=== PATIENT | female | born 1970 | race Caucasian/White ===

== ENCOUNTER 2021-07-08 15:47 | Observation (INO) | payer BC, SELFPAY ==
[2021-07-08] VITALS (15 sets, daily range): BP systolic 128–158; BP diastolic 61–104; PULSE 74–144; RESP 16–21; TEMP 36.4–36.8; O2SAT 95–98; BMI 29.8; BMI 31.0
--- NOTE | 2021-07-08 16:12 | EKG12_ITS ---
Test Reason : TACHY Blood Pressure : / mmHG Vent. Rate : 133 BPM Atrial Rate : 119 BPM P-R Int : 000 ms QRS Dur : 094 ms QT Int : 312 ms P-R-T Axes : 000 -37 085 degrees QTc Int : 464 ms Atrial fibrillation Left axis deviation Nonspecific ST abnormality Abnormal ECG Confirmed by WINNIE SUMMERS, JOSEPH ([id number]), medical transcription editor DESTINY PARKER ([id number]) on 07/12/2021 9:53:45 AM Referred By: Confirmed By:ENZO ZHOU MD
--- NOTE | 2021-07-08 16:12 | EX.ED.DYSGE1 ---
HPI <APRIL Garcia - Last Filed: 07/08/21 17:34> History of Present Illness Chief Complaint: Shortness of Breath Narrative Narrative: 51-year-old female with history of hypertension presents to the emergency department with a feeling of shortness of breath, palpitations, dizziness while at work. Patient presents with palpitations, patient denies any chest pain. Patient states that she does have a long family history of heart disease, and is here for evaluation. She denies any recent fevers chills nausea vomiting PFSH <APRIL Garcia - Last Filed: 07/08/21 17:34> [facility] Medical History (Updated 07/08/21 @ 15:58 by Xin Vidal) HTN (hypertension) Home Medications amlodipine 10 mg PO DAILY 07/08/21 [History Last Taken Unknown] metoprolol succinate 100 mg PO DAILY 07/08/21 [History Last Taken Unknown] Allergy/AdvReac Type Severity Reaction Status Date / Time codeine AdvReac Other Verified 07/08/21 15:49 Family History no significant family his Surgical History (Updated 07/08/21 @ 15:58 by Xin Vidal) History of submandibular gland removal Social History Smoking Status: Former smoker ROS <APRIL Garcia - Last Filed: 07/08/21 17:34> ROS ED ROS Narrative Constitutional: Negative for fever, chills, weight loss, weakness Eyes: Negative for vision loss, vision change, double vision ENT: Negative for any sore throat, ear pain, congestion Cardiovascular: Negative for any chest pain. Positive for tightness, palpitations, racing heartbeat Respiratory: Negative for any cough, sputum production, hemoptysis, shortness of breath, shortness of breath on exertion, orthopnea Gastrointestinal: Negative for any abdominal pain, nausea, vomiting, diarrhea, constipation, blood in stool, blood in vomit : Negative for any urinary frequency, incontinence, dysuria, retention, blood in urine Muscle skeletal: Negative for any muscle joint pain, stiffness, myalgias, arthralgias, neck pain, back pain Neurological: Negative for any headache, dizziness, syncope, numbness or tingling Skin: Negative for any rashes, lumps, itching, abrasions, lacerations Psychiatric: Negative for any depression, anxiety, stress, suicidal ideation, homicidal ideation Hematologic: Negative for any easy bruising, excessive bruising, easy bleeding Allergies: Negative for any eczema, hives, rash EXAM <APRIL Garcia - Last Filed: 07/08/21 17:34> Physical Exam Narrative Exam Narrative: Vital signs reviewed. Initial arrival, patient's heart rate is anywhere between 130 to 155 bpm HEET: Head normocephalic atraumatic, TMs clear bilaterally. Posterior pharynx is clear, moist mucous membranes. Nares clear bilaterally. Neck: Supple with no lymphadenopathy or tenderness. No signs of meningismus, negative jolt sign. Cardiac: Irregular rate no murmurs gallops or rubs, equal peripheral pulses bilaterally. Respiratory: Lungs clear to auscultation bilaterally. No chest tenderness. Abdomen: Soft, nontender, nondistended. No abdominal bruit or pulsatile masses. No hepatosplenomegaly Extremities: No peripheral edema, no signs of gross trauma or deformity. Active full range of motion of all extremities. Neuro: Cranial nerves II through XII intact, no focal neurological deficits. Skin: Clean dry and intact with no rash, purpura, petechiae, vesicles or pustules. Backslash flank: No CVA tenderness, no midline spinal tenderness, no deformity. Psych: Normal mood and affect. No SI, HI or acute psychosis. Const Vital Signs: 07/08/21 15:48 07/08/21 16:19 Temperature 97.6 F L Temperature Source Temporal Pulse Rate 125 H Respiratory Rate 21 H Blood Pressure 132/100 H Blood Pressure Mean 110 Pulse Ox 98 Oxygen Delivery Method Room Air Room Air Positive well nourished and well developed General Appearance ED: well developed <Dr. Raghav Rocha MD - Last Filed: 07/08/21 17:33> Physical Exam Const Vital Signs: 07/08/21 15:48 07/08/21 16:19 Temperature 97.6 F L Temperature Source Temporal Pulse Rate 125 H Respiratory Rate 21 H Blood Pressure 132/100 H Blood Pressure Mean 110 Pulse Ox 98 Oxygen Delivery Method Room Air Room Air MDM <APRIL Garcia - Last Filed: 07/08/21 17:34> [facility] Narrative Medical decision making narrative: Patient arrives in mild distress secondary to tachycardia, patient did receive a full cardiac work-up. Patient is currently in atrial fibrillation, patient received a full cardiac work-up. Patient's TSH was unremarkable, patient's high-sensitivity troponin was negative at 45. Patient's chemistries, CBC was unremarkable. Patient did receive Cardizem 25 mg IV bolus, after 1 hour, she had little to no relief, heart rate was still greater than 140. Patient was then given another 20 mg IV as well as a Cardizem drip at 5 mg/h. Patient is stable for admission. Lab Data Labs: Laboratory Results - last 24 hr 07/08/21 07/08/21 07/08/21 16:20 16:20 16:20 WBC 9.1 RBC 5.12 Hgb 11.7 L Hct 38.6 MCV 75.4 L MCH 22.9 L MCHC 30.3 L RDW Std Deviation 44.4 H RDW Coeff of Sandra 16.5 H Plt Count 356 MPV 10.4 Immature Gran % (Auto) 0.300 Neut % (Auto) 63.9 Lymph % (Auto) 22.3 [place] % (Auto) 9.4 Eos % (Auto) 3.5 Baso % (Auto) 0.6 Absolute Neuts (auto) 5.8 Absolute Lymphs (auto) 2.02 Nucleated RBC % 0 PT 12.5 INR 1.0 Sodium 142 Potassium 3.8 Chloride 108 H Carbon Dioxide 28.0 Anion Gap 6 BUN 14 Creatinine 0.86 Estim Creat Clear Calc 79.06 Est GFR (MDRD) Af Amer 89 Est GFR (MDRD) Non-Af 74 BUN/Creatinine Ratio 16.4 Glucose 133 H Calcium 9.1 Troponin I High Sens 45 TSH 1.71 Radiography Diagnostic Testing: Clinical Impression(s) from Imaging Studies Chest X-Ray 07/08/21 16:43 IMPRESSION: Normal x-ray examination of the chest. Electronically Signed: José Miguel Saleh MD at 17:02 EDT , EKG Atrial fibrillation, : Attestation: I personally reviewed and interpreted this EKG as follows: Comments: EKG shows an atrial fibrillation with a rate of 133 bpm QRS duration 94 ms, no acute ST elevation, no acute infarct noted <Dr. Raghav Rocha MD - Last Filed: 07/08/21 17:33> [facility] MDM Narrative Medical decision making narrative: I have personally performed a face to face assessment of the patient and have reviewed the DEJAN Note. I performed a substantive portion of the visit including all aspects of the following. My mcgowan findings include: History is [51-year-old female no cardiac history. In the past told she might have an irregular heartbeat but was worked up and she was not placed on any medication. Today around 130 had her heart racing and was short of breath. I have evaluated this patient with our nurse practitioner.] Exam is [obese female. Initial heart rate is around 03/22/1941. A. fib RVR. HEENT exam unremarkable. Neck nontender. Lungs clear to auscultation. Heart irregular irregular rate 135. Abdomen soft nontender. Moving all 4 extremities. Calves are nontender without edema or cords.] Medical Decision Making [patient with new onset A. fib RVR. Underwent cardiac work-up. Work-up negative. Thyroid test normal. She was initially given Cardizem bolus. Still has significant tachycardia. Will be given a second dose of Cardizem IV and then placed on a drip.] Other additions or changes: [None] Lab Data Attestation: I reviewed the patient's lab results. Lab results narrative: CBC White count 9. H&H 11.7 and 38. PT/INR 12.1. Electrolytes unremarkable gap is 6 normal BUN and creatinine. Troponin normal at 45. TSH normal at 1.7. Chest x-ray unremarkable. Labs: Laboratory Results - last 24 hr 07/08/21 07/08/21 07/08/21 16:20 16:20 16:20 WBC 9.1 RBC 5.12 Hgb 11.7 L Hct 38.6 MCV 75.4 L MCH 22.9 L MCHC 30.3 L RDW Std Deviation 44.4 H RDW Coeff of Sandra 16.5 H Plt Count 356 MPV 10.4 Immature Gran % (Auto) 0.300 Neut % (Auto) 63.9 Lymph % (Auto) 22.3 [place] % (Auto) 9.4 Eos % (Auto) 3.5 Baso % (Auto) 0.6 Absolute Neuts (auto) 5.8 Absolute Lymphs (auto) 2.02 Nucleated RBC % 0 PT 12.5 INR 1.0 Sodium 142 Potassium 3.8 Chloride 108 H Carbon Dioxide 28.0 Anion Gap 6 BUN 14 Creatinine 0.86 Estim Creat Clear Calc 79.06 Est GFR (MDRD) Af Amer 89 Est GFR (MDRD) Non-Af 74 BUN/Creatinine Ratio 16.4 Glucose 133 H Calcium 9.1 Troponin I High Sens 45 TSH 1.71 Radiography Chest X-Ray - ED: 1 View, Read by ED Physician, Read by Radiologist, Heart, Lungs, Mediastinum, Bony Structures, No Acute Disease and Chronic Changes Diagnostic Testing: Clinical Impression(s) from Imaging Studies Chest X-Ray 07/08/21 16:43 IMPRESSION: Normal x-ray examination of the chest. Electronically Signed: José Miguel Saleh MD at 17:02 EDT , Chest x-ray, portable, single view interpreted by myself and radiologist shows no acute abnormality. Normal cardiac silhouette. <Dr. Raghav Rocha MD - Last Filed: 07/08/21 17:33> Critical Care Time Critical care time (excluding procedures): 30-74 minutes, Discussing w/Patient &/or Family/Cuprous Chloride Helper, Discussing w/Consultants, Arranging Admission or Transfer, Performing Direct Patient Care at Bedside and - (33 min) Discharge Plan Triage Chief Complaint: Shortness of Breath ED Midlevel Provider: Fredrick Ballard ED Provider: Raghav Rocha Dx/Rx/DC Orders Prescriptions: No Action metoprolol succinate 100 mg tablet extended release 24 hr 100 mg PO DAILY RF: 0 amlodipine 10 mg tablet 10 mg PO DAILY RF: 0 Primary Care Provider: Gerald Baird Referrals: Gerald Baird MD [Primary Care Provider] -
[2021-07-08] MEDS: dilTIAZem 25 MG/5 ML Vial IV BOLUS (16:26)
[2021-07-08 16:37] LABS: Absolute Lymphocyte Count 2.02 X10^3/uL (0.83-4.51); Absolute Neutrophil Count 5.8 X10^3/uL (2.0-7.7); Basophil# 0.05 X10^3/uL; Basophil% 0.6 % (0-1); Eosinophil# 0.32 X10^3/uL; Eosinophils% 3.5 % (0-5); Hematocrit 38.6 % (37-47); Hemoglobin 11.7 g/dL (12.0-15.0); Lymphocyte # 2.02 X10^3/ul (0.83-4.51); Lymphocyte % 22.3 % (19-41); Mean Corp Hgb Conc 30.3 g/dL (32-36); Mean Corpuscular Hgb 22.9 pg (27.0-32.0); Mean Corpuscular Volume 75.4 fL (81-99); Mean Platelet Vol. 10.4 fl (6.2-12.0); Monocyte# 0.85 X10^3/uL; Monocyte% 9.4 % (0-10); NRBC Flagged by Analyzer 0 % (0-5); Neutrophil % 63.9 % (47-70); Platelet Count 356 K/mm3 (150-450); RBC Distribution Width CV 16.5 % (11.6-14.6); RBC Distribution Width SD 44.4 fl (35.1-43.9); Red Blood Count 5.12 M/mm3 (4.2-5.4); White Blood Count 9.1 K/mm3 (4.4-11.0)
[2021-07-08 16:42] LABS: Prothrombin Time (Protime)PT. 12.5 SECONDS (11.7-14.9)
--- NOTE | 2021-07-08 16:43 | RAD_ITS ---
STUDY: X-RAY CHEST REASON FOR EXAM: Female, 51 years old. chest pain TECHNIQUE: Single AP portable view of the chest. COMPARISON: None. FINDINGS: The lungs are clear and expanded. There is no demonstrated pleural abnormality. Normal size heart. Normal mediastinum and berny. Normal visualized pulmonary arteries. Normal visualized aortic arch and descending thoracic aorta. Normal visualized thoracic spine. Normal visualized ribs, clavicles, and shoulders. There is no demonstrated abnormality of the visualized soft tissue structures of the upper abdomen. RAD/Chest 1 View (Portable) IMPRESSION: Normal x-ray examination of the chest. Electronically Signed: José Miguel Saleh MD at 17:02 EDT ,
[2021-07-08 17:00] LABS: Anion Gap 6 (5-15); BUN 14 mg/dL (7-18); BUN/Creat Ratio 16.4 RATIO (10-20); Calcium,Total 9.1 mg/dL (8.5-10.1); Chloride 108 mmol/L (98-107); Creatinine, Serum 0.86 mg/dL (0.55-1.02); EST Glomerular Filtration Rate 74 mL/min (>60); Est Glom Filt Rate - Afr Amer 89 mL/min (>60); Estimated Creatinine Clearance 79.06 ml/min; Glucose 133 mg/dL (74-106); Potassium 3.8 mmol/L (3.5-5.1); Sodium Level 142 mmol/L (136-145); Thyroid Stim Hormone (TSH) 1.71 uIU/mL (0.358-3.74); Troponin-I HS (w/2H Reflex) 45 pg/mL (3.0-54.0)
--- NOTE | 2021-07-08 17:27 | PCM.HP.STD ---
Documented by User: APRIL Kim 07/08/21 18:01 [facility] - General General Date of Admission: 07/08/21 Date of Service: 07/08/21 Chief Complaint: Palpitations HPI Narrative MAC WILL, is a 51 F who presents with palpitations. Patient has a history of hypertension but no history of atrial fibrillation. Patient received 1 dose in ER of Cardizem 25 mg. Patient also reports shortness of breath and dizziness, currently with palpitations. Patient denies any chest pain however patient does report that she has an extensive family history of heart disease. Patient initiated on Cardizem drip in ER. [facility] Medical History HTN (hypertension) Home Medications amlodipine 10 mg PO DAILY 07/08/21 [History Last Taken 07/08/21] metoprolol succinate 100 mg PO DAILY 07/08/21 [History Last Taken 07/07/21] Allergy/AdvReac Type Severity Reaction Status Date / Time codeine AdvReac Other Verified 07/08/21 15:49 Family History (Updated 07/08/21 @ 17:51 by APRIL Kim) Mother , from complications from mitral valve disease Hypertension Mitral valve disorder Brother Hypertension Sister Atrial fibrillation Father No problems noted. Family History no significant family his Surgical History History of breast lump removal History of submandibular gland removal Social History (Updated 07/08/21 @ 17:52 by APRIL Kim) Smoking Status: Former smoker alcohol intake: current alcohol intake frequency: holidays/special occasions only substance use type: does not use ROS Constitutional Constitutional: Denies anorexia, chills, fatigue, fever(s), malaise or weakness Cardiovascular Cardiovascular: Reports dizziness, dyspnea, palpitations and rapid heart rate; Denies chest pain, edema or vomiting Respiratory/Chest Respiratory/Chest: Denies cough, shortness of breath at rest, shortness of breath with exertion or wheezing Gastrointestinal Gastrointestinal: Denies abdominal pain, constipation, diarrhea, nausea or vomiting Genitourinary Genitourinary: Denies dysuria Musculoskeletal Musculoskeletal: Denies back pain, extremity pain, joint pain, joint stiffness or joint swelling Integumentary Integumentary: Denies dry skin Neurologic Neurologic: Denies abnormal gait, abnormal speech, confusion or focal weakness Psychiatric Psychiatric: Denies anxiety or depression Endocrine Endocrinology: Denies change in body appearance Vital Signs Vital Signs Vital Signs: 07/08/21 15:48 07/08/21 16:19 Temperature 97.6 F L Temperature Source Temporal Pulse Rate 125 H Respiratory Rate 21 H Blood Pressure 132/100 H Blood Pressure Mean 110 Pulse Ox 98 Oxygen Delivery Method Room Air Room Air Weight Weight: 202 lb Body Mass Index (BMI) 29.8 Physical Exam Const alert, oriented x3 and no apparent distress General Appearance: cooperative HEENT normocephalic and head/scalp atraumatic Eyes conjunctivae normal and no scleral icterus Neck supple Neck Narrative: Scar to right lateral neck from recent submandibular gland removal, no signs symptoms of infection General: trachea midline Resp normal respiratory effort, normal air movement and clear to auscultation bilaterally Cardio S1 normal heart sound, S2 normal heart sound and peripheral pulses 2+ throughout Rate: tachycardic Rhythm: abnormal rhythm irregularly irregular GI normal to inspection, nondistended, normoactive bowel sounds, soft to palpation and non-tender Extremity normal capillary refill and no clubbing, cyanosis or edema General Extremity: no tenderness to palpation of joints or extremities Skin General Skin Exam: no breakdown and turgor normal Lesions: no lesions Rashes: no rashes Neuro no focal motor deficits and no sensory deficits noted Speech: speech normal Motor Exam: Negative for general weakness Psych thought process normal, cooperative and affect normal Appearance: appropriate Results Lab / Micro Data Result Diagrams: 07/08/21 16:20 07/08/21 16:20 Labs: Laboratory Results - last 24 hr 07/08/21 16:20: WBC 9.1, RBC 5.12, Hgb 11.7 L, Hct 38.6, MCV 75.4 L, MCH 22.9 L, MCHC 30.3 L, RDW Std Deviation 44.4 H, RDW Coeff of Sandra 16.5 H, Plt Count 356, MPV 10.4, Immature Gran % (Auto) 0.300, Neut % (Auto) 63.9, Lymph % (Auto) 22.3, [place] % (Auto) 9.4, Eos % (Auto) 3.5, Baso % (Auto) 0.6, Absolute Neuts (auto) 5.8, Absolute Lymphs (auto) 2.02, Nucleated RBC % 0 07/08/21 16:20: PT 12.5, INR 1.0 07/08/21 16:20: Sodium 142, Potassium 3.8, Chloride 108 H, Carbon Dioxide 28.0, Anion Gap 6, BUN 14, Creatinine 0.86, Estim Creat Clear Calc 79.06, Est GFR (MDRD) Af Amer 89, Est GFR (MDRD) Non-Af 74, BUN/Creatinine Ratio 16.4, Glucose 133 H, Calcium 9.1, Troponin I High Sens 45, TSH 1.71 Radiology Impression Chest X-Ray 07/08/21 16:43 IMPRESSION: Normal x-ray examination of the chest. Electronically Signed: José Miguel Saleh MD at 17:02 EDT , Assessment & Plan Assessment/Plan (1) Atrial fibrillation with RVR: (2) Hypertension: QUALIFIERS: Hypertension type: primary hypertension Qualified Code(s): I10 - Essential (primary) hypertension (3) Microcytic anemia: PLAN: 1. Atrial fibrillation with RVR -Admit to PCU -Initiate Cardizem drip, patient received 2 doses IV push in ER, RVR continued -Trend cardiac enzymes -Echocardiogram in a.m. -Cardiac diet -Intake and output with daily weights -Case management consulted for discharge planning, likely patient will need NOAC -Vital signs per protocol -Twelve-lead EKG daily -CBC, CMP, hemoglobin A1c, lipid profile ordered for a.m. -TSH completed in ER, normal -Magnesium level ordered stat, potassium 3.8 -Patient initiated on therapeutic dose of subcu Lovenox 90 mg twice daily -Encouraged patient to call for help when ambulating in room or to bathroom as patient has been dizzy. -O2 per protocol, patient currently on room air, pulse ox 97% 2. Microcytic anemia -Unknown if this is chronic for patient as there are no comparison labs -We will obtain ferritin, iron, TIBC, stool occult blood -CBC daily 3. Hypertension -Chronic for patient, due to patient being initiated on Cardizem drip we will hold hypertensive medications at this time -Discussed medications with patient patient states that she is supposed to be taking metoprolol succinate 50 mg twice daily however due to insurance patient was only allowed to have 100 mg tabs and was originally told to split pills in half. Patient reports that doctors office then told her that she cannot split the pills in half do it to be extended release, so she has been taking 100 mg p.o. at night. -Vital signs per protocol -As needed IV hydralazine ordered DVT prophylaxis-therapeutic subcu Lovenox This patient was seen by APRIL Kim under the supervision of Dr. Herman. 31 minutes spent in clinical coordination of patient's plan of care. Documented by User: Dr. Sahra Herman MD 07/08/21 19:54 HPI - General General Date of Admission: 07/08/21 [facility] Medical History HTN (hypertension) Home Medications amlodipine 10 mg PO DAILY 07/08/21 [History Last Taken 07/08/21] metoprolol succinate 100 mg PO DAILY 07/08/21 [History Last Taken 07/07/21] Allergy/AdvReac Type Severity Reaction Status Date / Time codeine AdvReac Other Verified 07/08/21 15:49 Family History (Updated 07/08/21 @ 17:51 by APRIL Kim) Mother , from complications from mitral valve disease Hypertension Mitral valve disorder Brother Hypertension Sister Atrial fibrillation Father No problems noted. Family History no significant family his Surgical History History of breast lump removal History of submandibular gland removal Social History (Updated 07/08/21 @ 17:52 by APRIL Kim) Smoking Status: Former smoker alcohol intake: current alcohol intake frequency: holidays/special occasions only substance use type: does not use Results Lab / Micro Data Result Diagrams: 07/08/21 16:20 07/08/21 16:20
[2021-07-08] MEDS: dilTIAZem 25 MG/5 ML Vial 20 MG IV BOLUS (17:30)
[2021-07-08 18:24] LABS: Reflex Troponin-HS? (from REC) Y
[2021-07-08 19:13] LABS: Troponin-I HS 58 pg/mL (3.0-54.0)
--- NOTE | 2021-07-08 19:37 | ECHOCS_ITS ---
Reason For Study: PAF Procedure This was a 2D Doppler, Color Flow transthoracic echocardiogram. Contrast injection was performed. Exam performed portable in patient room. Left Ventricle Normal LV size. The estimated ejection fraction is 60 %. No evidence for diastolic dysfunction. No regional wall motion abnormalities noted. Right Ventricle Normal RV size. Normal systolic function. Atria The left atrium is mildly enlarged. Normal right atrium. No doppler evidence for ASD. Mitral Valve There is no mitral valve stenosis. Trivial mitral valve insufficiency. Tricuspid Valve There is no tricuspid stenosis. Trivial tricuspid valve insufficiency. Unable to estimate RV systolic pressure due to insufficient tricuspid regurgitant envelope. Aortic Valve There is no aortic stenosis. No aortic valve insufficiency. Pulmonic Valve There is no pulmonic valvular stenosis. No pulmonic valve insufficiency. Great Vessels Normal aortic root. Pericardium/Pleural No pericardial effusion. Medication Diluted definity 3ml given slow IV push to enhance endocardial definition. MMode/2D Measurements & Calculations LVIDd: 5.0 cm IVSd: 1.3 cm Ao root diam: 3.2 cm LVIDs: 3.2 cm LVPWd: 1.4 cm RVDd: 3.4 cm FS: 34.8 % LAV(MOD-bp): 70.2 ml LVAd ap4: 31.9 cm2 SV(MOD-sp4): 72.8 ml LAV(MOD-bp) Indexed: 33.3 ml/m2 LVLd ap4: 7.8 cm LAV(MOD-sp2): 75.2 ml EDV(MOD-sp4): 105.5 ml LAV(MOD-sp4): 64.8 ml EDV(sp4-el): 111.1 ml LVAs ap4: 16.0 cm2 LVLs ap4: 6.5 cm ESV(MOD-sp4): 32.7 ml ESV(sp4-el): 33.5 ml EF(MOD-sp4): 69.0 % EF(sp4-el): 69.9 % SV(sp4-el): 77.7 ml LA A4 area: 21.2 cm2 LA dimension(2D): 4.3 cm RA A4 area: 19.9 cm2 Doppler Measurements & Calculations MV E max casey: 66.8 cm/sec Lat Peak E' Casey: 7.1 cm/sec Med Peak E' Casey: 5.4 cm/sec MV A max casey: 76.2 cm/sec E/E' lat: 9.4 E/E' med: 12.3 MV E/A: 0.88 Ao V2 max: 134.6 cm/sec LV V1 max: 102.3 cm/sec PA V2 max: 75.7 cm/sec Ao max P.2 mmHg LV V1 max P.2 mmHg Ao V2 mean: 95.8 cm/sec Ao mean P.9 mmHg Ao V2 VTI: 30.6 cm TR max casey: 218.0 cm/sec TR max P.0 mmHg ECHO/Echo Complete W/ Contrast Interpretation Summary The estimated ejection fraction is 60 %. No evidence for diastolic dysfunction. The left atrium is mildly enlarged. Trivial mitral valve insufficiency. Ordering Physician: Sahra Herman Referring Physician: Gerald Baird Performed By: Sahara Sales, HUMERACS, RVT
[2021-07-08 20:04] LABS: Ferritin 6 ng/mL (8-252); Iron 36 ug/dL (50-170); Iron Binding Capacity,Total 475 ug/dL (250-450); PERCENT IRON SATURATION 7.6 % (15.0-55.0)
--- NOTE | 2021-07-08 20:09 | EKG12_ITS ---
Test Reason : REPEAT Blood Pressure : / mmHG Vent. Rate : 079 BPM Atrial Rate : 079 BPM P-R Int : 156 ms QRS Dur : 096 ms QT Int : 424 ms P-R-T Axes : 015 -32 055 degrees QTc Int : 486 ms Normal sinus rhythm Left axis deviation Prolonged QT Abnormal ECG When compared with ECG of 08-JUL-2021 16:14, MANUAL COMPARISON REQUIRED, DATA IS UNCONFIRMED Confirmed by WINNIE SUMMERS, JOSEPH ([id number]), material expeditor DESTINY PARKER ([id number]) on 07/12/2021 10:10:49 A M Referred By: VINICIUS Confirmed By:ENZO ZHOU MD
[2021-07-08 22:30] LABS: Troponin-I HS 50 pg/mL (3.0-54.0)
--- NOTE | 2021-07-08 22:43 | NURSING ---
2029 Pt states significant other is in ER with her phone switchboard operator supervisor and sandwich and they won't let him up. This nurse told pt we would call the ER and tell them to let him up. neurosurgical nurse practitioner calls ER to notify them, ER states pt's visitor left and that her phone switchboard operator supervisor and food was sitting down there. [id number] PSA notifies this RN that pt is upset that ER would not let her visitor up and that she's been waiting for her food. 2119 this RN apologizes to pt on misunderstanding and tries to explain situation and that this RN would go get her food. Pt is visibly upset and states I have been waiting for an hour! this is ridiculous! I'm so disappointed in this place. 2129 This RN walks to ER and delivers pt's food and phone switchboard operator supervisor to her.
--- NOTE | 2021-07-08 23:18 | NURSING ---
Pt is declining subcutaneous lovenox at this time. Pt states she is worried about her iron issues and how heavy her menstrual cycles have been, so she would like to speak to the doctor in the morning about her concerns.
[2021-07-08] MEDS: dilTIAZem CD 180 MG Capsule PO (23:52)
[2021-07-08] MEDS: Metoprolol(XL)Succ 100 MG Tablet PO (23:52)
[2021-07-09] VITALS (10 sets, daily range): BP systolic 114–148; BP diastolic 56–86; PULSE 57–71; RESP 16; TEMP 36.7–36.8; O2SAT 94–98
--- NOTE | 2021-07-09 05:55 | EKG12_ITS ---
Test Reason : AM Blood Pressure : / mmHG Vent. Rate : 058 BPM Atrial Rate : 058 BPM P-R Int : 162 ms QRS Dur : 100 ms QT Int : 482 ms P-R-T Axes : 002 -20 036 degrees QTc Int : 473 ms Sinus bradycardia Otherwise normal ECG When compared with ECG of 08-JUL-2021 20:24, MANUAL COMPARISON REQUIRED, DATA IS UNCONFIRMED Confirmed by WINNIE SUMMERS, JOSEPH ([id number]), primer expeditor and drier DESTINY PARKER ([id number]) on 07/12/2021 10:10:41 A M Referred By: VINICIUS Confirmed By:ENZO ZHOU MD
[2021-07-09 06:20] LABS: Absolute Lymphocyte Count 2.43 X10^3/uL (0.83-4.51); Absolute Neutrophil Count 5.1 X10^3/uL (2.0-7.7); Basophil# 0.05 X10^3/uL; Basophil% 0.6 % (0-1); Eosinophil# 0.37 X10^3/uL; Eosinophils% 4.3 % (0-5); Hematocrit 38.9 % (37-47); Hemoglobin 11.7 g/dL (12.0-15.0); Lymphocyte # 2.43 X10^3/ul (0.83-4.51); Lymphocyte % 28.1 % (19-41); Mean Corp Hgb Conc 30.1 g/dL (32-36); Mean Corpuscular Hgb 22.6 pg (27.0-32.0); Mean Corpuscular Volume 75.1 fL (81-99); Mean Platelet Vol. 10.3 fl (6.2-12.0); Monocyte# 0.72 X10^3/uL; Monocyte% 8.3 % (0-10); NRBC Flagged by Analyzer 0 % (0-5); Neutrophil # 5.05 X10^3/uL (2.7-7.7); Neutrophil % 58.5 % (47-70); Platelet Count 349 K/mm3 (150-450); RBC Distribution Width CV 16.7 % (11.6-14.6); RBC Distribution Width SD 44.9 fl (35.1-43.9); Red Blood Count 5.18 M/mm3 (4.2-5.4); White Blood Count 8.6 K/mm3 (4.4-11.0)
[2021-07-09 06:51] LABS: ALB/GLOB Ratio 0.9 RATIO (0.9-2.4); AST(SGOT) 18 U/L (15-37); Alanine Aminotransfer ALT/SGPT 24 U/L (13-56); Albumin, Serum 3.4 g/dL (3.2-5.0); Alkaline Phosphatase 81 U/L (45-117); Anion Gap 7 (5-15); BUN 11 mg/dL (7-18); BUN/Creat Ratio 17.1 RATIO (10-20); Calcium,Total 8.7 mg/dL (8.5-10.1); Chloride 107 mmol/L (98-107); Cholesterol 234 mg/dL (200); Creatinine, Serum 0.64 mg/dL (0.55-1.02); EST Glomerular Filtration Rate 103 mL/min (>60); Est Glom Filt Rate - Afr Amer 124 mL/min (>60); Estimated Creatinine Clearance 106.24 ml/min; Globulin 3.6 g/dL (2.2-4.2); Glucose 118 mg/dL (74-106); High Density Lipoprotein 76 mg/dL; Potassium 3.7 mmol/L (3.5-5.1); Sodium Level 139 mmol/L (136-145); Triglycerides 98 mg/dL; Very Low Density Lipoprotein 20 mg/dL (5-40)
[2021-07-09 07:32] LABS: Hemoglobin A1c 5.6 % (3.8-5.6)
[2021-07-09] MEDS: dilTIAZem CD 180 MG Capsule PO (08:06)
--- NOTE | 2021-07-09 09:29 | PCM.DC ---
Discharge Instructions Diet Discharge Diet: 2000 mg Sodium Diet Activity Discharge Activity: Return to Normal Activity Dressing / Incision Call your doctor if you observe: Fever of 101 or Higher, Coldness, Increased Pain, Numbness or Tingling, Change in Color, Inability to urinate, Inability to have a bowel movement, Using more than 1 pad per hour, Shortness of breath, Dizziness, Fainting spells, Swelling in the ankles, Chest pain, Prolonged hiccupping, Increased palpitations (irregular heartbeat) and Calf discomfort Follow Up Care Test Results: Test results from this visit will be discussed in further detail at your follow-up appointment, if applicable. Discharge Plan Admission Admit Date/Time: 07/08/21 17:41 Attending Provider: Earnest Bustamante Primary Care Provider: Gerald Baird Consulting Providers: Sahra Herman Discharge Orders/Prescriptions Prescriptions: New Eliquis 5 mg Tablet 5 mg PO BID Qty: 60 RF: 0 diltiazem HCl [Cardizem CD] 120 mg capsule,extended release 24hr 120 mg PO DAILY Qty: 30 RF: 1 Continued metoprolol succinate 100 mg tablet extended release 24 hr 100 mg PO DAILY Qty: 0 RF: 0 Changed amlodipine 10 mg tablet 5 mg PO DAILY Qty: 0 RF: 0 Referrals / Follow Up: Gerald Baird MD [Primary Care Provider] - Fredrick Santiago MD [STAFF PHYSICIAN] - Within 1 Month (Afib with RVR) Disposition Disposition (needs filled in before D/C Order can be placed): Home, Self Care
--- NOTE | 2021-07-09 09:57 | PCM.DC.SUM ---
Documented by User: APRIL Kim 07/09/21 10:01 Providers Date of Admission: 07/08/21 Primary Care Physician: Dr. Gerald Baird MD Reason For Visit: PAF WITH RVR Diagnosis Discharge Diagnosis (1) Atrial fibrillation with RVR: Status: Acute Code(s): I48.91 - Unspecified atrial fibrillation (2) Hypertension: Status: Chronic Code(s): I10 - Essential (primary) hypertension Qualifiers: Hypertension type: primary hypertension Qualified Code(s): I10 - Essential (primary) hypertension (3) Microcytic anemia: Status: Acute Code(s): D50.9 - Iron deficiency anemia, unspecified Medications at Discharge Home Medications amlodipine 5 mg PO DAILY #0 tab 07/09/21 apixaban [Eliquis] 5 mg PO BID #60 tab 07/09/21 diltiazem HCl [Cardizem CD] 120 mg PO DAILY #30 cap 07/09/21 metoprolol succinate 100 mg PO DAILY #0 tab 07/09/21 Hospital Course Operations None Procedures EKG Summary of Care Provided Minutes Spent on Discharge: 35 Hospital Course: Initially presented to the ER on 07/08/2021 with complaints of palpitations and lightheadedness and dizziness at work. Patient states that her only medical history is hypertension however she does report a strong family history of atrial fibrillation including her mother and her sister. Patient noted to be in atrial fibrillation with RVR with heart rates in the 140s to 190s in the ER. Patient received 2 doses of IV Cardizem push which were ineffective at slowing her heart rate. Patient was then initiated on a Cardizem drip and converted to sinus rhythm overnight. Patient is continued on metoprolol, amlodipine increased from 5 mg to 10 mg and patient initiated on Eliquis and Cardizem. Patient instructed to follow-up with cardiology within 1 month as well as her PCP. Physical Exam Const alert, oriented x3 and no apparent distress General Appearance: cooperative HEENT normocephalic and head/scalp atraumatic Eyes conjunctivae normal and no scleral icterus Neck supple General: trachea midline Resp normal respiratory effort, normal air movement and clear to auscultation bilaterally Cardio S1 normal heart sound, S2 normal heart sound and peripheral pulses 2+ throughout Rate: tachycardic Rhythm: abnormal rhythm irregularly irregular GI normal to inspection, nondistended, normoactive bowel sounds, soft to palpation and non-tender Extremity normal capillary refill and no clubbing, cyanosis or edema General Extremity: no tenderness to palpation of joints or extremities Skin General Skin Exam: no breakdown and turgor normal Lesions: no lesions Rashes: no rashes Neuro no focal motor deficits and no sensory deficits noted Speech: speech normal Motor Exam: Negative for general weakness Psych thought process normal, cooperative and affect normal Appearance: appropriate Weight / BMI Weight Weight: 209 lb 10.554 oz Body Mass Index (BMI) 31.0 ABG / Lab / Microbiology Data Result Diagrams: 07/09/21 05:30 07/09/21 05:30 Laboratory: Laboratory Results - last 24 hr 07/08/21 16:20: WBC 9.1, RBC 5.12, Hgb 11.7 L, Hct 38.6, MCV 75.4 L, MCH 22.9 L, MCHC 30.3 L, RDW Std Deviation 44.4 H, RDW Coeff of Sandra 16.5 H, Plt Count 356, MPV 10.4, Immature Gran % (Auto) 0.300, Neut % (Auto) 63.9, Lymph % (Auto) 22.3, [place] % (Auto) 9.4, Eos % (Auto) 3.5, Baso % (Auto) 0.6, Absolute Neuts (auto) 5.8, Absolute Lymphs (auto) 2.02, Nucleated RBC % 0 07/08/21 16:20: PT 12.5, INR 1.0 07/08/21 16:20: Sodium 142, Potassium 3.8, Chloride 108 H, Carbon Dioxide 28.0, Anion Gap 6, BUN 14, Creatinine 0.86, Estim Creat Clear Calc 79.06, Est GFR (MDRD) Af Amer 89, Est GFR (MDRD) Non-Af 74, BUN/Creatinine Ratio 16.4, Glucose 133 H, Calcium 9.1, Troponin I High Sens 45, TSH 1.71 07/08/21 16:20: Magnesium 2.0, Iron 36 L, TIBC 475 H, Iron Saturation 7.6 L, Ferritin 6 L 07/08/21 18:40: Troponin I High Sens 58 H 07/08/21 22:00: Troponin I High Sens 50 07/09/21 05:30: WBC 8.6, RBC 5.18, Hgb 11.7 L, Hct 38.9, MCV 75.1 L, MCH 22.6 L, MCHC 30.1 L, RDW Std Deviation 44.9 H, RDW Coeff of Sandra 16.7 H, Plt Count 349, MPV 10.3, Immature Gran % (Auto) 0.200, Neut % (Auto) 58.5, Lymph % (Auto) 28.1, [place] % (Auto) 8.3, Eos % (Auto) 4.3, Baso % (Auto) 0.6, Absolute Neuts (auto) 5.1, Absolute Lymphs (auto) 2.43, Nucleated RBC % 0 07/09/21 05:30: Sodium 139, Potassium 3.7, Chloride 107, Carbon Dioxide 25.0, Anion Gap 7, BUN 11, Creatinine 0.64, Estim Creat Clear Calc 106.24, Est GFR (MDRD) Af Amer 124, Est GFR (MDRD) Non-Af 103, BUN/Creatinine Ratio 17.1, Glucose 118 H, Calcium 8.7, Total Bilirubin 0.50, AST 18, ALT 24, Alkaline Phosphatase 81, Total Protein 7.0, Albumin 3.4, Globulin 3.6, Albumin/Globulin Ratio 0.9, Triglycerides 98, Cholesterol 234 H, LDL Cholesterol 138 H, VLDL Cholesterol 20, HDL Cholesterol 76 07/09/21 05:30: Hemoglobin A1c 5.6 Radiography Diagnostic Testing: Radiology Impression Chest X-Ray 07/08/21 16:43 IMPRESSION: Normal x-ray examination of the chest. Electronically Signed: José Miguel Saleh MD at 17:02 EDT , D/C Instructions Discharge Diet: 2000 mg Sodium Diet Call your doctor if you observe: Fever of 101 or Higher, Coldness, Increased Pain, Numbness or Tingling, Change in Color, Inability to urinate, Inability to have a bowel movement, Using more than 1 pad per hour, Shortness of breath, Dizziness, Fainting spells, Swelling in the ankles, Chest pain, Prolonged hiccupping, Increased palpitations (irregular heartbeat) and Calf discomfort Meaningful Use Info Meaningful Use Diagnoses (Choose all that apply): None applicable Discharge Plan Admission Admit Date/Time: 07/08/21 17:41 Primary Reason for Your Visit: New onset Atrial Fibrillation with RVR Attending Provider: Earnest Bustamante Primary Care Provider: Gerald Baird Consulting Providers: Sahra Herman Discharge Orders/Prescriptions Prescriptions: New Eliquis 5 mg Tablet 5 mg PO BID Qty: 60 RF: 0 diltiazem HCl [Cardizem CD] 120 mg capsule,extended release 24hr 120 mg PO DAILY Qty: 30 RF: 1 Continued metoprolol succinate 100 mg tablet extended release 24 hr 100 mg PO DAILY Qty: 0 RF: 0 Changed amlodipine 10 mg tablet 5 mg PO DAILY Qty: 0 RF: 0 Referrals / Follow Up: Gerald Baird MD [Primary Care Provider] - Fredrick Santiago MD [STAFF PHYSICIAN] - 09/29/21 10:45 am (Afib with RVR) Disposition Disposition (needs filled in before D/C Order can be placed): Home, Self Care Documented by User: Dr. Earnest Bustamante MD 07/09/21 15:03 Providers Date of Admission: 07/08/21 Date of Discharge: 07/09/21 Reason For Visit: PAF WITH RVR Medications at Discharge Home Medications amlodipine 5 mg PO DAILY #0 tab 07/09/21 apixaban [Eliquis] 5 mg PO BID #60 tab 07/09/21 diltiazem HCl [Cardizem CD] 120 mg PO DAILY #30 cap 07/09/21 metoprolol succinate 100 mg PO DAILY #0 tab 07/09/21 Hospital Course Summary of Care Provided Hospital Course: This patient was seen in conjunction with ANNETTA Flores. I have independently interviewed and examined the patient and reviewed pertinent history, examination findings, laboratory and plan of management. I have reviewed the note and agree with the documented findings with the few additional points. In brief, patient is 51-year-old female with history of hypertension was admitted through ER in PCU for palpitation, racing heartbeat and found to be A. fib with RVR with heart rate ranging from 140 to 180/min. Patient did not respond much with Cardizem IV bolus therefore started on Cardizem drip. Patient converted to sinus rhythm overnight. Twelve-lead EKG reviewed. First 1 was A. fib at 133 bpm. Subsequently sinus bradycardia 58 bpm. QTc 473 ms. Patient home medication metoprolol succinate 100 mg continued. Cardizem CD 120 mg added. Patient was educated to monitor heart rate and skipped her dose if heart rate less than 60. Patient blood pressure normal therefore amlodipine dose decreased to 5 mg daily as Cardizem CD is being added. 2D echo shows EF 60% with no significant valvular abnormality. No evidence of diastolic dysfunction. Discharge medication reconciliation done. Discharge follow-up instructions completed. Discharge process discussed with the patient and all questions were answered to patient's satisfaction. 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 I have discussed my assessment with ANNETTA Flores and orders have been reviewed. Physical Exam Narrative Seen and examined. History taken from the patient directly. Patient has history of irregular heartbeat and in the past about 3 years ago and got resolved on its own. Patient also on metoprolol succinate 100 mg daily at home. She was admitted with palpitation dizziness, racing of the heart therefore came to ED and found A. fib with RVR heart rate in 125. Currently patient is converted to normal sinus rhythm heart rate in low 50s. Patient not on anticoagulant. General: Alert, Oriented x3, Cooperative HEENT: Atraumatic, PERRLA, EOMI, Normocephalic Oral: No Gingival or Mucosal Lesions/ Ulcerations Neck: Supple, No JVD, Negative Carotid Bruits Lungs: Air entry equal in bilateral lung bases. No crepitation/rhonchi Cardiovascular: Normal sinus rhythm, Normal S1, Normal S2, No murmurs Abdomen: Bowel Sounds Present, Soft, Non Tender, Non-Distended : No renal angle tenderness. No suprapubic tenderness. Extremities: No edema, Capillary Refill Less than 3 Seconds Skin: No rashes, No breakdown Musculoskeletal: No Tenderness to Palpation of Joints or Extremities Neurological: Cranial nerves II-XII grossly intact, DTR 2+/4 and Symmetrical, Neuro grossly intact Psych/Mental Status: Normal Affect, Appropriate. ABG / Lab / Microbiology Data Result Diagrams: 07/09/21 05:30 07/09/21 05:30 Discharge Plan Admission Admit Date/Time: 07/08/21 17:41 Primary Reason for Your Visit: New onset Atrial Fibrillation with RVR Attending Provider: Earnest Bustamante Primary Care Provider: Gerald Baird Consulting Providers: Sahra Herman Discharge Orders/Prescriptions Prescriptions: New Eliquis 5 mg Tablet 5 mg PO BID Qty: 60 RF: 0 diltiazem HCl [Cardizem CD] 120 mg capsule,extended release 24hr 120 mg PO DAILY Qty: 30 RF: 1 Continued metoprolol succinate 100 mg tablet extended release 24 hr 100 mg PO DAILY Qty: 0 RF: 0 Changed amlodipine 10 mg tablet 5 mg PO DAILY Qty: 0 RF: 0 Referrals / Follow Up: Gerald Baird MD [Primary Care Provider] - Fredrick Santiago MD [STAFF PHYSICIAN] - 09/29/21 10:45 am (Afib with RVR) Disposition Disposition (needs filled in before D/C Order can be placed): Home, Self Care Charges/Coding Visit Charges Inpatient E&M: 43436 Disch Hosp
--- NOTE | 2021-07-09 10:16 | CASEMGMT ---
Addendum entered by Chante Wong 07/09/21 11:11: Pt is aware of cost and voices no further questions/concerns. Thien ALBA CM Original Note: Pt to be sent home on Eliquis and med e-scribed to [facility] previously. Call to [facility] and per tech, pt's co-pay is $50. Pt provided with Eliquis 30 day free trial card and co-pay card. Thien ALBA CM
--- NOTE | 2021-07-09 10:56 | NURSING ---
Approached patient about [facility] Patient Link program. 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
--- NOTE | 2021-07-09 11:10 | CASEMGMT ---
ANJALI GODOY ASSISTANT CHIEF NURSING OFFICER CM to room to meet with patient for initial transition planning/care coordination assessment. ANJALI GODOY introduced self and role at [facility]. Pt voices understanding and consents to assessment at this time. Pt resting in bed in no distress at this time. Pt is A/O at this time and answers all questions appropriately. Care providers, pharmacy, and demographics verified/updated at this time. PCP: Dr Gerald Baird. Pt interested in switching to different PCP. Provided w/list of local PCP's. Specialists:none Preferred Pharmacy: [facility] Insurance: [place] Prescription Benefit: Yes LNOK: Pt does not have any NOK or emergency contact listed and states does not want to list anyone. Living Arrangements: Lives alone in one-story home. Independent. Transportation: Pt states drives self and states no transportation concerns at this time. DME: Has a pulse ox. Pt states no need for further DME at this time. HHC/SNF: No hx of either. No needs identified. Pt wishes to return home and states has no concerns with going home at time of discharge. PLAN: Home w/discharge plans in place. Papito MANZO RN, CM
== END 2021-07-09 11:41 | disposition home or self-care (01) | DRG 310 ==
LOC: ED 17:28 → PCU 07-09 06:59
PROVIDERS: Nurse Practitioner; Admitting Provider Family Medicine; Emergency Provider Emergency Medicine; PCP Family Medicine; Visit Provider Internal Medicine
DX: I48.0 Paroxysmal atrial fibrillation (principal); D50.9 Iron deficiency anemia, unspecified; I10 Essential (primary) hypertension; N92.0 Excessive and frequent menstruation with regular cycle; Z79.899 Other long term (current) drug therapy; Z87.891 Personal history of nicotine dependence; Z82.49 Family history of ischemic heart disease and other diseases of the circulatory system
CPT/HCPCS: 36415; 71045; 80048; 80053; 80061; 82728; 83036; 83540; 83550; 83735; 84443; 84484; 85025; 85610; 93005; 93306; 96365; 96366; 96375; 96376; 99218; 99285; Q9957; A4216; C8929; G0378

== ENCOUNTER → 2021-11-26 | Outpatient (CLI) | payer BC, SELFPAY ==
--- NOTE | 2021-11-26 15:31 | BI_ITS ---
MAMMOGRAPHY - BILATERAL SCREENING REASON FOR EXAM: Female, 51 years old. Routine annual screening examination. PERTINENT HISTORY: Grandmother with breast cancer. History of prior bilateral excisional breast biopsies. TECHNIQUE: Digital bilateral breast yariel (3D mammographic acquisition) in the CC and MLO projections. 2-D mediolateral oblique (MLO) and craniocaudad (CC) views of both breasts were obtained. CAD: Full Field Digital Mammography with Computer Added Detection was performed. COMPARISON: Comparison is made with prior outside examination of 09/14/2015. FINDINGS: Breast Composition: The breasts are extremely dense, which lowers the sensitivity of mammography. There is a 1.1 cm x 1.1 cm well-defined nodule in the deep central aspect of the right breast. Correlation with ultrasound is recommended. Stable fat-containing bilateral axillary lymph nodes. No other significant abnormalities are identified. BI/SCRN MAMM (CAD)W/YARIEL BILAT IMPRESSION: 1.1 cm x 1.1 cm well-defined nodule in the deep central aspect of the right breast. Correlation with ultrasound is recommended. ASSESSMENT CATEGORY: BIRADS Category 0: Incomplete. Need additional imaging evaluation. A letter regarding these results will be sent to the patient by the facility within 30 days. Approximately 10% of breast cancers are not detected by mammography. A normal mammogram should not delay biopsy of a clinically suspicious abnormality. [id number] Electronically Signed: Harish Rowell MD at 8:31 EDT ,
--- NOTE | 2021-11-26 16:22 | US_ITS ---
STUDY: ULTRASOUND OF THE FEMALE PELVIS - COMPLETE REASON FOR EXAM: Female, 51 years old. Known fibroids. Heavy menses. LMP: 11/15/2021 TECHNIQUE: Transabdominal TECHNICAL QUALITY: Adequate. COMPARISON: None. FINDINGS: The uterus is anteverted and is in a midline position. The uterus measures 12.6 x 10.5 x 5.0 cm. Normal uterine cervix. The endometrium measures 17 mm in thickness, and is hyperechoic. Small cystic areas within the endometrial canal.. There is no demonstrated endometrial mass. There is a 7.2 x 7.7 x 5.9 cm posterior uterine fibroid. Or less distinct fibroid measuring 4.9 x 3.7 x 3.6 cm. This abuts the endometrial canal. I.U.D. - The patient does not have an I.U.D. The right ovary is visualized. The right ovary measures 3.7 x 2.6 x 1.6 cm. There is a 1.6 x 2.0 x 1.4 cm dominant follicle. There is no visualized right adnexal mass or complex lesion. There is normal arterial and normal venous vascularity. The left ovary is visualized. The left ovary measures 4.7 x 2.7 x 1.8 cm. There are multiple follicles of the left ovary without a dominant cyst. There is no visualized left adnexal mass or complex lesion. There is normal arterial and normal venous vascularity. There is no fluid in the cul-de-sac. The pre void volume of the bladder was 95 ml. The bladder appears grossly normal. Polycystic ovary disease: No. US/Pelvic (Non ) IMPRESSION: 1. Fibroid uterus with small fibroid appears adjacent to the endometrial canal. 2. Prominent endometrium was normal internal cystic changes. 3. Dominant follicle versus cyst in the right ovary. The left ovary is unremarkable. Electronically Signed: Cortez Castro DO at 21:47 EDT ,
--- NOTE | 2021-11-26 16:22 | US_ITS ---
STUDY: ULTRASOUND OF THE FEMALE PELVIS - COMPLETE REASON FOR EXAM: Female, 51 years old. Known fibroids. Heavy menses. LMP: 11/15/2021 TECHNIQUE: Transabdominal TECHNICAL QUALITY: Adequate. COMPARISON: None. FINDINGS: The uterus is anteverted and is in a midline position. The uterus measures 12.6 x 10.5 x 5.0 cm. Normal uterine cervix. The endometrium measures 17 mm in thickness, and is hyperechoic. Small cystic areas within the endometrial canal.. There is no demonstrated endometrial mass. There is a 7.2 x 7.7 x 5.9 cm posterior uterine fibroid. Or less distinct fibroid measuring 4.9 x 3.7 x 3.6 cm. This abuts the endometrial canal. I.U.D. - The patient does not have an I.U.D. The right ovary is visualized. The right ovary measures 3.7 x 2.6 x 1.6 cm. There is a 1.6 x 2.0 x 1.4 cm dominant follicle. There is no visualized right adnexal mass or complex lesion. There is normal arterial and normal venous vascularity. The left ovary is visualized. The left ovary measures 4.7 x 2.7 x 1.8 cm. There are multiple follicles of the left ovary without a dominant cyst. There is no visualized left adnexal mass or complex lesion. There is normal arterial and normal venous vascularity. There is no fluid in the cul-de-sac. The pre void volume of the bladder was 95 ml. The bladder appears grossly normal. Polycystic ovary disease: No. US/Transvaginal Non- IMPRESSION: 1. Fibroid uterus with small fibroid appears adjacent to the endometrial canal. 2. Prominent endometrium was normal internal cystic changes. 3. Dominant follicle versus cyst in the right ovary. The left ovary is unremarkable. Electronically Signed: Cortez Castro DO at 21:47 EDT ,
[2021-11-26 17:51] LABS: Estradiol 87.6 pg/mL; Luteinizing Hormone 19.5 mIU/mL
[2021-12-12 18:07] LABS: Testosterone, Total 21 ng/dL (4-50)
[2021-12-13 17:02] LABS: Testosterone, % Free 1.45 % (0.50-2.80)
== END | disposition home or self-care (01) ==
PROVIDERS: PCP Nurse Practitioner; Referring Provider Obstetrics & Gynecology; Visit Provider Obstetrics & Gynecology
DX: Z12.31 Encounter for screening mammogram for malignant neoplasm of breast (principal); D25.9 Leiomyoma of uterus, unspecified; N63.10 Unspecified lump in the right breast, unspecified quadrant; N92.0 Excessive and frequent menstruation with regular cycle; N95.1 Menopausal and female climacteric states
CPT/HCPCS: 36415; 76830; 76856; 77063; 77067; 82670; 83001; 83002; 84402; 84403

== ENCOUNTER → 2021-12-01 | Outpatient (CLI) | payer BC, SELFPAY ==
--- NOTE | 2021-12-01 10:58 | US_ITS ---
STUDY: ULTRASOUND BREAST - LEFT REASON FOR EXAM: Female, 51 years old. Abnormal screening mammogram. TECHNIQUE: Axial and longitudinal images of the LEFT breast were performed with a high resolution ultrasound transducer. # OF IMAGES: 18 COMPARISON: Comparison is made with prior mammogram dated 11/26/2021. FINDINGS: LEFT Breast: The mammographic abnormality corresponds to a 1.3 cm x 1 cm x 0.5 cm cyst at the 6 o''clock position the breast at 2 cm from nipple. There is also evidence of a 7 mm x 8 mm x 5 mm cyst at the 3 o''clock position of the breast at 2 cm from nipple. US/Breast Limited Unilateral IMPRESSION: 1.3 cm x 1 cm x 0.5 cm cyst at the 6 o''clock position of the breast of 2 cm from nipple. This also evidence of a 7 mm x 8 mm x 5 mm cyst at the 3 o''clock position breast at 2 cm from nipple. ASSESSMENT CATEGORY: BIRADS Category 2: Benign. A letter regarding these results will be sent to the patient by the facility within 30 days. Electronically Signed: Harish Rowell MD at 15:00 EDT ,
== END | disposition home or self-care (01) ==
LOC: OPUS 10:56
PROVIDERS: PCP Nurse Practitioner; Visit Provider Obstetrics & Gynecology
DX: R92.8 Other abnormal and inconclusive findings on diagnostic imaging of breast (principal)
CPT/HCPCS: 76642

== ENCOUNTER → 2021-12-28 | Outpatient (CLI) | payer BC, SELFPAY ==
[2021-12-28 08:13] LABS: Absolute Lymphocyte Count 2.04 X10^3/uL (0.83-4.51); Absolute Neutrophil Count 5.5 X10^3/uL (2.0-7.7); Basophil# 0.05 X10^3/uL; Basophil% 0.6 % (0-1); Eosinophil# 0.31 X10^3/uL; Eosinophils% 3.6 % (0-5); Hematocrit 34.1 % (37-47); Hemoglobin 11.3 g/dL (12.0-15.0); Lymphocyte # 2.04 X10^3/ul (0.83-4.51); Lymphocyte % 23.8 % (19-41); Mean Corp Hgb Conc 33.1 g/dL (32-36); Mean Corpuscular Hgb 29.5 pg (27.0-32.0); Mean Platelet Vol. 10.6 fl (6.2-12.0); Monocyte# 0.58 X10^3/uL; Monocyte% 6.8 % (0-10); NRBC Flagged by Analyzer 0 % (0-5); Neutrophil # 5.53 X10^3/uL (2.7-7.7); Neutrophil % 64.6 % (47-70); Platelet Count 296 K/mm3 (150-450); RBC Distribution Width CV 13.4 % (11.6-14.6); RBC Distribution Width SD 43.5 fl (35.1-43.9); Red Blood Count 3.83 M/mm3 (4.2-5.4); White Blood Count 8.6 K/mm3 (4.4-11.0)
== END | disposition home or self-care (01) ==
LOC: PAVLAB 07:39
PROVIDERS: PCP Nurse Practitioner; Referring Provider Registered Nurse; Visit Provider Registered Nurse
DX: R53.83 Other fatigue (principal)
CPT/HCPCS: 36415; 85025

== ENCOUNTER → 2022-01-19 | Outpatient (CLI) | payer BC, SELFPAY ==
--- NOTE | 2022-01-11 17:16 | PCM.HP.BLA ---
History and Physical Date of Admission: 01/25/22 History of Physical MR#: [id number] Acct: [id number] Name:BEE AUSTIN Rep #: [id number] : 1970 Provider: Dr. Bee Ball, DO Age/Sex:? 51/F Intake Vital Signs ? 11/15/2212:52 01/11/2215:28 01/11/2215:43 Height 5 ft 8 in 5 ft 8 in 5 ft 8 in Weight: ? ? 232 lb 4 oz BMI ? ? 35.3 BP ? ? 139/84 H Intake Visit Reasons:?robotic hyst Director Of Curriculum Required: No Is patient in pain?: No Allergies codeine Adverse Reaction (Verified 01/11/22 15:43) Other Medications metoprolol succinate 100 mg tablet,extended release 24 hr 100 mg PO QHS 09/29/21 [History Confirmed 11/15/21] B-complex with vitamin C 1 tab PO DAILY 11/15/21 [History Confirmed 11/15/21] cholecalciferol (vitamin D3) 50 mcg (2,000 unit) capsule 50 mcg PO DAILY 11/15/21 [History Confirmed 11/15/21] ferrous sulfate 325 mg (65 mg iron) tablet 325 mg PO DAILY 11/15/21 [History Confirmed 11/15/21] amlodipine 10 mg tablet 10 mg PO DAILY #90 tabs 12/20/21 [Rx] medroxyprogesterone 10 mg tablet (Provera) 10 mg PO DAILY #30 tabs 12/30/21 [Rx] naproxen 500 mg tablet 500 mg PO BID PRN pain #30 tabs 01/11/22 [Rx Confirmed 01/11/22] oxycodone-acetaminophen 5 mg-325 mg tablet (Percocet) 1 tab PO Q4H PRN pain 7 days #30 tabs 01/11/22 [Rx Confirmed 01/11/22] Post menopausal: No Patient : No : No PFSH Medical History? Abnormal Pap smear of cervix Atrial fibrillation with RVR (07/08/21) Essential hypertension Fibroid Hyperlipidemia Microcytic anemia Surgical History? History of breast lump removal History of submandibular gland removal Status post colposcopy Family History? Mother?? ,? from complications from mitral valve disease Mitral valve disorderBrother HypertensionSister Atrial fibrillation HypertensionFather ?? No problems noted. Social History? Smoking Status:? Former smoker how long ago did patient quit smoking:? 2010 alcohol intake:? current alcohol intake frequency: holidays/special occasions only substance use type:? does not use caffeine:? No what type of physical activity do you participate in:? walking frequency:? 5-6 times per week seatbelt use:? always do you feel safe at home:? Yes additional social history:? [facility] robotic hyst Details: BEE WILL is a 51 year old who presents for pre-op Total robotic hysterectomy due to a history of heavy menses (none sine her heart incident in June). She recently took a steroid dose pack and the bleeding came back but only spotting. She states that prior to COVID she was diagnosed with a fibroid uterus that was 7 cm and 5 cm in size, at [facility]. She was given treatment options but nothing was carried through when the pandemic hit. She is now ready to discuss hysterectomy due to ongoing problems with the fibroids that are causing pressure and bladder retention. History ? ? ? 3 ? Elective abortions ? Hx Para ? ? ? 1 ? Spontaneous abortions ? ? ? 2 Hx # Term Pregnancies ? Ectopic pregnancies ? Hx # Pregnancies ? Multiple births ? # of living children ? Past Pregnancies Del. Date Name GA/Weeks Outcome Route Bth Weight Gen Labor Lgth Anesthesia Del Locatn Provider FOB Unknown Child adopted ? ROS Const ROS Unobtainable: All systems reviewed & are unremarkable except as noted in H Resp Resp: Reports system reviewed and no additional complaints, except as documented; Denies cough GI GI: Reports as per HPI Psych Psych: Reports system reviewed and no additional complaints, except as documented Exam Const General: cooperative, healthy appearing, comfortable and no acute distress Resp Effort & Inspection: normal respiratory effort Skin General: no rashes or lesions noted Psych Appearance: grossly normal Speech and Movement: speech and movement normal Coding Level of Care Code Off vis,est,level 4 Diagnoses Fibroid uterus? D25.9 Essential hypertension? I10 Heavy menses? N92.1 ? ? ? Menorrhagia type: with irregular cycle Assessment and Plan Assessment and Plan (1) Fibroid uterus: ?Status:?Acute ?Plan: After discussing the patient's diagnosis and treatment plan options, patient wishes to proceed with surgical management.? I have discussed with the patient the risks, benefits, and alternatives of the procedure which include but are not limited to risks of anesthesia, bleeding, infection, possible damage to bowel, bladder, or surrounding vasculature which could lead to additional surgery to evaluate any complications.? Patient agrees to procedure and wishes to proceed.? ACOG/uptodate references given for additional information regarding procedure.? plan is to proceed with a Total robotic hysteretomy, bilateral salpingectomy (declines oophorectomy), resection of fibroids and cystoscopy. (2) Essential hypertension: ?Status:?Chronic ?Plan: pt to take beta brian am of surgery. (3) Heavy menses: ?Status:?Acute ?Qualifiers: ?Menorrhagia type:?with irregular cycle? Qualified Code(s):?N92.1 - Excessive and frequent menstruation with irregular cycle ? ? ? Medications: New oxycodone-acetaminophen 5-325 mg (Percocet) 1 TAB? PO Q4H 7 days PRN 30 tabs 0RF pain D25.9 - Leiomyoma of uterus, unspecified ? naproxen 500 mg? PO BID PRN 30 tabs 0RF pain ? ? 01/11/22 7901 <Electronically signed by Bee Ball DO>
[2022-01-24 13:50] LABS: Hematocrit 23.3 % (37-47); Hemoglobin 6.8 g/dL (12.0-15.0); Mean Corp Hgb Conc 29.2 g/dL (32-36); Mean Corpuscular Hgb 22.7 pg (27.0-32.0); Mean Corpuscular Volume 77.9 fL (81-99); Mean Platelet Vol. 9.5 fl (6.2-12.0); Platelet Count 291 K/mm3 (150-450); RBC Distribution Width CV 19.1 % (11.6-14.6); RBC Distribution Width SD 54.4 fl (35.1-43.9); Red Blood Count 2.99 M/mm3 (4.2-5.4); White Blood Count 6.4 K/mm3 (4.4-11.0)
[2022-01-24 13:55] LABS: Prothrombin Time (Protime)PT. 13.2 SECONDS (11.7-14.9)
[2022-01-24 14:09] LABS: Anion Gap 1 (5-15); BUN 12 mg/dL (7-18); BUN/Creat Ratio 15.8 RATIO (10-20); Calcium,Total 8.4 mg/dL (8.5-10.1); Chloride 109 mmol/L (98-107); Creatinine, Serum 0.76 mg/dL (0.55-1.02); EST Glomerular Filtration Rate 84 mL/min (>60); Est Glom Filt Rate - Afr Amer 102 mL/min (>60); Glucose 211 mg/dL (74-106); Magnesium 2.3 mg/dL (1.6-2.6); Potassium 3.8 mmol/L (3.5-5.1); Sodium Level 137 mmol/L (136-145)
== END | disposition home or self-care (01) ==
LOC: PAT 02-15 17:48
PROVIDERS: Anesthesiology; PCP Nurse Practitioner; Referring Provider Obstetrics & Gynecology; Visit Provider Obstetrics & Gynecology
DX: Z01.818 Encounter for other preprocedural examination (principal); D25.9 Leiomyoma of uterus, unspecified; I10 Essential (primary) hypertension; Z87.891 Personal history of nicotine dependence
CPT/HCPCS: 36415; 80048; 83735; 85027; 85610; 85730; 86850; 86900; 86901; J3475

== ENCOUNTER → 2022-01-26 | Outpatient (CLI) | payer BC, SELFPAY ==
[2022-01-26 09:20] LABS: Vitamin B12 466 pg/mL (211-911)
[2022-01-26 09:22] LABS: Ferritin 4 ng/mL (8-252); Iron Binding Capacity,Total 511 ug/dL (250-450)
== END | disposition home or self-care (01) ==
LOC: PAVLAB 08:35
PROVIDERS: PCP Nurse Practitioner; Referring Provider Obstetrics & Gynecology; Visit Provider Obstetrics & Gynecology
DX: N92.1 Excessive and frequent menstruation with irregular cycle (principal); D64.9 Anemia, unspecified
CPT/HCPCS: 36415; 82607; 82728; 83550

== ENCOUNTER → 2022-02-03 | Outpatient (CLI) | payer BC, SELFPAY ==
[2022-02-03 10:09] VITALS: BP 136/73; PULSE 79; RESP 14; TEMP 36.3; O2SAT 100; BMI 32.3
[2022-02-03] MEDS: 0.9% NaCl Peripheral Flush Adult/Peds IV (10:20)
[2022-02-03] MEDS: 0.9% NaCl IVPB Med Flush (250 mL) 15 ML IV (10:31)
[2022-02-03 12:53] VITALS: BP 146/49; PULSE 91; RESP 16; TEMP 36.4
== END | disposition home or self-care (01) ==
LOC: MEDOUTP 09:49
PROVIDERS: PCP Nurse Practitioner; Referring Provider Obstetrics & Gynecology; Visit Provider Obstetrics & Gynecology
DX: D64.9 Anemia, unspecified (principal); N93.9 Abnormal uterine and vaginal bleeding, unspecified; N92.0 Excessive and frequent menstruation with regular cycle
CPT/HCPCS: 96365; 96366; J1756; J7050; A4216

== ENCOUNTER → 2022-02-10 | Outpatient (CLI) | payer BC, SELFPAY ==
[2022-02-10 13:35] VITALS: BP 138/67; PULSE 90; RESP 16; TEMP 36.4; O2SAT 97; BMI 32.8
[2022-02-10] MEDS: 0.9% NaCl IVPB Med Flush (250 mL) 15 ML IV (13:45)
[2022-02-10] MEDS: 0.9% NaCl Peripheral Flush Adult/Peds IV (14:21)
[2022-02-10 15:16] VITALS: BP 119/65; PULSE 68; RESP 16; TEMP 36.7; O2SAT 96
== END | disposition home or self-care (01) ==
LOC: MEDOUTP 13:21
PROVIDERS: PCP Nurse Practitioner; Referring Provider Obstetrics & Gynecology; Visit Provider Obstetrics & Gynecology
DX: D64.9 Anemia, unspecified (principal); N93.9 Abnormal uterine and vaginal bleeding, unspecified; N92.0 Excessive and frequent menstruation with regular cycle
CPT/HCPCS: 96365; 96366; J1756; J7050; A4216

== ENCOUNTER → 2022-02-17 | Outpatient (CLI) | payer BC, SELFPAY ==
[2022-02-17] MEDS: 0.9% NaCl Peripheral Flush Adult/Peds IV (13:14)
[2022-02-17] MEDS: 0.9% NaCl IVPB Med Flush (250 mL) 15 ML IV (13:15)
[2022-02-17 13:21] VITALS: BP 139/76; PULSE 71; RESP 14; TEMP 36.5; O2SAT 97; BMI 31.8
[2022-02-17 15:03] VITALS: BP 133/61; PULSE 67; RESP 14; TEMP 36.8; O2SAT 96
== END | disposition home or self-care (01) ==
LOC: MEDOUTP 13:03
PROVIDERS: PCP Nurse Practitioner; Referring Provider Obstetrics & Gynecology; Visit Provider Obstetrics & Gynecology
DX: D62 Acute posthemorrhagic anemia (principal); N93.9 Abnormal uterine and vaginal bleeding, unspecified; N92.0 Excessive and frequent menstruation with regular cycle
CPT/HCPCS: 96365; 96366; J1756; J7050; A4216

== ENCOUNTER 2022-02-24 08:00 | Emergency (ER) | payer BC, SELFPAY ==
[2022-02-24 08:01] VITALS: BP 135/87; PULSE 77; RESP 16; TEMP 36.6; O2SAT 98; BMI 31.8
[2022-02-24 08:47] VITALS: BP 138/72; PULSE 61; RESP 17; TEMP 36.2; O2SAT 98
[2022-02-24 08:51] LABS: Absolute Lymphocyte Count 1.31 X10^3/uL (0.83-4.51); Absolute Neutrophil Count 5.1 X10^3/uL (2.0-7.7); Basophil# 0.05 X10^3/uL; Basophil% 0.7 % (0-1); Eosinophils% 4.1 % (0-5); Hematocrit 38.3 % (37-47); Hemoglobin 10.9 g/dL (12.0-15.0); Lymphocyte # 1.31 X10^3/ul (0.83-4.51); Mean Corp Hgb Conc 28.5 g/dL (32-36); Mean Corpuscular Hgb 21.8 pg (27.0-32.0); Mean Corpuscular Volume 76.8 fL (81-99); Mean Platelet Vol. 9.7 fl (6.2-12.0); Monocyte% 6.9 % (0-10); NRBC Flagged by Analyzer 0 % (0-5); Neutrophil # 5.08 X10^3/uL (2.7-7.7); Neutrophil % 69.9 % (47-70); POSITIVE MORPHOLOGY YES; Platelet Count 386 K/mm3 (150-450); RBC Distribution Width CV 23.1 % (11.6-14.6); RBC Distribution Width SD 63.1 fl (35.1-43.9); Red Blood Count 4.99 M/mm3 (4.2-5.4); White Blood Count 7.3 K/mm3 (4.4-11.0)
[2022-02-24 08:56] LABS: Differential Indicated SCAN CRITERIA MET
[2022-02-24 09:03] LABS: Anion Gap 6 (5-15); BUN 8 mg/dL (7-18); BUN/Creat Ratio 11.5 RATIO (10-20); Calcium,Total 8.9 mg/dL (8.5-10.1); Chloride 111 mmol/L (98-107); Creatinine, Serum 0.69 mg/dL (0.55-1.02); EST Glomerular Filtration Rate 94 mL/min (>60); Est Glom Filt Rate - Afr Amer 113 mL/min (>60); Estimated Creatinine Clearance 98.54 ml/min; Glucose 116 mg/dL (74-106); Sodium Level 140 mmol/L (136-145)
--- NOTE | 2022-02-24 09:06 | EDS_ITS ---
HPI History of Present Illness Chief Complaint: Abn Labs Informant: patient Narrative Narrative: Patient presents here for concerns of anemia with increasing dyspnea over the past week. She has been have vaginal bleeding since October followed by Dr. Ascencio. Plan for hysterectomy however held due to anemia states hemoglobin in the 6 range. She has had 3 straight iron infusions last time a week ago. She has had some sinus congestion mild cough for the past week she reported increasing exertional dyspnea was told go to ED since symptoms yesterday. No lightheaded symptoms. No rectal bleeding. She is on medroxyprogesterone daily due to the vaginal bleeding. No fevers or headaches. No vomiting or diarrhea. [facility] Medical History Abnormal Pap smear of cervix Alcohol use Atrial fibrillation with RVR (07/08/21) Cardiology follow-up encounter Essential hypertension Fibroid Former smoker Heartburn History of atrial fibrillation History of echocardiogram History of pain when walking Hyperlipidemia Microcytic anemia Home Medications metoprolol succinate 100 mg tablet,extended release 24 hr 100 mg PO QHS 09/29/21 [History Last Taken Unknown] B-complex with vitamin C 1 tab PO DAILY 11/15/21 [History Last Taken Unknown] cholecalciferol (vitamin D3) 50 mcg (2,000 unit) capsule 50 mcg PO DAILY 11/15/21 [History Last Taken Unknown] amlodipine 10 mg tablet 10 mg PO DAILY #90 tabs 12/20/21 [Rx Last Taken Unknown] medroxyprogesterone 10 mg tablet (Provera) 10 mg PO DAILY #30 tabs 12/30/21 [Rx Last Taken Unknown] norethindrone acetate 5 mg tablet (Aygestin) 5 mg PO DAILY #60 tabs 01/26/22 [Rx Last Taken Unknown] Allergy/AdvReac Type Severity Reaction Status Date / Time codeine AdvReac Other Verified 02/24/22 08:03 Family History Mother , from complications from mitral valve disease Mitral valve disorder Brother Hypertension Sister Atrial fibrillation Hypertension Father No problems noted. Surgical History History of breast lump removal History of submandibular gland removal Hx of excision of mass Status post colposcopy Social History Smoking Status: Former smoker how long ago did patient quit smokin alcohol intake: current alcohol intake frequency: holidays/special occasions only substance use type: does not use caffeine: No what type of physical activity do you participate in: walking frequency: 5-6 times per week seatbelt use: always do you feel safe at home: Yes additional social history: [facility] ROS ROS ED Constitutional Constitutional ED: Denies chills, fever(s) or sweats Eyes Eyes: Denies change in vision ENT ENT ED: Denies dysphagia or sore throat Cardiovascular Cardiovascular: Denies chest pain, leg edema, palpitations or racing heartbeat Respiratory/Chest Respiratory/Chest: Reports cough and dyspnea; Denies dyspnea on exertion Gastrointestinal Gastrointestinal: Denies abdominal pain, diarrhea, nausea or vomiting Genitourinary Genitourinary ED: Denies dysuria, hematuria or urinary frequency Musculoskeletal Musculoskeletal: Denies back pain, extremity pain or neck pain Integumentary Denies rash or wounds Neurologic Neurologic: Denies headache(s), paresthesias or weakness EXAM Physical Exam Const Vital Signs: 02/24/22 08:01 02/24/22 08:47 02/24/22 08:47 Temperature 98 F 97.2 F L Temperature Source Temporal Oral Pulse Rate 77 61 Respiratory Rate 16 17 Respiratory Effort Normal Non-Labored Respiratory Pattern Normal Blood Pressure 135/87 H 138/72 H Blood Pressure Mean 103 94 Pulse Ox 98 98 Oxygen Delivery Method Room Air Room Air 02/24/22 10:51 Temperature Temperature Source Pulse Rate 84 Respiratory Rate 16 Respiratory Effort Respiratory Pattern Blood Pressure 129/57 H Blood Pressure Mean Pulse Ox 99 Oxygen Delivery Method Positive well nourished and well developed General Appearance ED: well developed and NAD HEENT Reports moist mucous membranes normocephalic and atraumatic Eyes PERRL, EOMs intact bilaterally and conjunctivae normal General Eye ED: Yes normal appearance of both eyes Neck no lymphadenopathy and supple General: Negative for tenderness Chest Wall Chest: Negative for tenderness Resp normal respiratory effort and normal air movement Effort and Inspection: symmetric chest movement; Negative for respiratory distress Cardio regular rate, regular rhythm and no murmurs Peripheral Pulses: pulses 2+ throughout GI normal to inspection, nondistended, normoactive bowel sounds and non-tender Palpation: Negative for guarding or rebound tenderness present Back/Spine no CVA tenderness and no thoracic nor lumbar tenderness Extremity normal to inspection General Extremety ED: Negative for edema or tenderness General Extremity: Negative for edema Neuro oriented x3 and no sensory deficits noted Sensorium / Orientation: awake and alert Skin no rashes or lesions noted and no wounds Skin Narrative: No skin pallor. MDM MDM MDM Narrative Medical decision making narrative: Patient reports exertional dyspnea slight cough and sinus congestion. Her vitals are stable. History of anemia. Differential could be symptomatic anemia from vaginal bleeding with her history versus viral syndrome. no clinical risk factors for PE. Laboratory studies were obtained and reviewed hemoglobin 10.9 up from 6.8 previously. Electrolytes are all normal. Two-view chest x-ray interpreted by myself read by radiology negative for any infiltrates. 1020: Discussed findings with the patient discussed likely viral syndrome. Not anemic today. We will ambulate with a pulse ox. Patient ambulated went down to 94% was clinically stable. Discharged with follow-up with her internal specialist. All questions were answered. Lab Data Attestation: I reviewed the patient's lab results. Labs: Laboratory Results - last 24 hr 02/24/22 02/24/22 08:42 08:42 WBC 7.3 RBC 4.99 Hgb 10.9 L Hct 38.3 MCV 76.8 L MCH 21.8 L MCHC 28.5 L RDW Std Deviation 63.1 H RDW Coeff of Sandra 23.1 H Plt Count 386 MPV 9.7 Immature Gran % (Auto) 0.400 Neut % (Auto) 69.9 Lymph % (Auto) 18.0 L [place] % (Auto) 6.9 Eos % (Auto) 4.1 Baso % (Auto) 0.7 Absolute Neuts (auto) 5.1 Absolute Lymphs (auto) 1.31 Nucleated RBC % 0 Differential Comment SCANNED Hypochromasia 1+ Anisocytosis 2+ Sodium 140 Potassium 4.0 Chloride 111 H Carbon Dioxide 23.0 Anion Gap 6 BUN 8 Creatinine 0.69 Estim Creat Clear Calc 98.54 Est GFR (MDRD) Af Amer 113 Est GFR (MDRD) Non-Af 94 BUN/Creatinine Ratio 11.5 Glucose 116 H Calcium 8.9 Radiography Diagnostic Testing: Clinical Impression(s) from Imaging Studies Chest X-Ray 02/24/22 09:35 IMPRESSION: Hyperinflation. The lungs are clear. Electronically Signed: Harish Rowell MD at 10:00 EST , Discharge Plan Triage Chief Complaint: Abn Labs ED Provider: Estuardo Camp Dx/Rx/DC Orders Clinical Impression: Viral upper respiratory illness, Anemia Instructions: Anemia, ED URI, Viral, No Abx (Adult) Prescriptions: No Action metoprolol succinate 100 mg tablet extended release 24 hr 100 mg PO QHS Label Comments: take 1 tablet by mouth once daily Rx Instructions: Hold for heart less than 60 or systolic blood pressure less than 100 mmHg. B-complex with vitamin C Tablet 1 tab PO DAILY cholecalciferol (vitamin D3) 50 mcg (2,000 unit) capsule 50 mcg PO DAILY amlodipine 10 mg tablet 10 mg PO DAILY Qty: 90 3RF medroxyprogesterone [Provera] 10 mg tablet 10 mg PO DAILY Qty: 30 1RF norethindrone acetate [Aygestin] 5 mg tablet 5 mg PO DAILY Qty: 60 0RF Primary Care Provider: Jennie Rivero NP Referrals: Bee Ball DO [Med Staff - Active Staff] - Keep Mike appointment Jennie Rivero NP, ANNETTA-C [Primary Care Provider] - Activity Restrictions/Additional Instructions: Hemoglobin 10.9 today. Chest x-ray negative. Disposition Disposition: Home, Self Care Discharge Date/Time: 02/24/22 10:52
--- NOTE | 2022-02-24 09:35 | RAD_ITS ---
STUDY: X-RAY CHEST REASON FOR EXAM: Female, 51 years old. Cough TECHNIQUE: PA and lateral views of the chest. COMPARISON: Comparison is made with prior study dated 07/08/2021. FINDINGS: EKG electrodes are seen. Hyperinflation. The lungs are clear. There is no demonstrated pleural abnormality. Normal size heart. Normal mediastinum and berny. Normal visualized pulmonary arteries. Normal visualized aortic arch and descending thoracic aorta. Normal visualized thoracic spine. Normal visualized ribs, clavicles, and shoulders. There is no demonstrated abnormality of the visualized soft tissue structures of the upper abdomen. RAD/Chest PA and Lateral IMPRESSION: Hyperinflation. The lungs are clear. Electronically Signed: Harish Rowell MD at 10:00 EST ,
[2022-02-24 09:42] LABS: Anisocytosis 2+; Differential Comment SCANNED; Hypochromasia 1+
[2022-02-24 10:42] VITALS: O2SAT 98
[2022-02-24 10:51] VITALS: BP 129/57; PULSE 84; RESP 16; O2SAT 99
== END 2022-02-24 10:52 | disposition home or self-care (01) ==
PROVIDERS: Emergency Provider Emergency Medicine; PCP Nurse Practitioner; Visit Provider Emergency Medicine
DX: J06.9 Acute upper respiratory infection, unspecified (principal); I48.91 Unspecified atrial fibrillation; N93.9 Abnormal uterine and vaginal bleeding, unspecified; E78.5 Hyperlipidemia, unspecified; I10 Essential (primary) hypertension; Z87.891 Personal history of nicotine dependence
CPT/HCPCS: 71046; 80048; 85025; 99282; A4216

== ENCOUNTER 2022-03-08 09:27 | Observation (INO) | payer BC, SELFPAY ==
[2022-03-08] VITALS (19 sets, daily range): BP systolic 107–144; BP diastolic 62–81; PULSE 59–75; RESP 16; TEMP 36.3–36.9; O2SAT 93–100; BMI 32.8
[2022-03-08] MEDS: Lactated Ringers 1,000 ML 40 ML IV (05:55)
[2022-03-08] MEDS: Magnesium 2 GM for ERAS IV (06:00)
[2022-03-08 06:06] LABS: Internal QC Validated? YES +Cl - CLEAR BKGD; Pregnancy, Urine Negative Negative
[2022-03-08] MEDS: Acetaminophen 500 MG Tablet 1000 MG PO ×4 (06:25→23:13)
[2022-03-08] MEDS: Phenazopyridine 95 MG Tablet 190 MG PO (06:25)
[2022-03-08] MEDS: dexAMETHasone 10 MG/ML Vial 8 MG IV (06:25)
[2022-03-08] MEDS: Gabapentin 600 MG Tablet PO (06:26)
[2022-03-08] MEDS: Celecoxib 200 MG Capsule 400 MG PO (06:26)
[2022-03-08] MEDS: Scopolamine 1mg/72hr Patch 1 PATCH TD (06:30)
--- NOTE | 2022-03-08 07:26 | HP.PCM_ITS ---
History and Physical Date of Admission: 03/08/22 Intake Vital Signs ?? 11/15/2212:52? 01/11/2215:28? 01/11/2215:43 Height? 5 ft 8 in? 5 ft 8 in? 5 ft 8 in Weight:? 232 lb 4 oz BMI? 35.3 BP? 139/84 H Intake Visit Reasons:?robotic hyst Clinical Safety Manager Required: No Is patient in pain?: No Allergies codeine Adverse Reaction (Verified 01/11/22 15:43)Other Medications metoprolol succinate 100 mg tablet,extended release 24 hr 100 mg PO QHS 09/29/21 [History Confirmed 11/15/21] B-complex with vitamin C 1 tab PO DAILY 11/15/21 [History Confirmed 11/15/21] cholecalciferol (vitamin D3) 50 mcg (2,000 unit) capsule 50 mcg PO DAILY 11/15/21 [History Confirmed 11/15/21] ferrous sulfate 325 mg (65 mg iron) tablet 325 mg PO DAILY 11/15/21 [History Confirmed 11/15/21] amlodipine 10 mg tablet 10 mg PO DAILY #90 tabs 12/20/21 [Rx] medroxyprogesterone 10 mg tablet (Provera) 10 mg PO DAILY #30 tabs 12/30/21 [Rx] naproxen 500 mg tablet 500 mg PO BID PRN pain #30 tabs 01/11/22 [Rx Confirmed 01/11/22] oxycodone-acetaminophen 5 mg-325 mg tablet (Percocet) 1 tab PO Q4H PRN pain 7 da ys #30 tabs 01/11/22 [Rx Confirmed 01/11/22] Post menopausal: No Patient : No : No PFSH Medical History? Abnormal Pap smear of cervix Atrial fibrillation with RVR (07/08/21) Essential hypertension Fibroid Hyperlipidemia Microcytic anemia Surgical History? History of breast lump removal History of submandibular gland removal Status post colposcopy Family History? Mother?? ,? from complications from mitral valve disease Mitral valve disorderBrother HypertensionSister Atrial fibrillation HypertensionFather ?? No problems noted. Social History? Smoking Status:? Former smoker how long ago did patient quit smoking:? 2010 alcohol intake:? current alcohol intake frequency: holidays/special occasions only substance use type:? does not use caffeine:? No what type of physical activity do you participate in:? walking frequency:? 5-6 times per week seatbelt use:? always do you feel safe at home:? Yes additional social history:? [facility] [place] robotic hyst Details: BEE WILL is a 51 year old who presents for pre-op Total robotic hysterectomy due to a history of heavy menses (none sine her heart incident in June). She recently took a steroid dose pack and the bleeding came back but only spotting. She states that prior to COVID she was diagnosed with a fibroid uterus that was 7 cm and 5 cm in size, at [facility]. She was given treatment options but nothing was carried through when the pandemic hit. She is now ready to discuss hysterectomy due to ongoing problems with the fibroids that are causing pressure and bladder retention. Current ultrasound shows: FINDINGS: The uterus is anteverted and is in a midline position.? The uterus measures 12.6 x 10.5 x 5.0 cm.? Normal uterine cervix.? The endometrium measures 17 mm in thickness, and is hyperechoic.? Small cystic areas within the endometrial canal..? There is no demonstrated endometrial mass.? There is a 7.2 x 7.7 x 5.9 cm posterior uterine fibroid.? Or less distinct fibroid measuring 4.9 x 3.7 x 3.6 cm.? This abuts the endometrial canal.? I.U.D. - The patient does not have an I.U.D. The right ovary is visualized.? The right ovary measures 3.7 x 2.6 x 1.6 cm.? There is a 1.6 x 2.0 x 1.4 cm dominant follicle.? There is no visualized right adnexal mass or complex lesion. There is normal arterial and normal venous vascularity. The left ovary is visualized.? The left ovary measures 4.7 x 2.7 x 1.8 cm. There are multiple follicles of the left ovary without a dominant cyst. There is no visualized left adnexal mass or complex lesion.? There is normal arterial and normal venous vascularity. There is no fluid in the cul-de-sac. The pre void volume of the bladder was 95 ml. The bladder appears grossly normal. Polycystic ovary disease:? No. US/Transvaginal Non- IMPRESSION: 1.? Fibroid uterus with small fibroid appears adjacent to the endometrial canal. 2.? Prominent endometrium was normal internal cystic changes. 3.? Dominant follicle versus cyst in the right ovary.? The left ovary is unremarkable. ? History ? 3? Elective abortions? Hx Para? 1? Spontaneous abortions? 2 Hx # Term Pregnancies? Ectopic pregnancies? Hx # Pregnancies? Multiple births? D ? # of living children? Past Pregnancies Del. Date? Name? GA/Weeks? Outcome Route? Bth Weight? Infant Gen? Labor Lgth? Anesthesia? Del Locatn? Provider FOB Unknown? Child adopted? ROS Const ROS Unobtainable: All systems reviewed & are unremarkable except as noted in H Resp Resp: Reports system reviewed and no additional complaints, except as documented; Denies cough GI GI: Reports as per HPI Psych Psych: Reports system reviewed and no additional complaints, except as documented Exam Const General: cooperative, healthy appearing, comfortable and no acute distress Resp Effort & Inspection: normal respiratory effort Skin General: no rashes or lesions noted Psych Appearance: grossly normal Speech and Movement: speech and movement normal Coding Level of Care Code Off vis,est,level 4 Diagnoses Fibroid uterus? D25.9 Essential hypertension? I10 Heavy menses? N92.1 ? ? ? Menorrhagia type: with irregular cycle Assessment and Plan Assessment and Plan (1) Fibroid uterus: ?Status:?Acute ?Plan: After discussing the patient's diagnosis and treatment plan options, patient wishes to proceed with surgical management.? I have discussed with the patient the risks, benefits, and alternatives of the procedure which include but are not limited to risks of anesthesia, bleeding, infection, possible damage to bowel, bladder, or surrounding vasculature which could lead to additional surgery to evaluate any complications.? Patient agrees to procedure and wishes to proceed.? ACOG/uptodate references given for additional information regarding procedure.? plan is to proceed with a Total robotic hysterectomy, bilateral salpingectomy (declines oophorectomy), resection of fibroids and cystoscopy. (2) Essential hypertension: ?Status:?Chronic ?Plan: pt to take beta brian am of surgery. (3) Heavy menses: ?Status:?Acute ?Qualifiers: ?Menorrhagia type:?with irregular cycle? Qualified Code(s):?N92.1 - Excessive and frequent menstruation with irregular cycle ? ? ? Medications: New oxycodone-acetaminophen 5-325 mg (Percocet)? 1 TAB? PO Q4H 7 days PRN 30 tabs 0RF pain? D25.9 - Leiomyoma of uterus, unspecified ? naproxen? 500 mg? PO BID PRN 30 tabs 0RF pain? ? ? 01/11/22 6361 <Electronically signed by Bee Ball DO> UPDATE- I have seen the patient and performed any clinically relevant updates to the history and physical exam. Bee Ball, DO
[2022-03-08] MEDS: Ondansetron 4 MG/2 ML Vial IV (07:30)
--- NOTE | 2022-03-08 07:30 | HYST_PTH ---
PATIENT: MAC WILL LOC: MS3 U#:[id number] AGE/SX: 51/F [place] [facility] [place]: Dr. Mac Ball DO : 1970 BED: 1 DIS: 03/09/2022 SPEC #: [id number] RECD: 03/08/22 09:59 STATUS: WILDA TERE #: [id number] WU: 03/08/22 07:[address]: Mac Ball DEPT: SURGICAL PATHOLOGY RECD BY: Demetria Viera ENTERED: 03/08/22 10:34 SP TYPE: HYSTERECT OTHR DR: Jennie Rivero, DRESS FITTER-C Tissues: Uterus, NOS Procedures: Surgery Specimen Level V HEADER OPERATION: ERAS, lap robotic hysterectomy, bilateral salpingectomy left oophorectomy PRE-OP DIAGNOSIS: Fibroid uterus TISSUE SUBMITTED: Uterus, cervix, bilateral fallopian tubes and left ovary MICROSCOPIC DIAGNOSIS Uterus, hysterectomy: Cervix ? nabothian cysts, squamous metaplasia and mild chronic inflammation. Endometrium ? secretory endometrium. Myometrium ? leiomyomas and adenomyosis. Left ovary ? serous cyst adenomas and corpus luteal cysts. Right and left fallopian tubes ? benign paratubal cysts. AM:shira 03/09/2022 MICROSCOPIC DESCRIPTION Slides are reviewed. GROSS DESCRIPTION Received in fixative is one container labeled with the patient's name and designated uterus, cervix, bilateral fallopian tubes and left ovary. The specimen consists of a hysterectomy specimen in multiple pieces consisting of uterus with cervix and attached left fallopian tube and ovary to the largest piece of uterus and detached left fallopian tube. The uterus with cervix in multiple pieces weighs in aggregate 188 gm. One of the pieces consist of lower portion of uterus and cervix which measures 10 x 4 x 4 cm. The ectocervical mucosa is unremarkable. The external os is oval in contour. The endocervical canal measures 5 cm in length. The endocervical mucosa is iqbal, glistening and unremarkable. Sections of the cervix reveal multiple cysts filled with mucoid material. Sections of the uterine cavity distal portion present in this piece measures 3 cm in length and 1 cm in width. The endometrium in this portion is iqbal, glistening without any mass lesion. Three detached pieces of uterus measure in aggregate 7 x 5 x 4 cm. The largest piece of uterus measures 10 x 6 x 7 cm. The endometrial cavity in this piece measures 4 cm in length and 1 cm in width. The endometrium is iqbal, glistening without any mass lesion and measures <0.1 cm in thickness. The posterior surface could not be oriented in this piece of uterus. Sections of the uterine wall reveal a nodular mass measuring 6 cm in diameter. Sections of this mass reveals iqbal whorled cut surfaces without areas of hemorrhage, necrosis or cystic degeneration. Smaller other masses are also identified measuring 0.8 and 1 cm in diameter. The uninvolved uterine wall measures up to 3.5 cm in thickness. Sections of the uterine wall also reveal trabeculated cut surfaces suspicious for adenomyosis. The right fallopian tube measures 5 cm in length and 0.5 cm in diameter. The fimbrial end is identified. A paratubal cyst is also noted measuring 0.5 cm in greatest dimension. Sections of fallopian tube reveal unremarkable cut surfaces. The left fallopian tube measures 6 cm in length and 0.5 cm in diameter. It is similar appearance to right. The soft to cystic left ovary measures 4 x 4 x 2 cm. Sections reveal multiple cysts filled with clear fluid. The largest cyst measures 2.5 cm in greatest dimension. Crime Data Specialist sections are submitted in 12 cassettes as follows: 1 - anterior cervix, 2 - posterior cervix, 3-6 - uterine wall, 7 ? largest nodular mas, 8 ? smaller nodular masses, 9 ? right fallopian tube and paratubal cyst, 10 ? left fallopian tube, 11 & 12 ? left ovary. / MARTI:shira 03/08/2022 TC: 1 CPT: 78868
[2022-03-08] MEDS: Cefazolin 2 GM in 0.9% Normal Saline 100 ML IV (07:42)
--- NOTE | 2022-03-08 09:15 | PCM.OP.BLANK ---
Problems Associated Problem List Diagnoses (1) Heavy menses: (2) Female climacteric state: (3) Fibroid uterus: (4) Anemia: Operative Report Date of Procedure: 03/08/22 Preoperative diagnosis:large fibroid uterus, menorrhagia, and anemia Postoperative diagnosis:large fibroid uterus, menorrhagia, and anemia, left ovary containing multiple cysts Procedure: Total robotic hysterectomy left salpingooophorectomy, right salpingectomy, and cystoscopy Surgeon: Dr. Bee Ball DO Assistants: JAIR Van; Luzma ADAM. Anesthesia: General endotracheal intubation Estimated blood loss: 100cc Urine output: to kick bucket Drains: None Implanted material: None Complications: None procedure start time(robot docked) : 8:11 am procedure end time(robot undocked): 9:00 am Findings: 12 cm size uterus, normal appearing ovaries and tubes. On exploration of the abdominal cavity the uterus, adnexa, bowel, and liver were found to be normal. Cystoscopy showed no evidence of leaking at approximately 250 cc of normal saline, positive ureteral orifices and jet flow are seen and no suture material was appreciated in the bladder. Specimens removed: Uterus and cervix, Bilateral tubes and left ovary Reason for surgery: This is a -year-old G3, P1 who presented to my office with a history of heavy menses that started in the middle of the ID-19 pandemic. She was worked up and the plan was for hysterectomy back in 2019, however her surgery was cancelled due to the global state that we were in at the time. She continues to have heavy menses and dropped her hg down into the 6 range in December. She is status post iron therapy IV and progesterone to stop bleeding. Her uterus has 2 fibroids that measure 7 and 5 cm . After iron therapy her hg increased to 10. The planned procedure is for a robotic hysterectomy the risks benefits and alternatives were discussed with the patient the patient had a clear understanding of the procedure and a consent form was signed. Procedure: The patient was placed in the dorsal low lithotomy position and prepped and draped in the normal sterile fashion both abdominally and in the perineum. Her legs were placed in stirrups a Mcdowell catheter was inserted into the urethra without difficulty. A weighted speculum was placed in the vagina and a single-tooth tenaculum was used to grasp the anterior lip of the cervix. A medium size advincula uterine manipulator was inserted through the cervix without complication. It was then tied into place at the 2 and 10:00 locations on the cervix. Gloves were changed and attention was turned towards the abdomen. Approximately 23 cm above the pubic symphysis in the midline, and after Marcaine injection, a 8 mm incision was made. An 8 mm trocar was inserted through the laparoscope, then inserted into the abdomen under direct visualization using the laparoscope. Good abdominal placement was noted and no complications were appreciated. An air seal device was utilized to create pneumoperitoneum. At 12 cm lateral to the midline on the left and right sides 8 mm accessory ports were placed. Next a left upper quadrant 8 mm economist research assistant port site was placed. The patient was placed in steep Trendelenburg position. The robot was docked. The hysterectomy was initiated first by taking down the round ligament on each side using the vessel sealer device. On the left side, there was noted to be multiple cysts on the ovary. The peritoneum between the round ligament and the IP ligament was opened using electrocautery and extended the length of the IP ligament. The IP ligament was then taken down using the vessel sealer device. These areas were freed without complication the broad ligament was then and taken down using the vessel sealer device. Next the bladder flap was taken down without complication. This was done using monopolar cautery to the level of the cervical vaginal junction. After the bladder flap was created, uterine vessels were then isolated and cauterized using the vessel sealer device and EndoShears. The right side of the uterus was also taken down in a similar fashion, however the right ovary appeared normal the patient requested on be left in. The fallopian tube, round ligament, broad ligament, and vessels were taken down. At this point the uterine vessels were taken down further starting from the ascending branch, dissecting along the edges of the cervix to the level of the cervical vaginal junction with hemostasis appreciated. The cervical vaginal junction was then using monopolar cautery in a circumferential pattern across the superior aspect of the cervix. The specimen was delivered through the vagina and sent to pathology. The remaining vaginal cuff was then closed using OV lock suture. This was performed in a running technique. Excellent hemostasis was obtained and good closure was noted. Irrigation was then performed. All operative sites were noted to be hemostatic. A cystoscopy was performed with a 70 degree cystoscope through the urethra into the bladder without complication. The bladder was instilled with approximately 250 cc of normal saline. Intraoperative images were made. Ureteral orifices and jets were identified. No suture material was appreciated in the bladder. The bladder was then drained and cystoscope was removed. The abdominal cavity was again examined using the laparoscope after the robot was undocked. All operative sites were noted to be hemostatic. The trochars were removed under direct visualization without complication and pneumoperitoneum was reduced. At this point the skin was then closed using 4-0 Monocryl subcuticular stitch and sealed with surgical glue. The patient tolerated the procedure well sponge lap and needle counts were correct x2 the patient was taken to the recovery room in stable condition. Multi Select Codes Urinary/Genital Urinary/Genital CPT Codes: 24450 Cystoscopy and 78164 TLH+BS/O >250gr uterus
--- NOTE | 2022-03-08 09:25 | DCINST_ITS ---
Discharge Instructions Diet Discharge Diet: No restrictions Activity May resume sexual activity in: 6 weeks Weight Bearing Status: Full weight bearing Dressing / Incision Call your doctor if your incision/area has: Continuous Slow Oozing, Sudden Increased Bleeding, Increased Pain/ Swelling, Increased Redness and Foul Smelling Discharge Call your doctor if you observe: Fever of 101 or Higher, Using more than 1 pad per hour, Shortness of breath, Chest pain and Uncontrolled pain Suture Line Care: Avoid Pulling/Pushing and Avoid Pinching/Bending Remove Dressing in: 1 week (if present) Cleanse incision/area with: Soap & Water and Keep Dressing Clean & Dry Follow Up Care Please Follow Up With: Bee Ball DO When: Call to make an appointment with your doctor for a postop visit in 2 and 6 weeks Test Results: Test results from this visit will be discussed in further detail at your follow- up appointment, if applicable. Discharge Plan Admission Primary Reason for Your Visit: robotic hysterectomy Attending Provider: Bee Ball Primary Care Provider: Jennie Rivero NP Discharge Orders/Prescriptions Prescriptions: New oxycodone-acetaminophen [Percocet] 5-325 mg tablet 1 tab PO Q4H PRN (Reason: pain) 7 Days Qty: 30 0RF Rx Instructions: 1-2 tabs q 4 hrs as needed for pain naproxen 500 mg tablet 500 mg PO BID PRN (Reason: pain) 10 Days Qty: 40 0RF Continued metoprolol succinate 100 mg tablet extended release 24 hr 100 mg PO QHS Label Comments: take 1 tablet by mouth once daily Rx Instructions: Hold for heart less than 60 or systolic blood pressure less than 100 mmHg. amlodipine 10 mg tablet 10 mg PO DAILY Qty: 90 3RF Discontinued medroxyprogesterone [Provera] 10 mg tablet 10 mg PO BID Referrals / Follow Up: Jennie Rivero NP, DIGITAL ACCOUNT SUPERVISOR-C [Primary Care Provider] - Disposition Disposition (needs filled in before D/C Order can be placed): Home, Self Care
[2022-03-08] MEDS: Ketorolac 30 MG/ML Syringe IV ×3 (13:15→23:12)
[2022-03-08] MEDS: 0.9% Saline Lock 10 ML Syringe IV ×2 (13:15→18:19)
[2022-03-08] MEDS: Docusate Sodium 100 MG Capsule PO ×2 (13:15→21:05)
[2022-03-08] MEDS: oxyCODONE 5 MG Tablet PO ×3 (16:27→23:13)
[2022-03-08] MEDS: Metoprolol(XL)Succ 100 MG Tablet PO (21:05)
[2022-03-09 04:30] VITALS: BP 135/79; PULSE 78; RESP 18; TEMP 36.9; O2SAT 97
[2022-03-09] MEDS: Ketorolac 30 MG/ML Syringe IV ×2 (05:44→11:49)
[2022-03-09] MEDS: 0.9% Saline Lock 10 ML Syringe IV (05:45)
[2022-03-09] MEDS: Acetaminophen 500 MG Tablet 1000 MG PO (05:45)
[2022-03-09] MEDS: oxyCODONE 5 MG Tablet PO ×2 (05:47→09:27)
[2022-03-09 05:49] LABS: Hematocrit 33.2 % (37-47); Hemoglobin 9.8 g/dL (12.0-15.0); Mean Corp Hgb Conc 29.5 g/dL (32-36); Mean Corpuscular Hgb 22.4 pg (27.0-32.0); Mean Corpuscular Volume 75.8 fL (81-99); POSITIVE MORPHOLOGY YES; Platelet Count 422 K/mm3 (150-450); RBC Distribution Width CV 21.5 % (11.6-14.6); RBC Distribution Width SD 58.5 fl (35.1-43.9); Red Blood Count 4.38 M/mm3 (4.2-5.4); White Blood Count 10.2 K/mm3 (4.4-11.0)
[2022-03-09 06:18] LABS: Scan Indicated on CBC? Y/N YES- FLAGS NOTED
[2022-03-09 06:31] LABS: Differential Comment SCANNED
--- NOTE | 2022-03-09 08:01 | PCM.PN.OB ---
Subjective Subjective Patient is laying in bed comfortably without complaints. She states that she slept on an off during the night. No vaginal bleeding present. She wonders about staying a few hours extra due to some dizziness when she stands. Still has scopolamine patch on. Recommend removing this. Objective Data Objective Data Vital Signs: Vital Signs Temp Pulse Resp BP Pulse Ox O2 Del Method O2 Flow Rate 98.4 F 78 18 135/79 H 97 Room Air 4 03/09/22 04:30 03/09/22 04:30 03/09/22 04:30 03/09/22 04:30 03/09/22 04:30 03/09/22 04:30 03/08/22 11:30 Oxygen Flow Rate (L/min) 4 Oxygen Delivery Method Room Air Weight: 222 lb 10.67 oz Body Mass Index (BMI) 32.8 Intake & Output: Intake and Output for Last 24 Hours 03/07/22 03/08/22 03/09/22 23:59 23:59 23:59 Intake Total 3214 / 3214 1500 / 1500 Balance 3214 / 3214 1500 / 1500 Lab / Micro Data Result Diagrams: 03/09/22 04:38 Labs: Laboratory Results - last 24 hr 03/09/22 04:38: WBC 10.2, RBC 4.38, Hgb 9.8 L, Hct 33.2 L, MCV 75.8 L, MCH 22.4 L, MCHC 29.5 L, RDW Std Deviation 58.5 H, RDW Coeff of Sandra 21.5 H, Plt Count 422, MPV 10.0, Differential Comment SCANNED ROS Constitutional Constitutional: Reports systems reviewed and no addt'l complaints, except as documented Cardiovascular Cardiovascular: Denies chest pain, dizziness, dyspnea or irregular heart rhythm Respiratory/Chest Respiratory/Chest: Denies cough, pain on inspiration or shortness of breath at rest Gastrointestinal Gastrointestinal: Denies abdominal pain, nausea or vomiting Genitourinary Genitourinary: Denies burning urination Musculoskeletal Musculoskeletal: Denies muscle cramps, muscle spasms or muscle weakness Neurologic Neurologic: Denies confusion, dizziness, headache(s) or lack of coordination Psychiatric Psychiatric: Denies anxiety, behavioral changes or depression Physical Exam HEENT normocephalic Resp normal respiratory effort and normal air movement GI soft to palpation, non-tender and non-distended Rectal Exam: other Other Details: Incision is clean, dry, and intact no CVA tenderness Extremity normal to inspection General Extremity: edema bilateral (trace ) Assessment & Plan (1) Status post hysterectomy: (2) Heavy menses: QUALIFIERS: Menorrhagia type: with irregular cycle Qualified Code(s): N92.1 - Excessive and frequent menstruation with irregular cycle (3) Fibroid uterus: (4) Atrial fibrillation with RVR: (5) Essential hypertension: COMMENT: CONTROLLED WITH MED (6) Anemia: PLAN: Plan patient is s/p robotic hysterectomy LSO for severe anemia and menorrhagia - POD 1 1. routine ERAS protocol postop care- increase ambulation, encourage oral intake and oral control of pain. scds for dvt prophylaxis, patient stable for discharge to home later today if no longer dizzy.
[2022-03-09 09:17] VITALS: BP 123/65; PULSE 64; RESP 18; TEMP 37.1; O2SAT 96
[2022-03-09] MEDS: amLODIPine 10 MG Tablet PO (09:28)
[2022-03-09] MEDS: Docusate Sodium 100 MG Capsule PO (09:28)
[2022-03-09] MEDS: Ensure Plus High Protein 120 ML LIQUID PO (11:49)
[2022-03-09 14:16] VITALS: BP 129/74; PULSE 60; RESP 18; TEMP 36.9; O2SAT 100
== END 2022-03-09 14:40 | disposition home or self-care (01) ==
LOC: SDC 11:10 → MS3 11:10
PROVIDERS: Admitting Provider Obstetrics & Gynecology; PCP Nurse Practitioner; Referring Provider Obstetrics & Gynecology; Visit Provider Obstetrics & Gynecology
PROC: 0UT90ZZ Resection of Uterus, Open Approach (ICD-10-PCS; CPT 58571; principal; 2022-03-08 07:10)
DX: D25.9 Leiomyoma of uterus, unspecified (principal); I48.91 Unspecified atrial fibrillation; Z86.16 Personal history of COVID-19; N83.202 Unspecified ovarian cyst, left side; Z87.891 Personal history of nicotine dependence; R33.9 Retention of urine, unspecified; I10 Essential (primary) hypertension; D64.9 Anemia, unspecified; N92.1 Excessive and frequent menstruation with irregular cycle; Z79.899 Other long term (current) drug therapy; E78.5 Hyperlipidemia, unspecified
CPT/HCPCS: 58571; S2900; 00840; 36415; 81025; 83735; 85027; 86850; 86900; 86901; 88307; 96361; 96374; 96376; 99221; 99252; J7120; A4216; G0378; G0463; J2405

== ENCOUNTER 2022-11-05 12:02 | Emergency (ER) | payer OTHER, SELFPAY ==
[2022-11-05 12:03] VITALS: BP 141/89; PULSE 80; RESP 16; TEMP 36.3; O2SAT 97; BMI 34.4
--- NOTE | 2022-11-05 12:12 | VDLE_ITS ---
Reason For Study: Pain LLE RIGHT LEFT CFV is compressible, spontaneous, phasic, GSV is normal. competent and demonstrates normal CFV is compressible, spontaneous, phasic, augmentation. competent, and demonstrates normal Procedure augmentation. This is a venous duplex using B-mode, color FV is compressible, spontaneous, phasic, flow and spectral Doppler. competent and demonstrates normal Exam performed portable in ED. augmentation. A preliminary report was called and/or faxed POP V is compressible, spontaneous, phasic, to Dr. Hair. competent and demonstrates normal augmentation. T/P Trunk is compressible. PTV is compressible. LT PerV is compressible. VL/Venous Duplex US, Unilateral Interpretation Summary Deep veins of the left lower extremity are patent and compressible segmentally. There is no evidence of left lower extremity deep vein thrombosis. The left great saphenous vein theodora ears patent and compressible segmentally. Ordering Physician: Jesus Hair Referring Physician: Jennie Rivero Performed By: Sahara Sales RDCS, RVT
--- NOTE | 2022-11-05 12:17 | EDS_ITS ---
HPI History of Present Illness HPI Narrative: Sinus with pain and swelling to her left foot and left popliteal area that began yesterday. Patient states she noticed some swelling and pain last night. Patient states it is worse with palpation. Patient describes it as stabbing. Patient admits to some tingling into her foot. Patient denies any weakness. Patient denies any trauma or injury. Patient is concerned about a blood clot. Patient states she had a hysterectomy approximately 6 months ago but that is her only recent surgery. Chief Complaint: Lower Extremity Injury Informant: patient Onset/Context/Timing Onset: Yesterday Context: Gradual Onset Timing: Continuous Quality of Pain: Stabbing Location: Left foot and left popliteal area Worsened by: Palpation Relieved by: Nothing Associated Symptoms Associated Symptoms: Positive for Parasthesia; Negative for Weakness or Loss of Funtion [facility] Medical History Abnormal Pap smear of cervix Alcohol use Atrial fibrillation with RVR (07/08/21) Cardiology follow-up encounter Essential hypertension Fibroid Former smoker Heartburn History of atrial fibrillation History of echocardiogram History of pain when walking Hyperlipidemia Microcytic anemia Home Medications amlodipine 10 mg tablet 10 mg PO DAILY #90 tabs 12/20/21 [Rx Last Taken 03/08/22 03:15] docusate sodium 100 mg capsule (Colace) 100 mg PO DAILY #30 caps 03/09/22 [Rx Last Taken Unknown] metoprolol succinate 100 mg tablet,extended release 24 hr 100 mg PO QHS #30 tabs 08/01/22 [Rx Last Taken Unknown] ciprofloxacin HCl 500 mg tablet 500 mg PO BID #20 tabs 09/09/22 [Rx Last Taken Unknown] fluconazole 150 mg tablet 150 mg PO Q3D 2 doses #2 tabs 09/09/22 [Rx Last Taken Unknown] Allergy/AdvReac Type Severity Reaction Status Date / Time codeine AdvReac Other Verified 11/05/22 12:13 Family History (Reviewed 08/02/22 @ 10:51 by Jennie Rivero PATHOLOGY LABORATORY AIDES TEACHER, PATHOLOGY LABORATORY AIDES TEACHER-C) Mother , from complications from mitral valve disease Mitral valve disorder Brother Hypertension Sister Atrial fibrillation Hypertension Father No problems noted. Surgical History History of breast lump removal History of robot-assisted laparoscopic hysterectomy History of submandibular gland removal Hx of excision of mass Status post colposcopy Social History Smoking Status: Former smoker how long ago did patient quit smokin alcohol intake: current alcohol intake frequency: holidays/special occasions only substance use type: does not use caffeine: No what type of physical activity do you participate in: walking frequency: 5-6 times per week seatbelt use: always do you feel safe at home: Yes additional social history: [facility] ROS ROS ED Constitutional Constitutional ED: Denies chills or fever(s) Eyes Eyes: Denies blurry vision or change in vision ENT ENT ED: Denies rhinorrhea or sore throat Cardiovascular Cardiovascular: Denies chest pain or palpitations Respiratory/Chest Respiratory/Chest: Denies cough or dyspnea Gastrointestinal Gastrointestinal: Denies nausea or vomiting Genitourinary Genitourinary ED: Denies dysuria or hematuria Musculoskeletal Musculoskeletal: Denies back pain or neck pain Integumentary Denies abscess or rash Neurologic Neurologic: Denies headache(s) or weakness Allergic/Immunologic Allergic/Immunologic ED: Denies mouth swelling or urticaria EXAM Physical Exam Const Vital Signs: 11/05/22 12:03 Temperature 97.4 F L Temperature Source Temporal Pulse Rate 80 Respiratory Rate 16 Blood Pressure 141/89 H Blood Pressure Mean 106 Pulse Ox 97 Oxygen Delivery Method Room Air Positive well nourished and well developed General Appearance ED: well developed and NAD HEENT Reports moist mucous membranes Neck full ROM and supple Extremity Extremity Narrative: There is tenderness to palpation over the dorsal aspect of the left midfoot. There are some mild edema. There is no ecchymosis. There is no deformity no norah. There is no tenderness over the distal metatarsals. There is mild tenderness in the popliteal fossa. There is no edema. There is no joint effusion noted. There is good range of motion of the left ankle and left knee. There is a good pedal pulse noted. Sensation was intact to light touch in all digits. Capillary refill was less than 2 seconds in all digits. Neuro oriented x3, CN's II-XII intact bilaterally, moves all extremities and no sensory deficits noted Sensorium / Orientation: alert Motor Exam: strength 5/5 throughout Skin no wounds MDM MDM MDM Narrative Medical decision making narrative: Due to the patient is concerned over possible DVT, venous duplex of the left lower extremity will be obtained to assess for DVT. Treatment and Re-Evaluation Narrative: Venous duplex of the left lower extremity was obtained and was negative. Patient was advised of her findings. Patient was instructed to ice and elevate the left foot. Patient was instructed to take Tylenol or ibuprofen as needed for pain. Patient was instructed to follow-up with her primary care physician in 5 to 7 days. Patient understood and was agreeable with the plan. All questions were answered. Discharge Plan Triage Chief Complaint: Lower Extremity Injury ED Provider: Jesus Hair Dx/Rx/DC Orders Clinical Impression: Sprain of foot, left Instructions: ED Foot Sprain Prescriptions: No Action metoprolol succinate 100 mg tablet extended release 24 hr 100 mg PO QHS Qty: 30 12RF Rx Instructions: Hold for heart less than 60 or systolic blood pressure less than 100 mmHg. ciprofloxacin HCl 500 mg tablet 500 mg PO BID Qty: 20 0RF fluconazole 150 mg tablet 150 mg PO Q3D Qty: 2 1RF docusate sodium [Colace] 100 mg capsule 100 mg PO DAILY Qty: 30 0RF amlodipine 10 mg tablet 10 mg PO DAILY Qty: 90 3RF Primary Care Provider: Jennie Rivero NP Referrals: Jennie Rivero NP, PATHOLOGY LABORATORY AIDES TEACHER-C [Primary Care Provider] - 5-7 Days Disposition Disposition: Home, Self Care
[2022-11-05 13:52] VITALS: BP 147/91; PULSE 77; RESP 18; O2SAT 95
== END 2022-11-05 13:52 | disposition home or self-care (01) ==
PROVIDERS: Emergency Provider Emergency Medicine; PCP Nurse Practitioner; Visit Provider Emergency Medicine
DX: S93.602A Unspecified sprain of left foot, initial encounter (principal); I48.91 Unspecified atrial fibrillation; X58.XXXA Exposure to other specified factors, initial encounter; I10 Essential (primary) hypertension; E78.5 Hyperlipidemia, unspecified; Z79.899 Other long term (current) drug therapy; Z87.891 Personal history of nicotine dependence
CPT/HCPCS: 93971; 99282

== ENCOUNTER → 2023-03-14 | Outpatient (CLI) | payer OTHER, SELFPAY ==
[2023-03-14 09:32] LABS: Absolute Lymphocyte Count 1.88 X10^3/uL (0.83-4.51); Absolute Neutrophil Count 4.2 X10^3/uL (2.0-7.7); Basophil# 0.04 X10^3/uL; Basophil% 0.6 % (0-1); Eosinophil# 0.22 X10^3/uL; Eosinophils% 3.2 % (0-5); Hematocrit 46.8 % (37-47); Hemoglobin 15.9 g/dL (12.0-15.0); Lymphocyte # 1.88 X10^3/ul (0.83-4.51); Mean Corpuscular Hgb 29.7 pg (27.0-32.0); Mean Corpuscular Volume 87.5 fL (81-99); Mean Platelet Vol. 10.3 fl (6.2-12.0); Monocyte# 0.55 X10^3/uL; Monocyte% 7.9 % (0-10); NRBC Flagged by Analyzer 0 % (0-5); Neutrophil # 4.24 X10^3/uL (2.7-7.7); Neutrophil % 60.7 % (47-70); Platelet Count 323 K/mm3 (150-450); RBC Distribution Width CV 12.1 % (11.6-14.6); RBC Distribution Width SD 38.6 fl (35.1-43.9); Red Blood Count 5.35 M/mm3 (4.2-5.4)
[2023-03-14 11:05] LABS: Anion Gap 4 (5-15); BUN 10 mg/dL (7-18); BUN/Creat Ratio 15.2 RATIO (10-20); Calcium,Total 9.7 mg/dL (8.5-10.1); Chloride 108 mmol/L (98-107); Creatinine, Serum 0.66 mg/dL (0.55-1.02); EST Glomerular Filtration Rate 99 mL/min (>60); Est Glom Filt Rate - Afr Amer 120 mL/min (>60); Glucose 140 mg/dL (74-106); Potassium 4.1 mmol/L (3.5-5.1); Sodium Level 138 mmol/L (136-145)
== END | disposition home or self-care (01) ==
PROVIDERS: PCP Nurse Practitioner; Referring Provider Student in an Organized Health Care Education/Training Program; Visit Provider Student in an Organized Health Care Education/Training Program
DX: Z01.818 Encounter for other preprocedural examination (principal); Z01.810 Encounter for preprocedural cardiovascular examination
CPT/HCPCS: 36415; 80048; 85025; 93005

== ENCOUNTER → 2023-08-08 | Outpatient (CLI) | payer OTHER, SELFPAY ==
--- NOTE | 2023-08-08 15:19 | BI_ITS ---
MAMMOGRAPHY - BILATERAL SCREENING REASON FOR EXAM: Female, 53 years old. Routine annual screening examination. PERTINENT HISTORY: Grandmother with breast cancer. History of prior bilateral excisional breast biopsies. TECHNIQUE: Digital bilateral breast yariel (3D mammographic acquisition) in the CC and MLO projections. 2-D mediolateral oblique (MLO) and craniocaudad (CC) views of both breasts were obtained. CAD: Full Field Digital Mammography with Computer Added Detection was performed. COMPARISON: Comparison is made with prior study November 26, 2021. FINDINGS: Breast Composition: The breasts are extremely dense, which lowers the sensitivity of mammography. Stable 1 cm x 1.2 cm well-defined nodule in the deep central slightly lateral aspect of the left breast. This was demonstrated to be a cyst on prior sonogram dated December 01, 2021. No other significant abnormalities are identified. There has been no significant change since the prior study. BI/SCRN MAMM (CAD)W/YARIEL BILAT IMPRESSION: Stable bilateral screening mammogram. Yearly follow-up mammogram recommended. (A) ASSESSMENT CATEGORY: BIRADS Category 2: Benign. A letter regarding these results will be sent to the patient by the facility within 30 days. Approximately 10% of breast cancers are not detected by mammography. A normal mammogram should not delay biopsy of a clinically suspicious abnormality. [id number] Electronically Signed: Harish Rowell MD at 8:20 EDT ,
== END | disposition home or self-care (01) ==
LOC: OPBI 15:18
PROVIDERS: PCP Nurse Practitioner; Referring Provider Nurse Practitioner; Visit Provider Nurse Practitioner
DX: Z12.31 Encounter for screening mammogram for malignant neoplasm of breast (principal)
CPT/HCPCS: 77063; 77067

== ENCOUNTER → 2023-11-06 | Outpatient (CLI) | payer OTHER, SELFPAY ==
[2023-11-06 21:55] LABS: Absolute Neutrophil Count 5.6 X10^3/uL (2.0-7.7); Basophil# 0.06 X10^3/uL; Basophil% 0.7 % (0-1); Eosinophils% 2.2 % (0-5); Hemoglobin 14.6 g/dL (12.0-15.0); Mean Corp Hgb Conc 33.2 g/dL (32-36); Mean Corpuscular Hgb 28.2 pg (27.0-32.0); Mean Corpuscular Volume 84.9 fL (81-99); Mean Platelet Vol. 11.8 fl (6.2-12.0); Monocyte# 0.53 X10^3/uL; Monocyte% 5.9 % (0-10); NRBC Flagged by Analyzer 0 % (0-5); Neutrophil # 5.55 X10^3/uL (2.7-7.7); Platelet Count 352 K/mm3 (150-450); RBC Distribution Width CV 11.8 % (11.6-14.6); RBC Distribution Width SD 36.1 fl (35.1-43.9); Red Blood Count 5.18 M/mm3 (4.2-5.4)
[2023-11-06 22:12] LABS: ALB/GLOB Ratio 1.1 RATIO (0.9-2.4); AST(SGOT) 24 U/L (15-37); Alanine Aminotransfer ALT/SGPT 42 U/L (13-56); Alkaline Phosphatase 95 U/L (45-117); Anion Gap 6 (5-15); BUN 9 mg/dL (7-18); BUN/Creat Ratio 12.8 RATIO (10-20); Calcium,Total 10.3 mg/dL (8.5-10.1); Chloride 105 mmol/L (98-107); Cholesterol 218 mg/dL (200); EST Glomerular Filtration Rate 91 mL/min (>60); Est Glom Filt Rate - Afr Amer 111 mL/min (>60); Globulin 3.6 g/dL (2.2-4.2); Glucose 104 mg/dL (74-106); High Density Lipoprotein 67 mg/dL; Protein, Total 7.6 g/dL (6.4-8.2); Sodium Level 139 mmol/L (136-145); Triglycerides 177 mg/dL; Very Low Density Lipoprotein 35 mg/dL (5-40)
== END | disposition home or self-care (01) ==
PROVIDERS: PCP Nurse Practitioner; Referring Provider Nurse Practitioner; Visit Provider Nurse Practitioner
DX: I10 Essential (primary) hypertension (principal); E78.5 Hyperlipidemia, unspecified; D64.9 Anemia, unspecified
CPT/HCPCS: 80053; 80061; 83735; 85025

== ENCOUNTER → 2023-12-19 | Outpatient (CLI) | payer OTHER, SELFPAY ==
[2023-12-19 15:47] LABS: Absolute Lymphocyte Count 2.67 X10^3/uL (0.83-4.51); Absolute Neutrophil Count 4.8 X10^3/uL (2.0-7.7); Basophil# 0.05 X10^3/uL; Basophil% 0.6 % (0-1); Eosinophil# 0.26 X10^3/uL; Eosinophils% 3.1 % (0-5); Hematocrit 44.9 % (37-47); Lymphocyte # 2.67 X10^3/ul (0.83-4.51); Lymphocyte % 31.8 % (19-41); Mean Corp Hgb Conc 33.4 g/dL (32-36); Mean Corpuscular Hgb 28.2 pg (27.0-32.0); Mean Corpuscular Volume 84.4 fL (81-99); Mean Platelet Vol. 11.1 fl (6.2-12.0); Monocyte# 0.58 X10^3/uL; Monocyte% 6.9 % (0-10); NRBC Flagged by Analyzer 0 % (0-5); Neutrophil # 4.81 X10^3/uL (2.7-7.7); Neutrophil % 57.4 % (47-70); Platelet Count 384 K/mm3 (150-450); RBC Distribution Width CV 12.8 % (11.6-14.6); RBC Distribution Width SD 38.9 fl (35.1-43.9); Red Blood Count 5.32 M/mm3 (4.2-5.4); White Blood Count 8.4 K/mm3 (4.4-11.0)
[2023-12-19 15:58] LABS: Anion Gap 6 (5-15); BUN 15 mg/dL (7-18); BUN/Creat Ratio 23.6 RATIO (10-20); Calcium,Total 9.4 mg/dL (8.5-10.1); Chloride 108 mmol/L (98-107); Creatinine, Serum 0.64 mg/dL (0.55-1.02); EST Glomerular Filtration Rate 103 mL/min (>60); Est Glom Filt Rate - Afr Amer 125 mL/min (>60); Glucose 101 mg/dL (74-106); Potassium 3.9 mmol/L (3.5-5.1); Sodium Level 140 mmol/L (136-145)
--- OUTSIDE RECORDS SUMMARY | 2023-12-19 19:49 | XMS RPT_ITS | CCD ---
Author Organization [facility] Care Team Providers Care Air Brush Operator Name Role Phone Gerald Baird Primary Care Provider [phone] Abigail Barrera Unavailable Unavailable Nirav Barrett Unavailable Unavailable Gerald Baird Unavailable Unavailable Gerald Baird MD Primary Care Provider Gerald Baird Unavailable Unavailable Unavailable Gerald Baird MD Primary Care Provider SOBEIDA WALL Primary Care Unavailable NAHUM ZHAO Attending Unavailable Allergies Allergy Classification Reported Allergen(s) Allergy Type Date of Onset Reaction(s) Facility Opioid Agonists (2 sources) Codeine Drug Allergy 11-13-2014 Other (See Comments) [facility] Work Phone: (12 sources) Codeine; Translations: [codeine] Drug Allergy 11-13-2014 Other (See Comments) [facility], [place] Medications Current Medications Medication Drug Class(es) Dates Sig (Normalized) Sig (Original) [id number] 200 actuat albuterol 0.09 mg/actuat metered dose inhaler (13 sources) beta2-Adrenergic Agonist Start: 04-14-2021 take 2 puff(s) by inhalation every six hours as needed for wheezing albuterol sulfate HFA 108 (90 Base) MCG/ACT inhaler Inhale 2 puffs into the lungs every 6 hours as needed for Wheezing or Shortness of Breath 1 each 2 04/14/2021 Active Start: 05-06-2019 take 2 puff(s) by in halation every six hours as needed for wheezing albuterol sulfate HFA 108 (90 Base) MCG/ACT inhaler Inhale 2 puffs into the lungs every 6 hours as needed for Wheezing 1 Inhaler 2 05/06/2019 Active Start: 02-07-2018 Ventolin HFA 1 08 (90 Base) MCG/ACT Inhalation Aerosol Solution Quantity: 18 Refills: 0 Start : 07-Feb-2018 Active Start: 02-07-2018 take 2 puff(s) by in halation every six hours as needed for wheezing albuterol sulfate HFA 108 (90 Base) MCG/ACT inhaler Inhale 2 puffs into the lungs every 6 hours as needed for Wheezing 1 Inhaler 2 02/07/2018 Active Start: 02-07-2018 Ventolin HFA 1 08 (90 Base) MCG/ACT Inhalation Aerosol Solution Quantity: 18 Refills: 0 Ordered: 22-Feb-2018 DO Start : 07-Feb-2018 Active amLODIPine 10 mg oral tablet (13 sources) Dihydropyridine Calcium Channel Briana Start: 04-14-2021 take 1 tablet by mouth once daily amLODIPine (NORVASC) 10 MG tablet Indications: Essential hypertension Take 1 tablet by mouth daily 30 tablet 5 04/14/2021 Active Start: 08-25-2020 take 1 tablet by denise th once daily amLODIPine (NORVASC) 10 MG tablet Indications: Essential hypertension Take 1 tablet by mouth daily 30 tablet 5 08/25/2020 Active Start: 03-09-2018 amLODIPine Bes ylate 10 MG Oral Tablet Quantity: 0 Refills: 0 Ordered: 09-Mar-2018 DO Start : 09-Mar-2018 Active Start: 03-09-2018 take 1 tablet by denise th once daily amLODIPine (NORVASC) 10 MG tablet Indications: Essential hypertension Take 1 tablet by mouth daily 30 tablet 5 09/17/2018 Active Elderberry preparation (1 source) ELDERBERRY PO Ta ke by mouth 0 Active ferrous sulfate 325 mg oral tablet (4 sources) take 1 tablet by mouth once daily Ferrous Sulfate (IRON) 325 (65 Fe) MG TABS Take 1 tablet by mouth daily 0 Active fluticasone propionate 0.05 mg/actuat metered dose nasal spray (5 sources) Corticosteroid Start: 04-14-2021 fluticasone (FLONASE) 50 MCG/ACT nasal spray Indications: Allergic rhinitis, unspecified seasonality, unspecified trigger 2 sprays by Nasal route nightly 1 each 5 04/14/2021 Active Start: 04-24-2017 fluticasone (F LONASE) 50 MCG/ACT nasal spray Indications: Chronic allergic rhinitis, unspecified seasonality, unspecified trigger , Post-nasal drip , Retracted ear drum, bilateral 2 sprays by Nasal route nightly 1 Bottle 2 04/24/2017 Active methylPREDNISolone 4 mg oral tablet (1 source) Corticosteroid Start: 02-15-2021 methylPREDNISolone (MEDROL DOSEPACK) 4 MG tablet Take by mouth. 1 kit 0 02/15/2021 Active 24 hr metoprolol succinate 100 mg extended release oral tablet (13 sources) beta-Adrenergic Briana Start: 04-14-2021 take 1 tablet by mouth once daily metoprolol succinate (TOPROL XL) 100 MG extended release tablet Indications: Essential hypertension Take 1 tablet by mouth daily 30 tablet 5 04/14/2021 Active Start: 09-21-2020 take 1 tablet by denise th once daily metoprolol succinate (TOPROL XL) 100 MG extended release tablet Indications: Essential hypertension Take 1 tablet by mouth daily 30 tablet 5 09/21/2020 Active Start: 09-17-2018 take 1 tablet by denise th once daily metoprolol succinate (TOPROL XL) 100 MG extended release tablet Indications: Essential hypertension Take 1 tablet by mouth daily 30 tablet 5 09/17/2018 Active Start: 03-09-2018 take 1 tablet by denise th every twenty-four hours Metoprolol Succinate ER 100 MG Oral Tablet Extended Release 24 Hour Quantity: 0 Refills: 0 Ordered: 09-Mar-2018 DO Start : 09-Mar-2018 Active VITAMIN B COMPLEX-C PO (5 sources) VITAMIN B COMPLE X-C PO Take by mouth 0 Active zinc gluconate 50 mg oral tablet (1 source) take 1 tablet by denise th once daily zinc gluconate 50 MG tablet Take 50 mg by mouth daily 0 Active Completed/Discontinued Medications Medication Drug Class(es) Dates Sig (Normalized) Sig (Original) amoxicillin 875 mg / clavulanate 125 mg oral tablet (4 sources) Penicillin-class Antibacterial Start: 03-20-2018 End: 03-15-2021 take 1 tablet by mouth every twelve hours at mealtime Amoxicillin-Pot Clavulanate 875-125 MG Oral Tablet TAKE 1 TABLET EVERY 12 HOURS WITH MEALS UNTIL GONE. Quantity: 28 Refills: 0 Ordered: 20-Mar-2018 Nirav Barrett DO Start : 20-Mar-2018 End : 15-Mar-2021 Complete Ascorbic Acid (1 source) Vitamin C Start: 03-09-2018 Vitamin C CAPS Refills: 0 Start : 09-Mar-2018 Active chlorhexidine gluconate 1.2 mg/ml mouthwash (8 sources) Start: 05-25-2018 Chlorhexidine Gluconate 0.12 % Mouth/Throat Solution Quantity: 473 Refills: 0 Ordered: 25-May-2018 DO Start : 25-May-2018 Active Start: 05-25-2018 Chlorhexidine Gluconate 0.12 % Mouth/Throat Solution Quantity: 473 Refills: 0 Start : 25-May-2018 Active Cholecalciferol (6 sources) Vitamin D Start: 03-09-2018 Vitamin D TABS Refills: 0 Start : 09-Mar-2018 Active Cholecalciferol (VITAMIN D PO) Take by mouth 0 Active iopamidol (ISOVUE-370) 76 % injection 75 mL (1 source) Start: 03-22-2021 End: 03-22-2021 iopamidol (ISOVUE-370) 76 % injection 75 mL metroNIDAZOLE 500 mg oral tablet (1 source) Nitroimidazole Antimicrobial Start: 11-02-2017 metroNIDAZOLE 500 MG Oral Tablet Quantity: 28 Refills: 0 Start : 02-Nov-2017 Active sodium fluoride 0.011 mg/mg toothpaste (1 source) Start: 04-27-2021 Sodium Fluorid e 5000 PPM 1.1 % Dental Paste Quantity: 100 Refills: 0 Ordered: 27-Apr-2021 DO Start : 27-Apr-2021 Active traMADol hydrochloride 50 mg oral tablet (1 source) Opioid Agonist Start: 05-25-2018 traMADol HCl - 50 MG Oral Tablet Quantity: 15 Refills: 0 Start : 25-May-2018 Active Vitamin B Complex Oral Tablet (1 source) Start: 03-09-2018 Vitamin B Comp fadi Oral Tablet Refills: 0 Start : 09-Mar-2018 Active Vitamin B Complex Oral Tablet (7 sources) Start: 03-09-2018 Vitamin B Comp fadi Oral Tablet Quantity: 0 Refills: 0 Ordered: 09-Mar-2018 DO Start : 09-Mar-2018 Active Vitamin C CAPS (7 sources) Start: 03-09-2018 Vitamin C CAPS Quantity: 0 Refills: 0 Ordered: 09-Mar-2018 DO Start : 09-Mar-2018 Active Vitamin D TABS (7 sources) Start: 03-09-2018 Vitamin D TABS Quantity: 0 Refills: 0 Ordered: 09-Mar-2018 DO Start : 09-Mar-2018 Active Problems Active Problems Problem Classification Problem Date Documented Da te Episodic/Chronic Allergic reactions (8 sources) H/O: non-drug allergy; Translations: [Other allergy, other than to medicinal agents] Episodic Diseases of mouth; excluding dental (20 sources) Ranula; 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] Episodic Disorders of lipid metabolism (1 source) Hyperlipidemia; Translations: [Hyperlipidemia, unspecified] Onset: 04-14-2021 04-14-2021 Chronic Essential hypertension (6 sources) Hypertensive disorder; Translations: [Essential (primary) hypertension] 01-22-2015 Chronic Other bone disease and musculoskeletal deformities (1 source) Mass of chest wall; Translations: [Other specified disorders of bone, other site] Episodic Other circulatory disease (8 sources) H/O: hypertension; Translations: [Personal history of other diseases of circulatory system] Episodic Other connective tissue disease (1 source) Pain in left leg; Translations: [Left leg pain] Onset: 02-01-2023 Episodic Other nutritional; endocrine; and metabolic disorders (6 sources) Obesity; Translations: [Other obesity due to excess calories] Onset: 07-15-2015 02-07-2018 Chronic Other screening for suspected conditions (not mental disorders or infectious disease) (3 sources) Patient encounter status; Translations: [Encounter for screening for diseases of the blood and blood-forming organs and certain disorders involving the immune mechanism] Episodic Other upper respiratory disease (6 sources) Allergic rhinitis; Translations: [Allergic rhinitis, unspecified] Onset: 11-05-2015 11-05-2015 Chronic Other upper respiratory infections (8 sources) Chronic sphenoidal sinusitis; Translations: [Chronic sphenoidal sinusitis] Chronic Residual codes; unclassified (7 sources) Submandibular salivary gland swelling; Translations: [Edema] Episodic Past or Other Problems Problem Classification Problem Date Documented Da te Episodic/Chronic Unclassified (1 source) Patient encounter status; Translations: [Pre-op exam] NEGATED: Highlighted row has not occurred!Residual codes; unclassified (6 sources) Disease Episodic Results Test Name Value Interpretation Reference Range Facility [facility] 02-01-2023 [facility] HNO ID: [id number] Author: Alva Hernaedz, TECHNOLOGIST Service: ? Author Type: Technologist Type: [facility] Filed: 02/01/2023 11:38 AM Note Text: Radiology Service Progress Note PATIENT NAME: Bee Will DATE OF SERVICE: February 01, 2023 TIME: 11:38 AM PATIENT IDENTITY VERIFICATION COMPLETED USING TWO (2) IDENTIFIERS: Name and Date of confirmed by patient verbally. FALL SCREENING: Has the patient had 2 falls in the last year or 1 fall with injury or currently using an Ambulatory Assistive Device (Walker, Cane, Wheelchair, Crutches, etc.)? Emergency Room Patient: Screened in ED PATIENT GENDER DATA: Female. status: : No status: NO. PATIENT RELEVANT IMPLANT DATA REVIEWED: Yes RADIOLOGY DEPARTMENT: Ultrasound PERIPHERAL IV DATA: Not applicable SIGNED BY: Alva Hernadez TECHNMARIO February 01, 2023 11:38 AM [facility] ED NOTEon 02-01-2023 ED NOTE HNO ID: [id number] Author: Shahida Louise RN Service: Nursing Author Type: Registered Nurse Type: ED Notes Filed: 02/01/2023 12:26 PM Note Text: Pt verbalizes understanding of discharge instructions. Pt able to ambulate out of ED. [facility] ED NOTE HNO ID: [id number] Author: Shahida Louise RN Service: Nursing Author Type: Registered Nurse Type: ED Notes Filed: 02/01/2023 10:09 AM Note Text: Pt reports she has had L knee pain for a couple weeks and has gotten worse for the last two days with some swelling. [facility] ED PROV NOTEon 02-01-2023 ED PROV NOTE HNO ID: [id number] Author: Nahum Zhao MD Service: Emergency Medicine Author Type: Physician Type: ED Provider Notes Filed: 02/01/2023 12:18 PM Note Text: ED Provider Note Patient Name: Bee Will : 1970 SERVICE DATE: 02/01/23 History Patient presents with: Knee Pain Bee Will is a 52 year old female with a past history of hysterectomy several months ago who presents with left knee pain. - Symptoms began 3 weeks prior to arrival. Onset was gradual and symptoms are waxing/waning. - Severity: mild - Quality: Pain is described as dull in the joint. - Timing: intermittent. - Symptoms are exacerbated by walking. - Symptoms are not exacerbated by palpation. - Symptoms are associated with swelling. - Symptoms are not associated with chest pain or shortness of breath. - Improved by nothing. - Not improved by ibuprofen Patient reports no acute injury but she has had some pain in the posterior left knee for several weeks that she had had a hysterectomy in November and had been seen at another ER after surgery because of the left leg pain and said that she had an ultrasound which did not show a DVT. She states that she was diagnosed with a sprained knee but she does not know how she sprained it. Seem to have gotten better but now is getting worse again. 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 PAST MEDICAL HISTORY Diagnosis Date - Hypertension PAST SURGICAL HISTORY Procedure Laterality Date - HYSTERECTOMY HX No family history on file. Social History Tobacco Use - Smoking status: Former Types: Cigarettes - Smokeless tobacco: Not on file Substance and Sexual Activity - Alcohol use: Not Currently - Drug use: Never - Sexual activity: Not on file ALLERGIES Allergen Reactions - Codeine Anaphylaxis Pt reports when she was 16 she took it and it made her feel like her throat was closing Review of Systems Constitutional: Negative for chills and fever. Respiratory: Negative for chest tightness and shortness of breath. Cardiovascular: Positive for leg swelling. Negative for chest pain and palpitations. Skin: Negative for rash and wound. Allergic/Immunologic: Negative for environmental allergies, food allergies and immunocompromised state. Neurological: Negative for weakness and numbness. Psychiatric/Behavioral: Negative for confusion. The patient is not nervous/anxious. Physical Exam Vitals BP Pulse Temp Temp src Resp SpO2 Weight Height 02/01/23 1011 02/01/23 1011 02/01/23 1011 -- 02/01/23 1011 02/01/23 1011 02/01/23 1003 02/01/23 1003 143/88 74 36.6 ?C (97.9 ?F) 16 96 % 101.6 kg (224 lb) 1.753 m (5' 9 ) Physical Exam Vitals and nursing note reviewed. Exam conducted with a newswriter present. Constitutional: Appearance: Normal appearance. She is not ill-appearing. Comments: Elevated BMI HENT: Head: Normocephalic and atraumatic. Pulmonary: Effort: Pulmonary effort is normal. No respiratory distress. Musculoskeletal: General: No swelling or tenderness. Normal range of motion. Left lower leg: Edema present. Comments: Slight edema left lower extremity no focal tenderness no instability on flexion extension. Patient localizes discomfort posteriorly. No skin changes. Distal neurovascular intact. Skin: General: Skin is warm and dry. Capillary Refill: Capillary refill takes less than 2 seconds. Findings: No rash. Neurological: General: No focal deficit present. Mental Status: She is alert and oriented to person, place, and time. Psychiatric: Mood and Affect: Mood normal. Behavior: Behavior normal. Thought Content: Thought content normal. Judgment: Judgment normal. Diagnostic Testing ED Labs Ordered and Reviewed - No data to display Procedures ED Course / Clinical Impression Clinical Impressions as of 02/01/23 1220 Left leg pain MDM / Disposition / Plan With history of recent surgery did recheck the ultrasound to make sure we did not have DVT. Also x-ray obtained looking for any joint pathologies that might explain her swelling and discomfort. Recommending orthopedic follow-up if there is no DVT would focus on the knee as a source of her discomfort and potential swelling. Recommend ice and NSAIDs for now. She has no PE symptoms. Return instructions if he has any fevers chills or shortness of breath chest pain otherwise no indication for transfer or admission. Differential Diagnoses - Left knee arthralgia is more likely for the following reason(s): HANDP is most consistent with this - DVT is less likely for the following reason(s): no evidence on imaging Re-evaluation vital signs in acceptable range and patient tolerating PO Disposition The patient was discharged. Admission considered: See MDM narra (more content not included)... Normal [facility] US DVT LOWER LTon 02-01-2023 US DVT LOWER LT * * *Final Report* * * DATE OF EXAM: Feb 01 2023 11:37AM LDU 1006 - US DVT LOWER LT / PROCEDURE REASON: Leg deep vein thrombosis (DVT), new symptoms * * * * Physician Interpretation * * * * EXAMINATION: LEFT LOWER EXTREMITY DEEP VENOUS ULTRASOUND WITH DOPPLER IMAGING CLINICAL HISTORY: Left leg swelling TECHNIQUE: Grayscale with compression maneuvers, color Doppler and spectral Doppler imaging of the left proximal deep veins was performed. Grayscale with compression maneuvers of the peroneal and posterior tibial veins was performed. The left great and small saphenous veins were evaluated at their insertion to the deep system. The contralateral common femoral vein was imaged for comparison. Images were obtained and stored in a permanent archive. MQ: [id number] COMPARISON: None RESULT: LEFT LOWER EXTREMITY PROXIMAL DEEP VEINS Distal External Iliac, Common Femoral and proximal Profunda Veins: Compression: Normal Doppler: Normal, spontaneous respirophasic flow. Normal response to augmentation. Femoral vein: Compression: Normal Doppler: Normal, spontaneous flow. Normal response to augmentation. Popliteal vein: Compression: Normal Doppler: Normal, spontaneous flow. Normal response to augmentation. CALF DEEP VEINS Peroneal veins: Normal compression. Posterior tibial veins: Normal compression. Gastrocnemius and Soleal veins: Not imaged. SUPERFICIAL VEINS Great saphenous: Patent and compressible at insertion into common femoral vein; not otherwise assessed. Small Saphenous: Not identified. RIGHT LOWER EXTREMITY (FOR COMPARISON) Common Femoral Vein: Compression: Normal Doppler: Normal, spontaneous respirophasic flow. Normal response to augmentation. IMPRESSION: Negative study for proximal DVT in the left lower extremity. Negative study for calf DVT in the left lower extremity. Negative study for superficial thrombophlebitis in the imaged segments of the left lower extremity. Acid Tank Liner[facility] Transcribe Date/Time: Feb 01 2023 11:53A Dictated by : LUCRETIA BETH MD This examination was interpreted and the report reviewed and electronically signed by: LUCRETIA BETH MD on Feb 01 2023 12:00PM EST [id number] Normal [facility] XR KNEE 2V AP/LAT LTon 02-01 XR KNEE 2V AP/LAT LT * * *Final Report* * * DATE OF EXAM: Feb 01 2023 10:45AM LDX 5206 - XR KNEE 2V AP/LAT LT / PROCEDURE REASON: Other * * * * Physician Interpretation * * * * EXAM TITLE: X-RAY LEFT KNEE DATE: February 01, 2023 CLINICAL INDICATION/HISTORY: Pain and swelling COMPARISON: None. TECHNIQUE: AP and lateral views of the left knee. FINDINGS: No fracture or dislocation. No lytic or blastic osseous lesion. Small suprapatellar joint effusion. Soft tissues are unremarkable. IMPRESSION: No fracture or dislocation. Possible small suprapatellar joint effusion. Acid Tank Liner: KARLENE Transcribe Date/Time: Feb 01 2023 11:22A Dictated by : LUCRETIA BETH MD This examination was interpreted and the report reviewed and electronically signed by: LUCRETIA BETH MD on Feb 01 2023 11:23AM EST [id number] [facility] 36on 01-10-2022 36 Notified. Normal [facility] 36 Name of caller: Robert gil Contact phone number: [phone] Relationship to Patient: [facility] Provider: Dr. Baird Practice: [facility] Chief Complaint/Reason for Call: Neena called in asking if there are any US imaging reports with results that can be sent to her in regards to pt's pelvic area for fibroids or heavy bleeding issues. Neena states pt did sign a medical release and they have OV notes, but she is wondering if there are any US reports. If so, Neena is asking if they can be faxed to her at [phone]. Please advise, thank you. Best time of day caller can be reached: any Patient advised that office/PCP has 24-48 business hours to return their call: No Normal [facility] Established Visit (Otolaryng ology)on 06-14-2021 Established Visit (Otolaryngology) Provider Impressions Ms. BEE WILL, is here for postop follow up regarding her right chronic sialadenitis and sialolithiasis. She is healing well. No stones. No seroma/hematoma. Reassurance provided. Education provided regarding incision care including massage, moisturization and Vit E as well as the need for aggressive sunblock/sun protection for the first year. 2) FOM nodule on palpation only - she is concerned that there is a small 2-3mm nodule which has not changed in 2years. Reassurance provided that this is not a stone. No mucosal lesion. Could be minor salivary gland but is not concerning. Benign. Follow up in 6-12 months or as needed. I answered all of the patients questions. They did appear to understand and confirmed this, and do agree to proceed as outlined above. Chief Complaint post op History of Present IllnessMs. BEE WILL, is a 50 year old female here for postop check s/p right submandibular gland removal 05/28/21. Final path: patchy sialadenitis. She had preop CT neck w/contrast which shows 3 stones along the right FOM. She has recovered well from surgery. She is concerned because there is a small nodule that remains under her tongue adjacent to the right mandible. This has been her main concern throughout all her treatment despite our focus on her recurrent FOM stones and sialadenitis. No masses otherwise. No lymphadenopathy. No dysphagia or otalgia. Tolerating a regular diet. She denies that the FOM lesion has changed in size in almost 2 years. No swelling with eating/drinking. Denies weight loss. No fevers/chills. No night sweats. SH: Tob: Former smoker. ETOH: 2-3 glasses of wine/week Here alone By signing my name below, I, Lam Nelsonibsandra, attest that this documentation has been prepared under the direction and in the presence of Dr. Abigail Barrera MD. All medical record entries made by the Scribe were at my direction and personally dictated by me, Dr. Abigail Barrera. I have reviewed the chart and agree that the record accurately reflects my personal performance of the history, physical exam, discussion and plan. Review of Systems Constitutional: no fever, not feeling tired, no recent weight gain and no recent weight loss. Eyes: no eye pain, no double vision and no itching of the eyes. ENMT: no difficulty with hearing, no hearing loss, no pain in the ear, no vertigo, no tinnitus, the ears do not feel full, no discharge from the ears, no nosebleeds, no nasal congestion, no rhinorrhea, no sinus pressure, no nasal blockage/obstruction, no snoring, no postnasal drip, no sore throat, no hoarseness, the gums were not bleeding, no dry mouth, no dysphagia and no mouth ulcers. Cardiovascular: no history of murmur, no chest pain, no palpitations and no lower extremity edema. Respiratory: no shortness of breath, no dyspnea during exertion, no wheezing, not coughing up sputum and not coughing up blood. Gastrointestinal: no heartburn, no vomiting, no change in appetite and no pain on swallowing. Genitourinary: no dysuria and no difficulty urinating. Musculoskeletal: no arthralgias and no myalgias. Integumentary: no rashes, no skin lesions, no itching, no dry skin and no unusual growth on the skin. Neurological: no fainting, no headache, no numbness, no convulsions and no weakness. Psychiatric: no anxiety and no depression. Endocrine: no increased thirst. Hematologic/Lymphatic: no swollen glands, no tendency for easy bleeding and no tendency for easy bruising. ENT and Constitutional systems have been reviewed and are negative for complaint except what is stated in the HPI and/or Past Medical History. all other systems have been reviewed and are negative for complaint. 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) Pre-op exam (V72.84) (Z01.818) Ranula (527.6) (K11.6) Sialolithiasis of submandibular gland (527.5) (K11.5) Submandibular gland swelling (782.3) (R60.9) Past Medical History History of environmental allergies (V15.09) (Z91.09) History of hypertension (V12.59) (Z86.79) Surgical History History of Breast surgery benign lumps removed both breasts History of prior surgery toe Family History No pertinent family history No pertinent family history Social History Alcohol use (V49.89) (Z72.89) Caffeine use (V49.89) (Z78.9) Former smoker (V15.82) (Z87.891) No illicit drug use Allergies codeine Recorded By: Kathryn Oliver; 03/09/2018 2:39:18 PM Current Meds Medication NameInstruction amLODIPine Besylate 10 MG Oral Tablet Chlorhexidine Gluconate 0.12 % Mouth/Throat Solution Metoprolol Succinate ER 100 MG Oral Tablet Extended Release 24 Hour Sodium Fluoride 5000 PPM 1.1 % Dental Paste Ventolin HFA 108 (90 Base) MCG/ACT Inhalation Aerosol Solution Vitamin B Complex Oral Tablet Vitamin C CAPS Vitamin D TABS Vitals Vital Signs Recorded: 14Jun2021 03:20PM (more content not included)... Normal [facility] No Panel Informationon 05-28 [facility] Work Phone: Order Reconciliationon 05-28 Order Reconciliation Page 1 Discharge Reconciliation Document Reconciliation Type: Discharge requested on behalf of Herve Wilson (Resident) done by Herve Wilson (Resident)) Discharge - Reconciliation: 28-May-2021 10:07 by: Herve Wilson ( (Resident)) Home Medications EnteredHOME MEDICATIONS AT DISCHARGE DateReconciliation Comment/ Additional Information amLODIPine 10 mg oral tablet 1 tab(s) orally once a day (at bedtime) 25-May-2018 08:19 amLODIPine 10 mg oral tablet 1 tab(s) orally once a day (at bedtime) 25-May-2018 08:19 amLODIPine 10 mg oral tablet is continued as amLODIPine 10 mg oral tablet Metoprolol Tartrate 50 mg oral tablet 1 tab(s) orally 2 times a day 25-May-2018 08:20 Metoprolol Tartrate 50 mg oral tablet 1 tab(s) orally 2 times a day 25-May-2018 08:20 Metoprolol Tartrate 50 mg oral tablet is continued as Metoprolol Tartrate 50 mg oral tablet Current OrdersDateHOME MEDICATIONS AT DISCHARGE DateReconciliation Comment/ Additional Information Acetaminophen Tablet (TYLENOL)DOSE = 650 mg Oral Every 4 Hours, PRN Pain - Mild (1-3) (PACU) when able to take OralStop After 1 DosesClinician Notes: Danielle-operative order ONLY 28-May-2021 08:42 Acetaminophen is not required HYDROmorphone Injectable (DILAUDID)DOSE = 0.2 mg IntraVenous Push Every 5 Minutes, PRN Pain - Mod (4-6) (PACU) if unable to take oralClinician Notes: Danielle-operative order ONLYMax total of 4 mg regardless of dose. 28-May-2021 08:42 HYDROmorphone Injectable is not required HYDROmorphone Injectable (DILAUDID)DOSE = 0.4 mg IntraVenous Push Every 5 Minutes, PRN Pain - Severe (7-10) (PACU)Clinician Notes: Danielle-operative order ONLYMax total of 4 mg regardless of dose. 28-May-2021 08:42 HYDROmorphone Injectable is not required Lactated Ringers Infusion IV Bag Volume = 1,000 mL Run at: 50 mL/hr IntraVenous Clinician Notes: Danielle-operative order ONLY 28-May-2021 08:42 Lactated Ringers Infusion is not required Ondansetron Injectable (ZOFRAN)DOSE = 4 mg IntraVenous Push Once, PRN PONV, first lineClinician Notes: Danielle-operative order ONLY 28-May-2021 08:42 Ondansetron Injectable is not required oxyCODONE Immediate Release Tablet (OXYIR, ROXICODONE)DOSE = 5 mg Oral Every 4 Hours, PRN Pain - Mod (4-6) (PACU) when able to take OralStop After 1 DosesClinician Notes: Danielle-operative order ONLY 28-May-2021 08:42 oxyCODONE Immediate Release is not required Promethazine IV Piggy Back in Sodium Chloride 0.9% 50 mL (PHENERGAN)DOSE = 6.25 mg Once, PRN persistent PONV if first line ineffectiveRecommended Infusion Time: 15 minute(s)Clinician Notes: Danielle-operative order ONLY 28-May-2021 08:42 Promethazine IV Piggy Back is not required Home Medications Added During Discharge Reconciliation traMADol 50 mg oral tablet 1 tab(s) orally every 6 hours x 5 days, As Needed -for severe pain G89.18 All Active Home Medications at time of Discharge Reconciliation: 28-May-2021 10:07 amLODIPine 10 mg oral tablet 1 tab(s) orally once a day (at bedtime) Metoprolol Tartrate 50 mg oral tablet 1 tab(s) orally 2 times a day traMADol 50 mg oral tablet 1 tab(s) orally every 6 hours x 5 days, As Needed -for severe pain G89.18 Normal [facility] Patient Profile - Preop v3on 05-28-2021 Patient Profile - Preop v3 Patient Profile - Preop: Initial Info: Patient DemographicsName: BEE WILL Date: 1970 Address: [address] [place] [address] Primary Phone [phone] How to be Addressedjenniffer Spoken Language PreferredEnglish Source of Informationpatient Stated Reason for Admissionremove submandibular gland Primary Contact Name and Numberemperatriz [phone] Limitations on Visitors/Phone Callsnone Medications Brought to Hospitalno General Health: Weight in kg96.5 kilogram(s) Weight in smw691.7 pound(s) Weight Methodactual (measured) Scale Typestanding Height in feet5 feet Height in inches8.98 inch(es) Height in cm175.2 centimeter(s) Height Methodstated BMI (kg/m2)31.438 square meter Patient or Family Member Reaction to Anesthesiano previous reaction Blood Avoidance/Restrictionsnon e Previous Transfusion Reactionno Health Mgmt: Symptoms/Conditions Managed at Homenone Barriers to Managing Healthnone Relationship/Environ: Lives Withspouse Living Arrangementshouse Resource/Environmental Concernsnone Anticipated Transition [employer] Services Anticipated at Transitionnone Tobacco Use: Tobacco Useno Pre-op Checklist: Arrival [id number] Arrival Time07:11 Procedure Typeremove submandibular gland NPOyes Last Food [id number] 21:00 Last Clear Fluid [id number] 21:00 ID Band On Patientpatient ID (name), allergy Consent Signedpending H&P Completepending Anesthesia Assessment Completedpending EKG Performednot ordered Chest X-Ray Performednot ordered COVID 19 Results in Last 7 daysneg Type and Screen Resultedn/a HCG Urine TestComplete Chlorhexadine Bath Givencompleted at home Nasal Antiseptic Appliedcompleted at home Soap and Water Bath the Night Before Surgeryyes Hair Washed with Shampooyes Bowel Prepno Pain Scales and Managementno Additional Information: Information Review: Allergies, Home Meds and Significant Events have been Reviewed and Verified with Patient/Familyyes Allergy, Intolerance, Adverse Event: Allergies: codeine: Drug, Resp Distress, Active Mold/Fungi: Environment, Other, Active Electronic Signatures: Sarai Hyde (ANJALI) (Signed 28-May-2021 07:24) Authored: Initial Info, General Health, Health Mgmt, Relationship/Environ, Tobacco Use, Pre-op Checklist, Additional Information Last Updated: 28-May-2021 07:24 by Sarai Hyde (RN) Normal [facility] Surgical Pathology Depar tmenton 05-28-2021 [facility] Surgical Pathology Department Name BEE WILL Pathologist: FRANSISCO LABOY MD Date of Procedure: 05/28/2021 Date Received: 05/28/2021 Date Reported 06/04/2021 Submitting Physician: ABIGAIL BARRERA MD Location: [facility] Other External # FINAL DIAGNOSIS RIGHT SUBMANDIBULAR GLAND, RESECTION: --MILD PATCHY CHRONIC SIALADENITIS. kimw The gross and/or microscopic findings were reviewed in conjunction with pathology resident, Prashant Rodrigues Electronically Signed Out By FRANSISCO LABOY MD/LUCIA By the signature on this report, the individual or group listed as making the Final Interpretation/Diagnosis certifies that they have reviewed this case. Clinical History: Physician Contact Number: [phone] Fixative (A): Saline Clinical Diagnosis History Epiglottic lesion Specimens Submitted As: A: RIGHT SUBMANDIBULAR GLAND Gross Description: Received in formalin, labeled with the patient?s name and hospital number and A , is an unoriented lobulated segment of iqbal, soft tissue measuring 4.0 x 3.5 x 1.5 cm. The specimen is inked black.The specimen is serially sectioned to reveal a iqbal, lobulated cut surface Sand Conditioner sections are submitted in 4 cassettes. TMD tmd/06/01/2021 [facility] Department of Pathology [address] [place] [address] Normal [facility] Comment on above: Performed By: #### U [facility] #### [facility] Surgical Pathology Department [address] [place] [address] Basic Metabolic Panelon 04-0 Anion gap [Moles/Vol] 8 mmol/L Normal 3-13 [facility] Comment on above: Performed By: #### H DALI BMP3 #### [facility] [address] [place] [address] Calcium [Mass/Vol] 9.6 mg/dL Normal 8.4-10.4 [facility] Comment on above: Performed By: #### H DALI BMP3 #### [facility] [employer] [address] [place] [address] CO2 [Moles/Vol] 26 mmol/L Normal 22-30 [facility] Comment on above: Performed By: #### H MARY GRACE MCNALLY3 #### [facility] [address] [place] [address] Glucose [Mass/Vol] 168 mg/dL High 70-100 [facility] Comment on above: Performed By: #### H MARY GRACE MCNALLY3 #### [facility] [address] [place] [address] Urea nitrogen [Mass/Vol] 7 mg/dL Low 9-20 [facility] Comment on above: Performed By: #### H MARY GRACE MCNALLY3 #### [facility] [address] [place] [address] Creatinine [Mass/Vol] 0.69 mg/dL Normal 0.52-1.25 [facility] Comment on above: Performed By: #### H MARY GRACE MCNALLY3 #### [facility] [address] [place] [address] eGFR OTHER > 90.0 Normal >60 [facility] Comment on above: Result Comment: KDIG O guidelines provide the following GFR categories: Stage GFR(ml/min/1.73 m2) Terms G1 >=90 Normal or high G2 60-89 Mildly decreased* G3a 45-59 Mildly to moderately decreased G3b 30-44 Moderately to severely decreased G4 15-29 Severely decreased G5 <15 Kidney failure *Relative to young adult level. In the absence of evidence of kidney damage, neither GFR category G1 nor G2 fulfill the criteria for CKD. The CKD-EPI equation is validated in individuals 18 years of age and older. Currently the best equation for estimating glomerular filtration rate (GFR) from serum creatinine in children is the Bedside Wynne equation. It is less accurate in patients with extremes of muscle mass, restriction of dietary protein, ingestion of creatine, extra-renal metabolism of creatinine, or treatment with medications that affect renal tubular creatinine secretion. Performed By: #### H DALI BMP3 #### [facility] [address] [place] [address] GFR/1.73 sq M.predicted among blacks MDRD (S/P/Bld) [Vol rate/Area] mL/min/{1.73_m2} Normal >60 [facility] Comment on above: Performed By: #### H MARY GRACE MCNALLY3 #### [facility] [address] [place] [address] Chloride [Moles/Vol] 104 mmol/L Normal 98-107 [facility] Comment on above: Performed By: #### H MARY GRACE MCNALLY3 #### [facility] [address] [place] [address] Potassium [Moles/Vol] 4.2 mmol/L Normal 3.5-5.1 [facility] Comment on above: Performed By: #### H MARY GRACE MCNALLY3 #### [facility] [address] [place] [address] Sodium [Moles/Vol] 138 mmol/L Normal 135-145 [facility] Comment on above: Performed By: #### H MARY GRACE MCNALYL3 #### [facility] [address] [place] [address] Anion gap [Moles/Vol] 8 mmol/L 3 - 13 mmol/L [facility] Calcium [Mass/Vol] 9.6 mg/dL 8.4 - 10. 4 mg/dL [facility] Chloride [Moles/Vol] 104 mmol/L 98 - 10 7 mmol/L [facility] CO2 [Moles/Vol] 26 mmol/L 22 - 30 mmol/L [facility] Creatinine [Mass/Vol] 0.69 mg/dL 0.52 - 1.25 mg/dL [facility] EGFR IF NonAfrican Maltese >90.0 >60 mL/min [facility] Comment on above: KDIGO guidelines pro vide the following GFR categories: Stage GFR(ml/min/1.73 m2) Terms G1 >=90 Normal or high G2 60-89 Mildly decreased* G3a 45-59 Mildly to moderately decreased G3b 30-44 Moderately to severely decreased G4 15-29 Severely decreased G5 <15 Kidney failure *Relative to young adult level. In the absence of evidence of kidney damage, neither GFR category G1 nor G2 fulfill the criteria for CKD. The CKD-EPI equation is validated in individuals 18 years of age and older. Currently the best equation for estimating glomerular filtration rate (GFR) from serum creatinine in children is the Bedside Wynne equation. It is less accurate in patients with extremes of muscle mass, restriction of dietary protein, ingestion of creatine, extra-renal metabolism of creatinine, or treatment with medications that affect renal tubular creatinine secretion. GFR/1.73 sq M.predicted among blacks MDRD (S/P/Bld) [Vol rate/Area] mL/min/{1.73_m2} >60 mL/min [facility] Glucose [Mass/Vol] 168 mg/dL High 70 - 100 mg/dL [facility] Interpretation and review of laboratory results Abnormal [facility] Potassium [Moles/Vol] 4.2 mmol/L 3.5 - 5.1 mmol/L [facility] Sodium [Moles/Vol] 138 mmol/L 135 - 145 mmol/L [facility] Urea nitrogen (BldV) [Mass/Vol] 7 mg/dL Low 9 - 20 mg/dL [facility] Test Performed by [facility], [address] , [address] LAB [facility] CBCon 05-24-2021 Hematocrit (Bld) [Volume fraction] 35.9 % 35.0 - 47.0 % [facility] Hemoglobin.gastrointes tinal spec 1 Ql (Stl) 11.4 g/dL Low 11.7 - 16.0 g/dL [facility] Interpretation and review of laboratory results Abnormal [facility] MCH (RBC) [Entitic mass] 23.1 pg Low 26.0 - 34.0 pg [facility] MCHC (RBC) [Mass/Vol] 31.8 % Low 32.0 - 36.0 % [facility] MCV (RBC) [Entitic vol] 72.7 fL Low 79.0 - 98.0 fL [facility] Platelet distribution width (Bld) [Ratio] 17.1 % High 11.5 - 14.5 % [facility] Platelet mean volume (Bld) [Entitic vol] 7.7 fL 7.4 - 10.4 fL [facility] Platelets (Bld) [#/Vol] 354 10*3/uL 140 - 440 10*3/uL [facility] RBC (Bld) [#/Vol] 4.93 10*6/uL 3.80 - 5.2 0 10*6/uL [facility] WBC (Bld) [#/Vol] 6.9 10*3/uL 3.6 - 10.7 10*3/uL [facility] Test Performed by [facility], [address] , [place], [place] [id number] [place] [address] LAB [facility] Hemogramon 05-24-2021 Erythrocyte distribution width (RBC) [Ratio] 17.1 % High 11.5-14.5 [facility] Comment on above: Performed By: #### H EMOG, BMP3 #### [facility] [address] [place] [address] Hematocrit (Bld) [Volume fraction] 35.9 % Normal 35.0-47.0 [facility] Comment on above: Performed By: #### H EMOG BMP3 #### [facility] [address] [place] [address] Hemoglobin (Bld) [Mass/Vol] 11.4 g/dL Low 11.7-16.0 [facility] Comment on above: Performed By: #### H EMOJames, BMP3 #### [facility] [address] [place] [address] MCH (RBC) [Entitic mass] 23.1 pg Low 26.0-34.0 [facility] Comment on above: Performed By: #### H EMOJames BMP3 #### [facility] [address] [place] [address] MCHC 31.8 % Low 32.0-36.0 [facility] Comment on above: Performed By: #### H EMOG, BMP3 #### [facility] [address] [place] [address] MCV (RBC) [Entitic vol] 72.7 fL Low 79.0-98.0 [facility] Comment on above: Performed By: #### H EMOG, BMP3 #### [facility] [address] [place] [address] Platelet mean volume (Bld) [Entitic vol] 7.7 fL Normal 7.4-10.4 [facility] Comment on above: Performed By: #### H EMOG, BMP3 #### [facility] [address] [place] [address] Platelets (Bld) [#/Vol] 354 10*3/uL Normal 140-440 [facility] Comment on above: Performed By: #### H DALI BMP3 #### [facility] [address] [place] [address] RBC (Bld) [#/Vol] 4.93 10*6/uL Normal 3.80-5.20 [facility] Comment on above: Performed By: #### H IRWING BMP3 #### [facility] [address] [place] [address] WBC (Bld) [#/Vol] 6.9 10*3/uL Normal 3.6-10.7 [facility] Comment on above: Performed By: #### H DALI BMP3 #### [facility] [address] [place] [address] Established Visit (Otolaryng ology)on 04-19-2021 Established Visit (Otolaryngology) Diagnoses/Problems Sialolithiasis of submandibular gland (527.5) (K11.5) Former smoker (V15.82) (Z87.891) Submandibular gland swelling (782.3) (R60.9) Orders Basic Metabolic Panel; Status:Active - Retrospective Authorization; Requested for:[id number]; Complete Blood Count; Status:Active - Retrospective Authorization; Requested for:[id number]; Submandibular gland swelling (782.3) (R60.9) Sialolithiasis of submandibular gland (527.5) (K11.5) Patient Discussion/Summary Dr. Barrera evaluated you today. Your care plan is outlined below: -- Dr. Barrera recommends either 1. sialoendoscopy to help get rid of the stones or 2. removal of the submandibular gland -- Use heat and ibuprofen for the next week. General appointment line please call [phone] For general questions or scheduling issues please call [phone] option #2 For medical questions or surgery scheduling please call [phone] Dr. Barrera makes every effort to run on time for your appointments. Therefore, if you are more than 30 minutes late for your appointment, unrelated to a scan or another appointment such as chemotherapy or radiation, your appointment will need to be rescheduled to another day. We appreciate your understanding. Provider Impressions . BEE WILL, is here for follow up regarding her right FOM swelling. CT neck with contrast obtained and personally reviewed. There are 3 small stones along the right floor of mouth. No head and neck masses no pathologic lymphadenopathy. We had an extensive discussion regarding the small stones. We reviewed treatment options. She has failed conservative measures including increased hydration and sialagogues. We discussed the options of proceeding with sialendoscopy with attempted stone removal and submandibular duct dilation versus right submandibular gland excision. She is interested in right submandibular gland excision. I feel this will treat her areas of concern. No evidence of infection today so no antibiotics are recommended. She does have mild tenderness of the right submandibular gland. Recommend NSAIDs. Risks, benefits and alternatives were discussed at length regarding the above procedure(s). The patient expressed verbal understanding of these and elected to sign a surgical consent today. Follow up for surgery scheduling in the near future. Chief Complaint submandibular gland stones History of Present IllnessMs. BEE WILL, is a 50 year old female here for a follow up regarding her floor of mouth swelling. Last seen 03/13. Patient had a CT neck w/contrast which she brings with her on a disc today. Patient reports pain in her neck on the right. On my personal review of her imaging there is evidence of 3 small stones along the right FOM. No masses otherwise. No lymphadenopathy. No dysphagia or otalgia. Tolerating a soft but advancing to regular diet. No swelling with eating/drinking. Denies weight loss. No fevers/chills. No night sweats. She reports tenderness of right submandibular gland/neck a few months ago improved after abx. SH: Tob: Former smoker. ETOH: 2-3 glasses of wine/week Here alone By signing my name below, I, Britany Nelson, attest that this documentation has been prepared under the direction and in the presence of Dr. Abigail Barrera MD. All medical record entries made by the Britany were at my direction and personally dictated by me, Dr. Abigail Barrera. I have reviewed the chart and agree that the record accurately reflects my personal performance of the history, physical exam, discussion and plan. Review of Systems Constitutional: no fever, not feeling tired, no recent weight gain and no recent weight loss. Eyes: no eye pain, no double vision and no itching of the eyes. ENMT: no difficulty with hearing, no hearing loss, no pain in the ear, no vertigo, no tinnitus, the ears do not feel full, no discharge from the ears, no nosebleeds, no nasal congestion, no rhinorrhea, no sinus pressure, no nasal blockage/obstruction, no snoring, no postnasal drip, no sore throat, no hoarseness, the gums were not bleeding, no dry mouth, no dysphagia and no mouth ulcers. Cardiovascular: no history of murmur, no chest pain, no palpitations and no lower extremity edema. Respiratory: no shortness of breath, no dyspnea during exertion, no wheezing, not coughing up sputum and not coughing up blood. Gastrointestinal: no heartburn, no vomiting, no change in appetite and no pain on swallowing. Genitourinary: no dysuria and no difficulty urinating. Musculoskeletal: no arthralgias and no myalgias. Integumentary: no rashes, no skin lesions, no itching, no dry skin and no unusual growth on the skin. Neurological: no fainting, no headache, no numbness, no convulsions and no weakness. Psychiatric: no anxiety and no depression. Endocrine: no increased thirst. Hematologic/Lymphatic: no swollen glands, no tendency for easy bleeding and no tendency for easy bruising. ENT and Constitutional (more content not included)... Normal [facility] Tobacco Screening.on 022 Fall risk assessment a) No falls within the last year [facility] Work Phone: Tobacco use status [facility] b) No [facility] Work Phone: BUNon 03-22-2021 Urea nitrogen (BldV) [Mass/Vol] 15 mg/dL 9 - 20 mg/dL [facility] CT Soft Tissue Neck w/ Contr vincent 03-22-2021 CT Soft Tissue Neck w/ Contrast Patient Name: BEE WILL Computed Tomography ACCESSION EXAM DATE/TIME PROCEDURE ORDERING PROVIDER [id number] 03/22/2021 17:[address] Soft Tissue Neck w/ MD BRUCE, ABIGAIL Glaser Contrast CPT code [id number] Reason For Exam (CT Soft Tissue Neck w/ Contrast) chronic sialoadentis, submandibular gland swelling Report Clinical history: chronic sialoadentis, submandibular gland swelling COMPARISON: None. TECHNIQUE: [address] images were obtained of the neck after the uneventful IV administration of 75 mL of Isovue-370. Images were reformatted in coronal and sagittal projections. FINDINGS: Salivary glands: The parotid and submandibular glands are normal in appearance. There is no significant fat stranding surrounding the submandibular glands. No sialolith is identified. Lymph nodes: There are numerous prominent bilateral level one and level two cervical lymph nodes but none of these exceed 1 cm in short axis and display normal morphology. Airways: The nasopharynx, oropharynx, hypopharynx are unremarkable. The airways are patent and the lung apices are clear. Accessory structures: There is an 8 mm nodule within the right lobe of the thyroid. The visualized intracranial contents are normal. There is fluid within both maxillary sinuses along with mucosal thickening within the ethmoid sinuses. The major vascular structures of the neck are patent. Soft tissues: No suspicious soft tissue masses underlying the area of palpable concern within the right neck. Osseous structures: No suspicious osseous lesions. IMPRESSION: Normal appearance of the submandibular glands without evidence of sialoadenitis or sialolith. No suspicious mass underlying the area of palpable concern within the right neck. Computed Tomography Report Layering fluid within both maxillary sinuses with mucosal thickening in the ethmoid sinuses consistent with sinusitis. Report Dictated on Final Dictating Physician: MD SNOW YUN ROBERT Signed Date and Time: 03/23/2021 10:35 am Signed by: MD SNOW YUN ROBERT Transcribed Date and Time: 03/23/2021 10:36 Normal [facility] Creatinineon 03-22-2021 Creatinine [Mass/Vol] 0.67 mg/dL Normal 0.52-1.25 [facility] Comment on above: Performed By: #### B UN3, CRTN3 #### [facility] [address] [place] [address] eGFR OTHER > 90.0 Normal >60 [facility] Comment on above: Result Comment: KDIG O guidelines provide the following GFR categories: Stage GFR(ml/min/1.73 m2) Terms G1 >=90 Normal or high G2 60-89 Mildly decreased* G3a 45-59 Mildly to moderately decreased G3b 30-44 Moderately to severely decreased G4 15-29 Severely decreased G5 <15 Kidney failure *Relative to young adult level. In the absence of evidence of kidney damage, neither GFR category G1 nor G2 fulfill the criteria for CKD. The CKD-EPI equation is validated in individuals 18 years of age and older. Currently the best equation for estimating glomerular filtration rate (GFR) from serum creatinine in children is the Bedside Wynne equation. It is less accurate in patients with extremes of muscle mass, restriction of dietary protein, ingestion of creatine, extra-renal metabolism of creatinine, or treatment with medications that affect renal tubular creatinine secretion. Performed By: #### B UN3, CRTN3 #### [facility] [address] [place] [address] GFR/1.73 sq M.predicted among blacks MDRD (S/P/Bld) [Vol rate/Area] mL/min/{1.73_m2} Normal >60 [facility] Comment on above: Performed By: #### B UN3, CRTN3 #### [facility] [address] [place] [address] Creatinine, Serumon 03-22-19 Creatinine [Mass/Vol] 0.67 mg/dL 0.52 - 1.25 mg/dL [facility] EGFR IF NonAfrican Maltese >90.0 >60 mL/min [facility] Comment on above: KDIGO guidelines pro vide the following GFR categories: Stage GFR(ml/min/1.73 m2) Terms G1 >=90 Normal or high G2 60-89 Mildly decreased* G3a 45-59 Mildly to moderately decreased G3b 30-44 Moderately to severely decreased G4 15-29 Severely decreased G5 <15 Kidney failure *Relative to young adult level. In the absence of evidence of kidney damage, neither GFR category G1 nor G2 fulfill the criteria for CKD. The CKD-EPI equation is validated in individuals 18 years of age and older. Currently the best equation for estimating glomerular filtration rate (GFR) from serum creatinine in children is the Bedside Wynne equation. It is less accurate in patients with extremes of muscle mass, restriction of dietary protein, ingestion of creatine, extra-renal metabolism of creatinine, or treatment with medications that affect renal tubular creatinine secretion. 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 : Unknown Radiologist to Determine Optimal Study : Y What are the patient's signs and symptoms? : eval for submandibular gland stone Tobacco Use Screening; Status:Complete; Done: 15Mar2021 Submandibular gland swelling (782.3) (R60.9) Sialolithiasis of submandibular gland (527.5) (K11.5) Patient Discussion/Summary Dr. Barrera evaluated you today. Your care plan is outlined below: -- CT neck w/ contrast recommended. This appointment should be scheduled with the [employer] mortgage company on your way out today. Please schedule your appointment with Dr. Barrera and then proceed with your paperwork to the president mortgage company. You can also call [phone] to schedule your test. -- Follow up with Dr. Barrera after your scan. This appointment was scheduled at the end of your visit today. If you need to reschedule, please call the office at [phone]. Please keep in mind that last minute cancellations often result in delayed follow-up appointments. General appointment line please call [phone] For general questions or scheduling issues please call [phone] option #2 For medical questions or surgery scheduling please call [phone] Dr. Barrera makes every effort to run on time for your appointments. Therefore, if you are more than 30 minutes late for your appointment, unrelated to a scan or another appointment such as chemotherapy or radiation, your appointment will need to be rescheduled to another day. We appreciate your understanding. Provider Impressions Ms. BEE WILL, is here for follow up of right FOM sublingual hypertrophy s/p excision 05/25/18 AND 12/08. Both pathology showed chronic inflammation. She returns today with concern for the gritty texture along the FOM. 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 Therefore I recommend CT neck w/contrast. This could be scar tissue but I recommend imaging first. No palpable stone. I did explain the diagnosis, possible alternative diagnoses, and the plans for evaluation and treatment of the problem. I answered all of the patients questions. They did appear to understand and confirmed this, and do agree to proceed as outlined above. 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 Chief Complaint follow up History of Present IllnessMs. BEE WILL, is a 50 year old female here for a follow up regarding her floor of mouth swelling. Last seen 01/08. She had excision of right FOM sublingual tissue 2019 (06/08 AND 12/08). 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 She is under a lot of stress with work. She is feeling a gritty feeling along the right FOM. Worried she might have a FOM stone. No dysphagia or otalgia. Tolerating a soft but advancing to regular diet. No swelling with eating/drinking. Denies weight loss. No fevers/chills. No night sweats. No recurrence of her right buccal mucocele. SH: Tob: 3-4 cigs/day ETOH: 2-3 glasses of wine/week Here alone By signing my name below, I, Lam Nelsonibe, attest that this documentation has been prepared under the direction and in the presence of Dr. Abigail Barrera MD. All medical record entries made by the Scribe were at my direction and personally dictated by me, Dr. Abigail Barrera. I have reviewed the chart and agree that the record accurately reflects my personal performance of the history, physical exam, discussion and plan. Review of Systems Constitutional: no fever, not feeling tired, no recent weight gain and no recent weight loss. Eyes: no eye pain, no double vision and no itching of the eyes. ENMT: no difficulty with hearing, no hearing loss, no pain in the ear, no vertigo, no tinnitus, the ears do not feel full, no discharge from the ears, no nosebleeds, no nasal congestion, no rhinorrhea, no sinus pressure, no nasal blockage/obstruction, no snoring, no postnasal drip, no sore throat, no hoarseness, the gums were not bleeding, no dry mouth, no dysphagia and no mouth ulcers. Cardiovascular: no history of murmur, no chest pain, no palpitations and no lower extremity edema. Respiratory: no shortness of breath, no dyspnea during exertion, no wheezing, not coughing up sputum and not coughing up blood. Gastrointestinal: no heartburn, no vomiting, no change in appetite and no pain on swallowing. Genitourinary: no dysuria and no difficulty urinating. Musculoskeletal: no arthralgias and no myalgias. Integumentary: no rashes, no skin lesions, no itching, no dry skin and no unusual growth on the skin. Neurological: no fainting, no headache, no numbness, no convuls (more content not included)... Normal [facility] Tobacco Screening.on 022 Fall risk assessment a) No falls within the last year [facility] Work Phone: Tobacco use status [facility]PH[facility] b) No [facility] Work Phone: CBC Auto DifferentialOrdered By: Josette Delgado on 10-07-2020 Absolute Baso # 0.1 10*3/uL 0.0 - 0.2 10*3/uL [facility] Work Phone: 1 Absolute Neut # 6.3 10*3/uL 1.8 - 7.0 10*3/uL [facility] Work Phone: 1 Basophils/100 WBC (Bld) 1.0 % 0.0 - 2.0 % [facility] Work Phone: 1 Eosinophils (Bld) [#/Vol] 0.6 10*3/uL High 0.0 - 0.5 10*3/uL [facility] Work Phone: 1) Eosinophils/100 WBC (Bld) 5.7 % 1.0 - 6.0 % [facility] Work Phone: 1 Granulocytes/100 WBC (Bld) 63.3 % 40.0 - 80.0 % [facility] Work Phone: Hematocrit (Bld) [Volume fraction] 38.1 % 35.0 - 47.0 % [facility] Work Phone: Hemoglobin.gastrointes tinal spec 1 Ql (Stl) 12.6 g/dL 11.7 - 16.0 g/dL [facility] Work Phone: 1 Interpretation and review of laboratory results Abnormal [employer] Work Phone: 1 Lymphocytes (Bld) [#/Vol] 2.2 10*3/uL 1.0 - 4.3 10*3/uL [employer] Work Phone: Lymphocytes/100 WBC (Bld) 21.6 % 20.0 - 40.0 % [facility] Work Phone: MCH (RBC) [Entitic mass] 25.8 pg Low 26.0 - 34.0 pg [facility] Work Phone: MCHC (RBC) [Mass/Vol] 33.0 % 32.0 - 36.0 % [facility] Work Phone: MCV (RBC) [Entitic vol] 78.2 fL Low 79.0 - 98.0 fL [facility] Work Phone: Monocytes (Bld) [#/Vol] 0.8 10*3/uL 0.0 - 0.8 10*3/uL [facility] Work Phone: [phone] Monocytes/100 WBC (Bld) 8.4 % 2.0 - 10.0 % [facility] Work Phone: [phone] Platelet distribution width (Bld) [Ratio] 16.4 % High 11.5 - 14.5 % [facility] Work Phone: [phone] Platelet mean volume (Bld) [Entitic vol] 7.9 fL 7.4 - 10.4 fL [facility] Work Phone: 1 Platelets (Bld) [#/Vol] 315 10*3/uL 140 - 440 10*3/uL [facility] Work Phone: 1 RBC (Bld) [#/Vol] 4.87 10*6/uL 3.80 - 5.2 0 10*6/uL [facility] Work Phone: [phone] WBC (Bld) [#/Vol] 10.0 10*3/uL 3.6 - 10.7 10*3/uL [facility] Work Phone: [phone] Performed by [facility], [address] [place] [address] [address] [place] [address] [employer] Work Phone: [phone] [employer] Work Phone: [phone] Sternum Minimum 2 Viewson 10-07-2020 CR Sternum Minimum 2 Views [facility]: [id number] ACCESSION EXAM DATE/TIME PROCEDURE ORDERING PROVIDER [id number] 10/07/2020 10:51 EDT CR Sternum Minimum 2 CONNIE DELGADO HOLLY S Views CPT code 44485 Reason For Exam (CR Sternum Minimum 2 Views) raised area sternum Report STERNUM SERIES CLINICAL INDICATION: Sternal mass. Lateral and oblique plain films of the sternum were obtained. A radiopaque marker was placed on the skin surface overlying the area of interest. COMPARISON: None FINDINGS: No displaced fracture of the sternum or manubrium is identified. The sternoclavicular joints appear grossly normal. The visualized portion of the lungs appear clear. No definite bony or soft tissue abnormalities identified to correspond to the radiopaque marker placed on the skin surface overlying the lower aspect of the sternum. IMPRESSION: Unremarkable plain films of the sternum. Report Dictated on Final Dictating Physician: MD WAKEFIELD JONATHAN R Signed Date and Time: 10/08/2020 8:23 am Signed by: MD WAKEFIELD JONATHAN R Transcribed Date and Time: 10/08/2020 8:25 Normal [facility] Comp Metabolic Panelon 10-07 Calcium [Mass/Vol] 9.6 mg/dL Normal 8.4-10.4 [facility] Comment on above: Performed By: #### H EMDF, CMP3, LIPD2 #### [facility] [address] [place] [address] ALP [Catalytic activity/Vol] 79 U/L Normal 38-126 [facility] Comment on above: Performed By: #### H EMDF, CMP3, LIPD2 #### [facility] [address] [place] [address] ALT [Catalytic activity/Vol] 19 U/L Normal 0-34 [facility] Comment on above: Result Comment: The ALT test is performed by an updated assay method. Please note that the reference intervals have been changed and are now sex specific. Performed By: #### H EMDF, CMP3, LIPD2 #### [facility] [address] [place] [address] Anion gap [Moles/Vol] 5 mmol/L Normal 3-13 [facility] Comment on above: Performed By: #### H EMDF, CMP3, LIPD2 #### [facility] [address] [place] [address] AST [Catalytic activity/Vol] 33 U/L Normal 15-46 [facility] Comment on above: Performed By: #### H EMDF, CMP3, LIPD2 #### [facility] [address] [place] [address] Bilirubin [Mass/Vol] 0.3 mg/dL Normal 0.2-1.3 [facility] Comment on above: Performed By: #### H EMDF, CMP3, LIPD2 #### [facility] [address] [place] [address] CO2 [Moles/Vol] 28 mmol/L Normal 22-30 [facility] Comment on above: Performed By: #### H EMDF, CMP3, LIPD2 #### [facility] [address] [place] [address] Creatinine [Mass/Vol] 0.71 mg/dL Normal 0.52-1.25 [facility] Comment on above: Performed By: #### H EMDF, CMP3, LIPD2 #### [facility] [address] [place] [address] eGFR OTHER > 90.0 Normal >60 [facility] Comment on above: Result Comment: KDIG O guidelines provide the following GFR categories: Stage GFR(ml/min/1.73 m2) Terms G1 >=90 Normal or high G2 60-89 Mildly decreased* G3a 45-59 Mildly to moderately decreased G3b 30-44 Moderately to severely decreased G4 15-29 Severely decreased G5 <15 Kidney failure *Relative to young adult level. In the absence of evidence of kidney damage, neither GFR category G1 nor G2 fulfill the criteria for CKD. The CKD-EPI equation is validated in individuals 18 years of age and older. Currently the best equation for estimating glomerular filtration rate (GFR) from serum creatinine in children is the Bedside Wynne equation. It is less accurate in patients with extremes of muscle mass, restriction of dietary protein, ingestion of creatine, extra-renal metabolism of creatinine, or treatment with medications that affect renal tubular creatinine secretion. Performed By: #### H EMDF, CMP3, LIPD2 #### [facility] [address] [place] [address] GFR/1.73 sq M.predicted among blacks MDRD (S/P/Bld) [Vol rate/Area] mL/min/{1.73_m2} Normal >60 [facility] Comment on above: Performed By: #### H EMDF, CMP3, LIPD2 #### [facility] [address] [place] [address] Glucose [Mass/Vol] 109 mg/dL High 70-100 [facility] Comment on above: Performed By: #### H EMDF, CMP3, LIPD2 #### [facility] [address] [place] [address] Protein [Mass/Vol] 6.9 g/dL Normal 6.3-8.2 [facility] Comment on above: Performed By: #### H EMDF, CMP3, LIPD2 #### [facility] [address] [place] [address] Urea nitrogen [Mass/Vol] 12 mg/dL Normal 7-20 [facility] Comment on above: Performed By: #### H EMDF, CMP3, LIPD2 #### [facility] [address] [place] [address] Potassium [Moles/Vol] 5.0 mmol/L Normal 3.5-5.1 [facility] Comment on above: Performed By: #### H EMDF, CMP3, LIPD2 #### [facility] [address] [place] [address] Albumin [Mass/Vol] 4.1 g/dL Normal 3.5-5.0 [facility] Comment on above: Performed By: #### H EMDF, CMP3, LIPD2 #### [facility] [address] [place] [address] Chloride [Moles/Vol] 105 mmol/L Normal 98-107 [facility] Comment on above: Performed By: #### H EMDF, CMP3, LIPD2 #### [facility] [address] [place] [address] Sodium [Moles/Vol] 138 mmol/L Normal 135-145 [facility] Comment on above: Performed By: #### H EMDF, CMP3, LIPD2 #### [facility] [address] [place] [address] Comprehensive Metabolic Pane lOrdered By: Josette Delgado on 10-07-2020 Albumin [Mass/Vol] 4.1 g/dL 3.5 - 5.0 g/dL [facility] Work Phone: ALP (Bld) [Catalytic activity/Vol] 79 U/L 38 - 126 U/L [facility] Work Phone: [phone] ALT [Catalytic activity/Vol] 19 U/L 0 - 34 U/L [facility] Work Phone: Comment on above: The ALT test is perf ormed by an updated assay method. Please note that the reference intervals have been changed and are now sex specific. Anion gap [Moles/Vol] 5 mmol/L 3 - 13 mmol/L [facility] Work Phone: [phone] AST [Catalytic activity/Vol] 33 U/L 15 - 46 U/L [facility] Work Phone: [phone] Bilirubin [Mass/Vol] 0.3 mg/dL 0.2 - 1 .3 mg/dL [facility] Work Phone: [phone] Calcium [Mass/Vol] 9.6 mg/dL 8.4 - 10. 4 mg/dL [facility] Work Phone: [phone] Chloride [Moles/Vol] 105 mmol/L 98 - 10 7 mmol/L [facility] Work Phone: [phone] CO2 [Moles/Vol] 28 mmol/L 22 - 30 mmol/L [facility] Work Phone: [phone] Creatinine [Mass/Vol] 0.71 mg/dL 0.52 - 1.25 mg/dL [facility] Work Phone: [phone] EGFR IF NonAfrican Maltese >90.0 >60 mL/min [facility] Work Phone: Comment on above: KDIGO guidelines pro vide the following GFR categories: Stage GFR(ml/min/1.73 m2) Terms G1 >=90 Normal or high G2 60-89 Mildly decreased* G3a 45-59 Mildly to moderately decreased G3b 30-44 Moderately to severely decreased G4 15-29 Severely decreased G5 <15 Kidney failure *Relative to young adult level. In the absence of evidence of kidney damage, neither GFR category G1 nor G2 fulfill the criteria for CKD. The CKD-EPI equation is validated in individuals 18 years of age and older. Currently the best equation for estimating glomerular filtration rate (GFR) from serum creatinine in children is the Bedside Wynne equation. It is less accurate in patients with extremes of muscle mass, restriction of dietary protein, ingestion of creatine, extra-renal metabolism of creatinine, or treatment with medications that affect renal tubular creatinine secretion. Free PSA/Total PSA [Mass fraction] 6.9 g/dL 6.3 - 8.2 g/dL [facility] Work Phone: GFR/1.73 sq M.predicted among blacks MDRD (S/P/Bld) [Vol rate/Area] mL/min/{1.73_m2} >60 mL/min [facility] Work Phone: Glucose [Mass/Vol] 109 mg/dL High 70 - 100 mg/dL [facility] Work Phone: Potassium [Moles/Vol] 5.0 mmol/L 3.5 - 5.1 mmol/L [facility] Work Phone: Sodium [Moles/Vol] 138 mmol/L 135 - 145 mmol/L [facility] Work Phone: [phone] Urea nitrogen (BldV) [Mass/Vol] 12 mg/dL 7 - 20 mg/dL [facility] Work Phone: Hemogram w/ [employer] 10-07 Abs Baso Cnt 0.1 10*3/uL Normal 0.0-0.2 [facility] Comment on above: Performed By: #### H EMDF, CMP3, LIPD2 #### [facility] [address] [place] [address] Abs Neutrophile Cnt 6.3 10*3/uL Normal 1.8-7.0 [facility] Comment on above: Performed By: #### H EMDF, CMP3, LIPD2 #### [facility] [address] [place] [address] Basophils/100 WBC (Bld) 1.0 % Normal 0.0-2.0 [facility] Comment on above: Performed By: #### H EMDF, CMP3, LIPD2 #### [facility] [address] [place] [address] Eosinophils (Bld) [#/Vol] 0.6 10*3/uL High 0.0-0.5 [facility] Comment on above: Performed By: #### H EMDF, CMP3, LIPD2 #### [facility] [address] [place] [address] Eosinophils/100 WBC (Bld) 5.7 % Normal 1.0-6.0 [facility] Comment on above: Performed By: #### H EMDF, CMP3, LIPD2 #### [facility] [address] [place] [address] Erythrocyte distribution width (RBC) [Ratio] 16.4 % High 11.5-14.5 [facility] Comment on above: Performed By: #### H EMDF, CMP3, LIPD2 #### [facility] [address] [place] [address] Granulocytes/100 WBC (Bld) 63.3 % Normal 40.0-80.0 [facility] Comment on above: Performed By: #### H EMDF, CMP3, LIPD2 #### [facility] [address] [place] [address] Hematocrit (Bld) [Volume fraction] 38.1 % Normal 35.0-47.0 [facility] Comment on above: Performed By: #### H EMDF, CMP3, LIPD2 #### [facility] [address] [place] [address] Hemoglobin (Bld) [Mass/Vol] 12.6 g/dL Normal 11.7-16.0 [facility] Comment on above: Performed By: #### H EMDF, CMP3, LIPD2 #### [facility] [address] [place] [address] Lymphocytes (Bld) [#/Vol] 2.2 10*3/uL Normal 1.0-4.3 [facility] Comment on above: Performed By: #### H EMDF, CMP3, LIPD2 #### [facility] [address] [place] [address] Lymphocytes/100 WBC (Bld) 21.6 % Normal 20.0-40.0 [facility] Comment on above: Performed By: #### H EMDF, CMP3, LIPD2 #### [facility] [address] [place] [address] MCH (RBC) [Entitic mass] 25.8 pg Low 26.0-34.0 [facility] Comment on above: Performed By: #### H EMDF, CMP3, LIPD2 #### [facility] [address] [place] [address] MCHC 33.0 % Normal 32.0-36.0 [facility] Comment on above: Performed By: #### H EMDF, CMP3, LIPD2 #### [facility] [address] [place] [address] MCV (RBC) [Entitic vol] 78.2 fL Low 79.0-98.0 [facility] Comment on above: Performed By: #### H EMDF, CMP3, LIPD2 #### [facility] [address] [place] [address] Monocytes (Bld) [#/Vol] 0.8 10*3/uL Normal 0.0-0.8 [facility] Comment on above: Performed By: #### H EMDF, CMP3, LIPD2 #### [facility] [address] [place] [address] Monocytes/100 WBC (Bld) 8.4 % Normal 2.0-10.0 [facility] Comment on above: Performed By: #### H EMDF, CMP3, LIPD2 #### [facility] [address] [place] [address] Platelet mean volume (Bld) [Entitic vol] 7.9 fL Normal 7.4-10.4 [facility] Comment on above: Performed By: #### H EMDF, CMP3, LIPD2 #### [facility] [address] [place] [address] Platelets (Bld) [#/Vol] 315 10*3/uL Normal 140-440 [facility] Comment on above: Performed By: #### H EMDF, CMP3, LIPD2 #### [facility] [address] [place] [address] RBC (Bld) [#/Vol] 4.87 10*6/uL Normal 3.80-5.20 [facility] Comment on above: Performed By: #### H EMDF, CMP3, LIPD2 #### [facility] [address] [place] [address] WBC (Bld) [#/Vol] 10.0 10*3/uL Normal 3.6-10.7 [facility] Comment on above: Performed By: #### H EMDF, CMP3, LIPD2 #### [facility] [address] [place] [address] Lipid Panelon 10-07-2020 Chol/HDL 4 Normal [facility] Comment on above: Result Comment: Ref Range: < 3 Low Risk for CHD 3-6 Mod Risk for CHD > 6 High Risk for CHD Performed By: #### H EMDF, CMP3, LIPD2 #### [facility] [address] [place] [address] Cholesterol in HDL [Mass/Vol] 60 mg/dL Normal 40-60 [facility] Comment on above: Performed By: #### H EMDF, CMP3, LIPD2 #### [facility] [address] [place] [address] Low Density Lipoprotein 108 mg/dL Abnormal <100 [facility] Comment on above: Performed By: #### H EMDF, CMP3, LIPD2 #### [facility] [address] [place] [address] Triglyceride [Mass/Vol] 283 mg/dL Abnormal <150 [facility] Comment on above: Performed By: #### H EMDF, CMP3, LIPD2 #### [facility] [address] [place] [address] Cholesterol [Mass/Vol] 225 mg/dL Abnormal < 200 [facility] Comment on above: Performed By: #### H EMDF, CMP3, LIPD2 #### [facility] [address] [place] [address] Lipid PanelOrdered By: Josette Delgado on 10-07-2020 Cholesterol [Mass/Vol] 225 mg/dL Abnormal <200 [facility] Work Phone: Cholesterol in HDL [Mass/Vol] 60 mg/dL 40 - 60 mg/dL [facility] Work Phone: Cholesterol in LDL [Mass/Vol] 108 mg/dL Abnormal <100 [employer] Work Phone: Cholesterol.total/Chol esterol in HDL [Mass ratio] 4 {ratio} [employer] Work Phone: Comment on above: Ref Range: < 3 Low Risk for CHD 3-6 Mod Risk for CHD > 6 High Risk for CHD Triglyceride [Mass/Vol] 283 mg/dL Abnormal <150 [employer] Work Phone: No Panel InformationOrdered By: Josette Delgado on 10-07-2020 Interpretation and review of laboratory results Abnormal [employer] Work Phone: Test Performed by [facility], [address] [place] [address]. , [place] [address] [employer] Work Phone: [employer] Work Phone: MG Breast Tomosynthesis Scr Blon 10-01-2020 MG Breast Tomosynthesis Scr Bl Patient Name: BEE WILL Mammography ACCESSION EXAM DATE/TIME PROCEDURE ORDERING PROVIDER [id number] 10/01/2020 16:02 EDT MG Breast Tomosynthesis CONNIE DELGADO HOLLY S BI Scr CPT code 76720 [id number] Reason For Exam (MG Breast Tomosynthesis BI Scr) screening Report TIME SINCE LAST MAMMOGRAM: Last mammogram was performed 2 years and 6 months ago. REASON FOR EXAM: screening, asymptomatic. PROCEDURE: MG BREAST TOMOSYNTHESIS BL SCR: OCTOBER 01, 2020 - 2D/3D Procedure 3D Bilateral CC and MLO view(s) were taken. 2D Bilateral CC and MLO view(s) were taken. Prior study comparison: September 14, 2015, bilateral screening mammogram performed at [facility]. January 07, 2014, bilateral screening mammogram performed at [facility]. TISSUE DENSITY: BIRADS C - The breast tissue is heterogeneously dense, which could obscure underlying abnormalities. . RISK ALERT: The Cancer Risk Assessment scores below the recommendation of this report contain an outcome above the normal risk range. PATIENT CANCER HISTORY: No Personal History of Cancer FAMILY CANCER HISTORY: Sister Breast Cancer age 20, Breast Cancer age 35, Thyroid Cancer age 20 . FINDINGS: No suspicious masses, architectural distortions or suspiciously clustered microcalcifications are identified. There is no evidence of skin thickening or nipple retraction. There are no significant changes when compared with prior studies. No mammographic evidence of malignancy. Markings on images: BB's = Nipples; skin lesions Open moapa = Palpable Line = Scar Mammography Report 2D digital mammography and tomosynthesis imaging were performed and reviewed with CAD. ASSESSMENT: Category 1 Negative RECOMMENDATION: Routine screening mammogram of both breasts in 1 year. . Report Dictated on Cancer Risk Assessment: This risk assessment is based on patient provided information collected in a risk survey taken at the time of this examination. Lifetime breast cancer risk: Tyrer-Cuzick v7 45.73% - If greater than or equal to 20%, consider annual mammogram and annual screening Breast MRI or follow up in high risk clinic. A score of Low Risk indicates a score of less than 20%. Is the patient at elevated risk based on the HBOC criteria? Yes (Hereditary Breast and Ovarian Cancer) - If yes, consider genetic counseling and testing with high risk follow up. Is the patient at elevated risk based on the Bustos Syndrome criteria? No - If yes, consider genetic counseling and testing with high risk follow up. Final Signed Date and Time: 10/02/2020 10:14 am Signed by: DO MARSHALL RACHEL Normal [facility] APTTon 11-20-2018 aPTT Coag (Bld) [Time] 25.3 s 20 - 30.5 s [place], [place] Comment on above: NOTE: The therapeuti c time for Heparin anticoagulation, based on Xa activity inhibition, is an APTT of 46-80 seconds. Basic Metabolic Panelon 10-0 Anion gap [Moles/Vol] 12 mmol/L [place], [place] Calcium [Mass/Vol] 9.6 mg/dL 8.4 - 10. 4 mg/dL [place], [place] Chloride [Moles/Vol] 104 mmol/L 98 - 10 7 mmol/L [place] CO2 [Moles/Vol] 25 mmol/L 22 - 30 mmol/L [place] Creatinine [Mass/Vol] 0.7 mg/dL 0.52 - 1.25 mg/dL [place] EGFR IF NonAfrican Maltese >60.0 >60 mL/min [place], [place] Comment on above: Source- MDRD equatio n with creatinine calibration to IDMS(NKDEP) eGFR not recommended for drug dose adjustment GFR/1.73 sq M predicted among blacks MDRD (S/P/Bld) [Vol rate/Area] mL/min/{1.73_m2} >60 mL/min [place] Glucose [Mass/Vol] 108 mg/dL High 70 - 100 mg/dL [place] Interpretation and review of laboratory results Abnormal [place] Potassium [Moles/Vol] 4.9 mmol/L 3.5 - 5.1 mmol/L [place] Sodium [Moles/Vol] 140 mmol/L 135 - 145 mmol/L [place] Urea nitrogen [Mass/Vol] 12 mg/dL 7 - 20 mg/dL [place] Test Performed by [facility], [address] [place] [address] Sourav. , [address] CBCon 11-20-2018 Erythrocyte distribution width (RBC) [Ratio] 17.2 % High 11.5 - 14.5 % [place] Hematocrit (Bld) [Volume fraction] 32.4 % Low 35 - 47 % [place] Hemoglobin (Bld) [Mass/Vol] 10.3 g/dL Low 11.7 - 16 g/dL [place] Interpretation and review of laboratory results Abnormal [place] MCH (RBC) [Entitic mass] 21.8 pg Low 26 - 34 pg [place] MCHC (RBC) [Mass/Vol] 31.9 % Low 32 - 36 % [place] MCV (RBC) [Entitic vol] 68.3 fL Low 79 - 98 fL [place] Platelet mean volume (Bld) [Entitic vol] 8.0 fL 7.4 - 10.4 fL [place] Platelets (Bld) [#/Vol] 378 10*3/uL 140 - 440 10*3/uL [place] RBC (Bld) [#/Vol] 4.74 10*6/uL 3.8 - 5.2 10*6/uL [place] WBC (Bld) [#/Vol] 9.9 10*3/uL 3.6 - 10.7 10*3/uL [place] Test Performed by [facility], [address] , [address] Otheron 11-20-2018 Test Performed by [facility], [address] , [address] Protime-INRon 11-20-2018 INR Coag (PPP) [Relative time] 0.9 {INR} [place], [place] Comment on above: Recommended Anticoag ulant Therapy: SEE BELOW ----- INR of 2.0 - 3.0 : - Prophylaxis of Venous Thrombosis (high-risk surgery) - Treatment of Venous Thrombosis - Treatment of Pulmonary Embolism (Includes tissue heart valves, Acute Myocardial Infarction to prevent systemic embolism, Valvular Heart Disease, and Atrial Fibrillation) ----- INR of 2.5 - 3.5 : - Mechanical Prosthetic Valves (high risk) - If oral anticoagulant therapy is used to prevent Myocardial Infarction PT Coag (PPP) [Time] 10 s 9 - 12 s [place], [place] Comment on above: . Vital Signs Date Time Vital Sign Value Performing Clinician Erin luther 06-14-2021 15:20-0400 Body mass index (BMI) [Ratio] 32.17 kg/m2 Gerald Baird Work Phone: [facility] Work Phone: 06-14-2021 15:20-0400 Body surface area Derived from formula 2.17 m2 Gerald Baird Work Phone: [email or web address] Work Phone: 06-14-2021 15:20-0400 Body temperature 98.1 [degF] Gerald Baird Work Phone: [facility] [place] Work Phone: 06-14-2021 15:20-0400 Body weight 100.25 kg Gerald Baird Work Phone: [facility] [place] Work Phone: 04-19-2021 13:32-0500 Body height 176.53 cm Gerald Riosmer Work Phone: [facility] [place] Work Phone: 04-19-2021 13:32-0500 Body mass index (BMI) [Ratio] 32.68 kg/m2 Gerald Baird Work Phone: [email or web address] Asp[facility] [place] Work Phone: 04-19-2021 13:32-0500 Body surface area Derived from formula 2.18 m2 Gerald Baird Work Phone: [facility] [place] Work Phone: 04-19-2021 13:32-0500 Body weight 101.83 kg Gerlad Baird Work Phone: [employer] [place] Work Phone: 03-15-2021 15:32-0500 Body height 176.53 cm Gerald Baird Work Phone: [email or web address] Corporationlog[facility] [place] Work Phone: 03-15-2021 15:32-0500 Body mass index (BMI) [Ratio] 31.9 kg/m2 Gerald Riosmer Work Phone: [facility]PS[facility] Mobile[facility]tol[facility] [place] Work Phone: 03-15-2021 15:32-0500 Body surface area Derived from formula 2.16 m2 Gerald Delacruz Brie Work Phone: [facility] [place] Work Phone: 03-15-2021 15:32-0500 Body weight 99.4 kg Gerald Baird Work Phone: [facility] [place] Work Phone: 01-14-2019 16:16-0500 BMI (Body Mass Index) 30.61 kg/m2 Abigialsluy Barrera [facility] [place] Work Phone: 01-14-2019 16:16-0500 Body weight 95.39 kg Abigail Barrera [facility] [place] Work Phone: 01-14-2019 16:16-0500 BP Diastolic 103 mm[Hg] Abigail Barrera [facility] [place] Work Phone: 01-14-2019 16:16-0500 BP Systolic 165 mm[Hg] Abigail Barrera [facility] [place] Work Phone: 01-14-2019 16:16-0500 BSA (Body Surface Area) 2.12 m2 Abigail Barrera [facility] [place] Work Phone: 01-14-2019 16:16-0500 Height 176.53 cm Abigail Barrera [facility] [place] Work Phone: 01-14-2019 16:16-0500 Pulse (Heart Rate) 74 /min Abigail Barrera [facility] [place] Work Phone: 01-14-2019 16:16-0500 Respiratory Rate 18 /min Abigailsuly Barrera [facility] [place] Work Phone: Encounters Encounter Date Encounter Type Care Provider Facility Start: 02-01-2023 End: 02-01-2023 Emergency department patient visit SOBEIDA WALL Facility:[facility] Start: 06-14-2021 Postop follow up vis it related to original px Gerald L Brie Work Phone: TA-Niuirsvfmcicmo-Zuqd n Work Phone: Start: 06-04-2021 Chart Update Gerald Riosm er Work Phone: [facility]-Mzebmsinenodpt-Ssej n 395 Work Phone: Start: 05-24-2021 End: 05-24-2021 Subsequent hospital visit by physician Abigail Barrera Work Phone: [facility] Start: 04-19-2021 Office outpatient vi sit 25 minutes Gerald L Brie Work Phone: IC-Obdqxgcuglzten-Qhil n Work Phone: Start: 03-22-2021 End: 03-22-2021 Subsequent hospital visit by physician Abigail Barrera Work Phone: [facility] Comment on above: Arrived Start: 03-18-2021 AUDIT Gerald Riosm er Work Phone: [place]-Thfcptymgzyfoe-Gqdx n [place] [address] Work Phone: Start: 03-15-2021 Office outpatient vi sit 15 minutes Gerald Baird Work Phone: [place]-Mnkwtrfnrsfanr-Gpaz n Work Phone: Start: 10-07-2020 End: 10-07-2020 Subsequent hospital visit by physician Josette Delgado APRN - [employer] Work Phone: [facility] Comment on above: Mass of sternum; Class 1 obesity due to excess calories without serious comorbidity with body mass index (BMI) of 31.0 to 31.9 in adult; Allergic rhinitis, unspecified seasonality, unspecified trigger; Screening for deficiency anemia; Essential hypertension; Screening for diabetes mellitus; Screening for lipoid disorders Start: 10-01-2020 End: 10-01-2020 Subsequent hospital visit by physician Josette Delgado APRN - [employer] [facility] Comment on above: Arrived Start: 01-14-2019 Patient encounter procedure Abigail Barrera BQ-Juyettqlszlmqu-Edtx n Work Phone: Start: 11-20-2018 End: 11-20-2018 Subsequent hospital visit by physician Abigail Barrera Work Phone: [facility] Start: 11-12-2018 Patient encounter procedure Abigail Barrera MA-Iecejjtbrcxtmz-Ypvg n Work Phone: Start: 07-02-2018 Patient encounter procedure Abigail Barrera IR-Ledhfiyfewwydi-Vtyd n Work Phone: Start: 04-16-2018 Patient encounter procedure Abigail Barrera VC-Popjzasaxkmbzt-Sqqo n Work Phone: Start: 03-20-2018 Patient encounter procedure Abigail Barrera IG-Llhbhxtnnaxqap-Ibnv n Work Phone: Start: 03-09-2018 Patient encounter procedure bAigail Barrera UK-Gwlspkajxwdzxo-Eolb n Work Phone: Patient encounter status Gerald Nubia Baird Work Phone: [place]-Sztgggomxaqvur-Pobv n Work Phone: Procedures Date Procedure Procedure Detail Performing Clinician Start: 05-24-2021 Basic metabolic pane l calcium total Abigail Barrera Work Phone: Start: 03-22-2021 Creatinine blood Abigail Barrera Work Phone: Start: 10-07-2020 Comprehensive metabo lic panel Josette Delgado EDGE MOLDER - GOLF CART REPAIRER Work Phone: Start: 10-07-2020 Lipid panel Josette Burns EDGE MOLDER - GOLF CART REPAIRER Work Phone: Start: 09-21-2020 Microscopic observat ion [Identifier] in Cervix by Cyto stain Abigail Barrera Work Phone: Start: 11-20-2018 Basic metabolic pane l calcium total Unknown Provider Result Start: 11-20-2018 Blood count complete automated Unknown Provider Result Start: 11-20-2018 Prothrombin time Unknow n Provider Result Start: 11-20-2018 Thromboplastin time partial plasma/whole blood Unknown Provider Result History of History o f prior surgery Abigail Barrera History of prior surgery Skyler buzz Baird Work Phone: Comment on above: toe; Operation on breast Abigail larose Comment on above: benign lumps removed both breasts; Plan of Treatment Date Care Activity Detail Author Start: 10-07-2025 Lipid panel Lipid screen [facility] Start: 09-21-2025 Screening for malign ant neoplasm of cervix [facility] Start: 09-22-2023 Screening for malign ant neoplasm of cervix Pap smear [facility] Start: 02-07-2023 Cervical cancer screen Cervical canc er screen [place], [place] Start: 10-01-2022 Screening for malign ant neoplasm of breast Breast cancer screen [facility] Start: 04-14-2022 COVID-19 Vaccine (1) COVID-19 Vaccin e (1) [facility] Comment on above: Postponed from 05/11 (Patient Refused) Start: 02-20-2022 DTaP/Tdap/Td vaccine (2 - Td or Tdap) DTaP/Tdap/Td vaccine (2 - Td or Tdap) [facility] Start: 02-20-2022 DTaP/Tdap/Td vaccine (2 - Td) DTaP/Tdap/Td vaccine (2 - Td) [place] Start: 10-15-2021 End: 10-15-2021 Patient encounter procedure 10/15/2021 Office Visit Family Medicine Josette Delgado, EDGE MOLDER - GOLF CART REPAIRER [address] [place] [address] [facility] Start: 09-17-2021 Depression Screen Depression Screen [facility] Start: 09-17-2021 Hepatitis C screening Hepatitis C sc reen [facility] Comment on above: Postponed from 05/11 (Patient Refused) Start: 09-17-2021 HIV screening HIV screen [facility] Comment on above: Postponed from 05/11 (Patient Refused) Start: 09-17-2021 Shingles Vaccine (1 of 2) Aguilar gles Vaccine (1 of 2) [facility] Comment on above: Postponed from 05/11 (Patient Refused) Start: 08-19-2021 Influenza vaccination Flu vaccine (# 1) [facility] Comment on above: Postponed from 10/21 (Patient Refused) Start: 06-14-2021 POV, Provider: Abigail Barrera, Status: Pen, Time: 3:45 PM POV, Provider: Abigail Barrera, Status: Pen, Time: 3:45 PM WP-Bkrwphhmcdzlni-K janelle Work Phone: Start: 04-19-2021 FUV, Provider: Abigail Barrera, Status: Pen, Time: 1:45 PM FUV, Provider: Abigail Barrera, Status: Pen, Time: 1:45 PM QS-Tutiuunwtndkxq-W dmin [place] [address] Work Phone: Start: 03-24-2021 End: 03-24-2021 Patient encounter procedure [facility] Start: 12-02-2020 Lipid panel Lipid screen [facility] Work Phone: Start: 12-02-2020 Lipid screen Lipid screen [place] Start: 10-21-2020 Influenza vaccination Flu vaccine (# 1) [facility] Start: 04-05-2020 Breast cancer screen Breast cancer s creen [place], [place] Start: 04-05-2020 Screening for malign ant neoplasm of breast Breast cancer screen [facility] Work Phone: Start: 09-18-2019 Shingles Vaccine (1 of 2) Aguilar gles Vaccine (1 of 2) [place] Comment on above: Postponed from 05/11 (Patient Refused) Start: 02-07-2019 HIV screen HIV screen [place] Comment on above: Postponed from 05/11 (Patient Refused) Start: 02-07-2019 Influenza vaccination Flu vaccine (# 1) [place] Comment on above: Postponed from 10/21 (Patient Refused) Start: 2018 Colon cancer screen colonoscopy Colon cancer screen colonoscopy [place], [place] Start: 2013 Screening for malign ant neoplasm of colon [facility] Start: 2008 Diabetes screen Diabetes screen [place], [place] Start: 05-12-2003 Diabetes screen Diabetes screen [facility] Start: 1980 COVID-19 Vaccine (1) COVID-19 Vaccin e (1) [facility] Work Phone: Start: 1973 COVID-19 Vaccine (1) COVID-19 Vaccin e (1) [facility] End: 03-22-2021 CT SOFT TISSUE NECK W CONTRAST [facility] Work Phone: Comment on above: Once for 1 Occurrenc es starting 03/22/2021 until 03/22/2021 End: 10-01-2020 Screening digital breast tomosynthesis bi Jose Alberto Adama Digital Screen Bilateral Imaging Routine Once for 1 Occurrences starting 10/01/2020 until 10/01/2020 [facility] Work Phone: Comment on above: Once for 1 Occurrenc es starting 10/01/2020 until 10/01/2020 Screening digital br east tomosynthesis bi Jose Alberto Adama Digital Screen Bilateral Imaging Routine 10/01/2020 3:45 PM EDT [employer] Work Phone: End: 10-07-2020 XR STERNUM (MIN 2 VIEWS) XR STERNUM (MIN 2 VIEWS) Imaging Routine Mass of sternum 1 Occurrences starting 10/07/2020 until 10/07/2020 [facility] Work Phone: Comment on above: 1 Occurrences starti ng 10/07/2020 until 10/07/2020 XR STERNUM (MIN 2 VIEWS) XR STER NUM (MIN 2 VIEWS) Imaging Routine Mass of sternum 10/07/2020 10:51 AM EDT [employer] Work Phone: Immunizations Immunization Date Immunization Notes Care Provider Azra seals 02-21-2012 tetanus toxoid, redu marsha diphtheria toxoid, and acellular pertussis vaccine, adsorbed Abigail Barrera [place], [place] Payers Date Payer Category Payer Unknown [id number] 2021 Unknown BCBS BC[place] PO [id number] 2021-Present [phone] [address] [place] [address] [id number] 2020 Unknown [id number] 2018 Unknown BC[place] P PO xxxxxxxxxxxx 2018-Present [address] [place] [address] xxxxxxxxxxxx [id number] Unknown Social History Date Type Detail Facility Start: 04-24-2017 End: 09-17-2018 Tobacco smoking status NHIS Former smoker [place], [place] Start: 02-21-1988 End: 02-20-2010 History of tobacco use Cigarette Smoker [place] Start: 09-17-2018 Alcohol intake No [place], [place] Start: 1970 Sex Assigned At Not on file [place] Start: 02-21-1988 End: 02-20-2010 History of tobacco use Current smoker [employer] Phone: Start: 04-24-2017 End: 09-21-2020 Cigarettes smoked current (pack per day) - Reported [employer] Work Phone: Start: 04-24-2017 End: 09-21-2020 Tobacco use and exposure Never used [employer] Work Phone: Start: 09-21-2020 End: 04-14-2021 Alcohol intake Current non-drinker of alcohol (finding) [employer] Work Phone: Start: 09-17-2020 History SDOH Alcohol Frequency 2 [employer] Work Phone: Start: 09-17-2020 History SDOH Alcohol Std Drinks 1 [employer] Work Phone: Start: 09-17-2020 History SDOH Physica l Activity DPW 0 [facility] Work Phone: Start: 09-17-2020 History SDOH Financial 4 [facility] Work Phone: Exposure to SARS-CoV -2 (event) Not sure [facility] NEGATED: Highlighted row - - QT-Lzeebsrhvciqrr-F kron Work Phone: Goals Date Patient Goal Desired Activity /State Comment on above: Self- Management Jason n: Hypertension Below is a list of objectives your doctor would like you to consider working on help improve your overall health. Which objectives would you like to work on: Objective: I will take all medications as prescribed by my doctor, and I will call the office if I am having any medication problems. Patient Stated Goal: To have a healthy blood pressure. Barriers to success: stress Plan for overcoming my barriers: Take medications daily as prescribed. Encouraged and recommended by provider. Confidence: 09/29 Date goal set: 04/24/17 Self tracking sheet(s) given to patient: Yes Patient given educational materials on Hypertension Bee received counseling about current lifestyle goal. Patient given educational materials on Hypertension Provider Goal: BP <140/90. I have instructed Bee to record their blood pressure at home and to bring blood pressure recordings with them to their next appointment. Discussed use, benefit, and side effects of prescribed medications and barriers to medication compliance addressed, if applicable. All patient questions answered and patient voiced understanding. Patient was given a copy of this, and was advised to call if any questions. Formatting of this n ote might be different from the original. Self- Management Plan: Hypertension Below is a list of objectives your doctor would like you to consider working on help improve your overall health. Which objectives would you like to work on: Objective: I will take all medications as prescribed by my doctor, and I will call the office if I am having any medication problems. Patient Stated Goal: To have a healthy blood pressure. Barriers to success: stress Plan for overcoming my barriers: Take medications daily as prescribed. Encouraged and recommended by provider. Confidence: 09/29 Date goal set: 04/24/17 Self tracking sheet(s) given to patient: Yes Patient given educational materials on Hypertension Bee received counseling about current lifestyle goal. Patient given educational materials on Hypertension Provider Goal: BP <140/90. I have instructed Bee to record their blood pressure at home and to bring blood pressure recordings with them to their next appointment. Discussed use, benefit, and side effects of prescribed medications and barriers to medication compliance addressed, if applicable. All patient questions answered and patient voiced understanding. Patient was given a copy of this, and was advised to call if any questions. Comment on above: Workout more Formatting of this n ote might be different from the original. Workout more Functional Status Date Assessment Result Facility NEGATED: Highlighted row Functional performance Functional status health issues are not documented Disease MX-Junkpfzdmbpddg-M [employer] Work Phone: Mental Status Date Assessment Result Facility NEGATED: Highlighted row Cognitive function [Interpretation] Cognitive status health issues are not documented Disease CN-Lsllrvqmzxjqhf-Q [employer] Work Phone: History of Present illness Narrative 05-28-2021 Note Date & Type Note Facility 05-28-2021 History of Present illness Narrative Ms. BEE WILL, is a 50 year old female here for postop check s/p right submandibular gland removal 05/28/21. Final path: patchy sialadenitis. She had preop CT neck w/contrast which shows 3 stones along the right FOM. She has recovered well from surgery. She is concerned because there is a small nodule that remains under her tongue adjacent to the right mandible. This has been her main concern throughout all her treatment despite our focus on her recurrent FOM stones and sialadenitis. No masses otherwise. No lymphadenopathy. No dysphagia or otalgia. Tolerating a regular diet. She denies that the FOM lesion has changed in size in almost 2 years. No swelling with eating/drinking. Denies weight loss. No fevers/chills. No night sweats.SH:Tob: Former smoker.ETOH: 2-3 glasses of wine/weekHere aloneBy signing my name below, Sharmila, Britany Nelson, attest that this documentation has been prepared under the direction and in the presence of Dr. Abigail Barrera MD.All medical record entries made by the Lamibsandra were at my direction and personally dictated by me, Dr. Abigail Barrera. I have reviewed the chart and agree that the record accurately reflects my personal performance of the history, physical exam, discussion and plan. MW-Vmikxbjwlfrezp-Rydwn Work Phone: Clinical Note 05-28-2021 Note Date & Type Note Facility 05-28-2021 Note PROCEDURE DETAILS Preoperative Diagnosis: Submandibular sialoadenitis, right Postoperative Diagnosis: Submandibular sialoadenitis, right Surgeon: Abigail Barrera MD Resident/Fellow/Other Dog Hair Clipper: MD Katie Procedure: 1. Right submandibular gland excision Anesthesia: General Estimated Blood Loss: 10cc Findings: Chronically inflamed gland, no stones palpated in the proximal submandibular duct, facial artery and vein preserved Specimens(s) Collected: yes, Right submandibular gland Complications: None Patient Returned To/Condition: PACU/Stable Operative Report: Operative indications: This is a 51-year-old female who has had chronic issues with salivary gland inflammation, and stones. She had previously had a right intraoral sublingual gland, and submandibular duct procedure which did help her for some time. However on recent imaging and exam it was noted that there were stones that were quite embedded in the gland and would be difficult to retrieve from intraoral procedure. Therefore the above procedure was recommended. Indications, risk, benefits, and alternatives were discussed with patient and she did signed written informed consent. Operative description: Patient was met in the preoperative holding area where consent was reviewed and the patient was marked by the attending surgeon. The patient was then escorted to the operating room and laid supine on the operating room table. A huddle was performed for standard protocol. General endotracheal anesthesia was then induced without difficulty. The patient was then turned towards the ENT service and a shoulder roll was placed. We then marked out the landmarks of the right side angle of mandible and designed a 5 cm horizontal incision at least 2 fingerbreadths below the mandible inferior to the submandibular gland. This was then injected with 1% lidocaine with 1 100,000 epinephrine. We then prepped and draped the patient in standard sterile fashion for neck surgery. A timeout was called. The skin was incised and subplatysmal flaps were raised. The fascia inferior to the submandibular gland was divided to protect the marginal mandibular nerve. The posterior belly of the digastric was identified. We then continued to free the inferior border of the gland from the fascia around it in order to protect the marginal mandibular nerve. Once we had enough we were able to place an Allis clamp on the inferior portion of the gland to allow for retraction. Using this we carefully came around the gland dividing the fascia using a combination of clips, and Bovie electrocautery. The facial artery and vein were protected, and branches to the gland were isolated clipped and divided. We then identified the mylohyoid muscle exposed the lateral extent and then elevated it and retracted it anteriorly. We then identified the lingual nerve, submandibular ganglion, and submandibular duct. The submandibular ganglion was identified and we placed a medium clip and then divided it. We then carefully palpated the submandibular duct and found no stones. We then isolated and clipped the duct with medium clips and divided it. We then continued to ensure the gland was free of all fascial attachments. It was then removed and sent to pathology for evaluation. The wound was then copiously irrigated and hemostasis was insured. Fibrillar was placed in the wound bed. The neck wound was then closed in layered fashion with 3-0 Vicryl in interrupted fashion for the platysmal layer and deep dermal layer. The skin was then closed using 4-0 Monocryl in a running subcuticular fashion. We then cleansed and dried the patient and applied Mastisol and Steri-Strips. This marked the end of the procedure. The patient was then turned back to anesthesia, awakened, extubated, and then transferred to the PACU in stable condition. All surgical pauses were observed, and standard operating room protocol universal precautions were utilized throughout the procedure. Dr. Barrera was present and participated in all critical portions of the above procedure. Attestation: Note Completion: I am a:Resident/Fellow Attending AttestationI was present for mcgowan portions of the procedure and the procedure lasted longer than 5 minutes. Electronic Signatures: Abigail Barrera) (Signed 01-Jun-2021 23:28) Authored: Post-Operative Note, Chart Review, Note Completion Co-Signer: Post-Operative Note, Chart Review, Note Completion Herve Wilson (Resident)) (Signed 28-May-2021 10:33) Authored: Post-Operative Note, Chart Review, Note Completion Last Updated: 01-Jun-2021 23:28 by Abigail Barrera) [facility] Clinical Note 05-28-2021 Note Date & Type Note Facility 05-28-2021 Note History of Present I llness: /Lactating: Are You no Are You Currently Breastfeedingno History Present Illness: Reason for surgery: right submandibular gland HPI: HPI: No significant changes to the medical history since last clinic visit with Dr. Barrera PMH: reviewed in chart Fam Hx: Reviewed in EMR Social Hx: Reviewed in EMR Allergies: Reviewed in EMR ROS: negative except as above in HPI Medications, imaging and pertinent labs reviewed in EMR A/P Proceed with planned surgery Allergies: Allergies: codeine: Resp Distress Mold/Fungi: Other Home Medication Review: Home Medications Reviewed: yes Impression/Procedure: Impression and Planned Procedure: right submandibular removal ERAS (Enhanced Recovery After Surgery): ERAS Patient: no Vital Signs: Temperature C: 36.8 degrees C Temperature F: 98.2 degrees F Heart Rate: 63 beats per minute Respiratory Rate: 16 breath per minute Blood Pressure Systolic: 184 mm/Hg Blood Pressure Diastolic: 97 mm/Hg Physical Exam by System: Respiratory/Thorax: Unlabored breathing on RA Cardiovascular: No clubbing/cyanosis/edema of hands Consent: COVID-19 Consent: COVID-19 Risk ConsentSurgeon has reviewed mcgowan risks related to the risk of brooks COVID-19 and if they contract COVID-19 what the risks are. Attestation: Note Completion: I am a: Resident/Fellow Attending AttestationI saw and evaluated the patient. I personally obtained the mcgowan and critical portions of the history and physical exam or was physically present for mcgowan and critical portions performed by the resident/fellow. I reviewed the resident/fellows documentation and discussed the patient with the resident/fellow. I agree with the resident/fellows medical decision making as documented in the note. I personally evaluated the patient [id number] Electronic Signatures: Abigail Barrera) (Signed 31-May-2021 12:18) Authored: Note Completion Co-Signer: History of Present Illness, Allergies, Home Medication Review, Impression/Procedure, ERAS, Physical Exam, Consent, Note Completion Herve Wilson (Resident)) (Signed 28-May-2021 07:56) Authored: History of Present Illness, Allergies, Home Medication Review, Impression/Procedure, ERAS, Physical Exam, Consent, Note Completion Last Updated: 31-May-2021 12:18 by Abigail Barrera) [facility] History of Present illness Narrative 03-13-2021 Note Date & Type Note Facility 03-13-2021 History of Present illness Narrative Ms. BEE WILL, is a 50 year old female here for a follow up regarding her floor of mouth swelling. Last seen 03/13. Patient had a CT neck w/contrast which she brings with her on a disc today. Patient reports pain in her neck on the right. On my personal review of her imaging there is evidence of 3 small stones along the right FOM. No masses otherwise. No lymphadenopathy. No dysphagia or otalgia. Tolerating a soft but advancing to regular diet. No swelling with eating/drinking. Denies weight loss. No fevers/chills. No night sweats. She reports tenderness of right submandibular gland/neck a few months ago improved after abx.SH:Tob: Former smoker.ETOH: 2-3 glasses of wine/weekHere aloneBy signing my name below, Mervat Doll Scribe, attest that this documentation has been prepared under the direction and in the presence of Dr. Abigail Barrera MD.All medical record entries made by the Lamibsandra were at my direction and personally dictated by me, Dr. Abigail Barrera. I have reviewed the chart and agree that the record accurately reflects my personal performance of the history, physical exam, discussion and plan. [id number]-Rixuq Work Phone: History of Present illness Narrative 01-08-2021 Note Date & Type Note Facility 01-08-2021 History of Present illness Narrative Ms. BEE WILL, is a 50 year old female here for a follow up regarding her floor of mouth swelling. Last seen 01/08. Patient reports her tongue is numb. feels No dysphagia or otalgia. Tolerating a soft but advancing to regular diet. Denies weight loss. No fevers/chills. No night sweats.SH:Tob: 3-4 cigs/dayETOH: 2-3 glasses of wine/weekHere aloneBy signing my name below, Mervat Doll Scribe, attest that this documentation has been prepared under the direction and in the presence of Dr. Abigail Barrera MD.All medical record entries made by the Scribe were at my direction and personally dictated by me, Dr. Abigail Barrera. I have reviewed the chart and agree that the record accurately reflects my personal performance of the history, physical exam, discussion and plan. XR-[id number]-[id number] Work Phone: History of Present illness Narrative 01-08-2021 Note Date & Type Note Facility 01-08-2021 History of Present illness Narrative Ms. BEE WILL, is a 50 year old female here for a follow up regarding her floor of mouth swelling. Last seen 01/08. She had excision of right FOM sublingual tissue 2018 (06/08 & 12/08). 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 She is under a lot of stress with work. She is feeling a gritty feeling along the right FOM. Worried she might have a FOM stone. No dysphagia or otalgia. Tolerating a soft but advancing to regular diet. No swelling with eating/drinking. Denies weight loss. No fevers/chills. 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 Abigail Barrera MD.All medical record entries made by the Scribe were at my direction and personally dictated by me, Dr. Abigail Barrera. I have reviewed the chart and agree that the record accurately reflects my personal performance of the history, physical exam, discussion and plan. [id number]-[id number] [address] Work Phone: Evaluation note Note Date & Type Note Facility Evaluation note Diagnosis Mass of sternum Disorder of bone and cartilage, unspecified Class 1 obesity due to excess calories without serious comorbidity with body mass index (BMI) of 31.0 to 31.9 in adult Allergic rhinitis, unspecified seasonality, unspecified trigger Screening for deficiency anemia Screening for other and unspecified deficiency anemia Essential hypertension Unspecified essential hypertension Screening for diabetes mellitus Screening for lipoid disorders documented in this encounter [facility] Work Phone: Advance Directives No Advanced Directives Records FoundDocuments on File Type Date Recorded 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 Advance Directives and Living Will Power of Technology Architect Documents on File Type Date Recorded 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 anation ACP-Advance Directive ACP-Power of Technology Architect Family History No Family History Records Found Mother Name Dates Details No pertinent family history( V49.89, Z78.9) Status:Active Father Name Dates Details No pertinent family history( V49.89, Z78.9) Status:Active Unknown Family Member Name Dates Details No pertinent family history: Mother, Father(V49.89, Z78.9) Status:Active Unknown Family Member Name Dates Details No pertinent family history: Mother, Father(V49.89, Z78.9) Status:Active Unknown Family Member Name Dates Details No pertinent family history: Mother, Father(V49.89, Z78.9) Status:Active Unknown Family Member Name Dates Details No pertinent family history: Mother, Father(V49.89, Z78.9) Status:Active Unknown Family Member Name Dates Details No pertinent family history: Mother, Father(V49.89, Z78.9) Status:Active Unknown Family Member Name Dates Details No pertinent family history: Mother, Father(V49.89, Z78.9) Status:Active Chief Complaint follow upsubmandibular gland stonespost op Summary Purpose Additional Source Comments Care Teams (unrecognized sec tion and content) Air Brush Operator Relationship Specialty Start Date End Date Gerald Baird MD [address] [place] [address], [place] [address] PCP - General Family Medicine 07/27/17 INFORMATION SOURCE (unrecogn ized section and content) DATE CREATED AUTHOR 06/04/2021 [facility] DATE CREATED AUTHOR AUTHOR'S ORGANIZ ATION 06/16/2021 [facility] [place] DATE CREATED AUTHOR AUTHOR'S ORGANIZ ATION 06/16/2021 [employer] DATE CREATED AUTHOR AUTHOR'S ORGANIZ ATION 01/10/2022 [facility] DATE CREATED AUTHOR AUTHOR'S ORGANJOSE C ATION 02/03/2023 [facility] FOR RECORDS PERTAINING TO PATIENTS WHO ARE OR HAVE BEEN ENROLLED IN A CHEMICAL DEPENDENCY/SUBSTANCEABUSE PROGRAM, SOME INFORMATION MAY BE OMITTED. This clinical summary was aggregated from multiple sources. Caution should be exercised in using it in the provision of clinical care. This summary normalizes information from multiple sources, and as a consequence, information in this document may materially change the coding, format and clinical context of patient data. In addition, data may be omitted in some cases. CLINICAL DECISIONS SHOULD BE BASED ON THE PRIMARY CLINICAL RECORDS. [facility] [employer] [facility]. provides no warranty or guarantee of the accuracy or completeness of information in this document.
== END | disposition home or self-care (01) ==
LOC: PAVLAB 15:20
PROVIDERS: PCP Nurse Practitioner; Referring Provider Student in an Organized Health Care Education/Training Program; Visit Provider Student in an Organized Health Care Education/Training Program
DX: Z01.812 Encounter for preprocedural laboratory examination (principal)
CPT/HCPCS: 36415; 80048; 85025

== ENCOUNTER 2024-01-24 14:20 | Inpatient (IN) | payer OTHER, SELFPAY ==
[2024-01-24] VITALS (25 sets, daily range): BP systolic 84–150; BP diastolic 58–112; PULSE 85–162; RESP 16–34; TEMP 36.6–37.3; O2SAT 88–96; BMI 34.9; BMI 34.2
--- NOTE | 2024-01-24 14:33 | EKG12_ITS ---
Test Reason : Blood Pressure : */* mmHG Vent. Rate : 182 BPM Atrial Rate : * BPM P-R Int : * ms QRS Dur : 84 ms QT Int : 272 ms P-R-T Axes : * -61 88 degrees QTcB Int : 473 ms Critical Test Result: High HR Atrial fibrillation with rapid ventricular response Left anterior fascicular block Nonspecific ST abnormality Abnormal ECG Confirmed by Jonny Hendricks ([id number]), greeting card editor T[employer] HDZ ([id number]) on 01/26/2024 10:40:48 AM Referred By: Confirmed By: Jonny Hendricks
[2024-01-24 15:06] LABS: Absolute Lymphocyte Count 1.45 X10^3/uL (0.83-4.51); Absolute Neutrophil Count 12.6 X10^3/uL (2.0-7.7); Basophil# 0.07 X10^3/uL; Basophil% 0.5 % (0-1); Eosinophil# 0.03 X10^3/uL; Eosinophils% 0.2 % (0-5); Hematocrit 47.6 % (37-47); Hemoglobin 15.7 g/dL (12.0-15.0); Lymphocyte # 1.45 X10^3/ul (0.83-4.51); Lymphocyte % 9.4 % (19-41); Mean Corpuscular Hgb 28.1 pg (27.0-32.0); Mean Corpuscular Volume 85.2 fL (81-99); Mean Platelet Vol. 11.1 fl (6.2-12.0); Monocyte# 1.18 X10^3/uL; Monocyte% 7.7 % (0-10); NRBC Flagged by Analyzer 0 % (0-5); Neutrophil # 12.57 X10^3/uL (2.7-7.7); Neutrophil % 81.8 % (47-70); Platelet Count 334 K/mm3 (150-450); RBC Distribution Width CV 13.1 % (11.6-14.6); RBC Distribution Width SD 40.9 fl (35.1-43.9); Red Blood Count 5.59 M/mm3 (4.2-5.4); White Blood Count 15.4 K/mm3 (4.4-11.0)
--- NOTE | 2024-01-24 15:29 | CT_ITS ---
STUDY: CTA CHEST REASON FOR EXAM: Female, 53 years old. PE RADIATION DOSAGE (If Supplied By Facility): CTDIvol = ( 26.39 ) mGy, DLP = ( 557.34 ) mGycm TECHNIQUE: The examination was performed with the intravenous administration of 100mL Isovue-370. Post-processing of the angiographic images was performed, with multiplanar reformation and 3D reconstruction. Individualized dose optimization techniques were used for this CT. COMPARISON: None. FINDINGS: Normal enhancement of the main pulmonary artery and right and left pulmonary arteries. Normal enhancement of the bilateral peripheral pulmonary arteries. There is no demonstrated pulmonary embolism. Normal thoracic aorta and visualized great vessels. There is no demonstrated aortic dissection. Normal heart and pericardium. Normal mediastinum. Normal hilar regions. Normal visualized trachea and bronchi. The lungs are well expanded. There is patchy airspace consolidation involving the left upper lobe and right middle and lower lobes Normal pleura. Normal chest wall structures. Normal osseous structures. Normal visualized upper abdomen. CT/CTA Chest W/WO Contrast IMPRESSION: CTA chest examination, without a demonstrated pulmonary embolism or arterial dissection. Bilateral pneumonia. Electronically Signed: Eyal Isidro MD at 20:17 EST ,
--- NOTE | 2024-01-24 15:29 | EKG12_ITS ---
Test Reason : REPEAT Blood Pressure : */* mmHG Vent. Rate : 112 BPM Atrial Rate : 112 BPM P-R Int : 136 ms QRS Dur : 88 ms QT Int : 324 ms P-R-T Axes : 75 -68 84 degrees QTcB Int : 442 ms Sinus tachycardia Left anterior fascicular block Abnormal ECG Confirmed by Jonny Hendricks ([id number]), science editor [employer] HDZ ([id number]) on 01/26/2024 10:40:32 AM Referred By: Confirmed By: Jonny Hendricks
--- NOTE | 2024-01-24 15:53 | EDS_ITS ---
HPI History of Present Illness Chief Complaint: Shortness of Breath Narrative Narrative: Chief complaint and HPI: Shortness of breath. 53-year-old female with history of atrial fibrillation in 2021, HTN, HLD presents for evaluation of shortness of breath and URI symptoms. Patient states she recently had right knee surgery with orthopedics on January 02. Patient is currently not on a blood thinner. Patient states this weekend she developed URI symptoms including shortness of breath, cough, congestion, nausea, vomiting, diarrhea, lightheadedness, general malaise/fatigue. She denies any sick contacts that she knows of. Denies any fever, chest pain, dysuria, abdominal pain. Review of systems: See HPI Medications: As listed on the chart Allergies: As listed on the chart PFSH: Per chart Vital signs: As listed on the chart. Reviewed. Physical exam: Gen: A&O x3 Head: Normocephalic, atraumatic Eyes: No sclera icterus, conjunctiva clear, PERRL, EOMI ENT: Dry mucous membranes Neck: Trachea midline, No JVD, Full ROM, No meningismus CV: Tachycardic, regular rhythm, no murmurs, no peripheral edema Resp: Lungs CTA BL, no w/r/c GI: Abd soft, non-distended, non-tender, no r/r/g Musc: Moves all extremities, no deformity, right lower extremity is in a brace from her recent surgery there are Steri-Strips on the knee without any signs of cellulitis or infection Skin: Warm, dry, no rash Neuro: Alert, oriented, grossly intact, sensation intact Psych: Cooperative, appropriate mood and affect [facility] Medical History (Reviewed 11/06/23 @ 17:34 by Jennie Rivero VOCATIONAL EDUCATION TEACHER, VOCATIONAL EDUCATION TEACHER-C) Alcohol use Heartburn Former smoker History of pain when walking History of echocardiogram History of atrial fibrillation Cardiology follow-up encounter Abnormal Pap smear of cervix Hyperlipidemia Essential hypertension Fibroid Microcytic anemia Atrial fibrillation with RVR (07/08/21) Home Medications ?Medication ?Instructions ?Recorded ?Last Taken ?Type docusate sodium 100 mg capsule 100 mg PO DAILY #30 caps 03/09/22 Unknown Rx (Colace) amlodipine 10 mg tablet 10 mg PO DAILY #90 tabs 11/06/23 Unknown Rx metoprolol succinate 100 mg 100 mg PO QHS #30 tabs 11/06/23 Unknown Rx tablet,extended release 24 hr topiramate 50 mg tablet 50 mg PO BID PRN 11/06/23 Unknown History hydroxyzine HCl 10 mg tablet 10 mg PO TID-QID PRN anxiety #45 11/22/23 Unknown Rx tabs Allergy/AdvReac Type Severity Reaction Status Date / Time codeine AdvReac Other Verified 01/24/24 14:21 Family History Mother , from complications from mitral valve disease Mitral valve disorder Brother Hypertension Sister Atrial fibrillation Hypertension Father No problems noted. Surgical History History of robot-assisted laparoscopic hysterectomy Hx of excision of mass Status post colposcopy History of breast lump removal History of submandibular gland removal Social History Smoking Status: Former smoker how long ago did patient quit smokin alcohol intake: current alcohol intake frequency: holidays/special occasions only substance use type: does not use caffeine: No what type of physical activity do you participate in: walking frequency: 5-6 times per week seatbelt use: always do you feel safe at home: Yes additional social history: [facility] EXAM Physical Exam Const Vital Signs: 01/24/24 14:21 01/24/24 16:15 01/24/24 16:15 Temperature 99.2 F H Temperature Source Oral Pulse Rate 92 Respiratory Rate 20 H 25 H Respiratory Effort Respiratory Depth Respiratory Pattern Blood Pressure 91/58 L Blood Pressure Mean 69 Pulse Ox 95 91 91 Oxygen Delivery Method Room Air Room Air Room Air Oxygen Flow Rate (L/min) 01/24/24 16:15 01/24/24 16:20 01/24/24 16:23 Temperature Temperature Source Pulse Rate 109 H Respiratory Rate 30 H Respiratory Effort Short of Breath Labored Respiratory Depth Shallow Respiratory Pattern Tachypnea Blood Pressure 143/72 H Blood Pressure Mean 95 Pulse Ox 88 92 Oxygen Delivery Method Room Air Room Air Nasal Cannula Oxygen Flow Rate (L/min) 2 MDM MDM MDM Narrative Medical decision making narrative: 53-year-old female with history of atrial fibrillation in 2021, HTN, HLD presents for evaluation of shortness of breath and URI symptoms. On arrival, patient was in atrial fibrillation with RVR with low blood pressure of 91/58. Temperature 99.2 ?F. By the time patient was roomed and I examined her, patient was in sinus tachycardia with improvement in her blood pressure. I suspect that her low blood pressure was secondary to the A-fib with RVR. Differential diagnosis includes but is not limited to viral illness, pneumonia, UTI, elect rolyte abnormality, PE. Less likely ACS. NS bolus, Zofran, Tylenol ordered for symptoms. Laboratory workup ordered including CTA chest to evaluate for PE given her previous A-fib with RVR, shortness of breath, and recent surgery. On chart review, patient's surgery record was unable to be obtained. EKG reviewed, see below. CBC shows leukocytosis of 15.4. Patient is hemoconcentrated at 15.7 this is consistent with her nausea, vomiting, diarrhea and is likely secondary to dehydration. Patient is now hypoxic on room air at 88%. Placed on 2 L nasal cannula. Lactic acid unremarkable. BNP, troponin, BMP pending. CTA, COVID, flu, RSV, urine pending. Patient was signed out to oncoming provider. Final disposition pending workup. EKG: Interpreted by me/EM physician: EKG shows atrial fibrillation with RVR, nonspecific ST changes. Heart rate 182. Repeat EKG shows sinus tachycardia with a heart rate of 112. No acute ischemic changes. Impression: 1. Flulike symptoms with acute hypoxia requiring oxygen via nasal cannula 2. Shortness of breath 3. Atrial fibrillation with RVR, converted to sinus tachycardia without medication or intervention 4. History of recent right knee surgery Lab Data Labs: Laboratory Results - last 24 hr 01/24/24 01/24/24 14:58 16:09 WBC 15.4 H RBC 5.59 H Hgb 15.7 H Hct 47.6 H MCV 85.2 MCH 28.1 MCHC 33.0 RDW Std Deviation 40.9 RDW Coeff of Sandra 13.1 Plt Count 334 MPV 11.1 Immature Gran % (Auto) 0.400 Neut % (Auto) 81.8 H Lymph % (Auto) 9.4 L [place] % (Auto) 7.7 Eos % (Auto) 0.2 Baso % (Auto) 0.5 Absolute Neuts (auto) 12.6 H Absolute Lymphs (auto) 1.45 Nucleated RBC % 0 Lactic Acid 1.1 Discharge Plan Triage Chief Complaint: Shortness of Breath ED Provider: Reji Mir Dx/Rx/DC Orders Prescriptions: No Action topiramate 50 mg tablet 50 mg PO BID PRN Rx Instructions: start at 1 pill a day thrn 2 x a day at 10 days amlodipine 10 mg tablet 10 mg PO DAILY Qty: 90 3RF metoprolol succinate 100 mg tablet extended release 24 hr 100 mg PO QHS Qty: 30 6RF Rx Instructions: Hold for heart less than 60 or systolic blood pressure less than 100 mmHg. docusate sodium [Colace] 100 mg capsule 100 mg PO DAILY Qty: 30 0RF hydroxyzine HCl 10 mg tablet 10 mg PO TID-QID PRN (Reason: anxiety) Qty: 45 12RF Primary Care Provider: Jennie Rivero NP Referrals: Jennie Rivero NP, VOCATIONAL EDUCATION TEACHER-C [Primary Care Provider] - Print Language: Belarusian
[2024-01-24] MEDS: Acetaminophen 500 MG Tablet 1000 MG PO (16:06)
[2024-01-24] MEDS: Ondansetron 4 MG/2 ML Vial IV (16:06)
[2024-01-24] MEDS: 0.9% Normal Saline (1000mL) 1,000 ML 1000 ML IV (16:06)
[2024-01-24 16:54] LABS: Lactic Acid 1.1 mmol/L (0.4-1.9)
[2024-01-24 17:09] LABS: BNP,B-Type NATRIURETIC PEPTIDE 295.1 pg/mL (0-100)
[2024-01-24 17:45] LABS: Anion Gap 9 (5-15); BUN 16 mg/dL (7-18); Calcium,Total 9.4 mg/dL (8.5-10.1); Chloride 104 mmol/L (98-107); Creatinine, Serum 0.89 mg/dL (0.55-1.02); EST Glomerular Filtration Rate 70 mL/min (>60); Est Glom Filt Rate - Afr Amer 85 mL/min (>60); Glucose 132 mg/dL (74-106); Potassium 4.4 mmol/L (3.5-5.1); Sodium Level 134 mmol/L (136-145); Troponin-I HS 31 pg/mL (3.0-54.0)
--- NOTE | 2024-01-24 17:57 | EKG12_ITS ---
Test Reason : TACHY Blood Pressure : */* mmHG Vent. Rate : 146 BPM Atrial Rate : 288 BPM P-R Int : * ms QRS Dur : 88 ms QT Int : 360 ms P-R-T Axes : * -49 76 degrees QTcB Int : 561 ms Critical Test Result: High HR Atrial flutter 2:1 conduction Left anterior fascicular block Abnormal ECG Confirmed by Jonny Hendricks ([id number]), editorial manager TREAS[employer] HDZ ([id number]) on 01/26/2024 10:40:15 AM Referred By: Confirmed By: Jonny Hendricks
[2024-01-24] MEDS: dilTIAZem 25 MG/5 ML Vial 20 MG IV BOLUS (18:18)
[2024-01-24] MEDS: dilTIAZem 25 MG/5 ML Vial IV BOLUS (18:32)
--- NOTE | 2024-01-24 18:56 | PCM.HP.STD ---
HPI - General General Date of Admission: 01/24/24 Date of Service: 01/24/24 Chief Complaint: SOB HPI Narrative MAC WILL, is a 53-year-old female history of A-fib in 2021 on metoprolol and hypertension who presented [facility] ED 01/24/2024 due to URI symptoms since Monday including shortness of breath, cough, congestion, nausea, vomiting, diarrhea, lightheadedness with generalized malaise and fatigue. On arrival she had a heart rate of 182 and was given fluids and converted to sinus rhythm however then went back in A-fib/flutter. CT of the chest demonstrated pneumonia. Patient given antibiotics and Cardizem was ordered for her A-fib and hospitalist contacted for admission. Patient evaluated at bedside. She endorses that since Monday she has been fatigued and had increasing shortness of breath and chills with a productive cough with yellow to brown sputum. Last night is when she started getting diarrhea and she has had some episodes of vomiting due to coughing so hard. Denies chest pain or swelling in her legs, has been getting around on crutches as she is nonweightbearing in her right lower extremity. Has been feeling chills but is unsure if she has had a measured temperature. Reports that she did have A-fib a couple years ago but it was around the time of a hysterectomy when she had a lot of stress on her body and does not think she has had any problems since that time. [facility] Medical History Alcohol use Heartburn Former smoker History of pain when walking History of echocardiogram History of atrial fibrillation Cardiology follow-up encounter Abnormal Pap smear of cervix Hyperlipidemia Essential hypertension Fibroid Microcytic anemia Atrial fibrillation with RVR (07/08/21) Home Medications ?Medication ?Instructions ?Recorded ?Last Taken ?Type amlodipine 10 mg tablet 10 mg PO DAILY #90 tabs 11/06/23 Unknown Rx metoprolol succinate 100 mg 100 mg PO QHS #30 tabs 11/06/23 Unknown Rx tablet,extended release 24 hr hydroxyzine HCl 10 mg tablet 10 mg PO TID-QID PRN anxiety #45 11/22/23 Unknown Rx tabs aspirin 81 mg tablet,delayed 81 mg PO BID 01/24/24 Unknown History release Allergy/AdvReac Type Severity Reaction Status Date / Time codeine AdvReac Other Verified 01/24/24 14:21 Family History Mother , from complications from mitral valve disease Mitral valve disorder Brother Hypertension Sister Atrial fibrillation Hypertension Father No problems noted. Surgical History History of robot-assisted laparoscopic hysterectomy Hx of excision of mass Status post colposcopy History of breast lump removal History of submandibular gland removal Social History Smoking Status: Former smoker how long ago did patient quit smokin alcohol intake: current alcohol intake frequency: holidays/special occasions only substance use type: does not use caffeine: No what type of physical activity do you participate in: walking frequency: 5-6 times per week seatbelt use: always do you feel safe at home: Yes additional social history: [facility] ROS ROS Narrative General: Has been feeling chills HENT: Has stuffy nose and sore throat EYES: Denies changes in vision Resp: Productive cough and shortness of breath Cardiac: Denies chest pain GI: Denies abdominal pain, has had diarrhea nausea : Denies changes in urination Extremity: Denies swelling MSK: Feels generally weak Neuro: Denies any numbness/tingling Heme: Denies any bleeding or bruising Skin: Denies rashes Psychiatric: No complaints voiced Vital Signs Vital Signs Vital Signs: 01/24/24 14:21 01/24/24 16:15 01/24/24 16:15 Temperature 99.2 F H Temperature Source Oral Pulse Rate 92 Respiratory Rate 20 H 25 H Respiratory Effort Respiratory Depth Respiratory Pattern Blood Pressure 91/58 L Blood Pressure Mean 69 Pulse Ox 95 91 91 Oxygen Delivery Method Room Air Room Air Room Air Oxygen Flow Rate (L/min) 01/24/24 16:15 01/24/24 16:20 01/24/24 16:23 Temperature Temperature Source Pulse Rate 109 H Respiratory Rate 30 H Respiratory Effort Short of Breath Labored Respiratory Depth Shallow Respiratory Pattern Tachypnea Blood Pressure 143/72 H Blood Pressure Mean 95 Pulse Ox 88 92 Oxygen Delivery Method Room Air Room Air Nasal Cannula Oxygen Flow Rate (L/min) 2 01/24/24 18:00 01/24/24 18:15 01/24/24 18:30 Temperature Temperature Source Pulse Rate 107 H 149 H 146 H Respiratory Rate 20 H 27 H 26 H Respiratory Effort Respiratory Depth Respiratory Pattern Blood Pressure 148/112 H 114/88 H 107/96 H Blood Pressure Mean 124 96 99 Pulse Ox 93 94 91 Oxygen Delivery Method Nasal Cannula Oxygen Flow Rate (L/min) 2 Weight Weight: 107.4 kg Body Mass Index (BMI) 34.9 Physical Exam Narrative General: Alert, oriented, appears to feel unwell HEENT: Atraumatic, normocephalic Eyes: Anicteric, normal conjunctiva, extraocular movements grossly intact Neck: Supple Respiratory: Increased respiratory effort, possibly slightly coarse in right posterior lobe Cardiovascular: Irregularly irregular, tachycardic GI: Soft, nontender, nondistended Extremities: No edema Musculoskeletal: Moving all extremities except right lower extremity is in immobilizer Neuro: No overt focal neurological deficits Skin: No rashes appreciated Psych: Cooperative Results Lab / Micro Data 01/24/24 14:58 01/24/24 14:58 Labs: Laboratory Results - last 24 hr 01/24/24 14:58: WBC 15.4 H, RBC 5.59 H, Hgb 15.7 H, Hct 47.6 H, MCV 85.2, MCH 28.1, MCHC 33.0, RDW Std Deviation 40.9, RDW Coeff of Sandra 13.1, Plt Count 334, MPV 11.1, Immature Gran % (Auto) 0.400, Neut % (Auto) 81.8 H, Lymph % (Auto) 9.4 L, Carlton % (Auto) 7.7, Eos % (Auto) 0.2, Baso % (Auto) 0.5, Absolute Neuts (auto) 12.6 H, Absolute Lymphs (auto) 1.45, Nucleated RBC % 0, Sodium 134 L, Potassium 4.4, Chloride 104, Carbon Dioxide 21.0, Anion Gap 9, BUN 16, Creatinine 0.89, Est GFR (MDRD) Af Amer 85, Est GFR (MDRD) Non-Af 70, BUN/Creatinine Ratio 18.0, Glucose 132 H, Calcium 9.4, Troponin I High Sens 31 01/24/24 16:09: Lactic Acid 1.1, B-Natriuretic Peptide 295.1 H Micro: Microbiology 01/24/24 15:56 Mucosa - Nasopharyngeal SARS-CoV-2, Influenza & RSV (PCR) - Final Assessment & Plan Assessment/Plan (1) Atrial fibrillation with RVR: PLAN: Plan # Hypoxia secondary to community-acquired pneumonia -Elevated WBC and evidence of pneumonia on x-ray -Imaging: CTA with evidence of pneumonia -Given patient's significantly elevated heart rate we will start ipratropium nebs as needed can add albuterol/DuoNebs when heart rate stable l -Sputum culture, COVID negative, respiratory panel ordered -Urine antigens -Mucinex, I/S -Given significance of her current clinical status with her pneumonia we will place patient on Zosyn and azithromycin and can de-escalate as applicable -CTA of the chest obtained given her recent surgery, read still pending however patient to be started on anticoagulation with heparin drip as below # A-fib with RVR -Patient now being started on Cardizem drip -Monitor on telemetry -Echocardiogram -Heparin drip -Check magnesium and TSH #Nausea and diarrhea -Possibly viral in nature, respiratory panel ordered -Will check stool studies -Patient with poor p.o. intake and vomiting and diarrhea, will start IV fluids # Recent orthopedic surgery on right knee -With Dr. Wiley at the end of December, noted -Nonweightbearing in right lower extremity #Hypertension -Was somewhat hypotensive on arrival, hold home antihypertensives. Patient to be on Cardizem drip #DVT ppx: Heparin subcu Tete Montoya MD Time spent in the patient's overall evaluation, decision-making process, review of diagnostic data, adjustment of management, discussion with other providers, nursing and ancillary staff involved in patient's care documentation, 60 Minutes Charges/Coding Visit Charges Inpatient E&M: 43997 Init Hosp L2
[2024-01-24] MEDS: levoFLOXacin IV 750 MG/150 ML BAG 100 MG IV (18:58)
[2024-01-24] MEDS: Diltiazem 125 MG in Dextrose 5%-Water (100mL Bag) 100 ML IV (18:59)
[2024-01-24 19:11] LABS: International Normalized Ratio 1.2; Prothrombin Time (Protime)PT. 15.4 SECONDS (11.7-14.9)
[2024-01-24] MEDS: Heparin Injection (Vial) 5,000 UNIT/ML VIAL 8000 UNIT IV (19:25)
[2024-01-24] MEDS: HEPARIN/D5w 25,000 UNITS 25,000 UNITS/250 ML IV.SOLN. 15 UNITS CONT INF (19:27)
[2024-01-24] MEDS: 0.9% Normal Saline (1000mL) 1,000 ML 999 ML IV (19:54)
--- NOTE | 2024-01-24 20:30 | ECHOCS_ITS ---
Reason For Study: Afib/Flutter Procedure This was a 2D Doppler, Color Flow transthoracic echocardiogram. The study was technically difficult. Contrast injection was performed. Exam performed portable in ICU/CCU. Left Ventricle Normal LV size. The estimated ejection fraction is 65 %. No evidence for diastolic dysfunction. No regional wall motion abnormalities noted. Right Ventricle Normal RV size. Normal systolic function. Atria The left and right atria are normal. No doppler evidence for ASD. Mitral Valve There is no mitral valve stenosis. No mitral valve insufficiency. Tricuspid Valve There is no tricuspid stenosis. Unable to estimate RV systolic pressure due to inadequate jet, pulmonary artery pressure probably normal. Aortic Valve Trisinus/trileaflet aortic valve. There is no aortic stenosis. No aortic valve insufficiency. Pulmonic Valve There is no pulmonic valvular stenosis. No pulmonic valve insufficiency. Great Vessels Normal aortic root. Pericardium/Pleural No pericardial effusion. Medication Diluted definity 3ml given slow IV push to enhance endocardial definition. MMode/2D Measurements & Calculations LVIDd: 5.1 cm IVSd: 1.4 cm Ao root diam: 3.4 cm LVIDs: 3.7 cm LVPWd: 1.0 cm RVDd: 3.7 cm FS: 26.7 % LAV(MOD-bp): 66.1 ml LVAd ap4: 37.6 cm2 SV(MOD-sp4): 83.6 ml LAV(MOD-bp) Indexed: 29.7 ml/m2 LVLd ap4: 8.3 cm SI(MOD-sp4): 37.6 ml/m2 LAV(MOD-sp2): 61.8 ml EDV(MOD-sp4): 138.2 ml LAV(MOD-sp4): 64.7 ml EDV(sp4-el): 144.9 ml LVAs ap4: 21.2 cm2 LVLs ap4: 6.7 cm ESV(MOD-sp4): 54.5 ml ESV(sp4-el): 57.0 ml EF(MOD-sp4): 60.5 % EF(sp4-el): 60.7 % SV(sp4-el): 87.9 ml LA A4 area: 20.8 cm2 LA dimension(2D): 4.3 cm RA A4 area: 18.8 cm2 TAPSE: 2.2 cm Doppler Measurements & Calculations MV E max leatha: 115.6 cm/sec MV V2 max: 92.8 cm/sec Ao V2 max: 172.7 cm/sec MV max P.5 mmHg Ao max P.0 mmHg MV V2 mean: 55.6 cm/sec MV mean P.5 mmHg MV V2 VTI: 28.2 cm LV V1 max: 134.9 cm/sec PA V2 max: 83.1 cm/sec LV V1 max P.3 mmHg ECHO/Echo Complete W/ Contrast Interpretation Summary The estimated ejection fraction is 65 %. No evidence for diastolic dysfunction. Ordering Physician: Tete Montoya Performed By: Reji Roberts RCS
[2024-01-24] MEDS: 0.9% Normal Saline (1000mL) 1,000 ML 100 ML IV (20:51)
[2024-01-24] MEDS: Ipratropium 0.5 MG/2.5 ML SOLUTION INHALATION (21:08)
[2024-01-24] MEDS: Azithromycin 500 MG in Dextrose 5%-Water (250mL Bag) 250 ML 250 MG IV (21:08)
[2024-01-24] MEDS: guaiFENesin 1,200 MG Tablet 1200 MG PO (21:08)
[2024-01-24] MEDS: Piperacil/Tazobactam 3.375 GM in 0.9% Normal Saline (50mL MB+) 50 ML IV (22:12)
[2024-01-25] VITALS (55 sets, daily range): BP systolic 82–129; BP diastolic 61–107; PULSE 78–172; RESP 16–28; TEMP 36.7–37.6; O2SAT 88–98; BMI 34.7
[2024-01-25 03:33] LABS: Absolute Lymphocyte Count 0.79 X10^3/uL (0.83-4.51); Absolute Neutrophil Count 6.8 X10^3/uL (2.0-7.7); Basophil# 0.03 X10^3/uL; Basophil% 0.4 % (0-1); Eosinophil# 0.01 X10^3/uL; Eosinophils% 0.1 % (0-5); Hematocrit 36.2 % (37-47); Hemoglobin 12.4 g/dL (12.0-15.0); Lymphocyte # 0.79 X10^3/ul (0.83-4.51); Lymphocyte % 9.4 % (19-41); Mean Corp Hgb Conc 34.3 g/dL (32-36); Mean Corpuscular Hgb 29.1 pg (27.0-32.0); Mean Platelet Vol. 11.2 fl (6.2-12.0); Monocyte# 0.77 X10^3/uL; Monocyte% 9.1 % (0-10); NRBC Flagged by Analyzer 0 % (0-5); Neutrophil # 6.82 X10^3/uL (2.7-7.7); Neutrophil % 80.8 % (47-70); Platelet Count 198 K/mm3 (150-450); RBC Distribution Width CV 13.2 % (11.6-14.6); Red Blood Count 4.26 M/mm3 (4.2-5.4); White Blood Count 8.4 K/mm3 (4.4-11.0)
[2024-01-25 03:44] LABS: Partial Thromboplast Time 66.9 Seconds (24.1-36.2)
[2024-01-25 03:58] LABS: ALB/GLOB Ratio 0.7 RATIO (0.9-2.4); AST(SGOT) 14 U/L (15-37); Alanine Aminotransfer ALT/SGPT 19 U/L (13-56); Albumin, Serum 2.4 g/dL (3.2-5.0); Alkaline Phosphatase 70 U/L (45-117); Anion Gap 6 (5-15); BUN 9 mg/dL (7-18); BUN/Creat Ratio 12.1 RATIO (10-20); Chloride 107 mmol/L (98-107); Cholesterol 152 mg/dL (200); Creatinine, Serum 0.74 mg/dL (0.55-1.02); EST Glomerular Filtration Rate 86 mL/min (>60); Est Glom Filt Rate - Afr Amer 104 mL/min (>60); Estimated Creatinine Clearance 111.68 ml/min; Globulin 3.3 g/dL (2.2-4.2); Glucose 168 mg/dL (74-106); High Density Lipoprotein 50 mg/dL; Magnesium 1.8 mg/dL (1.6-2.6); Potassium 3.6 mmol/L (3.5-5.1); Protein, Total 5.7 g/dL (6.4-8.2); Sodium Level 137 mmol/L (136-145); Thyroid Stim Hormone (TSH) 0.925 uIU/mL (0.358-3.740); Triglycerides 104 mg/dL; Very Low Density Lipoprotein 21 mg/dL (5-40)
[2024-01-25] MEDS: Diltiazem 125 MG in Dextrose 5%-Water (100mL Bag) 100 ML 15 MG IV (05:59)
[2024-01-25] MEDS: Piperacil/Tazobactam 3.375 GM in 0.9% Normal Saline (50mL MB+) 50 ML IV ×3 (06:00→21:25)
[2024-01-25] MEDS: Ipratropium 0.5 MG/2.5 ML SOLUTION INHALATION ×4 (07:10→19:10)
--- NOTE | 2024-01-25 08:20 | PCM.PN.HOSP ---
Reason for Visit Reason for Visit: Diagnoses Unspecified atrial fibrillation (01/24/24) Subjective Subjective Patient is a 53-year-old lady who presented with progressive shortness of breath with associated fever chills nausea and vomiting. An assessment of acute hypoxia secondary to community-acquired pneumonia made admitted to a monitored bed for further management. Patient was also found to have A-fib with RVR on admission Objective Data Objective Data Vital Signs: Vital Signs Temp Pulse Resp BP Pulse Ox O2 Del Method O2 Flow Rate 98.6 F 97 20 H 127/68 H 91 Nasal Cannula 6 01/25/24 04:00 01/25/24 07:11 01/25/24 07:11 01/25/24 07:00 01/25/24 08:09 01/25/24 08:09 01/25/24 08:09 Oxygen Flow Rate (L/min) 6 Oxygen Delivery Method Nasal Cannula Weight: 108.1 kg Body Mass Index (BMI) 34.7 Intake & Output: Intake and Output for Last 24 Hours 01/23/24 01/24/24 01/25/24 23:59 23:59 23:59 Intake Total 2447.67 / 2457.67 1277.00 / 1277.00 Output Total 1100 / 1100 Balance 1347.67 / 1357.67 1277.00 / 1277.00 Lab / Micro Data 01/25/24 03:20 01/25/24 03:20 Labs: Laboratory Results - last 24 hr 01/24/24 14:58: WBC 15.4 H, RBC 5.59 H, Hgb 15.7 H, Hct 47.6 H, MCV 85.2, MCH 28.1, MCHC 33.0, RDW Std Deviation 40.9, RDW Coeff of Sandra 13.1, Plt Count 334, MPV 11.1, Immature Gran % (Auto) 0.400, Neut % (Auto) 81.8 H, Lymph % (Auto) 9.4 L, Madison % (Auto) 7.7, Eos % (Auto) 0.2, Baso % (Auto) 0.5, Absolute Neuts (auto) 12.6 H, Absolute Lymphs (auto) 1.45, Nucleated RBC % 0, Sodium 134 L, Potassium 4.4, Chloride 104, Carbon Dioxide 21.0, Anion Gap 9, BUN 16, Creatinine 0.89, Est GFR (MDRD) Af Amer 85, Est GFR (MDRD) Non-Af 70, BUN/Creatinine Ratio 18.0, Glucose 132 H, Calcium 9.4, Troponin I High Sens 31 01/24/24 16:09: PT 15.4 H, INR 1.2, APTT 32.0, Lactic Acid 1.1, B-Natriuretic Peptide 295.1 H 01/25/24 03:20: WBC 8.4, RBC 4.26, Hgb 12.4, Hct 36.2 L, MCV 85.0, MCH 29.1, MCHC 34.3, RDW Std Deviation 41.0, RDW Coeff of Sandra 13.2, Plt Count 198, MPV 11.2, Immature Gran % (Auto) 0.200, Neut % (Auto) 80.8 H, Lymph % (Auto) 9.4 L, Madison % (Auto) 9.1, Eos % (Auto) 0.1, Baso % (Auto) 0.4, Absolute Neuts (auto) 6.8, Absolute Lymphs (auto) 0.79 L, Nucleated RBC % 0, APTT 66.9 H, Sodium 137, Potassium 3.6, Chloride 107, Carbon Dioxide 24.0, Anion Gap 6, BUN 9, Creatinine 0.74, Estim Creat Clear Calc 111.68, Est GFR (MDRD) Af Amer 104, Est GFR (MDRD) Non-Af 86, BUN/Creatinine Ratio 12.1, Glucose 168 H, Calcium 8.0 L, Magnesium 1.8, Total Bilirubin 0.80, AST 14 L, ALT 19, Alkaline Phosphatase 70, Total Protein 5.7 L, Albumin 2.4 L, Globulin 3.3, Albumin/Globulin Ratio 0.7 L, Triglycerides 104, Cholesterol 152, LDL Cholesterol 81, VLDL Cholesterol 21, HDL Cholesterol 50, TSH 0.925 Micro: Microbiology 01/24/24 21:10 Mucosa - Nasopharyngeal Respiratory Panel (PCR) - Final 01/24/24 20:49 Urine, Random Legionella Antigen - Final 01/24/24 20:49 Urine, Random Streptococcus pneumoniae Antigen (M - Final 01/24/24 21:00 Stool Clostridioides difficile (PCR) - Final 01/24/24 15:56 Mucosa - Nasopharyngeal SARS-CoV-2, Influenza & RSV (PCR) - Final Radiography Diagnostic Testing: Radiology Impression Chest CTA 01/24/24 15:29 IMPRESSION: CTA chest examination, without a demonstrated pulmonary embolism or arterial dissection. Bilateral pneumonia. Electronically Signed: Eyal Isidro MD at 20:17 EST , Physical Exam Narrative GENERAL: cooperative HEENT: Atraumatic; normocephalic EYES; Anicteric, Normal Conjunctiva NECK; supple, normal thyroid, RESPIRATORY: Diminished to auscultation CARDIOVASCULAR: Irregularly irregular tachycardic GI: soft, normoactive bowel sounds, : No Renal angle tenderness; EXTREMITIES: No edema, no clubbing, MUSCULOSKELETAL: no muscle wasting NEURO: Awake; no lateralizing signs. SKIN: No Rash PSYCH; Flat affect Assessment & Plan Assessment/Plan (1) Atrial fibrillation with RVR: PLAN: Plan Patient is a 53-year-old lady who presented with progressive shortness of breath with associated fever chills nausea and vomiting. An assessment of acute hypoxia secondary to community-acquired pneumonia made admitted to a monitored bed for further management. Patient was also found to have A-fib with RVR on admission 1. Acute hypoxia ? Secondary to pneumonia with suspected gram-negative pneumonia given patient recent hospitalization, Blood and sputum cultures sent. Patient placed on Zosyn and Zithromax and placed on oxygen titrated to keep Pulse Ox greater than 90 2.Paroxysmal A-fib with RVR ? Patient was started on Cardizem as well as heparin admitted to monitored bed. Cardizem drip started patient on metoprolol and p.o. Cardizem #3. Acute gastroenteritis ? Suspected to be secondary to viral gastroenteritis. Managed symptomatically 4. Recent orthopedic surgery on right knee -With Dr. Wiley at the end of December, noted; Nonweightbearing in right lower extremity 5. Hypertension ? Blood pressure controlled, home medications continued with dose adjustment as needed 6. Class I obesity with BMI of 34.7 ? Complicating care weight loss advised 7. DVT prophylaxis ? On enoxaparin Time spent in the patient's overall evaluation, decision-making process, review of diagnostic data, adjustment of management, discussion with other providers, nursing and ancillary staff involved in patient's care documentation, 50 minutes Charges/Coding Visit Charges Inpatient E&M: 83016 Subs Hosp L3
[2024-01-25] MEDS: Metoprolol(XL)Succ 50 MG Tablet PO ×2 (10:12→21:27)
[2024-01-25] MEDS: dilTIAZem CD 120 MG Capsule PO ×2 (10:12→21:28)
[2024-01-25] MEDS: guaiFENesin 1,200 MG Tablet 1200 MG PO ×2 (10:12→21:28)
[2024-01-25] MEDS: 0.9% Saline Lock 10 ML Syringe IV ×3 (10:15→18:34)
--- NOTE | 2024-01-25 10:31 | CASEMGMT ---
ANJALI GODOY Assessment ? Face to Face with patient for initial?transition planning/care coordination assessment. ANJALI GODOY introduced self and role at [facility], pt voices understanding. Pt is A&Ox4 and is resting comfortably in bed and is calm. Care providers, pharmacy, and demographics verified. ? Admitting dx: ?hypoxia, a fib with RVR LACE Strata: ?1 PCP: ?Jennie Rivero Specialists: ?denies Preferred Pharmacy: [facility] ? Insurance: ?[facility] Prescription Benefit: ?Yes LNOK: ?Jonny Espinoza (brother) Living Arrangements: ?patient lives alone in a two-story home with a basement. ADLs/IADLs:?Independent Transportation: ?self, sister, niece DME: ?patient states that she recently had a meniscus procedure and that she is non-weight bearing to her Rt leg until February 13. Patient states that she has the following: blood pressure monitor, pulse oximeter, bedside commode, and shower chair. Patient is currently requiring 6 L of oxygen and may qualify for home oxygen. A verbal list of local [employer] companies provided to the patient at this time, prefers [employer]. 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 Patient states that she is active outpatient therapy in [place] at a facility called [facility]. Pt?s goal: decrease oxygen needs and return home?with the continuation of OP Tx that is already established Plan: ?Anticipate eventual discharge home once medically ready. Will follow for new blood thinning prescription. Will follow for oxygen demands. 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 Vani Hair RN, CM
[2024-01-25] MEDS: Azithromycin 500 MG in Dextrose 5%-Water (250mL Bag) 250 ML 250 MG IV (10:36)
[2024-01-25 10:54] LABS: Partial Thromboplast Time 64.8 Seconds (24.1-36.2)
[2024-01-25] MEDS: HEPARIN/D5w 25,000 UNITS 25,000 UNITS/250 ML IV.SOLN. 15 UNITS CONT INF (11:16)
--- NOTE | 2024-01-25 12:01 | EKG12_ITS ---
Test Reason : high hr Blood Pressure : */* mmHG Vent. Rate : 137 BPM Atrial Rate : * BPM P-R Int : * ms QRS Dur : 96 ms QT Int : 344 ms P-R-T Axes : * -26 91 degrees QTcB Int : 519 ms Probable Atypical A flutter with 2:[address] and T wave abnormality Abnormal ECG When compared with ECG of 25-Jan-2024 12:07, MANUAL COMPARISON REQUIRED DATA IS UNCONFIRMED Confirmed by Jonny Hendricks ([id number]), story editor DESTINY PARKER ([id number]) on 01/29/2024 9:14:09 AM Referred By: Jan Confirmed By: Jonny Hendricks
[2024-01-25] MEDS: Acetaminophen 325 MG Tablet 650 MG PO (13:55)
--- NOTE | 2024-01-25 15:24 | EKG12_ITS ---
Test Reason : recheck Blood Pressure : */* mmHG Vent. Rate : 88 BPM Atrial Rate : 88 BPM P-R Int : 150 ms QRS Dur : 100 ms QT Int : 386 ms P-R-T Axes : 44 -23 55 degrees QTcB Int : 467 ms Sinus rhythm with Premature atrial complexes Otherwise normal ECG When compared with ECG of 24-Jan-2024 17:45, Sinus rhythm has replaced Atrial flutter Vent. rate has decreased by [address] no longer elevated in Inferior leads Confirmed by Jonny Hendricks ([id number]), newspaper photo editor DESTINY PARKER ([id number]) on 01/29/2024 9:14:20 AM Referred By: Confirmed By: Jonny Hendricks
[2024-01-25] MEDS: dilTIAZem 25 MG/5 ML Vial 20 MG IV BOLUS (18:34)
[2024-01-26] VITALS (21 sets, daily range): BP systolic 104–145; BP diastolic 61–105; PULSE 95–143; RESP 16–24; TEMP 36.3–37.2; O2SAT 92–98; BMI 33.8
[2024-01-26] MEDS: Digoxin 250 MCG/ML Ampul IV (01:25)
[2024-01-26] MEDS: HEPARIN/D5w 25,000 UNITS 25,000 UNITS/250 ML IV.SOLN. 15 UNITS CONT INF ×2 (02:24→19:42)
[2024-01-26] MEDS: Piperacil/Tazobactam 3.375 GM in 0.9% Normal Saline (50mL MB+) 50 ML IV ×3 (05:43→21:44)
[2024-01-26 05:53] LABS: Absolute Lymphocyte Count 1.48 X10^3/uL (0.83-4.51); Absolute Neutrophil Count 5.4 X10^3/uL (2.0-7.7); Basophil# 0.04 X10^3/uL; Basophil% 0.5 % (0-1); Eosinophil# 0.13 X10^3/uL; Eosinophils% 1.6 % (0-5); Hematocrit 37.6 % (37-47); Hemoglobin 12.8 g/dL (12.0-15.0); Lymphocyte # 1.48 X10^3/ul (0.83-4.51); Lymphocyte % 18.7 % (19-41); Mean Corpuscular Hgb 29.2 pg (27.0-32.0); Mean Corpuscular Volume 85.8 fL (81-99); Monocyte% 10.1 % (0-10); NRBC Flagged by Analyzer 0 % (0-5); Neutrophil # 5.44 X10^3/uL (2.7-7.7); Neutrophil % 68.6 % (47-70); Platelet Count 190 K/mm3 (150-450); RBC Distribution Width CV 13.3 % (11.6-14.6); RBC Distribution Width SD 42.2 fl (35.1-43.9); Red Blood Count 4.38 M/mm3 (4.2-5.4); White Blood Count 7.9 K/mm3 (4.4-11.0)
[2024-01-26 06:21] LABS: Anion Gap 4 (5-15); BUN 7 mg/dL (7-18); BUN/Creat Ratio 11.4 RATIO (10-20); Calcium,Total 8.5 mg/dL (8.5-10.1); Chloride 107 mmol/L (98-107); Creatinine, Serum 0.62 mg/dL (0.55-1.02); EST Glomerular Filtration Rate 107 mL/min (>60); Est Glom Filt Rate - Afr Amer 129 mL/min (>60); Estimated Creatinine Clearance 134.27 ml/min; Glucose 140 mg/dL (74-106); Phosphorus 2.9 mg/dL (2.5-4.9); Potassium 3.8 mmol/L (3.5-5.1); Sodium Level 138 mmol/L (136-145)
[2024-01-26] MEDS: Ipratropium 0.5 MG/2.5 ML SOLUTION INHALATION ×4 (06:36→19:51)
--- NOTE | 2024-01-26 07:09 | PN.HOSP_ITS ---
Reason for Visit Reason for Visit: Diagnoses Unspecified atrial fibrillation (01/24/24) Subjective Subjective Patient seen still has shortness of breath and persistent cough. Was started on Cardizem drip for A-fib with RVR has since been weaned off. Objective Data Objective Data Vital Signs: Vital Signs Temp Pulse Resp BP Pulse Ox O2 Del Method O2 Flow Rate 98.9 F 142 H 19 H 104/65 97 Nasal Cannula 3 01/26/24 04:00 01/26/24 07:00 01/26/24 07:00 01/26/24 07:00 01/26/24 07:00 01/26/24 07:00 01/26/24 07:00 Oxygen Flow Rate (L/min) 3 Oxygen Delivery Method Nasal Cannula Weight: 105.6 kg Body Mass Index (BMI) 33.8 Intake & Output: Intake and Output for Last 24 Hours 01/24/24 01/25/24 01/26/24 23:59 23:59 23:59 Intake Total 2447.67 / 2457.67 3483.50 / 3723.50 517 / 517 Output Total 1100 / 1100 Balance 1347.67 / 1357.67 3483.50 / 3723.50 517 / 517 Lab / Micro Data 01/26/24 05:44 01/26/24 05:44 Labs: Laboratory Results - last 24 hr 01/25/24 10:30: APTT 64.8 H 01/26/24 05:44: WBC 7.9, RBC 4.38, Hgb 12.8, Hct 37.6, MCV 85.8, MCH 29.2, MCHC 34.0, RDW Std Deviation 42.2, RDW Coeff of Sandra 13.3, Plt Count 190, MPV 11.0, Immature Gran % (Auto) 0.500, Neut % (Auto) 68.6, Lymph % (Auto) 18.7 L, Churchill % (Auto) 10.1 H, Eos % (Auto) 1.6, Baso % (Auto) 0.5, Absolute Neuts (auto) 5.4, Absolute Lymphs (auto) 1.48, Nucleated RBC % 0, APTT 76.0 H, Sodium 138, Potassium 3.8, Chloride 107, Carbon Dioxide 28.0, Anion Gap 4 L, BUN 7, Creatinine 0.62, Estim Creat Clear Calc 134.27, Est GFR (MDRD) Af Amer 129, Est GFR (MDRD) Non-Af 107, BUN/Creatinine Ratio 11.4, Glucose 140 H, Calcium 8.5, Phosphorus 2.9, Magnesium 2.0 Micro: Microbiology 01/24/24 21:00 Stool Enteric Bacteriology - Final 01/24/24 21:00 Stool Clostridioides difficile (PCR) - Final 01/24/24 21:10 Mucosa - Nasopharyngeal Respiratory Panel (PCR) - Final 01/24/24 20:49 Urine, Random Legionella Antigen - Final 01/24/24 20:49 Urine, Random Streptococcus pneumoniae Antigen (M - Final 01/24/24 15:56 Mucosa - Nasopharyngeal SARS-CoV-2, Influenza & RSV (PCR) - Final Radiography Diagnostic Testing: Radiology Impression Echocardiogram 01/24/24 20:30 Interpretation Summary The estimated ejection fraction is 65 %. No evidence for diastolic dysfunction. Ordering Physician: Tete Montoya Performed By: Reji Roberts RCS Physical Exam Narrative GENERAL: cooperative HEENT: Atraumatic; normocephalic EYES; Anicteric, Normal Conjunctiva NECK; supple, normal thyroid, RESPIRATORY: Diminished to auscultation CARDIOVASCULAR: Irregularly irregular tachycardic GI: soft, normoactive bowel sounds, : No Renal angle tenderness; EXTREMITIES: No edema, no clubbing, MUSCULOSKELETAL: no muscle wasting NEURO: Awake; no lateralizing signs. SKIN: No Rash PSYCH; Flat affect Assessment & Plan Assessment/Plan (1) Atrial fibrillation with RVR: PLAN: Plan Patient is a 53-year-old lady who presented with progressive shortness of breath with associated fever chills nausea and vomiting. An assessment of acute hypoxia secondary to community-acquired pneumonia made admitted to a monitored bed for further management. Patient was also found to have A-fib with RVR on admission 1. Acute hypoxia ? Secondary to pneumonia with suspected gram-negative pneumonia given patient recent hospitalization, Blood and sputum cultures sent. Patient placed on Zosyn and Zithromax and placed on oxygen titrated to keep Pulse Ox greater than 90 ? 01/26/2024 patient still remains on supplemental oxygen. Use of incentive spirometry encouraged 2.Paroxysmal A-fib with RVR ? Patient was started on Cardizem as well as heparin admitted to monitored bed. Cardizem drip started patient on metoprolol and p.o. Cardizem ? 01/26/2024 patient was briefly restarted on Cardizem drip has since been weaned off #3. Acute gastroenteritis ? Suspected to be secondary to viral gastroenteritis. Managed symptomatically 4. Recent orthopedic surgery on right knee -With Dr. Wiley at the end of December, noted; Nonweightbearing in right lower extremity 5. Hypertension ? Blood pressure controlled, home medications continued with dose adjustment as needed 6. Class I obesity with BMI of 34.7 ? Complicating care weight loss advised 7. DVT prophylaxis ? On enoxaparin Time spent in the patient's overall evaluation, decision-making process, review of diagnostic data, adjustment of management, discussion with other providers, nursing and ancillary staff involved in patient's care documentation, 40 minutes Charges/Coding Visit Charges Inpatient E&M: 15160 Subs Hosp L2
[2024-01-26] MEDS: guaiFENesin 1,200 MG Tablet 1200 MG PO ×2 (08:17→21:38)
[2024-01-26] MEDS: Metoprolol(XL)Succ 50 MG Tablet PO ×2 (08:17→20:01)
[2024-01-26] MEDS: dilTIAZem CD 120 MG Capsule PO ×2 (08:17→20:01)
[2024-01-26] MEDS: Azithromycin 500 MG in Dextrose 5%-Water (250mL Bag) 250 ML 250 MG IV (11:23)
[2024-01-26] MEDS: 0.9% Saline Lock 10 ML Syringe IV (21:38)
[2024-01-26] MEDS: MELATONIN 3 MG TABLET PO (23:16)
[2024-01-27] VITALS (17 sets, daily range): BP systolic 91–126; BP diastolic 51–82; PULSE 51–128; RESP 16–20; TEMP 36.3–36.9; O2SAT 94–97; BMI 34.3
[2024-01-27] MEDS: 0.9% Saline Lock 10 ML Syringe IV (06:06)
[2024-01-27] MEDS: Piperacil/Tazobactam 3.375 GM in 0.9% Normal Saline (50mL MB+) 50 ML IV ×3 (06:07→21:35)
[2024-01-27 06:46] LABS: Absolute Lymphocyte Count 1.59 X10^3/uL (0.83-4.51); Absolute Neutrophil Count 4.5 X10^3/uL (2.0-7.7); Basophil# 0.03 X10^3/uL; Basophil% 0.4 % (0-1); Eosinophil# 0.26 X10^3/uL; Eosinophils% 3.6 % (0-5); Hemoglobin 12.5 g/dL (12.0-15.0); Lymphocyte # 1.59 X10^3/ul (0.83-4.51); Mean Corp Hgb Conc 32.9 g/dL (32-36); Mean Corpuscular Hgb 28.2 pg (27.0-32.0); Mean Corpuscular Volume 85.6 fL (81-99); Mean Platelet Vol. 11.3 fl (6.2-12.0); Monocyte# 0.77 X10^3/uL; Monocyte% 10.7 % (0-10); NRBC Flagged by Analyzer 0 % (0-5); Neutrophil # 4.53 X10^3/uL (2.7-7.7); Neutrophil % 62.7 % (47-70); Platelet Count 245 K/mm3 (150-450); RBC Distribution Width CV 13.2 % (11.6-14.6); RBC Distribution Width SD 41.3 fl (35.1-43.9); Red Blood Count 4.44 M/mm3 (4.2-5.4); White Blood Count 7.2 K/mm3 (4.4-11.0)
[2024-01-27] MEDS: Metoprolol(XL)Succ 50 MG Tablet PO (06:58)
[2024-01-27] MEDS: dilTIAZem CD 120 MG Capsule PO (06:58)
[2024-01-27 07:16] LABS: Anion Gap 6 (5-15); BUN 9 mg/dL (7-18); BUN/Creat Ratio 15.2 RATIO (10-20); Calcium,Total 9.2 mg/dL (8.5-10.1); Chloride 108 mmol/L (98-107); Creatinine, Serum 0.59 mg/dL (0.55-1.02); EST Glomerular Filtration Rate 111 mL/min (>60); Est Glom Filt Rate - Afr Amer 135 mL/min (>60); Estimated Creatinine Clearance 140.35 ml/min; Glucose 138 mg/dL (74-106); Potassium 3.6 mmol/L (3.5-5.1); Sodium Level 141 mmol/L (136-145)
[2024-01-27] MEDS: Ipratropium 0.5 MG/2.5 ML SOLUTION INHALATION ×4 (07:45→19:24)
[2024-01-27 07:56] LABS: Partial Thromboplast Time 42.8 Seconds (24.1-36.2)
[2024-01-27] MEDS: guaiFENesin 1,200 MG Tablet 1200 MG PO ×2 (08:54→21:35)
[2024-01-27] MEDS: APIXABAN 5 MG TABLET PO ×2 (08:54→21:35)
--- NOTE | 2024-01-27 11:38 | PCM.PN.HOSP ---
Reason for Visit Reason for Visit: Diagnoses Unspecified atrial fibrillation (01/24/24) Subjective Subjective Saw patient at bedside this morning. She was resting comfortably in bedside chair, conversing normally, in no acute distress. Does note that she has intermittently been feeling palpitations since admission, including over the past several hours. On telemetry she notably has continued to have runs of A-fib with RVR with rates in the 120s. Does report occasional lightheadedness and dizziness with these palpitations. Otherwise states her URI symptoms are improving. No other new concerns today. Objective Data Objective Data Vital Signs: Vital Signs Temp Pulse Resp BP Pulse Ox O2 Del Method O2 Flow Rate 98.0 F 119 H 18 102/72 96 Nasal Cannula 2 01/27/24 08:45 01/27/24 08:45 01/27/24 08:45 01/27/24 08:45 01/27/24 08:45 01/27/24 08:45 01/27/24 08:45 FiO2 3 01/26/24 12:00 Oxygen Flow Rate (L/min) 2 Oxygen Delivery Method Nasal Cannula Weight: 107 kg Body Mass Index (BMI) 34.3 Intake & Output: Intake and Output for Last 24 Hours 01/25/24 01/26/24 01/27/24 23:59 23:59 23:59 Intake Total 3483.50 / 3723.50 1122 / 1122 249.25 / 249.25 Balance 3483.50 / 3723.50 1122 / 1122 249.25 / 249.25 Lab / Micro Data 01/27/24 06:15 01/27/24 06:15 Labs: Laboratory Results - last 24 hr 01/27/24 06:15: WBC 7.2, RBC 4.44, Hgb 12.5, Hct 38.0, MCV 85.6, MCH 28.2, MCHC 32.9, RDW Std Deviation 41.3, RDW Coeff of Sandra 13.2, Plt Count 245, MPV 11.3, Immature Gran % (Auto) 0.600, Neut % (Auto) 62.7, Lymph % (Auto) 22.0, Glynn % (Auto) 10.7 H, Eos % (Auto) 3.6, Baso % (Auto) 0.4, Absolute Neuts (auto) 4.5, Absolute Lymphs (auto) 1.59, Nucleated RBC % 0, APTT 42.8 H, Sodium 141, Potassium 3.6, Chloride 108 H, Carbon Dioxide 27.0, Anion Gap 6, BUN 9, Creatinine 0.59, Estim Creat Clear Calc 140.35, Est GFR (MDRD) Af Amer 135, Est GFR (MDRD) Non-Af 111, BUN/Creatinine Ratio 15.2, Glucose 138 H, Calcium 9.2 Micro: Microbiology 01/24/24 18:25 Blood Culture (Wb) - Anticubital Left Blood Culture - Preliminary No growth in 48 hours. 01/25/24 13:54 Sputum, Expectorated/Coughed Gram Stain - Final 01/25/24 13:54 Sputum, Expectorated/Coughed Respiratory Culture - Preliminary Appears to be normal respiratory marcella. Further studies to follow. 01/24/24 21:00 Stool Enteric Bacteriology - Final 01/24/24 21:00 Stool Clostridioides difficile (PCR) - Final 01/24/24 21:10 Mucosa - Nasopharyngeal Respiratory Panel (PCR) - Final 01/24/24 20:49 Urine, Random Legionella Antigen - Final 01/24/24 20:49 Urine, Random Streptococcus pneumoniae Antigen (M - Final 01/24/24 15:56 Mucosa - Nasopharyngeal SARS-CoV-2, Influenza & RSV (PCR) - Final Physical Exam Const alert, oriented x3 and no apparent distress Constitutional Narrative: Pleasant middle-age female, class I obesity, mildly fatigued appearing, otherwise sitting up comfortably in bedside chair, conversing normally, in no acute distress. General Appearance: cooperative and comfortable HEENT normocephalic, head/scalp atraumatic, hearing grossly normal bilaterally, nasal mucous membranes and turbinates normal and moist oral mucous membranes Eyes PERRL, EOMs intact bilaterally and conjunctivae normal Neck full ROM Chest inspection of chest normal Resp normal respiratory effort, normal air movement, no use of accessory muscles and clear to auscultation bilaterally Cardio no murmurs and peripheral pulses 2+ throughout Cardio Narrative: A-fib, rate controlled. GI normal to inspection, nondistended, normoactive bowel sounds, soft to palpation, non-tender and non-distended Back/Spine normal ROM Extremity normal to inspection, full ROM and no pedal edema Skin no rashes or lesions noted Psych mental status grossly normal Assessment & Plan Assessment/Plan (1) Atrial fibrillation with RVR: (2) Pneumonia: PLAN: Plan Patient is a 53-year-old female who presented [facility] ED on 01/24/2024 with URI symptoms, fatigue and lightheadedness. 1. Paroxysmal A-fib with RVR ? Prior history of brief episode of A-fib after hysterectomy procedure in 2021, then no recurrence until this admission. Treated with Cardizem drip on admit with improved control, then transitioned back to home Toprol 50 mg twice daily and started on p.o. Cardizem 120 mg twice daily. She continued to have intermittent A-fib with RVR with rate into the 120s despite this medication regimen. Echo showed EF 65%, no left or right atrial dilation, no other abnormalities. Switched to p.o. Lopressor 100 mg twice daily on 01/26. Continue telemetry and monitor closely. If patient still does not have good control of A-fib on this regimen, we will plan to consult cardiology for assistance with further recommendations. Was started on heparin drip on admission, switched to Eliquis 5 mg twice daily on 01/26 in preparation for discharge. 2. Community-acquired pneumonia with hypoxia, improving ? CTA chest on admit showed patchy airspace consolidation involving the left upper lobe and right middle and lower lobes. Infectious workup negative. Patient down to 2 L nasal cannula with oxygen saturations in the mid 90s on 01/26, continue to wean as able. Will need O2 ambulatory testing prior to discharge. Continue IV azithromycin and Zosyn for now. 3. Acute gastroenteritis ? Suspected viral gastroenteritis on admission. Improving. Continue to manage symptoms as needed. 4. Recent orthopedic surgery on right knee ? Procedure with Dr. Wiley at the end of December, remains nonweightbearing in right lower extremity. Stable. 5. Hypertension ? Holding home amlodipine. 6. Class I obesity ? BMI 34 on admit. Encouraged lifestyle modifications. Complicates hospital course, care and prognosis. DVT prophylaxis: Not indicated, on Eliquis CODE STATUS: Full code, verified Expected disposition: Home, 1 to 2 days Total clinical time spent by myself addressing the patient's medical issues, reviewing all the data, and collaborating with patient's care team: 35 minutes. Charges/Coding Visit Charges Inpatient E&M: 70646 Subs Hosp L2
[2024-01-27] MEDS: Azithromycin 500 MG in Dextrose 5%-Water (250mL Bag) 250 ML 250 MG IV (12:11)
[2024-01-27] MEDS: Metoprolol Tartrate 100 MG Tablet PO ×2 (12:12→21:41)
[2024-01-27] MEDS: BENZOCAINE/MENTHOL 1 LOZENGE MUCOUS MEM (15:46)
[2024-01-28] VITALS (14 sets, daily range): BP systolic 104–135; BP diastolic 74–83; PULSE 69–123; RESP 16–20; TEMP 36.3–36.9; O2SAT 91–97; BMI 35.0
[2024-01-28] MEDS: Piperacil/Tazobactam 3.375 GM in 0.9% Normal Saline (50mL MB+) 50 ML IV ×3 (06:14→21:19)
[2024-01-28] MEDS: BENZOCAINE/MENTHOL 1 LOZENGE MUCOUS MEM ×4 (06:21→21:14)
[2024-01-28 06:26] LABS: Absolute Lymphocyte Count 1.28 X10^3/uL (0.83-4.51); Absolute Neutrophil Count 4.9 X10^3/uL (2.0-7.7); Basophil# 0.04 X10^3/uL; Basophil% 0.6 % (0-1); Eosinophil# 0.34 X10^3/uL; Eosinophils% 4.8 % (0-5); Hematocrit 35.5 % (37-47); Hemoglobin 11.9 g/dL (12.0-15.0); Lymphocyte # 1.28 X10^3/ul (0.83-4.51); Lymphocyte % 17.9 % (19-41); Mean Corp Hgb Conc 33.5 g/dL (32-36); Mean Corpuscular Hgb 28.9 pg (27.0-32.0); Mean Corpuscular Volume 86.2 fL (81-99); Mean Platelet Vol. 11.2 fl (6.2-12.0); Monocyte# 0.51 X10^3/uL; Monocyte% 7.1 % (0-10); NRBC Flagged by Analyzer 0 % (0-5); Neutrophil # 4.92 X10^3/uL (2.7-7.7); Neutrophil % 68.8 % (47-70); Platelet Count 287 K/mm3 (150-450); RBC Distribution Width CV 13.3 % (11.6-14.6); RBC Distribution Width SD 41.6 fl (35.1-43.9); Red Blood Count 4.12 M/mm3 (4.2-5.4); White Blood Count 7.2 K/mm3 (4.4-11.0)
[2024-01-28 07:01] LABS: Anion Gap 3 (5-15); BUN 8 mg/dL (7-18); BUN/Creat Ratio 13.6 RATIO (10-20); Calcium,Total 9.2 mg/dL (8.5-10.1); Chloride 110 mmol/L (98-107); Creatinine, Serum 0.59 mg/dL (0.55-1.02); EST Glomerular Filtration Rate 112 mL/min (>60); Est Glom Filt Rate - Afr Amer 136 mL/min (>60); Estimated Creatinine Clearance 141.91 ml/min; Glucose 116 mg/dL (74-106); Potassium 3.5 mmol/L (3.5-5.1); Sodium Level 142 mmol/L (136-145)
[2024-01-28] MEDS: Ipratropium 0.5 MG/2.5 ML SOLUTION INHALATION ×4 (07:35→20:01)
[2024-01-28] MEDS: Azithromycin 500 MG in Dextrose 5%-Water (250mL Bag) 250 ML 250 MG IV (10:29)
[2024-01-28] MEDS: Metoprolol Tartrate 100 MG Tablet PO ×2 (10:35→21:14)
[2024-01-28] MEDS: APIXABAN 5 MG TABLET PO ×2 (10:35→21:14)
[2024-01-28] MEDS: guaiFENesin 1,200 MG Tablet 1200 MG PO ×2 (10:35→21:14)
--- NOTE | 2024-01-28 12:09 | PCM.PN.HOSP ---
Reason for Visit Reason for Visit: Diagnoses Unspecified atrial fibrillation (01/24/24) Pneumonia, unspecified organism (01/24/24) Subjective Subjective Saw patient at bedside this morning. Patient was sitting back comfortably in bed, in no acute distress. Appeared similar to yesterday. Denied any episodes of palpitations since yesterday. Checked telemetry and it appears patient has been in sinus rhythm in the 70s to 80s with frequent PVCs since she was initiated on Lopressor. Has been using supplemental oxygen intermittently in the room she states. Denies any shortness of breath off oxygen. Is not mobile right now due to recent right knee procedure. Otherwise is feeling somewhat improved with regard to her URI symptoms. No other new concerns today. Objective Data Objective Data Vital Signs: Vital Signs Temp Pulse Resp BP Pulse Ox O2 Del Method O2 Flow Rate 97.7 F L 85 18 104/78 95 Room Air 3 01/28/24 09:20 01/28/24 10:35 01/28/24 09:20 01/28/24 10:35 01/28/24 09:20 01/28/24 09:20 01/28/24 08:54 FiO2 3 01/26/24 12:00 Oxygen Flow Rate (L/min) 3 Oxygen Delivery Method Room Air Weight: 109.3 kg Body Mass Index (BMI) 35.0 Intake & Output: Intake and Output for Last 24 Hours 01/26/24 01/27/24 01/28/24 23:59 23:59 23:59 Intake Total 1122 / 1122 1324.25 / 1324.25 715 / 715 Balance 1122 / 1122 1324.25 / 1324.25 715 / 715 Lab / Micro Data 01/28/24 05:50 01/28/24 05:50 Labs: Laboratory Results - last 24 hr 01/28/24 05:50: WBC 7.2, RBC 4.12 L, Hgb 11.9 L, Hct 35.5 L, MCV 86.2, MCH 28.9, MCHC 33.5, RDW Std Deviation 41.6, RDW Coeff of Sandra 13.3, Plt Count 287, MPV 11.2, Immature Gran % (Auto) 0.800, Neut % (Auto) 68.8, Lymph % (Auto) 17.9 L, Throckmorton % (Auto) 7.1, Eos % (Auto) 4.8, Baso % (Auto) 0.6, Absolute Neuts (auto) 4.9, Absolute Lymphs (auto) 1.28, Nucleated RBC % 0, Sodium 142, Potassium 3.5, Chloride 110 H, Carbon Dioxide 29.0, Anion Gap 3 L, BUN 8, Creatinine 0.59, Estim Creat Clear Calc 141.91, Est GFR (MDRD) Af Amer 136, Est GFR (MDRD) Non-Af 112, BUN/Creatinine Ratio 13.6, Glucose 116 H, Calcium 9.2 Micro: Microbiology 01/25/24 13:54 Sputum, Expectorated/Coughed Gram Stain - Final 01/25/24 13:54 Sputum, Expectorated/Coughed Respiratory Culture - Final 01/24/24 18:25 Blood Culture (Wb) - Anticubital Left Blood Culture - Preliminary No growth in 48 hours. 01/24/24 21:00 Stool Enteric Bacteriology - Final 01/24/24 21:00 Stool Clostridioides difficile (PCR) - Final 01/24/24 21:10 Mucosa - Nasopharyngeal Respiratory Panel (PCR) - Final 01/24/24 20:49 Urine, Random Legionella Antigen - Final 01/24/24 20:49 Urine, Random Streptococcus pneumoniae Antigen (M - Final 01/24/24 15:56 Mucosa - Nasopharyngeal SARS-CoV-2, Influenza & RSV (PCR) - Final Physical Exam Const alert, oriented x3 and no apparent distress Constitutional Narrative: Pleasant middle-age female, class I obesity, mildly fatigued appearing, otherwise sitting up comfortably in bedside chair, conversing normally, in no acute distress. General Appearance: cooperative and comfortable HEENT normocephalic, head/scalp atraumatic, hearing grossly normal bilaterally, nasal mucous membranes and turbinates normal and moist oral mucous membranes Eyes PERRL, EOMs intact bilaterally and conjunctivae normal Neck full ROM Chest inspection of chest normal Resp normal respiratory effort, normal air movement, no use of accessory muscles and clear to auscultation bilaterally Cardio regular rate, regular rhythm, no murmurs and peripheral pulses 2+ throughout GI normal to inspection, nondistended, normoactive bowel sounds, soft to palpation, non-tender and non-distended Back/Spine normal ROM Extremity normal to inspection, full ROM and no pedal edema Skin no rashes or lesions noted Psych mental status grossly normal Assessment & Plan Assessment/Plan (1) Atrial fibrillation with RVR: (2) Pneumonia: PLAN: Plan Patient is a 53-year-old female who presented [facility] ED on 01/24/2024 with URI symptoms, fatigue and lightheadedness. 1. Paroxysmal A-fib with RVR ? Prior history of brief episode of A-fib after hysterectomy procedure in 2021, then no recurrence until this admission. Treated with Cardizem drip on admit with improved control, then transitioned back to home Toprol 50 mg twice daily and started on p.o. Cardizem 120 mg twice daily. She continued to have intermittent A-fib with RVR with rate into the 120s despite this medication regimen. Echo showed EF 65%, no left or right atrial dilation, no other abnormalities. Switched to p.o. Lopressor 100 mg twice daily on 01/26. Patient has been in sinus rhythm with frequent PVCs since starting Lopressor with no apparent runs of A-fib, we will plan to continue this on discharge. Switched from heparin drip to Eliquis 5 mg daily on 01/26 in preparation for discharge. 2. Community-acquired pneumonia with hypoxia, improving ? CTA chest on admit showed patchy airspace consolidation involving the left upper lobe and right middle and lower lobes. Infectious workup negative. Patient down to 2 L nasal cannula with oxygen saturations in the mid 90s on 01/26, continue to wean as able. Continue IV azithromycin and Zosyn while inpatient and can plan to discharge on a p.o. antibiotic to complete 7-day course of treatment total. Patient not ambulatory currently but does not require oxygen at rest. If remains stable tomorrow, will be okay for discharge home. 3. Acute gastroenteritis ? Suspected viral gastroenteritis on admission. Improving. Continue to manage symptoms as needed. 4. Recent orthopedic surgery on right knee ? Procedure with Dr. Wiley at the end of December, remains nonweightbearing in right lower extremity. Stable. 5. Hypertension ? Home amlodipine held since admission and patient has remained normotensive. Will continue to hold but likely okay to resume on discharge. 6. Class I obesity ? BMI 34 on admit. Encouraged lifestyle modifications. Complicates hospital course, care and prognosis. DVT prophylaxis: Not indicated, on Eliquis CODE STATUS: Full code, verified Expected disposition: Home, 1 to 2 days Total clinical time spent by myself addressing the patient's medical issues, reviewing all the data, and collaborating with patient's care team: 35 minutes. Charges/Coding Visit Charges Inpatient E&M: 16557 Subs Hosp L2
[2024-01-28] MEDS: 0.9% Saline Lock 10 ML Syringe IV (21:15)
[2024-01-29] VITALS (7 sets, daily range): BP systolic 128–159; BP diastolic 72–103; PULSE 72–81; RESP 16–20; TEMP 36.6–36.8; O2SAT 95–98; BMI 34.6
[2024-01-29] MEDS: BENZOCAINE/MENTHOL 1 LOZENGE MUCOUS MEM (05:40)
[2024-01-29] MEDS: Piperacil/Tazobactam 3.375 GM in 0.9% Normal Saline (50mL MB+) 50 ML IV (05:42)
[2024-01-29] MEDS: guaiFENesin 1,200 MG Tablet 1200 MG PO (08:59)
[2024-01-29] MEDS: APIXABAN 5 MG TABLET PO (08:59)
[2024-01-29] MEDS: Metoprolol Tartrate 100 MG Tablet PO (08:59)
[2024-01-29] MEDS: 0.9% Saline Lock 10 ML Syringe IV (09:04)
[2024-01-29] MEDS: Azithromycin 500 MG in Dextrose 5%-Water (250mL Bag) 250 ML 250 MG IV (10:04)
[2024-01-29] MEDS: Potassium Chloride Oral Tablet 20 MEQ 40 MEQ PO (11:25)
[2024-01-29] MEDS: Ipratropium 0.5 MG/2.5 ML SOLUTION INHALATION (11:29)
--- NOTE | 2024-01-29 13:46 | DS.PCM_ITS ---
Providers Date of Admission: 01/24/24 Date of Discharge: 01/29/24 Primary Care Physician: APRIL Owens Reason For Visit: HYPOXIA, AFIB WITH RVR Diagnosis Discharge Diagnosis (1) Atrial fibrillation with RVR: Status: Acute Code(s): I48.91 - Unspecified atrial fibrillation (2) Pneumonia: Status: Acute Code(s): J18.9 - Pneumonia, unspecified organism Medications at Discharge Home Medications amlodipine 10 mg tablet 10 mg PO DAILY #90 tabs 11/06/23 hydroxyzine HCl 10 mg tablet 10 mg PO TID-QID PRN anxiety #45 tabs 11/22/23 aspirin 81 mg tablet,delayed release 81 mg PO BID 01/24/24 apixaban 5 mg tablet (Eliquis) 5 mg PO BID #60 tabs 01/29/24 levofloxacin 750 mg tablet 750 mg PO DAILY #2 tabs 01/29/24 metoprolol tartrate 100 mg tablet 100 mg PO BID #60 tabs 01/29/24 Hospital Course Operations None Procedures 2-D Echocardiogram, EKG and - (CTA chest) Summary of Care Provided Minutes Spent on Discharge: 40 Hospital Course: Ms Espinoza is a 53-year-old female who presented to the emergency department [facility] on 01/24/2024 due to shortness of breath. She had a remote history of A-fib in 2021 and had been on metoprolol since that point in time. She is not on anticoagulation at baseline. Upon arrival to the emergency department she was found to have a heart rate of 182 and was given IV fluids and eventually converted to sinus rhythm however reverted back to A-fib/flutter in the emergency department prior to admission. She had recent surgery so a CTA of the chest was performed and noted pneumonia but no pulmonary embolus.. Vital signs on presentation showed temperature of 99.2, blood pressure 91/58 and pulse ox was 95% on room air but did drop to 91% on room air. Patient did eventually require some oxygen during her hospital course as her sats dropped below 88 on room air. On presentation she did endorse a cough and increased fatigue and shortness of breath with chills prior to presentation. Patient indicated on presentation that she has been coughing so hard she vomited. She was admitted to telemetry and placed on a Cardizem drip and a heparin drip initially for her atrial fibrillation and antibiotics with azithromycin and Zosyn. Echocardiogram was ordered and demonstrated an EF of 65% with no evidence of diastolic dysfunction or valvular abnormalities. She again reverted back into normal sinus rhythm and was transition from Cardizem to Lopressor 100 mg p.o. twice daily. She was also transition from heparin to Eliquis in preparation for discharge. With regards to her pneumonia she had 5 days of antibiotics at the time of discharge so we will complete her course with Levaquin 5 750 mg p.o. twice daily for the next 2 days. Clinically she is doing much better. I have advised that she follow-up with outpatient cardiology given that this is recurrent atrial fibrillation however both episodes have been provoked with the first being status post hysterectomy and the second being status post pneumonia. She may benefit from an event monitor versus loop recorder to assess her need for ongoing anticoagulation. We did schedule appointment for her to follow-up with cardiology in early February. She is to follow-up with orthopedic surgery as previously directed and her primary care physician within the next 2 weeks. Prescriptions for the Lopressor, Eliquis, and Levaquin were sent to her local pharmacy. Patient is to maintain weightbearing status with nonweightbearing on right lower extremity until cleared by orthopedic surgery otherwise. Patient was discharged home in stable condition on 01/29/2024. Discharge diagnoses: Paroxysmal atrial fibs with RVR Community-acquired pneumonia Hypoxia-resolved Acute viral gastroenteritis-resolved Recent orthopedic surgery right knee Hypertension Obesity Anxiety Physical Exam Const alert, oriented x3, no apparent distress, no limitations and well nourished; Negative for average body habitus Constitutional Narrative: Middle-aged, white female, sitting up in bed watching television, appears comfortable, nontoxic, on room air General Appearance: cooperative, comfortable, well kempt and well developed Orientation / Consciousness: awake, oriented to person, oriented to place and oriented to time Exam Limitations: no limitations Nutritional Appearance: obese HEENT normocephalic, head/scalp atraumatic, hearing grossly normal bilaterally and moist oral mucous membranes HEENT Narrative: Mallampati 2-3, no thrush Eyes PERRL and conjunctivae normal Eyes Narrative: No scleral icterus Neck no lymphadenopathy and supple Neck Narrative: Trachea midline, no thyroid enlargement Resp normal respiratory effort, no retractions, no use of accessory muscles and clear to auscultation bilaterally Auscultation: Negative for rales, rhonchi or wheezes Cardio regular rate, regular rhythm, S1 normal heart sound, S2 normal heart sound, no murmurs, no rub, no gallops and no clicks GI normal to inspection, nondistended, normoactive bowel sounds, soft to palpation and non-tender Extremity no clubbing, cyanosis or edema Extremity Narrative: Right lower extremity and straight leg brace with extension locked, pedal pulses are 2+ bilaterally Skin skin turgor normal and no jaundice Skin Narrative: Postoperative incisions appear to be healing well Neuro oriented x3 and no focal motor deficits Speech: speech normal Psych affect normal Psych Narrative: Very pleasant, interacts appropriately Weight / BMI Weight Weight: 107.8 kg Body Mass Index (BMI) 34.6 ABG / Lab / Microbiology Data 01/28/24 05:50 01/28/24 05:50 Microbiology: Microbiology 01/25/24 13:54 Sputum, Expectorated/Coughed Gram Stain - Final 01/25/24 13:54 Sputum, Expectorated/Coughed Respiratory Culture - Final 01/24/24 18:25 Blood Culture (Wb) - Anticubital Left Blood Culture - Preliminary No growth in 48 hours. 01/24/24 21:00 Stool Enteric Bacteriology - Final 01/24/24 21:00 Stool Clostridioides difficile (PCR) - Final 01/24/24 21:10 Mucosa - Nasopharyngeal Respiratory Panel (PCR) - Final 01/24/24 20:49 Urine, Random Legionella Antigen - Final 01/24/24 20:49 Urine, Random Streptococcus pneumoniae Antigen (M - Final 01/24/24 15:56 Mucosa - Nasopharyngeal SARS-CoV-2, Influenza & RSV (PCR) - Final D/C Instructions Discharge Diet: Low fat / Low cholesterol Discharge Activity: Return to Normal Activity and Use Crutches (Nonweightbearing right lower extremity) DC O2, CPAP, BIPAP Needs RN Home O2 Qualification: Home O2 Qualification: Is the patient on home oxygen No 01/29/24 13:18 Home O2 Qualification: AT REST 1- Pulse Ox at rest 98 01/29/24 13:18 Home O2 Qualification: WITH AMBULATION 1- Pulse Ox with ambulation 97 01/29/24 13:18 1- Oxygen Flow Rate with 0 01/29/24 13:18 ambulation PSN CPAP & BiPAP: BiPAP & CPAP Settings per PSN Fraction of Inspired Oxygen ( 3 01/26/24 12:00 FIO2) Additional Home O2 Discharge instructions: No DC home with Oxygen: No Meaningful Use Info Meaningful Use Meaningful Use Diagnoses (Choose all that apply): None applicable Ischemic Stroke Statin Dosing Therapy Reference: STATIN DOSE THERAPY REFERENCE: * Patients > 75 years receive moderate or high dose statin therapy. * Patients 75 years or YOUNGER should receive HIGH intensity statin dose unless contraindicated. You will be required to document reason for non-treatment if statin daily dose does not meet guidelines. HIGH DOSE STATIN THERAPY DAILY Atorvastatin > than or = to 40 mg Rosuvastatin > than or = to 20 mg Amlodipine + Atorvastatin > than or = to 2.5/40 mg Ezetimibe + Simvastatin 10/80 mg Simvastatin 80mg Discharge Plan Admission Admit Date/Time: 01/24/24 18:56 Primary Reason for Your Visit: Shortness of breath Attending Provider: Velia Maradiaga Primary Care Provider: Jennie Rivero NP Consulting Providers: Tete Montoya; Gustavo Juarez; Lei Parker Instructions Additional Instructions / Restrictions: 1. It is possible that your A-fib was induced by your pneumonia however it could be intermittent and risk, as we discussed would potentially be stroke, please follow-up with cardiology below for assistance in driving your ongoing anticoagulation and treatment. Discharge Orders/Prescriptions Prescriptions: New metoprolol tartrate 100 mg Tablet 100 mg PO BID Qty: 60 1RF Eliquis 5 mg Tablet 5 mg PO BID Qty: 60 1RF levofloxacin 750 mg tablet 750 mg PO DAILY Qty: 2 0RF Rx Instructions: take first dose on 01/30/24 Continued amlodipine 10 mg tablet 10 mg PO DAILY Qty: 90 3RF aspirin 81 mg tablet,delayed release (DR/EC) 81 mg PO BID hydroxyzine HCl 10 mg tablet 10 mg PO TID-QID PRN (Reason: anxiety) Qty: 45 12RF Discontinued metoprolol succinate 100 mg tablet extended release 24 hr 100 mg PO QHS Qty: 30 6RF Rx Instructions: Hold for heart less than 60 or systolic blood pressure less than 100 mmHg. Referrals / Follow Up: Yaniv Holman MD [Med Staff - Active Staff] - 02/27/24 1:30 am (Appointment is with ANNETTA Noriega ) Rivero,Jennie PHYSICIAN ANESTHESIOLOGIST, PHYSICIAN ANESTHESIOLOGIST-C [Primary Care Provider] - Within 2 Weeks Disposition Disposition (needs filled in before D/C Order can be placed): Home, Self Care Charges/Coding Visit Charges Inpatient E&M: 16983 Disch Hosp >30min
--- NOTE | 2024-01-29 14:18 | PHA.DC.MC.R ---
Pharmacy [facility] Pharm[facility] Service has performed discharge medication reconciliation and counseling for this patient. 1. APIXABAN 5MG PO BID 2. LEVOFLOXACIN 750MG PO DAILY X 2 DAYS 3. METOPROLOL SUCCINATE CHANGED TO METOPROLOL TARTRATE The patient's discharge medication list was reviewed for discrepancies and discrepancies were resolved. The patient was counseled on the following discharge medications and changes in medications for homegoing were reviewed. The Reason for Use, instructions for use, and potential side effects were reviewed for all new medications. The patient's questions regarding all of their medications were answered. The patient was able to verbally demonstrate an understanding of their discharge medications. Medications at Discharge Home Medications amlodipine 10 mg tablet 10 mg PO DAILY #90 tabs 11/06/23 hydroxyzine HCl 10 mg tablet 10 mg PO TID-QID PRN anxiety #45 tabs 11/22/23 aspirin 81 mg tablet,delayed release 81 mg PO BID 01/24/24 apixaban 5 mg tablet (Eliquis) 5 mg PO BID #60 tabs 01/29/24 levofloxacin 750 mg tablet 750 mg PO DAILY #2 tabs 01/29/24 metoprolol tartrate 100 mg tablet 100 mg PO BID #60 tabs 01/29/24
--- NOTE | 2024-01-29 14:54 | CASEMGMT ---
Patient has order for discharge. Patient discharging on Eliquis and prior authorization needed. ANJALI GODOY called [employer] and completed prior auth over the phone and medication was approved with . ANJALI GODOY called and updated [facility] of approval, copay is $30. RN in to discuss needs at discharge. ANJALI GODOY provided patient to [employer] $10 copay card. Patietn denies further needs or help at discharge. Patient had no further questions or concerns.
== END 2024-01-29 15:20 | disposition home or self-care (01) | DRG 195 ==
LOC: ED 18:30 → ICU 19:48 → PCU 01-26 21:36 → ICU 01-30 11:22
PROVIDERS: Emergency Medicine; Internal Medicine; Admitting Provider Internal Medicine; Emergency Provider Surgery; PCP Nurse Practitioner; Visit Provider Internal Medicine
DX: J18.9 Pneumonia, unspecified organism (principal); A08.4 Viral intestinal infection, unspecified; I10 Essential (primary) hypertension; Z68.34 Body mass index [BMI] 34.0-34.9, adult; I48.0 Paroxysmal atrial fibrillation; E78.5 Hyperlipidemia, unspecified; F41.9 Anxiety disorder, unspecified; R09.02 Hypoxemia; Z79.82 Long term (current) use of aspirin; Z87.891 Personal history of nicotine dependence; E66.811 Obesity, class 1; Z79.2 Long term (current) use of antibiotics; I49.3 Ventricular premature depolarization; Z90.710 Acquired absence of both cervix and uterus
CPT/HCPCS: 36415; 71275; 80048; 80053; 80061; 83605; 83735; 83880; 84100; 84443; 84484; 85025; 85610; 85730; 87040; 87070; 87205; 87449; 87493; 87506; 87631; 87633; 93005; 93306; 94640; 94762; 99285; J7030; J7040; Q9957; Q9967; A4216; C8929; J2405

== ENCOUNTER → 2024-10-18 | Outpatient (CLI) | payer OTHER, SELFPAY ==
--- NOTE | 2024-10-18 14:04 | BI_ITS ---
EXAM: SCRN MAMM (CAD)W/YARIEL BILAT DATE: 10/18/2024 CLINICAL HISTORY: F, Age 54 y/o , SCREENING MAMMOGRAM No family history. History of bilateral excisional breast biopsies. TECHNIQUE: Procedure Code: [id number] Modality: MG Procedure: SCRN MAMM (CAD)W/YARIEL BILAT COMPARISON: Prior exam(s) dated August 08, 2023.. FINDINGS: TISSUE DENSITY: The breasts are heterogeneously dense, which may obscure small masses. Bilateral Breast Mammographic Findings: No significant masses, calcifications or other abnormalities are identified. Stable 1 cm x 1.2 cm well-defined nodule in the deep central slightly outer aspect of the left breast. This was demonstrated to be a small cyst on prior sonogram. Stable bilateral fat containing axillary lymph nodes. No suspicious masses, areas of developing architectural distortion, or suspicious calcifications. There has been no significant interval change. BI/SCRN MAMM (CAD)W/YARIEL BILAT IMPRESSION: Stable examination OVERALL FINAL ASSESSMENT BI-RADS 2: BENIGN RECOMMENDATION: Routine annual follow-up in 1 Year A letter with findings and recommendations will be mailed to the patient. Reading Location: [place] [id number]
== END | disposition home or self-care (01) ==
LOC: OPBI 13:54
PROVIDERS: PCP Nurse Practitioner; Referring Provider Obstetrics & Gynecology; Visit Provider Obstetrics & Gynecology
DX: Z12.31 Encounter for screening mammogram for malignant neoplasm of breast (principal)
CPT/HCPCS: 77063; 77067

== ENCOUNTER → 2024-10-21 | Outpatient (CLI) | payer OTHER, SELFPAY ==
--- OUTSIDE RECORDS SUMMARY | 2024-10-21 10:24 | XMS RPT_ITS | CCD ---
Author Organization [facility] Care Team Providers Care [employer] Supervisor Name Role Phone Gerald Baird Primary Care Provider Abigail Siddiqui Unavailable Unavailable Nirav Barrett Unavailable Unavailable Gerald Baird Unavailable Unavailable Gerald Baird MD Primary Care Provider Gerald Baird Unavailable Unavailable Unavailable Gerald Baird MD Primary Care Provider Dr. Gerald Baird Primary Care Provider Yoly Pagan Attending Provider Unavailable Dr. Gerald Baird Referring Provider Dr. Yaniv Holman Attending Provider Dr. Bee Ball Attending Provider Mat LITTLEJOHN, THREAD TOOL GRINDER SET UP OPERATOR-C Sobeida Primary Care Provider Dr. Gerald Baird Primary Care Provider Yoly Pagan Attending Provider Unavailable Dr. Gerald Baird Referring Provider Dr. Yaniv Holman Attending Provider Dr. Bee Ball Attending Provider [phone] Mat LITTLEJOHN, THREAD TOOL GRINDER SET UP OPERATOR-C Sobeida Primary Care Provider Dr. Gerald Baird Referring Provider Mat LITTLEJOHN, THREAD TOOL GRINDER SET UP OPERATOR-C Sobeida Referring Provider Dr. Bee Ball Other Provider Dr. Bee Ball Referring Provider [phone] Dr. Bee Ball Admit Provider MAT, SOBEIDA L Primary Care Unavailable NAHUM ZHAO Attending Unavailable Rivero THREAD TOOL GRINDER SET UP OPERATOR, THREAD TOOL GRINDER SET UP OPERATOR-C Sobeida Primary Care Provider Dr. Jonny Hendricks Attending Provider Dr. Hardik Wiley Referring Provider Mat THREAD TOOL GRINDER SET UP OPERATOR-C, Sobeida Primary Care Provider [phone] Dr. Bee Ball DO Attending Provider Dr. Bee Ball DO Referring Provider Mat LITTLEJOHN-C, Sobeida Referring Provider Dr. Jonny Hendricks MD Attending Provider Tete Montoya Consulting Unavailable Mat THREAD TOOL GRINDER SET UP OPERATOR, Sobeida Primary Care Unavailable Lei Parker Attending Unavailable Tete Montoya Admitting Unavailable Gustavo Juarez Consulting Unavailable Lei Parker Consulting Unavailable Rivero THREAD TOOL GRINDER SET UP OPERATOR, Sobeida Referring Unavailable Rivero THREAD TOOL GRINDER SET UP OPERATOR, Sobeida Attending Unavailable Rivero THREAD TOOL GRINDER SET UP OPERATOR, Sobeida Primary Care Unavailable Hardik Wiley Attending Unavailable Rivero THREAD TOOL GRINDER SET UP OPERATOR, Sobeida Primary Care Unavailable Hardik Wiley Referring Unavailable Bee Ball Attending Unavailabl e Rivero THREAD TOOL GRINDER SET UP OPERATOR, Sobeida Primary Care Unavailable Bee Ball Referring UnavailTete Petit Consulting Unavailable Rivero THREAD TOOL GRINDER SET UP OPERATOR, Sobeida Primary Care Unavailable Tete Montoya Admitting Unavailable Velia Maradiaga Attending Unavailable Gustavo Juarez Consulting Unavailable Lei Parker Consulting Unavailable Velia Maradiaga Attending Unavailable Velia Maradiaga Consulting Unavailable Rivero THREAD TOOL GRINDER SET UP OPERATOR, Sobeida Primary Care Unavailable Betzy Landa Attending Unavailabl e Rivero THREAD TOOL GRINDER SET UP OPERATOR, Sobeida Primary Care Unavailable Rivero THREAD TOOL GRINDER SET UP OPERATOR, Sobeida Referring Unavailable Jonny Hendricks Attending Unavailable Bee Ball Attending Unavailabl e Rivero THREAD TOOL GRINDER SET UP OPERATOR, Sobeida Referring Unavailable Rivero THREAD TOOL GRINDER SET UP OPERATOR, Sobeida Primary Care Unavailable Nahum Sales NP Attending Unavailable Rivero THREAD TOOL GRINDER SET UP OPERATOR, Sobeida Primary Care Unavailable Rivero THREAD TOOL GRINDER SET UP OPERATOR, Sobeida Referring Unavailable Tete Montoya Attending Unavailable Gustavo Juarez Attending Unavailable Allergies Allergy Classification Reported Allergen(s) Allergy Type Date of Onset Reaction(s) Facility Opioid Agonists (2 sources) Codeine Drug Allergy 5 Other (See Comments) MIRANDA Work Phone: (20 sources) Codeine; Translations: [codeine] Drug Allergy 5 Other (See Comments) [place], [place] (1 source) Codeine Drug Allergy 5 [facility] Repository Medications Current Medications Medication Drug Class(es) Dates Sig (Normalized) Sig (Original) [id number] 200 actuat albuterol 0.09 mg/actuat metered dose inhaler (14 sources) beta2-Adrenergic Agonist Start: 02-09-2024 Albuterol Sulfate 90 mcg/actuation HFA aerosol inhaler Active 2 NMA INHALATION EVERY 4-6 HOURS as needed for shortness of breath or wheezing 8.5 3 February 09, 2024 1:00am Start: 04-14-2021 take 2 puff(s) by in halation every [...] Ordered: 22-Feb-2018 DO Start : 07-Feb-2018 Active Start: 02-07-2018 Ventolin HFA 1 08 (90 Base) MCG/ACT Inhalation Aerosol Solution Quantity: 18 Refills: 0 Start : 07-Feb-2018 Active Start: 02-07-2018 take 2 puff(s) by in halation every six hours as needed for wheezing albuterol sulfate HFA 108 (90 Base) MCG/ACT inhaler Inhale 2 puffs into the lungs every 6 hours as needed for Wheezing 1 Inhaler 2 02/07/2018 Active amLODIPine 10 mg oral tablet (20 sources) Dihydropyridine Calcium Channel Brian Start: 09-30-2021 End: 10-18-2024 take 1 tablet by mouth once daily Amlodipine 10 mg tablet Active 10 mg PO DAILY 90 October 18, 2024 3:44pm Start: 07-09-2021 End: 09-30-2021 Amlodipine 10 mg tablet Disc ontinued 5 mg PO DAILY as needed September 29, 2021 10:54am September 30, 2021 1:45pm Hold for SBP less than 130 mmHg Start: 07-09-2021 End: 09-30-2021 Amlodipine Discontinued 5 MG PO DAILY July 27, 2021 5:43pm September 29, 2021 9:55am Hold for SBP less than 130 mmHg Start: 07-08-2021 End: 07-09-2021 take 1 tablet by mouth once daily Amlodipine 10 mg tablet Discontinued 10 mg PO DAILY July 08, 2021 12:00am July 09, 2021 9:32am Start: 04-14-2021 take 1 tablet by denise th once [...] mouth daily 30 tablet 5 09/17/2018 Active apixaban 5 mg oral tablet (16 sources) Factor Xa Inhibitor Start: 01-29-2024 End: 10-18-2024 take 1 tablet by mouth twice daily Apixaban (Eliquis) 5 mg tablet Active 5 mg PO TWICE A DAY 60 October 18, 2024 3:44pm Start: 07-09-2021 End: 09-13-2021 take 1 tablet by mouth twice daily Apixaban (Eliquis) 5 mg Tablet Discontinued 5 mg PO TWICE A DAY 60 0 July 09, 2021 12:00am September 13, 2021 10:16am ascorbic acid 500 mg oral tablet (2 sources) Vitamin C Start: 02-27-2024 take 1 tablet by mouth twice daily Ascorbic Acid (Vitamin C) 500 mg tablet Active 500 mg PO TWICE A DAY February 27, 2024 1:00am Start: 03-09-2018 Vitamin C CAPS Refills: 0 Start : 09-Mar-2018 Active B-Complex With Vitamin C (7 sources) Start: 11-15-2021 take 1 tablet by mouth once daily B-Complex With Vitamin C Active 1 TABLET PO DAILY November 14, 2021 11:00pm Start: 11-15-2021 take 1 tablet by denise once daily B-Complex With Vitamin C Active 1 TABLET PO DAILY November 15, 2021 12:00am cholecalciferol 0.05 mg oral capsule (13 sources) Vitamin D Start: 11-15-2021 take 50 ug by mouth once daily Cholecalciferol (Vitamin D3) Active 50 MCG PO DAILY November 14, 2021 11:00pm Start: 03-09-2018 Vitamin D TABS Refills: 0 Start : 09-Mar-2018 Active Cholecalciferol (VITAMIN D PO) Take by mouth 0 Active Elderberry preparation (1 source) ELDERBERRY PO Ta ke by mouth 0 Active ferrous sulfate 325 mg oral tablet (6 sources) Start: 11-15-2021 take 325 mg by mouth once daily Ferrous Sulfate Active 325 MG PO DAILY November 14, 2021 11:00pm take 1 tablet by mouth once viry y Ferrous Sulfate (IRON) 325 (65 Fe) MG TABS Take 1 tablet by mouth daily 0 Active fluticasone propionate 0.05 mg/actuat metered dose nasal spray (5 sources) Corticosteroid Start: 04-14-2021 fluticasone (F LONASE) 50 MCG/ACT nasal spray Indications: Allergic rhinitis, unspecified seasonality, unspecified trigger 2 sprays by Nasal route nightly 1 each 5 04/14/2021 Active Start: 04-24-2017 fluticasone (F LONASE) 50 MCG/ACT nasal spray Indications: Chronic allergic rhinitis, unspecified seasonality, unspecified trigger , Post-nasal drip , Retracted ear drum, bilateral 2 sprays by Nasal route nightly 1 Bottle 2 04/24/2017 Active magnesium glycinate 100 mg oral tablet (1 source) Start: 10-18-2024 take 1 tablet by mouth once daily Magnesium Glycinate 100 mg tablet Active 100 mg PO daily October 18, 2024 12:00am methylPREDNISolone 4 mg oral tablet (1 source) Corticosteroid Start: 02-15-2021 methylPREDNISolone (MEDROL DOSEPACK) 4 MG tablet Take by mouth. 1 kit 0 02/15/2021 Active 24 hr metoprolol succinate 100 mg extended release oral tablet (20 sources) beta-Adrenergic Brian Start: 02-27-2024 End: 10-18-2024 take 1 tablet by mouth once daily Metoprolol Succinate 100 mg tablet extended release 24 hr Active 100 mg PO daily 90 3 October 18, 2024 3:45pm Start: 01-29-2024 End: 02-27-2024 take 1 tablet by mouth twice daily Metoprolol Tartrate 100 mg tablet Discontinued 100 mg PO TWICE A DAY 60 February 09, 2024 7:33pm February 27, 2024 3:57pm Start: 09-29-2021 End: 01-29-2024 Metoprolol Succinate 100 mg tablet extended release 24 hr Discontinued 100 mg PO AT BEDTIME 30 November 06, 2023 5:35pm January 29, 2024 2:49pm Hold for heart less than 60 or systolic blood pressure less than 100 mmHg. Start: 07-09-2021 End: 08-01-2022 Metoprolol Succinate Discont inued 100 MG PO DAILY September 13, 2021 9:01am September 29, 2021 9:55am Hold for heart less than 60 or systolic blood pressure less than 100 mmHg. Start: 07-08-2021 End: 09-29-2021 Metoprolol Succinate 100 mg tablet extended release 24 hr Discontinued 100 mg PO DAILY 30 September 13, 2021 10:01am September 29, 2021 10:55am Hold for heart less than 60 or systolic blood pressure less than 100 mmHg. Start: 04-14-2021 take 1 tablet by denise th once [...] Ordered: 09-Mar-2018 DO Start : 09-Mar-2018 Active norethindrone acetate 5 mg oral tablet (5 sources) Start: 01-26-2022 take 1 tablet by mouth once daily Norethindrone Acetate (Aygestin) 5 mg tablet Active 5 MG PO DAILY 60 January 26, 2022 12:00am potassium gluconate 2.5 meq oral tablet (1 source) Start: 02-27-2024 take 1 tablet by mouth once daily Potassium Gluconate 595 mg (99 mg) tablet Active 595 mg PO daily February 27, 2024 1:00am Semaglutide 0.5 mg/0.1 mL syringe (1 source) Start: 10-18-2024 Semaglutide 0. 5 mg/0.1 mL syringe Active mg SC EVERY WEEK October 18, 2024 12:00am Vitamin B Complex tablet (1 source) Start: 02-27-2024 Vitamin B Comp fadi tablet Active 1 {tbl} PO daily February 27, 2024 1:00am VITAMIN B COMPLEX-C PO (5 sources) VITAMIN B COMPLE X-C PO Take by mouth 0 Active zinc gluconate 50 mg oral tablet (1 source) take 1 tablet by mouth once daily zinc gluconate 50 MG tablet Take 50 mg by mouth daily 0 Active Completed/Discontinued Medications Medication Drug Class(es) Dates Sig (Normalized) Sig (Original) acetaminophen 325 mg / oxyCODONE hydrochloride 5 mg oral tablet (13 sources) Opioid Agonist Start: 03-08-2022 End: 03-22-2022 take 1-2 tablets by mouth every four hours as needed for pain Oxycodone-Acetamino phen (Percocet) 5-325 mg tablet Discontinued 1 {tbl} PO Q4H as needed for pain 30 7 0 March 08, 2022 March 22, 2022 12:20pm Status post hysterectomy Acquired absence of both cervix and uterus 1-2 tabs q 4 hrs as needed for pain Start: 01-11-2022 End: 01-18-2022 Oxycodone-Acetaminophen (Per cocet) 5-325 mg tablet Discontinued 1 {tbl} PO Q4H as needed for pain 30 7 0 January 11, 2022 January 17, 2022 1:00am January 18, 2022 1:04am Uterine leiomyoma Leiomyoma of uterus, unspecified amoxicillin 875 mg / clavulanate 125 mg oral tablet (19 sources) Penicillin-class Antibacterial Start: 03-06-2024 End: 03-18-2024 Amoxicillin-Pot Clavulanate 875-125 mg tablet Discontinued 1 {tbl} PO TWICE A DAY 20 0 March 06, 2024 7:23pm March 18, 2024 7:54pm Start: 08-08-2022 End: 09-09-2022 Amoxicillin-Pot Clavulanate 875-125 mg tablet Discontinued 1 {tbl} PO TWICE A DAY 20 August 08, 2022 2:15pm September 09, 2022 6:30pm Start: 08-08-2022 End: 09-09-2022 take 1 tablet by mouth twice daily Amoxicillin-Pot Clavulanate Discontinued 1 TABLET PO TWICE A DAY August 08, 2022 1:15pm September 09, 2022 5:30pm Start: 11-09-2021 End: 11-15-2021 Amoxicillin-Pot Clavulanate 875-125 mg tablet Discontinued 1 {tbl} PO TWICE A DAY 20 0 November 09, 2021 12:00am November 15, 2021 1:54pm Start: 11-09-2021 End: 11-15-2021 take 1 tablet by mouth twice daily Amoxicillin-Pot Clavulanate Discontinued 1 TABLET PO TWICE A DAY November 08, 2021 11:00pm November 15, 2021 12:54pm Start: 03-20-2018 End: 03-15-2021 take 1 tablet by mouth every twelve hours at mealtime Amoxicillin-Pot Clavulanate 875-125 MG Oral Tablet TAKE 1 TABLET EVERY 12 HOURS WITH MEALS UNTIL GONE. Quantity: 28 Refills: 0 Ordered: 20-Mar-2018 Nirav Barrett DO Start : 20-Mar-2018 End : 15-Mar-2021 Complete aspirin 81 mg delayed release oral tablet (12 sources) Platelet Aggregation Inhibitor, Nonsteroidal Anti-inflammatory Drug Start: 01-24-2024 End: 02-27-2024 take 1 tablet by mouth twice daily Aspirin 81 mg tablet,delayed release (DR/EC) Discontinued 81 mg PO TWICE A DAY January 24, 2024 1:00am February 27, 2024 2:48pm Start: 09-29-2021 End: 11-15-2021 Aspirin (Adult Low Dose Aspi rin) 81 mg tablet,delayed release (DR/EC) Discontinued 81 mg PO DAILY September 29, 2021 12:00am November 15, 2021 1:53pm azithromycin 250 mg oral tablet (1 source) Macrolide Antimicrobial Start: 03-14-2024 End: 03-18-2024 take 2 tablets by mouth once daily, then take 1 tablet by mouth once daily at mealtime Azithromycin 250 mg tablet Discontinued 250 mg PO daily 6 5 0 March 14, 2024 1:00am March 18, 2024 1:00am March 18, 2024 7:54pm 2 po qd for 1 day then 1 po qd for 4 days with food or after eating cefuroxime 500 mg oral tablet (3 sources) Cephalosporin Antibacterial Start: 06-20-2022 End: 08-01-2022 take 1 tablet by mouth twice daily Cefuroxime Axetil 500 mg tablet Discontinued 500 mg PO TWICE A DAY June 20, 2022 12:00am August 01, 2022 5:32pm cephalexin 500 mg oral capsule (1 source) Cephalosporin Antibacterial Start: 03-18-2024 End: 03-28-2024 take 1 capsule by mouth twice daily Cephalexin 500 mg capsule Discontinued 500 mg PO TWICE A DAY 20 10 March 18, 2024 1:00am March 27, 2024 1:00am March 28, 2024 1:10am chlorhexidine gluconate 1.2 mg/ml mouthwash (8 sources) Start: 05-25-2018 Chlorhexidine Gluconate 0.12 % Mouth/Throat Solution Quantity: 473 Refills: 0 Ordered: 25-May-2018 DO Start : 25-May-2018 Active Start: 05-25-2018 Chlorhexidine Gluconate 0.12 % Mouth/Throat Solution Quantity: 473 Refills: 0 Start : 25-May-2018 Active ciprofloxacin 500 mg oral tablet (14 sources) Quinolone Antimicrobial Start: 09-09-2022 End: 08-09-2023 take 1 tablet by mouth twice daily Ciprofloxacin Hcl 500 mg tablet Discontinued 500 mg PO TWICE A DAY September 09, 2022 6:31pm August 09, 2023 5:47pm Start: 11-22-2021 End: 01-11-2022 take 1 tablet by mouth twice daily Ciprofloxacin Hcl 500 mg tablet Discontinued 500 mg PO TWICE A DAY November 22, 2021 12:00am January 11, 2022 4:44pm clarithromycin 500 mg oral tablet (3 sources) Macrolide Antimicrobial Start: 08-01-2022 End: 09-09-2022 take 1 tablet by mouth every twelve hours Clarithromycin 500 mg tablet Discontinued 500 mg PO Q12H August 01, 2022 12:00am September 09, 2022 6:30pm 12 hr dilTIAZem hydrochloride 90 mg extended release oral capsule (20 sources) Calcium Channel Brian Start: 02-09-2024 End: 03-06-2024 take 1 capsule by mouth twice daily Diltiazem Hcl 90 mg capsule,extended release 12 hr Discontinued 90 mg PO TWICE A DAY February 27, 2024 2:47pm March 06, 2024 7:17pm Has not started Start: 07-09-2021 End: 09-30-2021 take 1 capsule by mouth once daily, then take 1 capsule by mouth every twenty-four hours Diltiazem Hcl (Cardizem Cd) 120 mg capsule,extended release 24hr Discontinued 120 mg PO DAILY 30 July 27, 2021 6:42pm September 30, 2021 1:43pm docusate sodium 100 mg oral capsule (4 sources) Start: 03-09-2022 End: 01-24-2024 take 1 capsule by mouth once daily Docusate Sodium (Colace) 100 mg capsule Discontinued 100 mg PO DAILY 30 March 09, 2022 1:00am January 24, 2024 8:32pm fluconazole 150 mg oral tablet (6 sources) Azole Antifungal Start: 08-08-2022 End: 08-09-2023 Fluconazole 150 mg tablet Discontinued 150 mg PO Every 3 Days 2 September 09, 2022 6:38pm August 09, 2023 5:49pm hydrOXYzine hydrochloride 10 mg oral tablet (2 sources) Antihistamine Start: 11-06-2023 End: 10-18-2024 take 1 tablet by mouth three to four times daily as needed for anxiety Hydroxyzine Hcl 10 mg tablet Discontinued 10 mg PO 3 to 4 times per day as needed for anxiety 45 November 22, 2023 8:57pm October 18, 2024 3:07pm iopamidol (ISOVUE-370) 76 % injection 75 mL (1 source) Start: 03-22-2021 End: 03-22-2021 iopamidol (ISOVUE-370) 76 % injection 75 mL levoFLOXacin 750 mg oral tablet (1 source) Quinolone Antimicrobial Start: 01-29-2024 End: 02-09-2024 take 1 tablet by mouth once daily Levofloxacin 750 mg tablet Discontinued 750 mg PO DAILY January 29, 2024 1:00am February 09, 2024 7:34pm take first dose on 01/30/24 medroxyPROGESTERone acetate 10 mg oral tablet (14 sources) Progestin Start: 03-02-2022 End: 03-08-2022 take 1 tablet by mouth twice daily Medroxyprogesterone (Provera) 10 mg tablet Discontinued 10 mg PO TWICE A DAY March 02, 2022 3:02pm March 08, 2022 10:25am Start: 12-30-2021 End: 03-02-2022 take 1 tablet by mouth once daily Medroxyprogesterone (Provera) 10 mg tablet Discontinued 10 mg PO DAILY 30 December 30, 2021 1:00am March 02, 2022 3:02pm metroNIDAZOLE 500 mg oral tablet (1 source) Nitroimidazole Antimicrobial Start: 11-02-2017 metroNIDAZOLE 500 MG Oral Tablet Quantity: 28 Refills: 0 Start : 02-Nov-2017 Active naproxen 500 mg oral tablet (4 sources) Nonsteroidal Anti-inflammatory Drug Start: 03-08-2022 End: 03-22-2022 take 1 tablet by mouth twice daily as needed for pain Naproxen 500 mg tablet Discontinued 500 mg PO TWICE A DAY as needed for pain 40 10 March 08, 2022 1:00am March 22, 2022 12:20pm predniSONE 20 mg oral tablet (14 sources) Start: 03-06-2024 End: 10-18-2024 take 2 tablets by mouth once daily Prednisone 20 mg tablet Discontinued 40 mg PO DAILY 20 0 March 06, 2024 7:24pm October 18, 2024 3:09pm Start: 02-27-2024 End: 10-18-2024 take 10 mg by mouth twice daily Prednisone 20 mg table t Discontinued 10 mg PO TWICE A DAY February 27, 2024 2:46pm October 18, 2024 3:08pm Start: 02-09-2024 End: 02-27-2024 take 2 tablets by mouth once daily Prednisone 20 mg tablet Discontinued 40 mg PO DAILY 20 0 February 09, 2024 1:00am February 27, 2024 2:49pm Start: 11-09-2021 End: 11-14-2021 take 2 tablets by mouth once daily Prednisone 20 mg tablet Discontinued 40 mg PO DAILY 10 5 0 November 09, 2021 12:00am November 13, 2021 12:00am November 14, 2021 12:04am Start: 11-09-2021 End: 11-14-2021 take 40 mg by mouth once daily Prednisone Discontinued 40 MG PO DAILY 10 5 November 08, 2021 11:00pm November 13, 2021 11:04pm sodium fluoride 0.011 mg/mg toothpaste (1 source) Start: 04-27-2021 Sodium Fluorid e 5000 PPM 1.1 % Dental Paste Quantity: 100 Refills: 0 Ordered: 27-Apr-2021 DO Start : 27-Apr-2021 Active topiramate 50 mg oral tablet (2 sources) Start: 08-09-2023 End: 01-24-2024 Topiramate 50 mg tablet Discontinued 50 mg PO TWICE A DAY as needed November 06, 2023 5:34pm January 24, 2024 8:32pm start at 1 pill a day thrn 2 x a day at 10 days traMADol hydrochloride 50 mg oral tablet (1 [...] allergy, other than to medicinal agents] Episodic Anxiety disorders (1 source) Anxiety; Translations: [Anxiety disorder, unspecified] 11-07-2023 Chronic Benign neoplasm of uterus (16 sources) Uterine leiomyoma; Translations: [Leiomyoma of uterus, unspecified] Episodic Cardiac dysrhythmias (20 sources) Atrial fibrillation with rapid ventricular response; Translations: [Unspecified atrial fibrillation] Onset: 07-08-2021 Chronic Chronic obstructive pulmonary disease and bronchiectasis (1 source) Bronchitis; Translations: [Bronchitis, not specified as acute or chronic] 03-06-2024 Episodic Deficiency and other anemia (1 source) Microcytic anemia; Translations: [Iron deficiency anemia, unspecified] Episodic Deficiency and other anemia (1 source) Iron deficiency anemia, unspecified; Translations: [Iron deficiency anemia, unspecified] Episodic Deficiency and other anemia (15 sources) Anemia; Translations: [Anemia, unspecified] 02-10-2022 Episodic Deficiency and other anemia (1 source) Anemia, unspecified; Translations: [Anemia, unspecified] 03-09-2022 Episodic Diseases of mouth; excluding dental (20 sources) Ranula; 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] Episodic Diseases of white blood cells (1 source) Leukocytosis; Translations: [Elevated white blood cell count, unspecified] 02-06-2024 Chronic Disorders of lipid metabolism (14 sources) Hyperlipidemia; Translations: [Hyperlipidemia, unspecified] Onset: 04-14-2021 04-14-2021 Chronic Essential hypertension (20 sources) Hypertensive disorder; Translations: [Essential (primary) hypertension] Onset: 10-18-2024 01-22-2015 Chronic Comment on above: CONTROLLED WITH MED Malaise and fatigue (3 sources) Fatigue; Translations: [Other fatigue] Onset: 10-18-2024 10-18-2024 Episodic Menopausal disorders (20 sources) Menopausal syndrome; Translations: [Menopausal and female climacteric states] Chronic Menstrual disorders (20 sources) Menorrhagia; Translations: [Excessive and frequent menstruation with regular cycle] Chronic Other and unspecified benign neoplasm (11 sources) Leiomyoma; Translations: [Benign neoplasm of connective and other soft tissue, unspecified] 09-27-2021 Episodic Other and unspecified benign neoplasm (8 sources) Benign neoplasm of connective and other soft tissue, unspecified; Translations: [Other benign neoplasm of connective and other soft tissue, site unspecified] Episodic Other bone disease and musculoskeletal deformities (1 source) Mass of chest wall; Translations: [Other specified disorders of bone, other site] Episodic Other circulatory disease (8 sources) H/O: hypertension; Translations: [Personal history of other diseases of circulatory system] Episodic Other connective tissue disease (1 source) Pain in left leg; Translations: [Left leg pain] Onset: 02-01-2023 Episodic Other lower respiratory disease (3 sources) Cough; Translations: [Cough] 09-12-2022 Episodic Other lower respiratory disease (1 source) Dyspnea; Translations: [Shortness of breath] 02-09-2024 Episodic Other nutritional; endocrine; and metabolic disorders (6 sources) Obesity; Translations: [Other obesity due to excess calories] Onset: 07-15-2015 02-07-2018 Chronic Other nutritional; endocrine; and metabolic disorders (1 source) Weight increased; Translations: [Abnormal weight gain] 08-09-2023 Episodic Other screening for suspected conditions (not mental disorders or infectious disease) (5 sources) Patient encounter status; Translations: [Encounter for screening for diseases of the blood and blood-forming organs and certain disorders involving the immune mechanism] Onset: 04-01-2024 Episodic Other upper respiratory disease (6 sources) Allergic rhinitis; Translations: [Allergic rhinitis, unspecified] Onset: 11-05-2015 11-05-2015 Chronic Other upper respiratory infections (8 sources) Chronic sphenoidal sinusitis; Translations: [Chronic sphenoidal sinusitis] Chronic Other upper respiratory infections (17 sources) Acute maxillary sinusitis; Translations: [Acute maxillary sinusitis, unspecified] 11-09-2021 Episodic Otitis media and related conditions (11 sources) Otitis media; Translations: [Otitis media, unspecified, bilateral] 11-09-2021 Episodic Residual codes; unclassified (7 sources) Submandibular salivary gland swelling; Translations: [Edema] Episodic Residual codes; unclassified (1 source) Acquired absence of both cervix and uterus; Translations: [Acquired absence of both cervix and uterus] 03-09-2022 Episodic Residual codes; unclassified (2 sources) Other specified postprocedural states; Translations: [History of lumpectomy] 01-19-2022 Episodic Comment on above: BILAT BENIGN Sprains and strains (3 sources) Sprain of foot; Translations: [Unspecified sprain of left foot, initial encounter] 11-05-2022 Episodic Past or Other Problems Problem Classification Problem Date Documented Da te Episodic/Chronic Other lower respiratory disease (1 source) Shortness of breath; Translations: [Shortness of breath] Onset: 02-27-2024 Episodic Pneumonia (except that caused by tuberculosis or sexually transmitted disease) (2 sources) Pneumonia; Translations: [Pneumonia, unspecified organism] Onset: 01-29-2024 01-24-2024 Episodic Unclassified (1 source) Patient encounter status; Translations: [Pre-op exam] NEGATED: Highlighted row has not occurred!Residual codes; unclassified (6 sources) Disease Episodic Results Test Name Value Interpretation Reference Range Facility Cardiology Visit Reporton Cardiology Visit Report [facility] [address] [place] [address]. [address] [place] [address] OFFICE VISIT Date of Service: 10/18/24 MR#: [id number] Acct: [id number] Name: BEE ESPINOZA Rep #: [id number] : 1970 Provider: Dr. Jonny smith MD Age/Sex: 54/F [place] [facility] [place]: Signed HPI HPI History of Present Illness Details: Patient is 54-year-old white female that comes in today for monitoring of her cardiovascular status. The patient has a history of atrial fibrillation documented time when she had pulmonary infection in January 2024. She suddenly converted to sinus rhythm spontaneously and has been maintained on Eliquis with a [id number] score of 2. She is also on metoprolol and has been documented to be in normal sinus rhythm since February 2024. She is not aware of any recurrence of atrial fibrillation. She does have a wearable but did not have it set up to talk to her phone. The patient was symptomatic with profound fatigability and palpitations when she was in atrial fibrillation. The patient is now complaining of significant fatigue over the last 3 to 4 weeks her ECG in the office today shows normal sinus rhythm at 68 bpm the left axis deviation is abnormal. She denies any anginal type symptoms denies any PND orthopnea Intake Vital Signs 04/01/24 14:39 10/18/24 15:00 Height 5 ft 9.5 in 5 ft 9.5 in Weight: 233 lb BMI 33.9 BP 146/85 H Blood Pressure Location Rt brachial Position Sitting Respiration 18 Pulse 71 Pulse Source Monitor Pulse Oximetry (%) 95 Oxygen Delivery Method room air Intake Visit Reasons: 6 M Software Validation Technician Required: No Accompanied by: Self Is patient in pain?: No Allergies codeine Adverse Reaction (Verified 10/18/24 15:06) Other Medications ???Medication ???Instructions ???Recorded ???Confirmed ???Type albuterol sulfate 90 mcg/actuation 2 puff inhalation Q4-6H PRN 01/2110/18/24 Rx aerosol inhaler shortness of breath or wheezing #8.5 grams ascorbic acid (vitamin C) 500 mg 500 mg PO BID 02/27/24 10/18/24 Hi story tablet potassium gluconate 595 mg (99 mg) 595 mg PO QDAY 02/27/24 10/18/24 History tablet vitamin B complex 1 tab PO QDAY 02/27/24 10/18/24 Hi story amlodipine 10 mg tablet 10 mg PO DAILY #90 tabs 10/18/24 0 10/18/24 Rx apixaban 5 mg tablet (Eliquis) 5 mg PO BID #60 tabs 10/18/2409/21 Rx magnesium glycinate 100 mg (as 100 mg PO QDAY 10/18/24 10/18/24 H istory glycinate) tablet metoprolol succinate 100 mg 100 mg PO QDAY #90 tabs 10/18/24 0 10/18/24 Rx tablet,extended release 24 hr semaglutide 0.5 mg/0.1 mL mg subcut QWEEK 10/18/24 10/18/24 History subcutaneous syringe Ejection fraction %: 65 Have you fallen in the past year?: No PFSH Medical History Fibroid uterus Heavy menses Atrial fibrillation with RVR Alcohol use Heartburn Former smoker History of pain when walking History of echocardiogram History of atrial fibrillation Cardiology follow-up encounter Abnormal Pap smear of cervix Hyperlipidemia Essential hypertension Fibroid Microcytic anemia Atrial fibrillation with RVR (07/08/21) Surgical History Status post hysterectomy History of right knee surgery (01/03/24) History of left knee surgery (04/04/23) History of robot-assisted laparoscopic hysterectomy Hx of excision of mass Status post colposcopy History of breast lump removal History of submandibular gland removal Family History Mother , from complications from mitral valve disease Mitral valve disorder Brother Hypertension Sister Atrial fibrillation Hypertension Father No problems noted. Social History Smoking Status: Former smoker how long ago did patient quit smokin alcohol intake: current alcohol intake frequency: holidays/special occasions only substance use type: does not use caffeine: Yes Type: coffee Number of servings: 2 and tea Number of servings: 1 what type of physical activity do you participate in: walking frequency: 5-6 times per week seatbelt use: always do you feel safe at home: Yes additional social history: Single ROS Const Const: Positive for fatigue; Negative for weakness ENT ENT: Negative for dizziness or balance problems Cardio Chest Pain: No Palpitations: No Edema: None Muscle aches with walking: None Resp Respiratory: Negative for SOB with activity, SOB at rest or SOB orthopnea SOB lying down GI GI: Negative nausea, vomiting or heartburn Musc Musc: Negative for muscle weakness or balance problems (more content not included)... Normal [facility] Office Visit Reporton 04-01-2024 [facility] Office Visit Report [facility]'[address], [address] [place] [address] OFFICE VISIT Date of Service: 04/01/24 MR#: [id number] Acct: [id number] Name: BEE ESPINOZA Rep #: [id number] : 1970 Provider: Dr. 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) Software Validation Technician Required: No Is patient in pain?: No Allergies codeine Adverse Reaction (Verified 04/01/24 14:35) Other Medications ???Medication ???Instructions ???Recorded ???Confirmed ???Type amlodipine 10 mg tablet 10 mg PO DAILY #90 tabs 11/06/23 0 04/01/24 Rx hydroxyzine HCl 10 mg tablet 10 mg PO TID-QID PRN anxiety #45 1 04/01/24 Rx tabs albuterol sulfate 90 mcg/actuation 2 puff inhalation Q4-6H PRN 01/2104/01/24 Rx aerosol inhaler shortness of breath or wheezing #8.5 grams apixaban 5 mg tablet (Eliquis) 5 mg PO BID #60 tabs 02/09/2403/23 Rx ascorbic acid (vitamin C) 500 mg 500 mg PO BID 02/27/24 04/01/24 Hi story tablet metoprolol succinate 100 mg 100 mg PO QDAY #90 tabs 02/27/24 0 04/01/24 Rx tablet,extended release 24 hr potassium gluconate 595 mg (99 mg) 595 mg PO QDAY 02/27/24 04/01/24 History tablet prednisone 20 mg tablet 10 mg PO BID 02/27/24 04/01/24 His tory vitamin B complex 1 tab PO QDAY 02/27/24 04/01/24 Hi story prednisone 20 mg tablet 40 mg (2 x 20 mg) PO DAILY #20 tab s 03/06/24 04/01/24 Rx Post menopausal: No Patient : No : No PFSH Medical History (Updated 04/01/24 @ 14:51 by Kita Doshi) Fibroid uterus Heavy menses Atrial fibrillation with RVR Alcohol use Heartburn Former smoker History of pain when walking History of echocardiogram History of atrial fibrillation Cardiology follow-up encounter Abnormal Pap smear of cervix Hyperlipidemia Essential hypertension Fibroid Microcytic anemia Atrial fibrillation with RVR (07/08/21) Surgical History (Updated 04/01/24 @ 14:51 by Kita Doshi) Status post hysterectomy History of right knee surgery (01/03/24) History of left knee surgery (04/04/23) History of robot-assisted laparoscopic hysterectomy Hx of excision of mass Status post colposcopy History of breast lump removal History of submandibular gland removal Family History Mother , from complications from mitral valve disease Mitral valve disorder Brother Hypertension Sister Atrial fibrillation Hypertension Father No problems noted. Social History (Updated 04/01/24 @ 14:49 by Kita Doshi) Smoking Status: Former smoker how long ago did patient quit smokin alcohol intake: current alcohol intake frequency: holidays/special occasions only substance use type: does not use caffeine: Yes Type: coffee Number of servings: 2 and tea Number of servings: 1 what type of physical activity do you participate in: walking frequency: 5-6 times per week seatbelt use: always do you feel safe at home: Yes additional social history: Single History 3 Elective abortions Hx Para 1 Spontaneous abortions 2 Hx # Term Pregnancies Ectopic pregnancies Hx # Pregnancies Multiple births # of living children Past Pregnancies Del. Date Name GA/Weeks Outcome Route Bth Weight Gen Labor Lgth Anesthesia Del Locatn Provider FOB Unknown Child adopted HPI Encounter for routine gynecological examination Details: BEE ESPINOZA is a 53 year old who presents for annual exam. had hyst then bilateral knee surgery since seen last. no complaints of hot flashes or menopause symptoms. Last PAP: prior to hyst History of abnormal PAP: no Last mammogram: 07/2023 History of abnormal mammogram: no Colon cancer screening: followed by pcp Other preventative health care screenings: followed by pcp Female Reproductive History Questions: metorrhagia: No, sexually active: Yes, dyspareunia: No and PCB: No Menopausal Symptoms: No hot flashes, No night sweats, No weight change, No mood changes, No difficulty concentrating, No sleep problems and No change in libido ROS Const Constitutional: Reports as per HPI; Denies fatigue, increased appetite, poor appetite, night sweats, weight gain or weight loss Cardio Card: Denies chest pain Resp Resp: Denies cough or dyspnea GI GI: Reports as per HPI; Denies abdominal pain, bloating, constipation, nausea or vomiting : Reports as per HPI and other; D (more content not included)... Normal [facility] 12 Lead EKG performed by [facility] on 02-27-2024 12 Lead EKG performed by [id number] [place] [address] 12 Lead EKG performed by [facility] 02/27/24 1401 MR#: [id number] Acct: [id number] Name: BEE ESPINOZA Rep #: [id number] : 1970 53 From: Nahum Sales NP THREAD TOOL GRINDER SET UP OPERATOR-C Attending Dr: Nahum Sales THREAD TOOL GRINDER SET UP OPERATORHlaeyC Status: DEP AMB Ordering Dr: Nahum Sales NP THREAD TOOL GRINDER SET UP OPERATOR-C Date: 02/27/24 [place] [facility] [place]: F C Admitted: [facility]/12 Lead EKG performed by [facility] ECG Report Interpretation -Sinus Rhythm - occasional ectopic ventricular beat -Left axis. - Negative precordial T-waves. ABNORMAL Electronically signed on 02/28/2024 at 14:43 by Yaniv Holman Software Version [id number] 02/28/24 1448 Date Nahum Sales NP THREAD TOOL GRINDER SET UP OPERATOR-C CC: APRIL Rivero Date Dictated: 02/27/24 1401 Date Transcribed: 02/27/241400 Portfolio Management Marketing: RAVEN Signed Normal [facility] Cardiology Visit Reporton Cardiology Visit Report [facility] [address] [place] [address] OFFICE VISIT Date of Service: 02/27/24 MR#: [id number] Acct: [id number] Name: BEE ESPINOZA Rep #: [id number] : 1970 Provider: APRIL [place] Age/Sex: 53/F [place] [facility] [place]: Signed HPI HPI History of Present Illness Details: 53-year-old lady with a history of hypertension, smoking history, anemia and menorrhagia who has had a few episodes of palpitations. She presented in June 2021 with palpitations and was noted to be in atrial fibrillation with a rapid ventricular response rate of 133 bpm. She was on metoprolol and had diltiazem added to her regimen. An echocardiogram performed demonstrated preserved left ventricular systolic function estimated at 60% with no evidence of diastolic dysfunction. She presented to [facility] Emergency Department on 01/24/2024 for shortness of breath and URI symptoms. She was noted be in atrial fibrillation with RVR with reduced blood pressure of 91/58. She had improvement in her heart rate and subsequent return of tachycardia. She received IV Cardizem and admitted for further evaluation. She was noted to have community-acquired pneumonia. Echocardiogram showed an ejection fraction of 65%. She was started on Eliquis therapy and discharged for outpatient follow-up. She denies chest, arm, jaw, or neck discomfort. She denies palpitations. She denies bilateral lower extremity edema. She denies claudication. She acknowledges shortness of breath at rest and shortness breath activity. She denies PND or orthopnea.She denies chronic cough. She denies significant, sudden weight gain. She states lightheadedness. She denies dizziness, near-syncope, or syncope. She denies blood in urine, blood in stool, or epistaxis. He denies fever with chills. She denies myalgia. She denies fatigue. Her exercise level has remained stable. Intake Vital Signs 01/26/24 09:57 02/09/24 20:52 02/27/24 13:35 Height 5 ft 9.5 in 5 ft 9.5 in 5 ft 9.5 in Weight: 237 lb BMI 34.4 BP 128/77 H Blood Pressure Location Lt brachial Position Sitting Respiration 18 Pulse 71 Pulse Source NIBP Temp 98.2 F Temperature Source Oral Pulse Oximetry (%) 94 Oxygen Delivery Method room air Intake Visit Reasons: S/P [facility] 01/28 AFIB RVR Software Validation Technician Required: No Is patient in pain?: No Allergies codeine Adverse Reaction (Verified 02/27/24 13:42) Other Medications ???Medication ???Instructions ???Recorded ???Confirmed ???Type amlodipine 10 mg tablet 10 mg PO DAILY #90 tabs 11/06/23 02/27/24 Rx hydroxyzine HCl 10 mg tablet 10 mg PO TID-QID PRN anxiety #45 11/22/23 02/27/24 Rx tabs albuterol sulfate 90 mcg/actuation 2 puff inhalation Q4-6H PRN 02/09/24 02/27/24 Rx aerosol inhaler shortness of breath or wheezing #8.5 grams apixaban 5 mg tablet (Eliquis) 5 mg PO BID #60 tabs 02/09/24 02/27/24 Rx ascorbic acid (vitamin C) 500 mg 500 mg PO BID 02/27/24 02/27/24 History tablet diltiazem HCl 90 mg 90 mg PO BID 02/27/24 02/27/24 History capsule,extended release 12 hr metoprolol succinate 100 mg 100 mg PO QDAY #90 tabs 02/27/24 02/27/24 Rx tablet,extended release 24 hr potassium gluconate 595 mg (99 mg) 595 mg PO QDAY 02/27/24 02/27/24 History tablet prednisone 20 mg tablet 10 mg PO BID 02/27/24 02/27/24 History vitamin B complex 1 tab PO QDAY 02/27/24 02/27/24 History Ejection fraction %: 65 Have you fallen in the past year?: No [facility] Medical History Atrial fibrillation with RVR Alcohol use Heartburn Former smoker History of pain when walking History of echocardiogram History of atrial fibrillation Cardiology follow-up encounter Abnormal Pap smear of cervix Hyperlipidemia Essential hypertension Fibroid Microcytic anemia Atrial fibrillation with RVR (07/08/21) Surgical History History of right knee surgery (01/03/24) History of left knee surgery (04/04/23) History of robot-assisted laparoscopic hysterectomy Hx of excision of mass Status post colposcopy History of breast lump removal History of submandibular gland removal Family History Mother , from complications from mitral valve disease Mitral valve disorder Brother Hypertension Sister Atrial fibrillation Hypertension Father No problems noted. Social History Smoking Status: Former smoker how long ago did patient quit smokin alcohol intake: current alcohol intake frequency: holidays/special occasions only substance use type: does not use caffeine: Yes Type: coffee Number of servings: 2 and tea Number of servings: 1 what type of (more content not included)... Normal [facility] Culture, Blood (WB)on 2023 CUB Blood cultures x2 fr om two different sites No growth in 5 days. Normal [facility] Comment on above: Performed By: #### L 500.2500, L100.0100 #### [facility] [address] [facility] [address] Basic Metabolic Profile (BMP )on 01-28-2024 BUN/CRE 13.6 RATIO Normal 10-20 [facility] Comment on above: Performed By: #### L 100.0100, L500.2500 #### [facility] [address] [facility] [address] CA,Total 9.2 mg/dL Normal 8.5-10.1 [facility] Comment on above: Performed By: #### L 100.0100, L500.2500 #### [facility] [address] [facility] [address] Chloride [Moles/Vol] 110 mmol/L High 98-107 [facility] Comment on above: Performed By: #### L 100.0100, L500.2500 #### [facility] [address] [place], [address] CO2 [Moles/Vol] 29.0 mmol/L Normal 21.0-32.0 [facility] Comment on above: Performed By: #### L 100.0100, L500.2500 #### [facility] [address] [place], [address] Creatinine [Mass/Vol] 0.59 mg/dL Normal 0.55-1.02 [facility] Comment on above: Result Comment: The validity of the calculated GFR GFRAA in patients over 70 years has not been determined. Clinical correlation is essential. Performed By: #### L 100.0100, L500.2500 #### [facility] [address] [place], [address] ECRCL 141.91 ml/min Normal [facility] Comment on above: Performed By: #### L 100.0100, L500.2500 #### [facility] [address] [place], [address] EST GFR - AA 136 mL/min Normal >60 [facility] Comment on above: Result Comment: Afri can Malagasy GFR Calc Performed By: #### L 100.0100, L500.2500 #### [facility] [address] [place], [address] GAP 3 Low 5-15 [facility] Comment on above: Performed By: #### L 100.0100, L500.2500 #### [facility] [address] [place], [address] GFR/1.73 sq M.predicted among non-blacks MDRD (S/P/Bld) [Vol rate/Area] 112 mL/min/{1.73_m2} Normal >60 [facility] Comment on above: Result Comment: Non- GFR Calc Performed By: #### L 100.0100, L500.2500 #### [facility] [address] [place], [address] Glucose [Mass/Vol] 116 mg/dL High 74-106 [facility] Comment on above: Result Comment: Fast ing Glucose result from 100 to 125 mg/dL suggests IMPAIRED HOMEOSTASIS per A.D.A. criteria. Performed By: #### L 100.0100, L500.2500 #### [facility] [address] [place], [address] Potassium [Moles/Vol] 3.5 mmol/L Normal 3.5-5.1 [facility] Comment on above: Performed By: #### L 100.0100, L500.2500 #### [facility] [address] [place], [address] Sodium [Moles/Vol] 142 mmol/L Normal 136-145 [facility] Comment on above: Performed By: #### L 100.0100, L500.2500 #### [facility] [address] [place], [address] Urea nitrogen [Mass/Vol] 8 mg/dL Normal 7-18 [facility] Comment on above: Performed By: #### L 100.0100, L500.2500 #### [facility] [address] [place], [address] CBC W/Diff, Automatedon 12-0 -2023 Absolute Lymph 1.28 X10 3/uL Normal 0.83-4.51 [facility] Comment on above: Performed By: #### L 100.0100, L500.2500 #### [facility] [address] [place], [address] Absolute Neut 4.9 X10 3/uL Normal 2.0-7.7 [facility] Comment on above: Performed By: #### L 100.0100, L500.2500 #### [facility] [address] [place], [address] Basophils/100 WBC (Bld) 0.6 % Normal 0-1 [facility] Comment on above: Performed By: #### L 100.0100, L500.2500 #### [facility] [address] [place], [address] Eosinophils/100 WBC (Bld) 4.8 % Normal 0-5 [facility] Comment on above: Performed By: #### L 100.0100, L500.2500 #### [facility] [address] [place], [address] Erythrocyte distribution width (RBC) [Ratio] 13.3 % Normal 11.6-14.6 [facility] Comment on above: Performed By: #### L 100.0100, L500.2500 #### [facility] [address] [place], [address] Hematocrit (Bld) [Volume fraction] 35.5 % Low 37-47 [facility] Comment on above: Performed By: #### L 100.0100, L500.2500 #### [facility] [address] [place], [address] Hemoglobin (Bld) [Mass/Vol] 11.9 g/dL Low 12.0-15.0 [facility] Comment on above: Performed By: #### L 100.0100, L500.2500 #### [facility] [address] [place], [address] IG% 0.800 Normal 0.0-0.9 [facility] Comment on above: Result Comment: IG% - Immature Granulocytes (promyelocytes, myelocytes and metamyelocytes) > 1% indicates that a LEFT SHIFT is Present. Performed By: #### L 100.0100, L500.2500 #### [facility] [address] [place], [address] Lymphocytes/100 WBC (Bld) 17.9 % Low 19-41 [facility] Comment on above: Performed By: #### L 100.0100, L500.2500 #### [facility] [address] [place], [address] MCH (RBC) [Entitic mass] 28.9 pg Normal 27.0-32.0 [facility] Comment on above: Performed By: #### L 100.0100, L500.2500 #### [facility] [address] [place], [address] MCHC (RBC) [Mass/Vol] 33.5 g/dL Normal 32-36 [facility] Comment on above: Performed By: #### L 100.0100, L500.2500 #### [facility] [address] [place], [address] MCV (RBC) [Entitic vol] 86.2 fL Normal 81-99 [facility] Comment on above: Performed By: #### L 100.0100, L500.2500 #### [facility] [address] [place], [address] Monocytes/100 WBC (Bld) 7.1 % Normal 0-10 [facility] Comment on above: Performed By: #### L 100.0100, L500.2500 #### [facility] [address] [place], [address] Neutrophils/100 WBC (Bld) 68.8 % Normal 47-70 [facility] Comment on above: Performed By: #### L 100.0100, L500.2500 #### [facility] [address] [place], [address] Nucleated RBC (Bld) [#/Vol] 0 10*3/uL Normal 0-5 [facility] Comment on above: Performed By: #### L 100.0100, L500.2500 #### [facility] [address] [place], [address] Platelet mean volume (Bld) [Entitic vol] 11.2 fL Normal 6.2-12.0 [facility] Comment on above: Performed By: #### L 100.0100, L500.2500 #### [facility] [address] [place], [address] Platelets (Bld) [#/Vol] 287 10*3/uL Normal 150-450 [facility] Comment on above: Performed By: #### L 100.0100, L500.2500 #### [facility] [address] [place], [address] RBC (Bld) [#/Vol] 4.12 10*6/uL Low 4.2-5.4 [facility] Comment on above: Performed By: #### L 100.0100, L500.2500 #### [facility] [address] [place], [address] RDW SD 41.6 fl Normal 35.1-43.9 [facility] Comment on above: Performed By: #### L 100.0100, L500.2500 #### [facility] [address] [place], [address] WBC (Bld) [#/Vol] 7.2 10*3/uL Normal 4.4-11.0 [facility] Comment on above: Performed By: #### L 100.0100, L500.2500 #### [facility] [facility] [address] [place], [address] Respiratory Cultureon 2023 RESPC Not obtained in 1 hr , induce w/nebulized 0.9% NaCL Mixed normal respiratory marcella. No Haemophilus, Streptococcus pneumoniae, beta-hemolytic Streptococcus or Staphylococcus aureus isolated. Normal [facility] Comment on above: Performed By: #### L 300.4310 #### [facility] [address] [place], [address] Basic Metabolic Profile (BMP )on 01-27-2024 BUN/CRE 15.2 RATIO Normal 10-20 [facility] Comment on above: Performed By: #### L 500.2500, L100.0100 #### [facility] [address] [place], [address] CA,Total 9.2 mg/dL Normal 8.5-10.1 [facility] Comment on above: Performed By: #### L 500.2500, L100.0100 #### [facility] [address] [place], [address] Chloride [Moles/Vol] 108 mmol/L High 98-107 [facility] Comment on above: Performed By: #### L 500.2500, L100.0100 #### [facility] [address] [place], [address] CO2 [Moles/Vol] 27.0 mmol/L Normal 21.0-32.0 [facility] Comment on above: Performed By: #### L 500.2500, L100.0100 #### [facility] [address] [place], [address] Creatinine [Mass/Vol] 0.59 mg/dL Normal 0.55-1.02 [facility] Comment on above: Result Comment: The validity of the calculated GFR GFRAA in patients over 70 years has not been determined. Clinical correlation is essential. Performed By: #### L 500.2500, L100.0100 #### [facility] [address] [place], [address] ECRCL 140.35 ml/min Normal [facility] Comment on above: Performed By: #### L 500.2500, L100.0100 #### [facility] [address] [place], [address] EST GFR - AA 135 mL/min Normal >60 [facility] Comment on above: Result Comment: Afri can Malagasy GFR Calc Performed By: #### L 500.2500, L100.0100 #### [facility] [address] [place], [address] GAP 6 Normal 5-15 [facility] Comment on above: Performed By: #### L 500.2500, L100.0100 #### [facility] [address] [place], [address] GFR/1.73 sq M.predicted among non-blacks MDRD (S/P/Bld) [Vol rate/Area] 111 mL/min/{1.73_m2} Normal >60 [facility] Comment on above: Result Comment: Non- GFR Calc Performed By: #### L 500.2500, L100.0100 #### [facility] [address] [place], [address] Glucose [Mass/Vol] 138 mg/dL High 74-106 [facility] Comment on above: Result Comment: Fast ing Glucose result greater than or equal to 126 mg/dL suggests DIABETES MELLITUS per A.D.A. criteria. Performed By: #### L 500.2500, L100.0100 #### [facility] [address] [place], [address] Potassium [Moles/Vol] 3.6 mmol/L Normal 3.5-5.1 [facility] Comment on above: Performed By: #### L 500.2500, L100.0100 #### [facility] [address] [place], [address] Sodium [Moles/Vol] 141 mmol/L Normal 136-145 [facility] Comment on above: Performed By: #### L 500.2500, L100.0100 #### [facility] [address] [place], [address] Urea nitrogen [Mass/Vol] 9 mg/dL Normal 7-18 [facility] Comment on above: Performed By: #### L 500.2500, L100.0100 #### [facility] [address] [place], [address] CBC W/Diff, Automatedon 12-0 7-2023 Absolute Lymph 1.59 X10 3/uL Normal 0.83-4.51 [facility] Comment on above: Performed By: #### L 500.2500, L100.0100 #### [facility] [address] [place], [address] Absolute Neut 4.5 X10 3/uL Normal 2.0-7.7 [facility] Comment on above: Performed By: #### L 500.2500, L100.0100 #### [facility] [address] [place], [address] Basophils/100 WBC (Bld) 0.4 % Normal 0-1 [facility] Comment on above: Performed By: #### L 500.2500, L100.0100 #### [facility] [address] [place], [address] Eosinophils/100 WBC (Bld) 3.6 % Normal 0-5 [facility] Comment on above: Performed By: #### L 500.2500, L100.0100 #### [facility] [address] [place], [address] Erythrocyte distribution width (RBC) [Ratio] 13.2 % Normal 11.6-14.6 [facility] Comment on above: Performed By: #### L 500.2500, L100.0100 #### [facility] [address] [place], [address] Hematocrit (Bld) [Volume fraction] 38.0 % Normal 37-47 [facility] Comment on above: Performed By: #### L 500.2500, L100.0100 #### [facility] [address] [place], [address] Hemoglobin (Bld) [Mass/Vol] 12.5 g/dL Normal 12.0-15.0 [facility] Comment on above: Performed By: #### L 500.2500, L100.0100 #### [facility] [address] [place], [address] IG% 0.600 Normal 0.0-0.9 [facility] Comment on above: Result Comment: IG% - Immature Granulocytes (promyelocytes, myelocytes and metamyelocytes) > 1% indicates that a LEFT SHIFT is Present. Performed By: #### L 500.2500, L100.0100 #### [facility] [address] [place], [address] Lymphocytes/100 WBC (Bld) 22.0 % Normal 19-41 [facility] Comment on above: Performed By: #### L 500.2500, L100.0100 #### [facility] [address] [place], [address] MCH (RBC) [Entitic mass] 28.2 pg Normal 27.0-32.0 [facility] Comment on above: Performed By: #### L 500.2500, L100.0100 #### [facility] [address] [place], [address] MCHC (RBC) [Mass/Vol] 32.9 g/dL Normal 32-36 [facility] Comment on above: Performed By: #### L 500.2500, L100.0100 #### [facility] [address] [place], [address] MCV (RBC) [Entitic vol] 85.6 fL Normal 81-99 [facility] Comment on above: Performed By: #### L 500.2500, L100.0100 #### [facility] [address] [place], [address] Monocytes/100 WBC (Bld) 10.7 % High 0-10 [facility] Comment on above: Performed By: #### L 500.2500, L100.0100 #### [facility] [address] [place], [address] Neutrophils/100 WBC (Bld) 62.7 % Normal 47-70 [facility] Comment on above: Performed By: #### L 500.2500, L100.0100 #### [facility] [address] [place], [address] Nucleated RBC (Bld) [#/Vol] 0 10*3/uL Normal 0-5 [facility] Comment on above: Performed By: #### L 500.2500, L100.0100 #### [facility] [address] [place], [address] Platelet mean volume (Bld) [Entitic vol] 11.3 fL Normal 6.2-12.0 [facility] Comment on above: Performed By: #### L 500.2500, L100.0100 #### [facility] [address] [place], [address] Platelets (Bld) [#/Vol] 245 10*3/uL Normal 150-450 [facility] Comment on above: Performed By: #### L 500.2500, L100.0100 #### [facility] [address] [place], [address] RBC (Bld) [#/Vol] 4.44 10*6/uL Normal 4.2-5.4 [facility] Comment on above: Performed By: #### L 500.2500, L100.0100 #### [facility] [address] [place], [address] RDW SD 41.3 fl Normal 35.1-43.9 [facility] Comment on above: Performed By: #### L 500.2500, L100.0100 #### [facility] [address] [place], [address] WBC (Bld) [#/Vol] 7.2 10*3/uL Normal 4.4-11.0 [facility] Comment on above: Performed By: #### L 500.2500, L100.0100 #### [facility] [address] [place], [address] Partial Thromboplast Timeon 01-27-2024 aPTT Coag (Bld) [Time] 42.8 s High 24.1-36.2 [facility] Comment on above: Performed By: #### L 300.4310 #### [facility] [address] [place], [address] Basic Metabolic Profile (BMP )on 01-26-2024 BUN/CRE 11.4 RATIO Normal 10-20 [facility] Comment on above: Performed By: #### L 500.2500, L100.0100 #### [facility] [address] [place], [address] CA,Total 8.5 mg/dL Normal 8.5-10.1 [facility] Comment on above: Performed By: #### L 500.2500, L100.0100 #### [facility] [address] [place], [address] Chloride [Moles/Vol] 107 mmol/L Normal 98-107 [facility] Comment on above: Performed By: #### L 500.2500, L100.0100 #### [facility] [address] [place], [address] CO2 [Moles/Vol] 28.0 mmol/L Normal 21.0-32.0 [facility] Comment on above: Performed By: #### L 500.2500, L100.0100 #### [facility] [address] [place], [address] Creatinine [Mass/Vol] 0.62 mg/dL Normal 0.55-1.02 [facility] Comment on above: Result Comment: The validity of the calculated GFR GFRAA in patients over 70 years has not been determined. Clinical correlation is essential. Performed By: #### L 500.2500, L100.0100 #### [facility] [address] [place], [address] ECRCL 134.27 ml/min Normal [facility] Comment on above: Performed By: #### L 500.2500, L100.0100 #### [facility] [address] [place], [address] EST GFR - AA 129 mL/min Normal >60 [facility] Comment on above: Result Comment: Afri can Malagasy GFR Calc Performed By: #### L 500.2500, L100.0100 #### [facility] [address] [place], [address] GAP 4 Low 5-15 [facility] Comment on above: Performed By: #### L 500.2500, L100.0100 #### [facility] [address] [place], [address] GFR/1.73 sq M.predicted among non-blacks MDRD (S/P/Bld) [Vol rate/Area] 107 mL/min/{1.73_m2} Normal >60 [facility] Comment on above: Result Comment: Non- GFR Calc Performed By: #### L 500.2500, L100.0100 #### [facility] [address] [place], [address] Glucose [Mass/Vol] 140 mg/dL High 74-106 [facility] Comment on above: Result Comment: Fast ing Glucose result greater than or equal to 126 mg/dL suggests DIABETES MELLITUS per A.D.A. criteria. Performed By: #### L 500.2500, L100.0100 #### [facility] [address] [place], [address] Potassium [Moles/Vol] 3.8 mmol/L Normal 3.5-5.1 [facility] Comment on above: Performed By: #### L 500.2500, L100.0100 #### [facility] [address] [place], [address] Sodium [Moles/Vol] 138 mmol/L Normal 136-145 [facility] Comment on above: Performed By: #### L 500.2500, L100.0100 #### [facility] [address] [place], [address] Urea nitrogen [Mass/Vol] 7 mg/dL Normal 7-18 [facility] Comment on above: Performed By: #### L 500.2500, L100.0100 #### [facility] [address] [place], [address] CBC W/Diff, Automatedon 12-0 -2023 Absolute Lymph 1.48 X10 3/uL Normal 0.83-4.51 [facility] Comment on above: Performed By: #### L 500.2500, L100.0100 #### [facility] [address] [place], [address] Absolute Neut 5.4 X10 3/uL Normal 2.0-7.7 [facility] Comment on above: Performed By: #### L 500.2500, L100.0100 #### [facility] [address] [place], [address] Basophils/100 WBC (Bld) 0.5 % Normal 0-1 [facility] Comment on above: Performed By: #### L 500.2500, L100.0100 #### [facility] [address] [place], [address] Eosinophils/100 WBC (Bld) 1.6 % Normal 0-5 [facility] Comment on above: Performed By: #### L 500.2500, L100.0100 #### [facility] [address] [place], [address] Erythrocyte distribution width (RBC) [Ratio] 13.3 % Normal 11.6-14.6 [facility] Comment on above: Performed By: #### L 500.2500, L100.0100 #### [facility] [address] [place], [address] Hematocrit (Bld) [Volume fraction] 37.6 % Normal 37-47 [facility] Comment on above: Performed By: #### L 500.2500, L100.0100 #### [facility] [address] [place], [address] Hemoglobin (Bld) [Mass/Vol] 12.8 g/dL Normal 12.0-15.0 [facility] Comment on above: Performed By: #### L 500.2500, L100.0100 #### [facility] [address], [address] IG% 0.500 Normal 0.0-0.9 [facility] Comment on above: Result Comment: IG% - Immature Granulocytes (promyelocytes, myelocytes and metamyelocytes) > 1% indicates that a LEFT SHIFT is Present. Performed By: #### L 500.2500, L100.0100 #### [facility] [address], [address] Lymphocytes/100 WBC (Bld) 18.7 % Low 19-41 [facility] Comment on above: Performed By: #### L 500.2500, L100.0100 #### [facility] [address] [place], [address] MCH (RBC) [Entitic mass] 29.2 pg Normal 27.0-32.0 [facility] Comment on above: Performed By: #### L 500.2500, L100.0100 #### [facility] [address] [place], [address] MCHC (RBC) [Mass/Vol] 34.0 g/dL Normal 32-36 [facility] Comment on above: Performed By: #### L 500.2500, L100.0100 #### [facility] [address] [place], [address] MCV (RBC) [Entitic vol] 85.8 fL Normal 81-99 [facility] Comment on above: Performed By: #### L 500.2500, L100.0100 #### [facility] [address] [place], [address] Monocytes/100 WBC (Bld) 10.1 % High 0-10 [facility] Comment on above: Performed By: #### L 500.2500, L100.0100 #### [facility] [address] [place], [address] Neutrophils/100 WBC (Bld) 68.6 % Normal 47-70 [facility] Comment on above: Performed By: #### L 500.2500, L100.0100 #### [facility] [address] [place], [address] Nucleated RBC (Bld) [#/Vol] 0 10*3/uL Normal 0-5 [facility] Comment on above: Performed By: #### L 500.2500, L100.0100 #### [facility] [address] [place], [address] Platelet mean volume (Bld) [Entitic vol] 11.0 fL Normal 6.2-12.0 [facility] Comment on above: Performed By: #### L 500.2500, L100.0100 #### [facility] [address] [place], [address] Platelets (Bld) [#/Vol] 190 10*3/uL Normal 150-450 [facility] Comment on above: Performed By: #### L 500.2500, L100.0100 #### [facility] [address] [place], [address] RBC (Bld) [#/Vol] 4.38 10*6/uL Normal 4.2-5.4 [facility] Comment on above: Performed By: #### L 500.2500, L100.0100 #### [facility] [address] [place], [address] RDW SD 42.2 fl Normal 35.1-43.9 [facility] Comment on above: Performed By: #### L 500.2500, L100.0100 #### [facility] [address] [place], [address] WBC (Bld) [#/Vol] 7.9 10*3/uL Normal 4.4-11.0 [facility] Comment on above: Performed By: #### L 500.2500, L100.0100 #### [facility] [address] [place], [address] Gram Stainon 01-26-2024 GS Not obtained in 1 hr , induce w/nebulized 0.9% NaCL Acceptable Specimen? Yes (<25 Epithelial cells per/lpf) Gram Stain 4+ White Blood Cells 1+ Gram positive cocci No Epithelial cells Normal [facility] Comment on above: Performed By: #### L 300.4310 #### [facility] [address] [place], [address] Magnesiumon 01-26-2024 Magnesium [Mass/Vol] 2.0 mg/dL Normal 1.6-2.6 [facility] Comment on above: Performed By: #### L 500.2500, L100.0100 #### [facility] [address] [place], [address] Partial Thromboplast Timeon 01-26-2024 aPTT Coag (Bld) [Time] 76.0 s High 24.1-36.2 [facility] Comment on above: Performed By: #### L 500.2500, L100.0100 #### [facility] [address] [place], [address] Phosphoruson 01-26-2024 Phosphate [Mass/Vol] 2.9 mg/dL Normal 2.5-4.9 [facility] Comment on above: Performed By: #### L 500.2500, L100.0100 #### [facility] [address] [place], [address] 12 Lead EKGon 01-25-2024 12 Lead EKG [facility] [address] [place] [address] 12 Lead EKG 01/25/24 1207 MR#: [id number] Acct: [id number] Name: BEE ESPINOZA Rep #: [id number] : 1970 53 From: Jonny Hendricks MD Attending Dr: Dr. Velia Maradiaga DO Status: ADM I N Ordering Dr: Gustavo Juarez MD Date: 01/25/24 Location: [facility] Sex: F C Admitted: 01/24/24 Test Reason : recheck Blood Pressure : */* mmHG Vent. Rate : 88 BPM Atrial Rate : 88 BPM P-R Int : 150 ms QRS Dur : 100 ms QT Int : 386 ms P-R-T Axes : 44 -23 55 degrees QTcB Int : 467 ms Sinus rhythm with Premature atrial complexes Otherwise normal ECG When compared with ECG of 24-Jan-2024 17:45, Sinus rhythm has replaced Atrial flutter Vent. rate has decreased by [address] no longer elevated in Inferior leads Confirmed by Jonny Hendricks ([id number]), industrial editor DESTINY PARKER ([id number]) on 01/29/2024 9:14:20 AM Referred By: Confirmed By: Jonny Hendricsk 01/29/24 0914 Date Jonny Hendricks MD CC: APRIL Rivero; Dr. Gustavo Juarez MD; Dr. Velia Maradiaga, DO Signed Normal [facility] 12 Lead EKG [facility] [address] [place] [address] 12 Lead EKG 01/25/24 1525 MR#: [id number] Acct: [id number] Name: BEE ESPINOZA Rep #: [id number] : 1970 [id number] From: Jonny Hendricks MD Attending Dr: Dr. Velia Maradiaga, Status: ADM I N Ordering Dr: Gustavo Juarez MD Date: 01/25/24 Location: [facility] Sex: F C Admitted: 01/24/24 Test Reason : high hr Blood Pressure : */* mmHG Vent. Rate : 137 BPM Atrial Rate : * BPM P-R Int : * ms QRS Dur : 96 ms QT Int : 344 ms P-R-T Axes : * -26 91 degrees QTcB Int : 519 ms Probable Atypical A flutter with 2:[address] and T wave abnormality Abnormal ECG When compared with ECG of 25-Jan-2024 12:07, MANUAL COMPARISON REQUIRED DATA IS UNCONFIRMED Confirmed by Jonny Hendricks ([id number]), industrial editor DESTINY PARKER ([id number]) on 01/29/2024 9:14:09 AM Referred By: Jan Confirmed By: Jonny Hendricks 01/29/2414 Date Jonny Hendricks MD CC: APRIL Rivero; Dr. Gustavo Juarez MD; Dr. Velia Maradiaga, DO Signed Normal [facility] CBC W/Diff, Automatedon 12-0 Absolute Lymph 0.79 X10 3/uL Low 0.83-4.51 [facility] Comment on above: Performed By: #### L 100.0100, L500.2500, L501.4020 #### [facility] [address] [place], [place], [address] Absolute Neut 6.8 X10 3/uL Normal 2.0-7.7 [facility] Comment on above: Performed By: #### L 100.0100, L500.2500, L501.4020 #### [facility] [address] [place], [address] Basophils/100 WBC (Bld) 0.4 % Normal 0-1 [facility] Comment on above: Performed By: #### L 100.0100, L500.2500, L501.4020 #### [facility] [address] [place], [address] Eosinophils/100 WBC (Bld) 0.1 % Normal 0-5 [facility] Comment on above: Performed By: #### L 100.0100, L500.2500, L501.4020 #### [facility] [address] [place], [address] Erythrocyte distribution width (RBC) [Ratio] 13.2 % Normal 11.6-14.6 [facility] Comment on above: Performed By: #### L 100.0100, L500.2500, L501.4020 #### [facility] [address] [place], [address] Hematocrit (Bld) [Volume fraction] 36.2 % Low 37-47 [facility] Comment on above: Performed By: #### L 100.0100, L500.2500, L501.4020 #### [facility] [address] [place], [address] Hemoglobin (Bld) [Mass/Vol] 12.4 g/dL Normal 12.0-15.0 [facility] Comment on above: Performed By: #### L 100.0100, L500.2500, L501.4020 #### [facility] [address] [place], [address] IG% 0.200 Normal 0.0-0.9 [facility] Comment on above: Result Comment: IG% - Immature Granulocytes (promyelocytes, myelocytes and metamyelocytes) > 1% indicates that a LEFT SHIFT is Present. Performed By: #### L 100.0100, L500.2500, L501.4020 #### [facility] [address] [place], [address] Lymphocytes/100 WBC (Bld) 9.4 % Low 19-41 [facility] Comment on above: Performed By: #### L 100.0100, L500.2500, L501.4020 #### [facility] [address] [place], [address] MCH (RBC) [Entitic mass] 29.1 pg Normal 27.0-32.0 [facility] Comment on above: Performed By: #### L 100.0100, L500.2500, L501.4020 #### [facility] [address] [place], [address] MCHC (RBC) [Mass/Vol] 34.3 g/dL Normal 32-36 [facility] Comment on above: Performed By: #### L 100.0100, L500.2500, L501.4020 #### [facility] [address] [place], [address] MCV (RBC) [Entitic vol] 85.0 fL Normal 81-99 [facility] Comment on above: Performed By: #### L 100.0100, L500.2500, L501.4020 #### [facility] [address] [place], [address] Monocytes/100 WBC (Bld) 9.1 % Normal 0-10 [facility] Comment on above: Performed By: #### L 100.0100, L500.2500, L501.4020 #### [facility] [address] [place], [address] Neutrophils/100 WBC (Bld) 80.8 % High 47-70 [facility] Comment on above: Performed By: #### L 100.0100, L500.2500, L501.4020 #### [facility] [address] [place], [address] Nucleated RBC (Bld) [#/Vol] 0 10*3/uL Normal 0-5 [facility] Comment on above: Performed By: #### L 100.0100, L500.2500, L501.4020 #### [facility] [address] [place], [address] Platelet mean volume (Bld) [Entitic vol] 11.2 fL Normal 6.2-12.0 [facility] Comment on above: Performed By: #### L 100.0100, L500.2500, L501.4020 #### [facility] [address] [place], [address] Platelets (Bld) [#/Vol] 198 10*3/uL Normal 150-450 [facility] Comment on above: Performed By: #### L 100.0100, L500.2500, L501.4020 #### [facility] [address] [place], [address] RBC (Bld) [#/Vol] 4.26 10*6/uL Normal 4.2-5.4 [facility] Comment on above: Performed By: #### L 100.0100, L500.2500, L501.4020 #### [facility] [address] [place], [address] RDW SD 41.0 fl Normal 35.1-43.9 [facility] Comment on above: Performed By: #### L 100.0100, L500.2500, L501.4020 #### [facility] [address] [place], [address] WBC (Bld) [#/Vol] 8.4 10*3/uL Normal 4.4-11.0 [facility] Comment on above: Performed By: #### L 100.0100, L500.2500, L501.4020 #### [facility] [address] [place], [address] Comprehensive Metabolic Prof ilon 01-25-2024 Albumin [Mass/Vol] 2.4 g/dL Low 3.2-5.0 [facility] Comment on above: Order Comment: Comme nts: Fasting Lipid Profile Performed By: #### L 500.2500, L100.0100 #### [facility] [address] [place], [address] Albumin/Globulin [Mass ratio] 0.7 {ratio} Low 0.9-2.4 [facility] Comment on above: Order Comment: Comme nts: Fasting Lipid Profile Performed By: #### L 500.2500, L100.0100 #### [facility] [address] [place], [address] ALK P 70 U/L Normal 45-117 [facility] Comment on above: Order Comment: Comme nts: Fasting Lipid Profile Performed By: #### L 500.2500, L100.0100 #### [facility] [address] [place], [address] ALT [Catalytic activity/Vol] 19 U/L Normal 13-56 [facility] Comment on above: Order Comment: Comme nts: Fasting Lipid Profile Performed By: #### L 500.2500, L100.0100 #### [facility] [address] [place], [address] AST [Catalytic activity/Vol] 14 U/L Low 15-37 [facility] Comment on above: Order Comment: Comme nts: Fasting Lipid Profile Performed By: #### L 500.2500, L100.0100 #### [facility] [address] [place], [address] Bilirubin [Mass/Vol] 0.80 mg/dL Normal 0.20-1.00 [facility] Comment on above: Order Comment: Comme nts: Fasting Lipid Profile Result Comment: For patients on eltrombopag therapy, use of Dimension [place] TBIL is not recommended. Performed By: #### L 500.2500, L100.0100 #### [facility] [address] [place], [address] BUN/CRE 12.1 RATIO Normal 10-20 [facility] Comment on above: Order Comment: Comme nts: Fasting Lipid Profile Performed By: #### L 500.2500, L100.0100 #### [facility] [address] [place], [address] CA,Total 8.0 mg/dL Low 8.5-10.1 [facility] Comment on above: Order Comment: Comme nts: Fasting Lipid Profile Performed By: #### L 500.2500, L100.0100 #### [facility] [address] [place], [address] Chloride [Moles/Vol] 107 mmol/L Normal 98-107 [facility] Comment on above: Order Comment: Comme nts: Fasting Lipid Profile Performed By: #### L 500.2500, L100.0100 #### [facility] [address] [place], [address] CO2 [Moles/Vol] 24.0 mmol/L Normal 21.0-32.0 [facility] Comment on above: Order Comment: Comme nts: Fasting Lipid Profile Performed By: #### L 500.2500, L100.0100 #### [facility] [address] [place], [address] Creatinine [Mass/Vol] 0.74 mg/dL Normal 0.55-1.02 [facility] Comment on above: Order Comment: Comme nts: Fasting Lipid Profile Result Comment: The validity of the calculated GFR GFRAA in patients over 70 years has not been determined. Clinical correlation is essential. Performed By: #### L 500.2500, L100.0100 #### [facility] [address] [place], [address] ECRCL 111.68 ml/min Normal [facility] Comment on above: Order Comment: Comme nts: Fasting Lipid Profile Performed By: #### L 500.2500, L100.0100 #### [facility] [address] [place], [address] EST GFR - AA 104 mL/min Normal >60 [facility] Comment on above: Order Comment: Comme nts: Fasting Lipid Profile Result Comment: Afri can Malagasy GFR Calc Performed By: #### L 500.2500, L100.0100 #### [facility] [address] [place], [address] GAP 6 Normal 5-15 [facility] Comment on above: Order Comment: Comme nts: Fasting Lipid Profile Performed By: #### L 500.2500, L100.0100 #### [facility] [address] [place], [address] GFR/1.73 sq M.predicted among non-blacks MDRD (S/P/Bld) [Vol rate/Area] 86 mL/min/{1.73_m2} Normal >60 [facility] Comment on above: Order Comment: Comme nts: Fasting Lipid Profile Result Comment: Non- GFR Calc Performed By: #### L 500.2500, L100.0100 #### [facility] [address] [place], [address] Globulin (S) [Mass/Vol] 3.3 g/dL Normal 2.2-4.2 [facility] Comment on above: Order Comment: Comme nts: Fasting Lipid Profile Performed By: #### L 500.2500, L100.0100 #### [facility] [address] [place], [address] Glucose [Mass/Vol] 168 mg/dL High 74-106 [facility] Comment on above: Order Comment: Comme nts: Fasting Lipid Profile Result Comment: Fast ing Glucose result greater than or equal to 126 mg/dL suggests DIABETES MELLITUS per A.D.A. criteria. Performed By: #### L 500.2500, L100.0100 #### [facility] [address] [place], [address] Potassium [Moles/Vol] 3.6 mmol/L Normal 3.5-5.1 [facility] Comment on above: Order Comment: Comme nts: Fasting Lipid Profile Performed By: #### L 500.2500, L100.0100 #### [facility] [address] [place], [address] Sodium [Moles/Vol] 137 mmol/L Normal 136-145 [facility] Comment on above: Order Comment: Comme nts: Fasting Lipid Profile Performed By: #### L 500.2500, L100.0100 #### [facility] [address] [place], [address] T PROT 5.7 g/dL Low 6.4-8.2 [facility] Comment on above: Order Comment: Comme nts: Fasting Lipid Profile Performed By: #### L 500.2500, L100.0100 #### [facility] [address] [place], [address] Urea nitrogen [Mass/Vol] 9 mg/dL Normal 7-18 [facility] Comment on above: Order Comment: Comm nts: Fasting Lipid Profile Performed By: #### L 500.2500, L100.0100 #### [facility] [address] [place], [address] ENTERIC PATHOGEN PANEL STOOL on 01-25-2024 EP PANEL Is the patient recei ving laxatives? N New/unexplained onset of 3 or more stools in past 24 hrs? Y Normal Reference Range = Not Detected GI pathogens Pnl Stl AMINATA+probe Nucleic acid amplification test method Not detected for Campylobacter group, Salmonella species, Shigella species, Vibrio Group, Yersinia enterocolitica, EHEC (Shiga Toxin 1, Shiga Toxin 2), Norovirus Gl/Gll, and Rotavirus A. Other common stool pathogens are not detected on this panel include: Aeromonas/Plesiomonas or parasites. Order testing for these organisms separately if suspected. This is an amplified DNA test which makes it both specific and sensitive. CAMPYLOBACTER Not Detected Norovirus Not Detected Rotavirus Not Detected Salmonella Not Detected Shiga Toxin Not Detected Shigella sp. Not Detected VIBRIO Not Detected Yersinia Not Detected Normal [facility] Comment on above: Performed By: #### L 100.0100, L500.2500, L501.4020 #### [facility] [address] [place], [address] Lipid Profileon 01-25-2024 Cholesterol [Mass/Vol] 152 mg/dL Normal 200 [facility] Comment on above: Order Comment: Comme nts: Fasting Lipid Profile Result Comment: <200 mg/dL Desirable 200-240 mg/dL Borderline >240 mg/dL High Risk Performed By: #### L 500.2500, L100.0100 #### [facility] [address] [place], [address] Cholesterol in HDL [Mass/Vol] 50 mg/dL Normal [facility] Comment on above: Order Comment: Comme nts: Fasting Lipid Profile Result Comment: The drugs N-Acetylcysteine and Metamizole may falsely depress this assay. Reference Range HDL <40 mg/dL Low HDL Cholesterol HDL >or= 60 mg/dL High HDL Cholesterol Performed By: #### L 500.2500, L100.0100 #### [facility] [address] [place], [address] Cholesterol in LDL [Mass/Vol] 81 mg/dL Normal 0-130 [facility] Comment on above: Order Comment: Comme nts: Fasting Lipid Profile Performed By: #### L 500.2500, L100.0100 #### [facility] [address] [place], [address] Cholesterol in VLDL [Mass/Vol] 21 mg/dL Normal 5-40 [facility] Comment on above: Order Comment: Comme nts: Fasting Lipid Profile Performed By: #### L 500.2500, L100.0100 #### [facility] [address] [place], [address] Triglyceride [Mass/Vol] 104 mg/dL Normal [facility] Comment on above: Order Comment: Comme nts: Fasting Lipid Profile Result Comment: The drugs N-Acetylcysteine and Metamizole may falsely depress this assay. Serum Triglycerides Reference Interval Normal <150 mg/dL Borderline high 150 - 199 mg/dL High 200 - 499 mg/dL Very High > or = 500 mg/dL Performed By: #### L 500.2500, L100.0100 #### [facility] [address] [place], [address] Magnesiumon 01-25-2024 Magnesium [Mass/Vol] 1.8 mg/dL Normal 1.6-2.6 [facility] Comment on above: Order Comment: Comme nts: Fasting Lipid Profile Performed By: #### L 500.2500, L100.0100 #### [facility] [address] [place], [address] Partial Thromboplast Timeon 01-25-2024 aPTT Coag (Bld) [Time] 64.8 s High 24.1-36.2 [facility] Comment on above: Performed By: #### L 300.4310 #### [facility] [address] [place], [address] aPTT Coag (Bld) [Time] 66.9 s High 24.1-36.2 [facility] Comment on above: Performed By: #### L 500.2500, L100.0100 #### [facility] [address] [place], [address] RESPIRATORY PANEL MOLECULARo n 01-25-2024 RP PANEL ADENOVIRUS Not Detected INFLUENZA A Not Detected INFLUENZA A (SUBTYPE H1) Not Detected INFLUENZA A (SUBTYPE H3) Not Detected INFLUENZA B Not Detected HUMAN METAPHNEUMO Not Detected PARAINFLUENZA 1 Not Detected PARAINFLUENZA 2 Not Detected PARAINFLUENZA 3 Not Detected PARAINFLUENZA 4 Not Detected RHINOVIRUS Not Detected RSV A Not Detected RSV B Not Detected Normal [facility] Comment on above: Performed By: #### L 100.0100, L500.2500, L501.4020 #### [facility] [address] [place], [address] Thyroid Stim Hormone (TSH)on 01-25-2024 TSH 0.925 uIU/mL Normal 0.358-3.740 [facility] Comment on above: Order Comment: Comme nts: Fasting Lipid Profile Performed By: #### L 500.2500, L100.0100 #### [facility] [address] [place], [address] 12 Lead EKGon 01-24-2024 12 Lead EKG [facility] Cardi[facility] Services [address] [place] [address] 12 Lead EKG 01/24/24 1745 MR#: [id number] Acct: [id number] Name: BEE ESPINOZA Rep #: [id number] : 1970 53 From: Jonny Hendricks MD Attending Dr: Dr. Gustavo Juarez MD Status: ADM IN Ordering Dr: Kristian Guillory DO Date: 01/24/24 Location: ICU Sex: F C Admitted: 01/24/24 Test Reason : TACHY Blood Pressure : */* mmHG Vent. Rate : 146 BPM Atrial Rate : 288 BPM P-R Int : * ms QRS Dur : 88 ms QT Int : 360 ms P-R-T Axes : * -49 76 degrees QTcB Int : 561 ms Critical Test Result: High HR Atrial flutter 2:1 conduction Left anterior fascicular block Abnormal ECG Confirmed by Jonny Hendricks ([id number]), industrial editor [employer] HDZ ([id number]) on 01/26/2024 10:40:15 AM Referred By: Confirmed By: Jonny Hendricks 01/26/24 1040 Date Jonny Hendricks MD CC: THREAD TOOL GRINDER SET UP OPERATOR-Julio Cesar Rivero; Dr. Gustavo Juarez MD; Dr. Kristian Guillory DO Signed Normal [facility] 12 Lead EKG [facility] [address] [place] [address] 12 Lead EKG 01/24/24 1547 MR#: [id number] Acct: [id number] Name: NICOLETTEBEE FAVIAN Rep #: [id number] : 1970 53 From: Jonny Hendricks MD Attending Dr: Dr. Gustavo Juarez MD Status: ADM IN Ordering Dr: Reji Mir DO Date: 4 Location: ICU Sex: F C Admitted: 01/24/24 Test Reason : REPEAT Blood Pressure : */* mmHG Vent. Rate : 112 BPM Atrial Rate : 112 BPM P-R Int : 136 ms QRS Dur : 88 ms QT Int : 324 ms P-R-T Axes : 75 -68 84 degrees QTcB Int : 442 ms Sinus tachycardia Left anterior fascicular block Abnormal ECG Confirmed by Jonny Hendricks ([id number]), industrial editor [employer] HDZ ([id number]) on 01/26/2024 10:40:32 AM Referred By: Confirmed By: Jonny Hendricks 01/26/24 1040 Date Jonny Hendricks MD CC: APRIL Rivero; Dr. Reji Mir DO; Dr. Gustavo Juarez MD Signed Normal [facility] 12 Lead EKG [facility] [address] [place] [address] 12 Lead EKG 01/24/24 1506 MR#: [id number] Acct: [id number] Name: BEE ESPINOZA Rep #: [id number] : 1970 53 From: Jonny Hendricks MD Attending Dr: Dr. Gustavo Juarez MD Status: ADM IN Ordering Dr: Kristian Guillory DO Date: 01/24/24 Location: ICU Sex: F C Admitted: 01/24/24 Test Reason : Blood Pressure : */* mmHG Vent. Rate : 182 BPM Atrial Rate : * BPM P-R Int : * ms QRS Dur : 84 ms QT Int : 272 ms P-R-T Axes : * -61 88 degrees QTcB Int : 473 ms Critical Test Result: High HR Atrial fibrillation with rapid ventricular response Left anterior fascicular block Nonspecific ST abnormality Abnormal ECG Confirmed by Jonny Hendricks ([id number]), industrial editor [employer] HDZ ([id number]) on 01/26/2024 10:40:48 AM Referred By: Confirmed By: Jonny Hendricks 01/26/24 1040 Date Jonny Hendricks MD CC: THREAD TOOL GRINDER SET UP OPERATOR-Julio Cesar Rivero; Dr. Gustavo Juarez MD; Dr. Kristian Guillory, DO Signed Normal [facility] BNP,B-Type NATRIURETIC PEPTI Ronda 01-24-2024 Natriuretic peptide B (Bld) [Mass/Vol] 295.1 pg/mL High 0-100 [facility] Comment on above: Performed By: #### L 500.2500, L100.0100 #### [facility] [address] [place], [address] Basic Metabolic Profile (BMP )on 01-24-2024 BUN/CRE 18.0 RATIO Normal 10-20 [facility] Comment on above: Order Comment: 'TROP ' Serial specimen #1, #2 or #3: 1 Performed By: #### L 100.0100, L500.2500, L501.4020 #### [facility] [address] [place], [address] CA,Total 9.4 mg/dL Normal 8.5-10.1 [facility] Comment on above: Order Comment: 'TROP ' Serial specimen #1, #2 or #3: 1 Performed By: #### L 100.0100, L500.2500, L501.4020 #### [facility] [address] [place], [address] Chloride [Moles/Vol] 104 mmol/L Normal 98-107 [facility] Comment on above: Order Comment: 'TROP ' Serial specimen #1, #2 or #3: 1 Performed By: #### L 100.0100, L500.2500, L501.4020 #### [facility] [address] [place], [address] CO2 [Moles/Vol] 21.0 mmol/L Normal 21.0-32.0 [facility] Comment on above: Order Comment: 'TROP ' Serial specimen #1, #2 or #3: 1 Performed By: #### L 100.0100, L500.2500, L501.4020 #### [facility] [address] [place], [address] Creatinine [Mass/Vol] 0.89 mg/dL Normal 0.55-1.02 [facility] Comment on above: Order Comment: 'TROP ' Serial specimen #1, #2 or #3: 1 Result Comment: The validity of the calculated GFR GFRAA in patients over 70 years has not been determined. Clinical correlation is essential. Performed By: #### L 100.0100, L500.2500, L501.4020 #### [facility] [address] [place], [address] EST GFR - AA 85 mL/min Normal >60 [facility] Comment on above: Order Comment: 'TROP ' Serial specimen #1, #2 or #3: 1 Result Comment: Afri can Malagasy GFR Calc Performed By: #### L 100.0100, L500.2500, L501.4020 #### [facility] [address] [place], [address] GAP 9 Normal 5-15 [facility] Comment on above: Order Comment: 'TROP ' Serial specimen #1, #2 or #3: 1 Performed By: #### L 100.0100, L500.2500, L501.4020 #### [facility] [address] [place], [address] GFR/1.73 sq M.predicted among non-blacks MDRD (S/P/Bld) [Vol rate/Area] 70 mL/min/{1.73_m2} Normal >60 [facility] Comment on above: Order Comment: 'TROP ' Serial specimen #1, #2 or #3: 1 Result Comment: Non- GFR Calc Performed By: #### L 100.0100, L500.2500, L501.4020 #### [facility] [address] [place], [address] Glucose [Mass/Vol] 132 mg/dL High 74-106 [facility] Comment on above: Order Comment: 'TROP ' Serial specimen #1, #2 or #3: 1 Result Comment: Fast ing Glucose result greater than or equal to 126 mg/dL suggests DIABETES MELLITUS per A.D.A. criteria. Performed By: #### L 100.0100, L500.2500, L501.4020 #### [facility] [address] [place], [address] Potassium [Moles/Vol] 4.4 mmol/L Normal 3.5-5.1 [facility] Comment on above: Order Comment: 'TROP ' Serial specimen #1, #2 or #3: 1 Performed By: #### L 100.0100, L500.2500, L501.4020 #### [facility] [address] [place], [address] Sodium [Moles/Vol] 134 mmol/L Low 136-145 [facility] Comment on above: Order Comment: 'TROP ' Serial specimen #1, #2 or #3: 1 Performed By: #### L 100.0100, L500.2500, L501.4020 #### [facility] [address] [place], [address] Urea nitrogen [Mass/Vol] 16 mg/dL Normal 7-18 [facility] Comment on above: Order Comment: 'TROP ' Serial specimen #1, #2 or #3: 1 Performed By: #### L 100.0100, L500.2500, L501.4020 #### [facility] [address] [place], [address] CBC W/Diff, Automatedon 12-0 -2023 Absolute Lymph 1.45 X10 3/uL Normal 0.83-4.51 [facility] Comment on above: Performed By: #### L 100.0100, L500.2500, L501.4020 #### [facility] [address] [place], [address] Absolute Neut 12.6 X10 3/uL High 2.0-7.7 [facility] Comment on above: Performed By: #### L 100.0100, L500.2500, L501.4020 #### [facility] [address] [place], [address] Basophils/100 WBC (Bld) 0.5 % Normal 0-1 [facility] Comment on above: Performed By: #### L 100.0100, L500.2500, L501.4020 #### [facility] [address] [place], [address] Eosinophils/100 WBC (Bld) 0.2 % Normal 0-5 [facility] Comment on above: Performed By: #### L 100.0100, L500.2500, L501.4020 #### [facility] [address] [place], [address] Erythrocyte distribution width (RBC) [Ratio] 13.1 % Normal 11.6-14.6 [facility] Comment on above: Performed By: #### L 100.0100, L500.2500, L501.4020 #### [facility] [address] [place], [address] Hematocrit (Bld) [Volume fraction] 47.6 % High 37-47 [facility] Comment on above: Performed By: #### L 100.0100, L500.2500, L501.4020 #### [facility] [address] [place], [address] Hemoglobin (Bld) [Mass/Vol] 15.7 g/dL High 12.0-15.0 [facility] Comment on above: Performed By: #### L 100.0100, L500.2500, L501.4020 #### [facility] [address] [place], [address] IG% 0.400 Normal 0.0-0.9 [facility] Comment on above: Result Comment: IG% - Immature Granulocytes (promyelocytes, myelocytes and metamyelocytes) > 1% indicates that a LEFT SHIFT is Present. Performed By: #### L 100.0100, L500.2500, L501.4020 #### [facility] [address] [place], [address] Lymphocytes/100 WBC (Bld) 9.4 % Low 19-41 [facility] Comment on above: Performed By: #### L 100.0100, L500.2500, L501.4020 #### [facility] [address] [place], [address] MCH (RBC) [Entitic mass] 28.1 pg Normal 27.0-32.0 [facility] Comment on above: Performed By: #### L 100.0100, L500.2500, L501.4020 #### [facility] [address] [place], [address] MCHC (RBC) [Mass/Vol] 33.0 g/dL Normal 32-36 [facility] Comment on above: Performed By: #### L 100.0100, L500.2500, L501.4020 #### [facility] [address] [place], [address] MCV (RBC) [Entitic vol] 85.2 fL Normal 81-99 [facility] Comment on above: Performed By: #### L 100.0100, L500.2500, L501.4020 #### [facility] [address] [place], [address] Monocytes/100 WBC (Bld) 7.7 % Normal 0-10 [facility] Comment on above: Performed By: #### L 100.0100, L500.2500, L501.4020 #### [facility] [address] [place], [address] Neutrophils/100 WBC (Bld) 81.8 % High 47-70 [facility] Comment on above: Performed By: #### L 100.0100, L500.2500, L501.4020 #### [facility] [address] [place], [address] Nucleated RBC (Bld) [#/Vol] 0 10*3/uL Normal 0-5 [facility] Comment on above: Performed By: #### L 100.0100, L500.2500, L501.4020 #### [facility] [address] [place], [address] Platelet mean volume (Bld) [Entitic vol] 11.1 fL Normal 6.2-12.0 [facility] Comment on above: Performed By: #### L 100.0100, L500.2500, L501.4020 #### [facility] [address] [place], [address] Platelets (Bld) [#/Vol] 334 10*3/uL Normal 150-450 [facility] Comment on above: Performed By: #### L 100.0100, L500.2500, L501.4020 #### [facility] [address] [place], [address] RBC (Bld) [#/Vol] 5.59 10*6/uL High 4.2-5.4 [facility] Comment on above: Performed By: #### L 100.0100, L500.2500, L501.4020 #### [facility] [address] [place], [address] RDW SD 40.9 fl Normal 35.1-43.9 [facility] Comment on above: Performed By: #### L 100.0100, L500.2500, L501.4020 #### [facility] [address] [place], [address] WBC (Bld) [#/Vol] 15.4 10*3/uL High 4.4-11.0 [facility] Comment on above: Performed By: #### L 100.0100, L500.2500, L501.4020 #### [facility] [address] [place], [address] CDIFF (PCR)on 01-24-2024 CDIFF Is the patient recei ving laxatives? N New/unexplained onset of 3 or more stools in past 24 hrs? Y A positive C. difficile molecular test does not differentiate between an active C. difficile infection and C. difficile colonization. Use clinical judgement and paired toxin/antigen testing to identify true infection and need for treatment. C diff DNA Spec Ql AMINATA+probe Reference Range: Negative Cepheid GeneXpert: polymerase chain reaction (PCR) 027 027 NAP1-B1 Presumptive Negative *for epidemiolologic???use C. Diff PCR Negative- No toxigenic C. Diff Detected Normal [facility] Comment on above: Performed By: #### L 100.0100, L500.2500, L501.4020 #### [facility] [address] [place], [address] CTA Chest W/WO Contraston CTA Chest W/WO Contrast [facility] Imaging Services [address] [place] [address] CTA Chest W/WO Contrast MR#: [id number] Acct: [id number] Name: BEE ESPINOZA Rep #: [id number] : 1970 F 53 From: Eyal Isidro MD PCP: APRIL Owens Status: ADM IN Study: CTA Chest W/WO Contrast Date of Exam: 01/24/24 Exam# [id number] Ordering Dr: Reji Mir DO [id number] STUDY: CTA CHEST REASON FOR EXAM: Female, 53 years old. PE RADIATION DOSAGE (If Supplied By Facility): CTDIvol = ( 26.39 ) mGy, DLP = ( 557.34 ) mGycm TECHNIQUE: The examination was performed with the intravenous administration of 100mL Isovue-370. Post-processing of the angiographic images was performed, with multiplanar reformation and 3D reconstruction. Individualized dose optimization techniques were used for this CT. COMPARISON: None. FINDINGS: Normal enhancement of the main pulmonary artery and right and left pulmonary arteries. Normal enhancement of the bilateral peripheral pulmonary arteries. There is no demonstrated pulmonary embolism. Normal thoracic aorta and visualized great vessels. There is no demonstrated aortic dissection. Normal heart and pericardium. Normal mediastinum. Normal hilar regions. Normal visualized trachea and bronchi. The lungs are well expanded. There is patchy airspace consolidation involving the left upper lobe and right middle and lower lobes Normal pleura. Normal chest wall structures. Normal osseous structures. Normal visualized upper abdomen. CT/CTA Chest W/WO Contrast IMPRESSION: CTA chest examination, without a demonstrated pulmonary embolism or arterial dissection. Bilateral pneumonia. Electronically Signed: Eyal Isidro MD at 20:17 EST , CC: APRIL Rivero; Dr. Reji Mir DO [employer]: Signed Normal [facility] [facility] Echo Complete W/ Contraston 01-24-2024 Echo Complete W/ Contrast [facility] [address] [place] [address] Echo Complete W/ Contrast 01/25/24 0919 MR#: [id number] Acct: [id number] Name: BEE ESPINOZA Rep #: [id number] : 1970 53 From: Betzy Landa MD Attending Dr: Dr. Gustavo Juarez MD Status: ADM IN Ordering Dr: Tete Montoya MD Date: 01/24/24 Location: ICU Sex: F C Admitted: 01/24/24 Reason For Study: Afib/Flutter Procedure This was a 2D Doppler, Color Flow transthoracic echocardiogram. The study was technically difficult. Contrast injection was performed. Exam performed portable in ICU/CCU. Left Ventricle Normal LV size. The estimated ejection fraction is 65 %. No evidence for diastolic dysfunction. No regional wall motion abnormalities noted. Right Ventricle Normal RV size. Normal systolic function. Atria The left and right atria are normal. No doppler evidence for ASD. Mitral Valve There is no mitral valve stenosis. No mitral valve insufficiency. Tricuspid Valve There is no tricuspid stenosis. Unable to estimate RV systolic pressure due to inadequate jet, pulmonary artery pressure probably normal. Aortic Valve Trisinus/trileaflet aortic valve. There is no aortic stenosis. No aortic valve insufficiency. Pulmonic Valve There is no pulmonic valvular stenosis. No pulmonic valve insufficiency. Great Vessels Normal aortic root. Pericardium/Pleural No pericardial effusion. Medication Diluted definity 3ml given slow IV push to enhance endocardial definition. MMode/2D Measurements Calculations LVIDd: 5.1 cm IVSd: 1.4 cm Ao root diam: 3.4 cm LVIDs: 3.7 cm LVPWd: 1.0 cm RVDd: 3.7 cm FS: 26.7 % LAV(MOD-bp): 66.1 ml LVAd ap4: 37.6 cm2 SV(MOD-sp4): 83.6 ml LAV(MOD-bp) Indexed: 29.7 ml/m2 LVLd ap4: 8.3 cm SI(MOD-sp4): 37.6 ml/m2 LAV(MOD-sp2): 61.8 ml EDV(MOD-sp4): 138.2 ml LAV(MOD-sp4): 64.7 ml EDV(sp4-el): 144.9 ml LVAs ap4: 21.2 cm2 LVLs ap4: 6.7 cm ESV(MOD-sp4): 54.5 ml ESV(sp4-el): 57.0 ml EF(MOD-sp4): 60.5 % EF(sp4-el): 60.7 % SV(sp4-el): 87.9 ml LA A4 area: 20.8 cm2 LA dimension(2D): 4.3 cm RA A4 area: 18.8 cm2 TAPSE: 2.2 cm Doppler Measurements Calculations MV E max leatha: 115.6 cm/sec MV V2 max: 92.8 cm/sec Ao V2 max: 172.7 cm/sec MV max P.5 mmHg Ao max P.0 mmHg MV V2 mean: 55.6 cm/sec MV mean P.5 mmHg MV V2 VTI: 28.2 cm LV V1 max: 134.9 cm/sec PA V2 max: 83.1 cm/sec LV V1 max P.3 mmHg ECHO/Echo Complete W/ Contrast Interpretation Summary The estimated ejection fraction is 65 %. No evidence for diastolic dysfunction. ___ Ordering Physician: Tete Montoya Performed By: Reji Roberts RCS 01/25/24 1340 Date Betzy Landa MD CC: THREAD TOOL GRINDER SET UP OPERATOR-C Sobeida Rivero; Dr. Gustavo Juarez MD; Dr. Tete Motnoya MD Date Dictated: 01/25/24918 Date Transcribed: 01/25/24 134 [employer]: Signed Normal [facility] Emergency Department Summary on 01-24-2024 Emergency Department Summary [facility] Medical Records Department [address] [place] [address] Emergency Department Summary 01/24/24 MR#: [id number] Acct: [id number] Name: BEE ESPINOZA Rep #: [id number] : 1970 53 From: Reji Mir DO PCP: APRIL Owens Status:REG ER Location: ED HPI History of Present Illness Chief Complaint: Shortness of Breath Narrative Narrative: Chief complaint and HPI: Shortness of breath. 53-year-old female with history of atrial fibrillation in 2021, HTN, HLD presents for evaluation of shortness of breath and URI symptoms. Patient states she recently had right knee surgery with orthopedics on January 02. Patient is currently not on a blood thinner. Patient states this weekend she developed URI symptoms including shortness of breath, cough, congestion, nausea, vomiting, diarrhea, lightheadedness, general malaise/fatigue. She denies any sick contacts that she knows of. Denies any fever, chest pain, dysuria, abdominal pain. Review of systems: See HPI Medications: As listed on the chart Allergies: As listed on the chart PFSH: Per chart Vital signs: As listed on the chart. Reviewed. Physical exam: Gen: A O x3 Head: Normocephalic, atraumatic Eyes: No sclera icterus, conjunctiva clear, PERRL, EOMI ENT: Dry mucous membranes Neck: Trachea midline, No JVD, Full ROM, No meningismus CV: Tachycardic, regular rhythm, no murmurs, no peripheral edema Resp: Lungs CTA BL, no w/r/c GI: Abd soft, non-distended, non-tender, no r/r/g Musc: Moves all extremities, no deformity, right lower extremity is in a brace from her recent surgery there are Steri-Strips on the knee without any signs of cellulitis or infection Skin: Warm, dry, no rash Neuro: Alert, oriented, grossly intact, sensation intact Psych: Cooperative, appropriate mood and affect [facility] Medical History Alcohol use Heartburn Former smoker History of pain when walking History of echocardiogram History of atrial fibrillation Cardiology follow-up encounter Abnormal Pap smear of cervix Hyperlipidemia Essential hypertension Fibroid Microcytic anemia Atrial fibrillation with RVR (07/08/21) Home Medications ???Medication ???Instructions ???Recorded ???Last Taken ???Type docusate sodium 100 mg capsule 100 mg PO DAILY #30 caps 03/09/22 Unknown Rx (Colace) amlodipine 10 mg tablet 10 mg PO DAILY #90 tabs 11/06/23 Unknown Rx metoprolol succinate 100 mg 100 mg PO QHS #30 tabs 11/06/23 Unknown Rx tablet,extended release 24 hr topiramate 50 mg tablet 50 mg PO BID PRN 11/06/23 Unknown History hydroxyzine HCl 10 mg tablet 10 mg PO TID-QID PRN anxiety #45 11/22/23 Unknown Rx tabs Allergy/AdvReac Type Severity Reaction Status Date / Time codeine AdvReac Other Verified 01/24/24 14:21 Family History Mother , from complications from mitral valve disease Mitral valve disorder Brother Hypertension Sister Atrial fibrillation Hypertension Father No problems noted. Surgical History History of robot-assisted laparoscopic hysterectomy Hx of excision of mass Status post colposcopy History of breast lump removal History of submandibular gland removal Social History Smoking Status: Former smoker how long ago did patient quit smokin alcohol intake: current alcohol intake frequency: holidays/special occasions only substance use type: does not use caffeine: No what type of physical activity do you participate in: walking frequency: 5-6 times per week seatbelt use: always do you feel safe at home: Yes additional social history: [facility] EXAM Physical Exam Const Vital Signs: 01/24/24 14:21 01/24/24 16:15 01/24/24 16:15 Temperature 99.2 F H Temperature Source Oral Pulse Rate 92 Respiratory Rate 20 H 25 H Respiratory Effort Respiratory Depth Respiratory Pattern Blood Pressure 91/58 L Blood Pressure Mean 69 Pulse Ox 95 91 91 Oxygen Delivery Method Room Air Room Air Room Air Oxygen Flow Rate (L/min) 01/24/24 16:15 01/24/24 16:20 01/24/24 16:23 Temperature Temperature Source Pulse Rate 109 H Respiratory Rate 30 H Respiratory Effort Short of Breath Labored Respiratory Depth Shallow Respiratory Pattern Tachypnea Blood Pressure 143/72 H Blood Pressure Mean 95 Pulse Ox 88 92 Oxygen Delivery Method Room Air Room Air Nasal Cannula Oxygen Flow Rate (L/min) 2 MDM MDM MDM Narrative Medical decision making narrative: 53-year-old female with history of atrial fibr (more content not included)... Normal [facility] H AND P Exam - [facility] 01-24-2024 H&P Exam - Hospitalist [facility] Medical Records Department [address] [place] [address] H P Exam - Hospitalist 01/24/24 1856 MR#: [id number] Acct: [id number] Name: BEE ESPINOZA Rep #: [id number] : 1970 53 From: Tete Montoya MD PCP: APRIL Owens Status:REG ER Location: ED HPI - General General Date of Admission: 01/24/24 Date of Service: 01/24/24 Chief Complaint: SOB HPI Narrative BEE ESPINOZA, is a 53-year-old female history of A-fib in 2021 on metoprolol and hypertension who presented [facility] ED 01/24/2024 due to URI symptoms since Monday including shortness of breath, cough, congestion, nausea, vomiting, diarrhea, lightheadedness with generalized malaise and fatigue. On arrival she had a heart rate of 182 and was given fluids and converted to sinus rhythm however then went back in A-fib/flutter. CT of the chest demonstrated pneumonia. Patient given antibiotics and Cardizem was ordered for her A-fib and hospitalist contacted for admission. Patient evaluated at bedside. She endorses that since Monday she has been fatigued and had increasing shortness of breath and chills with a productive cough with yellow to brown sputum. Last night is when she started getting diarrhea and she has had some episodes of vomiting due to coughing so hard. Denies chest pain or swelling in her legs, has been getting around on crutches as she is nonweightbearing in her right lower extremity. Has been feeling chills but is unsure if she has had a measured temperature. Reports that she did have A-fib a couple years ago but it was around the time of a hysterectomy when she had a lot of stress on her body and does not think she has had any problems since that time. [facility] Medical History Alcohol use Heartburn Former smoker History of pain when walking History of echocardiogram History of atrial fibrillation Cardiology follow-up encounter Abnormal Pap smear of cervix Hyperlipidemia Essential hypertension Fibroid Microcytic anemia Atrial fibrillation with RVR (07/08/21) Home Medications ???Medication ???Instructions ???Recorded ???Last Taken ???Type amlodipine 10 mg tablet 10 mg PO DAILY #90 tabs 11/06/23 Unknown Rx metoprolol succinate 100 mg 100 mg PO QHS #30 tabs 11/06/23 Unknown Rx tablet,extended release 24 hr hydroxyzine HCl 10 mg tablet 10 mg PO TID-QID PRN anxiety #45 11/22/23 Unknown Rx tabs aspirin 81 mg tablet,delayed 81 mg PO BID 01/24/24 Unknown History release Allergy/AdvReac Type Severity Reaction Status Date / Time codeine AdvReac Other Verified 01/24/24 14:21 Family History Mother , from complications from mitral valve disease Mitral valve disorder Brother Hypertension Sister Atrial fibrillation Hypertension Father No problems noted. Surgical History History of robot-assisted laparoscopic hysterectomy Hx of excision of mass Status post colposcopy History of breast lump removal History of submandibular gland removal Social History Smoking Status: Former smoker how long ago did patient quit smokin alcohol intake: current alcohol intake frequency: holidays/special occasions only substance use type: does not use caffeine: No what type of physical activity do you participate in: walking frequency: 5-6 times per week seatbelt use: always do you feel safe at home: Yes additional social history: [facility] ROS ROS Narrative General: Has been feeling chills HENT: Has stuffy nose and sore throat EYES: Denies changes in vision Resp: Productive cough and shortness of breath Cardiac: Denies chest pain GI: Denies abdominal pain, has had diarrhea nausea : Denies changes in urination Extremity: Denies swelling MSK: Feels generally weak Neuro: Denies any numbness/tingling Heme: Denies any bleeding or bruising Skin: Denies rashes Psychiatric: No complaints voiced Vital Signs Vital Signs Vital Signs: 01/24/24 14:21 01/24/24 16:15 01/24/24 16:15 Temperature 99.2 F H Temperature Source Oral Pulse Rate 92 Respiratory Rate 20 H 25 H Respiratory Effort Respiratory Depth Respiratory Pattern Blood Pressure 91/58 L Blood Pressure Mean 69 Pulse Ox 95 91 91 Oxygen Delivery Method Room Air Room Air Room Air Oxygen Flow Rate (L/min) 01/24/24 16:15 01/24/24 16:20 01/24/24 16:23 Temperature Temperature Source Pulse Rate 109 H Respiratory Rate 30 H Respiratory Effort Short of Breath Labored Respiratory Depth Shallow Respiratory Pattern Tachypnea (more content not included)... Normal [facility] L501.4020on 01-24-2024 TROPONIN-I HS 31 pg/mL Normal 3.0-54.0 [facility] Comment on above: Order Comment: 'TROP ' Serial specimen #1, #2 or #3: 1 Result Comment: Livia mcginnis Note: New Test Units and Gender Specific Reference Ranges. For more information see Policy Stat Procedure [place] High Sensitivity Troponin (TNIH) and attachments. Performed By: #### L 100.0100, L500.2500, L501.4020 #### [facility] [address] [place], [address] Lactic Acidon 01-24-2024 Lactate [Moles/Vol] 1.1 mmol/L Normal 0.4-1.9 [facility] Comment on above: Order Comment: Y Performed By: #### L 500.2500, L100.0100 #### [facility] [address] [place], [address] Legionella Antigen Urineon 1 03-26-2023 LEGU Comments: Only Recommended for severe cases of pneumonia Only Recommended for severe cases of pneumonia URINE, RANDOM Legionella Antigen result interpretation: L pneumo Ag Ur Ql Negative Presumptive negative for Legionella pneumophila serogroup 1 antigen in urine, suggesting no recent or current infection. Legionella Ag, Urine Negative (See interpretation below) Normal [facility] Comment on above: Performed By: #### L 100.0100, L500.2500, L501.4020 #### [facility] [address] [place], [address] M100.678on 01-24-2024 M100.678 SARS-CoV-2 (COVID 19 ) Negative INFLUENZA A Negative INFLUENZA B Negative RSV PCR Negative Normal [facility] Comment on above: Performed By: #### L 100.0100, L500.2500, L501.4020 #### [facility] [address] [place], [address] Partial Thromboplast Timeon 01-24-2024 aPTT Coag (Bld) [Time] 32.0 s Normal 24.1-36.2 [facility] Comment on above: Performed By: #### L 100.0100, L500.2500, L501.4020 #### [facility] [address] [place], [address] Prothrombin Time w/INRon INR Coag (PPP) [Relative time] 1.2 {INR} Normal [facility] Comment on above: Performed By: #### L 100.0100, L500.2500, L501.4020 #### [facility] [address] [place], [address] PT Coag (PPP) [Time] 15.4 s High 11.7-14.9 [facility] Comment on above: Performed By: #### L 100.0100, L500.2500, L501.4020 #### [facility] [address] [place], [address] Strep pneumoniae Antig(UR,CS F)on 01-24-2024 STPAG Comments: Only Recommended for severe cases of pneumonia Only Recommended for severe cases of pneumonia URINE, RANDOM URINE INTERPRETATION Strep pneumoniae Antig(UR,CSF) Strep pneumoniae Antig(UR,CSF) Negative Urine Presumptive negative for pneumococcal pneumonia, suggesting no current or recent pneumococcal infection. Infection due to S pneumoniae cannot be ruled out since the antigen present in the sample may be below the detection limit of the test. Strep pneumo Test Negative URINE (See interpretation below) Normal [facility] Comment on above: Performed By: #### L 100.0100, L500.2500, L501.4020 #### [facility] [address] [place], [address] Urinalysis, Completeon 01-23 BACTERIA Normal None Seen [facility] Comment on above: Order Comment: COLLE CTOR TO SPECIFY Result Comment: JULIUS ENT DISCHARGED Performed By: #### L 100.0100, L500.2500, L501.4020 #### [facility] [address] [place], [address] BILIRUBIN URINE Normal Negative [facility] Comment on above: Order Comment: COLLE CTOR TO SPECIFY Result Comment: JULIUS ENT DISCHARGED Performed By: #### L 100.0100, L500.2500, L501.4020 #### [facility] [address] [place], [address] Clarity (U) Normal Clear [facility] Comment on above: Order Comment: COLLE CTOR TO SPECIFY Result Comment: JULIUS ENT DISCHARGED Performed By: #### L 100.0100, L500.2500, L501.4020 #### [facility] [address] [place], [address] Color (U) Normal Yellow [facility] Comment on above: Order Comment: COLLE CTOR TO SPECIFY Result Comment: JULIUS ENT DISCHARGED Performed By: #### L 100.0100, L500.2500, L501.4020 #### [facility] [address] [place], [address] EPI,SQUAMOUS Normal 5-10 [facility] Comment on above: Order Comment: COLLE CTOR TO SPECIFY Result Comment: JULIUS ENT DISCHARGED Performed By: #### L 100.0100, L500.2500, L501.4020 #### [facility] [address] [place], [address] GLUCOSE, UR Normal Normal [facility] Comment on above: Order Comment: COLLE CTOR TO SPECIFY Result Comment: JULIUS ENT DISCHARGED Performed By: #### L 100.0100, L500.2500, L501.4020 #### [facility] [address] [place], [address] KETONE UR Normal Negative [facility] Comment on above: Order Comment: ELISEO CTOR TO SPECIFY Result Comment: JULIUS ENT DISCHARGED Performed By: #### L 100.0100, L500.2500, L501.4020 #### [facility] [address] [place], [address] LEUK ESTERASE Normal Negative [facility] Comment on above: Order Comment: COLLE CTOR TO SPECIFY Result Comment: JULIUS ENT DISCHARGED Performed By: #### L 100.0100, L500.2500, L501.4020 #### [facility] [address] [place], [address] Mucus Ql (Urine sed) Normal [facility] Comment on above: Order Comment: ELISEO CTOR TO SPECIFY Result Comment: JULIUS ENT DISCHARGED Performed By: #### L 100.0100, L500.2500, L501.4020 #### [facility] [address] [place], [address] Nitrite Ql (U) Normal Negative [facility] Comment on above: Order Comment: ELISEO CTOR TO SPECIFY Result Comment: JULIUS ENT DISCHARGED Performed By: #### L 100.0100, L500.2500, L501.4020 #### [facility] [address] [place], [address] OCCULT BLOOD-UR Normal Negative [facility] Comment on above: Order Comment: ELISEO CTOR TO SPECIFY Result Comment: JULIUS ENT DISCHARGED Performed By: #### L 100.0100, L500.2500, L501.4020 #### [facility] [address] [place], [address] pH UR Normal 5.0 - 8.0 [facility] Comment on above: Order Comment: ELISEO CTOR TO SPECIFY Result Comment: JULIUS ENT DISCHARGED Performed By: #### L 100.0100, L500.2500, L501.4020 #### [facility] [address] [place], [address] PROT DIPSTX Normal Negative [facility] Comment on above: Order Comment: ELISEO CTOR TO SPECIFY Result Comment: JULIUS ENT DISCHARGED Performed By: #### L 100.0100, L500.2500, L501.4020 #### [facility] [address] [place], [address] RBC Normal 0-5 [facility] Comment on above: Order Comment: COLLE CTOR TO SPECIFY Result Comment: JULIUS ENT DISCHARGED Performed By: #### L 100.0100, L500.2500, L501.4020 #### [facility] [address] [place], [address] SP.GR. DIPSTX Normal 1.002-1.030 [facility] Comment on above: Order Comment: ELISEO CTOR TO SPECIFY Result Comment: JULIUS ENT DISCHARGED Performed By: #### L 100.0100, L500.2500, L501.4020 #### [facility] [address] [place], [address] UR Preservative Normal [facility] Comment on above: Order Comment: ELISEO CTOR TO SPECIFY Result Comment: JULIUS ENT DISCHARGED Performed By: #### L 100.0100, L500.2500, L501.4020 #### [facility] [address] [place], [address] UROBILI Normal Normal [facility] Comment on above: Order Comment: ELISEO CTOR TO SPECIFY Result Comment: JULIUS ENT DISCHARGED Performed By: #### L 100.0100, L500.2500, L501.4020 #### [facility] [address] [place], [address] WBC Normal 0-5 [facility] Comment on above: Order Comment: COLLE CTOR TO SPECIFY Result Comment: JULIUS ENT DISCHARGED Performed By: #### L 100.0100, L500.2500, L501.4020 #### [facility] [address] [place], [address] Basic Metabolic Profile (BMP )on 12-19-2023 BUN/CRE 23.6 RATIO High 10-20 [facility] Comment on above: Performed By: #### L 500.2500, L100.0100 #### [facility] [address] [place], [address] CA,Total 9.4 mg/dL Normal 8.5-10.1 [facility] Comment on above: Performed By: #### L 500.2500, L100.0100 #### [facility] [address] [place], [address] Chloride [Moles/Vol] 108 mmol/L High 98-107 [facility] Comment on above: Performed By: #### L 500.2500, L100.0100 #### [facility] [address] [place], [address] CO2 [Moles/Vol] 26.0 mmol/L Normal 21.0-32.0 [facility] Comment on above: Performed By: #### L 500.2500, L100.0100 #### [facility] [address] [place], [address] Creatinine [Mass/Vol] 0.64 mg/dL Normal 0.55-1.02 [facility] Comment on above: Result Comment: The validity of the calculated GFR GFRAA in patients over 70 years has not been determined. Clinical correlation is essential. Performed By: #### L 500.2500, L100.0100 #### [facility] [address] [place], [address] EST GFR - AA 125 mL/min Normal >60 [facility] Comment on above: Result Comment: Afri can Malagasy GFR Calc Performed By: #### L 500.2500, L100.0100 #### [facility] [address] [place], [address] GAP 6 Normal 5-15 [facility] Comment on above: Performed By: #### L 500.2500, L100.0100 #### [facility] [address] [place], [address] GFR/1.73 sq M.predicted among non-blacks MDRD (S/P/Bld) [Vol rate/Area] 103 mL/min/{1.73_m2} Normal >60 [facility] Comment on above: Result Comment: Non- GFR Calc Performed By: #### L 500.2500, L100.0100 #### [facility] [address] [place], [address] Glucose [Mass/Vol] 101 mg/dL Normal 74-106 [facility] Comment on above: Result Comment: Fast ing Glucose result from 100 to 125 mg/dL suggests IMPAIRED HOMEOSTASIS per A.D.A. criteria. Performed By: #### L 500.2500, L100.0100 #### [facility] [address] [place], [address] Potassium [Moles/Vol] 3.9 mmol/L Normal 3.5-5.1 [facility] Comment on above: Performed By: #### L 500.2500, L100.0100 #### [facility] [address] [place], [address] Sodium [Moles/Vol] 140 mmol/L Normal 136-145 [facility] Comment on above: Performed By: #### L 500.2500, L100.0100 #### [facility] [address] [place], [address] Urea nitrogen [Mass/Vol] 15 mg/dL Normal 7-18 [facility] Comment on above: Performed By: #### L 500.2500, L100.0100 #### [facility] [address] [place], [address] CBC W/Diff, Automatedon 10-2 Absolute Lymph 2.67 X10 3/uL Normal 0.83-4.51 [facility] Comment on above: Performed By: #### L 500.2500, L100.0100 #### [facility] [address] [place], [address] Absolute Neut 4.8 X10 3/uL Normal 2.0-7.7 [facility] Comment on above: Performed By: #### L 500.2500, L100.0100 #### [facility] [address] [place], [address] Basophils/100 WBC (Bld) 0.6 % Normal 0-1 [facility] Comment on above: Performed By: #### L 500.2500, L100.0100 #### [facility] [address] [place], [address] Eosinophils/100 WBC (Bld) 3.1 % Normal 0-5 [facility] Comment on above: Performed By: #### L 500.2500, L100.0100 #### [facility] [address] [place], [address] Erythrocyte distribution width (RBC) [Ratio] 12.8 % Normal 11.6-14.6 [facility] Comment on above: Performed By: #### L 500.2500, L100.0100 #### [facility] [address] [place], [address] Hematocrit (Bld) [Volume fraction] 44.9 % Normal 37-47 [facility] Comment on above: Performed By: #### L 500.2500, L100.0100 #### [facility] [address] [place], [address] Hemoglobin (Bld) [Mass/Vol] 15.0 g/dL Normal 12.0-15.0 [facility] Comment on above: Performed By: #### L 500.2500, L100.0100 #### [facility] [address] [place], [address] IG% 0.200 Normal 0.0-0.9 [facility] Comment on above: Result Comment: IG% - Immature Granulocytes (promyelocytes, myelocytes and metamyelocytes) > 1% indicates that a LEFT SHIFT is Present. Performed By: #### L 500.2500, L100.0100 #### [facility] [address] [place], [address] Lymphocytes/100 WBC (Bld) 31.8 % Normal 19-41 [facility] Comment on above: Performed By: #### L 500.2500, L100.0100 #### [facility] [address] [place], [address] MCH (RBC) [Entitic mass] 28.2 pg Normal 27.0-32.0 [facility] Comment on above: Performed By: #### L 500.2500, L100.0100 #### [facility] [address] [place], [address] MCHC (RBC) [Mass/Vol] 33.4 g/dL Normal 32-36 [facility] Comment on above: Performed By: #### L 500.2500, L100.0100 #### [facility] [address] [place], [address] MCV (RBC) [Entitic vol] 84.4 fL Normal 81-99 [facility] Comment on above: Performed By: #### L 500.2500, L100.0100 #### [facility] [address] [place], [address] Monocytes/100 WBC (Bld) 6.9 % Normal 0-10 [facility] Comment on above: Performed By: #### L 500.2500, L100.0100 #### [facility] [address] [place], [address] Neutrophils/100 WBC (Bld) 57.4 % Normal 47-70 [facility] Comment on above: Performed By: #### L 500.2500, L100.0100 #### [facility] [address] [place], [address] Nucleated RBC (Bld) [#/Vol] 0 10*3/uL Normal 0-5 [facility] Comment on above: Performed By: #### L 500.2500, L100.0100 #### [facility] [address] [place], [address] Platelet mean volume (Bld) [Entitic vol] 11.1 fL Normal 6.2-12.0 [facility] Comment on above: Performed By: #### L 500.2500, L100.0100 #### [facility] [address] [place], [address] Platelets (Bld) [#/Vol] 384 10*3/uL Normal 150-450 [facility] Comment on above: Performed By: #### L 500.2500, L100.0100 #### [facility] [address] [place], [address] RBC (Bld) [#/Vol] 5.32 10*6/uL Normal 4.2-5.4 [facility] Comment on above: Performed By: #### L 500.2500, L100.0100 #### [facility] [address] [place], [address] RDW SD 38.9 fl Normal 35.1-43.9 [facility] Comment on above: Performed By: #### L 500.2500, L100.0100 #### [facility] [address] [place], [address] WBC (Bld) [#/Vol] 8.4 10*3/uL Normal 4.4-11.0 [facility] Comment on above: Performed By: #### L 500.2500, L100.0100 #### [facility] [address] [place], [address] CBC W/Diff, Automatedon 09-02 25-2023 Absolute Lymph 2.60 X10 3/uL Normal 0.83-4.51 [facility] Comment on above: Performed By: #### L 100.0100, L500.2500, L501.4020 #### [facility] [address] [place], [address] Absolute Neut 5.6 X10 3/uL Normal 2.0-7.7 [facility] Comment on above: Performed By: #### L 100.0100, L500.2500, L501.4020 #### [facility] [address] [place], [address] Basophils/100 WBC (Bld) 0.7 % Normal 0-1 [facility] Comment on above: Performed By: #### L 100.0100, L500.2500, L501.4020 #### [facility] [address] [place], [address] Eosinophils/100 WBC (Bld) 2.2 % Normal 0-5 [facility] Comment on above: Performed By: #### L 100.0100, L500.2500, L501.4020 #### [facility] [address] [place], [address] Erythrocyte distribution width (RBC) [Ratio] 11.8 % Normal 11.6-14.6 [facility] Comment on above: Performed By: #### L 100.0100, L500.2500, L501.4020 #### [facility] [address] [place], [address] Hematocrit (Bld) [Volume fraction] 44.0 % Normal 37-47 [facility] Comment on above: Performed By: #### L 100.0100, L500.2500, L501.4020 #### [facility] [address] [place], [address] Hemoglobin (Bld) [Mass/Vol] 14.6 g/dL Normal 12.0-15.0 [facility] Comment on above: Performed By: #### L 100.0100, L500.2500, L501.4020 #### [facility] [address] [place], [address] IG% 0.200 Normal 0.0-0.9 [facility] Comment on above: Result Comment: IG% - Immature Granulocytes (promyelocytes, myelocytes and metamyelocytes) > 1% indicates that a LEFT SHIFT is Present. Performed By: #### L 100.0100, L500.2500, L501.4020 #### [facility] [address] [place], [address] Lymphocytes/100 WBC (Bld) 29.0 % Normal 19-41 [facility] Comment on above: Performed By: #### L 100.0100, L500.2500, L501.4020 #### [facility] [address] [place], [address] MCH (RBC) [Entitic mass] 28.2 pg Normal 27.0-32.0 [facility] Comment on above: Performed By: #### L 100.0100, L500.2500, L501.4020 #### [facility] [address] [place], [address] MCHC (RBC) [Mass/Vol] 33.2 g/dL Normal 32-36 [facility] Comment on above: Performed By: #### L 100.0100, L500.2500, L501.4020 #### [facility] [address] [place], [address] MCV (RBC) [Entitic vol] 84.9 fL Normal 81-99 [facility] Comment on above: Performed By: #### L 100.0100, L500.2500, L501.4020 #### [facility] [address] [place], [address] Monocytes/100 WBC (Bld) 5.9 % Normal 0-10 [facility] Comment on above: Performed By: #### L 100.0100, L500.2500, L501.4020 #### [facility] [address] [place], [address] Neutrophils/100 WBC (Bld) 62.0 % Normal 47-70 [facility] Comment on above: Performed By: #### L 100.0100, L500.2500, L501.4020 #### [facility] [address] [place], [address] Nucleated RBC (Bld) [#/Vol] 0 10*3/uL Normal 0-5 [facility] Comment on above: Performed By: #### L 100.0100, L500.2500, L501.4020 #### [facility] [address] [place], [address] Platelet mean volume (Bld) [Entitic vol] 11.8 fL Normal 6.2-12.0 [facility] Comment on above: Performed By: #### L 100.0100, L500.2500, L501.4020 #### [facility] [address] [place], [address] Platelets (Bld) [#/Vol] 352 10*3/uL Normal 150-450 [facility] Comment on above: Performed By: #### L 100.0100, L500.2500, L501.4020 #### [facility] [address] [place], [address] RBC (Bld) [#/Vol] 5.18 10*6/uL Normal 4.2-5.4 [facility] Comment on above: Performed By: #### L 100.0100, L500.2500, L501.4020 #### [facility] [address] [place], [address] RDW SD 36.1 fl Normal 35.1-43.9 [facility] Comment on above: Performed By: #### L 100.0100, L500.2500, L501.4020 #### [facility] [address] [place], [address] WBC (Bld) [#/Vol] 9.0 10*3/uL Normal 4.4-11.0 [facility] Comment on above: Performed By: #### L 100.0100, L500.2500, L501.4020 #### [facility] [address] [place], [address] Comprehensive Metabolic Prof vton 11-06-2023 Albumin [Mass/Vol] 4.0 g/dL Normal 3.2-5.0 [facility] Comment on above: Performed By: #### L 100.0100, L500.2500, L501.4020 #### [facility] [address] [place], [address] Albumin/Globulin [Mass ratio] 1.1 {ratio} Normal 0.9-2.4 [facility] Comment on above: Performed By: #### L 100.0100, L500.2500, L501.4020 #### [facility] [address] [place], [address] ALK P 95 U/L Normal 45-117 [facility] Comment on above: Performed By: #### L 100.0100, L500.2500, L501.4020 #### [facility] [address] [place], [address] ALT [Catalytic activity/Vol] 42 U/L Normal 13-56 [facility] Comment on above: Performed By: #### L 100.0100, L500.2500, L501.4020 #### [facility] [address] [place], [address] AST [Catalytic activity/Vol] 24 U/L Normal 15-37 [facility] Comment on above: Performed By: #### L 100.0100, L500.2500, L501.4020 #### [facility] [address] [place], [address] Bilirubin [Mass/Vol] 0.50 mg/dL Normal 0.20-1.00 [facility] Comment on above: Result Comment: For patients on eltrombopag therapy, use of Dimension [place] TBIL is not recommended. Performed By: #### L 100.0100, L500.2500, L501.4020 #### [facility] [address] [place], [address] BUN/CRE 12.8 RATIO Normal 10-20 [facility] Comment on above: Performed By: #### L 100.0100, L500.2500, L501.4020 #### [facility] [address] [place], [address] CA,Total 10.3 mg/dL High 8.5-10.1 [facility] Comment on above: Performed By: #### L 100.0100, L500.2500, L501.4020 #### [facility] [address] [place], [address] Chloride [Moles/Vol] 105 mmol/L Normal 98-107 [facility] Comment on above: Performed By: #### L 100.0100, L500.2500, L501.4020 #### [facility] [address] [place], [address] CO2 [Moles/Vol] 28.0 mmol/L Normal 21.0-32.0 [facility] Comment on above: Performed By: #### L 100.0100, L500.2500, L501.4020 #### [facility] [address] [place], [address] Creatinine [Mass/Vol] 0.70 mg/dL Normal 0.55-1.02 [facility] Comment on above: Result Comment: The validity of the calculated GFR GFRAA in patients over 70 years has not been determined. Clinical correlation is essential. Performed By: #### L 100.0100, L500.2500, L501.4020 #### [facility] [address] [place], [address] EST GFR - AA 111 mL/min Normal >60 [facility] Comment on above: Result Comment: Afri can Malagasy GFR Calc Performed By: #### L 100.0100, L500.2500, L501.4020 #### [facility] [address] [place], [address] GAP 6 Normal 5-15 [facility] Comment on above: Performed By: #### L 100.0100, L500.2500, L501.4020 #### [facility] [address] [place], [address] GFR/1.73 sq M.predicted among non-blacks MDRD (S/P/Bld) [Vol rate/Area] 91 mL/min/{1.73_m2} Normal >60 [facility] Comment on above: Result Comment: Non- GFR Calc Performed By: #### L 100.0100, L500.2500, L501.4020 #### [facility] [address] [place], [address] Globulin (S) [Mass/Vol] 3.6 g/dL Normal 2.2-4.2 [facility] Comment on above: Performed By: #### L 100.0100, L500.2500, L501.4020 #### [facility] [address] [place], [address] Glucose [Mass/Vol] 104 mg/dL Normal 74-106 [facility] Comment on above: Result Comment: Fast ing Glucose result from 100 to 125 mg/dL suggests IMPAIRED HOMEOSTASIS per A.D.A. criteria. Performed By: #### L 100.0100, L500.2500, L501.4020 #### [facility] [address] [place], [address] Potassium [Moles/Vol] 4.0 mmol/L Normal 3.5-5.1 [facility] Comment on above: Performed By: #### L 100.0100, L500.2500, L501.4020 #### [facility] [address] [place], [address] Sodium [Moles/Vol] 139 mmol/L Normal 136-145 [facility] Comment on above: Performed By: #### L 100.0100, L500.2500, L501.4020 #### [facility] [address] [place], [address] T PROT 7.6 g/dL Normal 6.4-8.2 [facility] Comment on above: Performed By: #### L 100.0100, L500.2500, L501.4020 #### [facility] [address] [place], [address] Urea nitrogen [Mass/Vol] 9 mg/dL Normal 7-18 [facility] Comment on above: Performed By: #### L 100.0100, L500.2500, L501.4020 #### [facility] [address] [place], [address] Lipid Profileon 11-06-2023 Cholesterol [Mass/Vol] 218 mg/dL High 200 [facility] Comment on above: Result Comment: <200 mg/dL Desirable 200-240 mg/dL Borderline >240 mg/dL High Risk Performed By: #### L 100.0100, L500.2500, L501.4020 #### [facility] [address] [place], [address] Cholesterol in HDL [Mass/Vol] 67 mg/dL Normal [facility] Comment on above: Result Comment: The drugs N-Acetylcysteine and Metamizole may falsely depress this assay. Reference Range HDL <40 mg/dL Low HDL Cholesterol HDL >or= 60 mg/dL High HDL Cholesterol Performed By: #### L 100.0100, L500.2500, L501.4020 #### [facility] [address] [place], [address] Cholesterol in LDL [Mass/Vol] 116 mg/dL Normal 0-130 [facility] Comment on above: Performed By: #### L 100.0100, L500.2500, L501.4020 #### [facility] [address] [place], [address] Cholesterol in VLDL [Mass/Vol] 35 mg/dL Normal 5-40 [facility] Comment on above: Performed By: #### L 100.0100, L500.2500, L501.4020 #### [facility] [address] [place], [address] Triglyceride [Mass/Vol] 177 mg/dL Normal [facility] Comment on above: Result Comment: The drugs N-Acetylcysteine and Metamizole may falsely depress this assay. Serum Triglycerides Reference Interval Normal <150 mg/dL Borderline high 150 - 199 mg/dL High 200 - 499 mg/dL Very High > or = 500 mg/dL Performed By: #### L 100.0100, L500.2500, L501.4020 #### [facility] [address] [place], [address] Magnesiumon 11-06-2023 Magnesium [Mass/Vol] 2.0 mg/dL Normal 1.6-2.6 [facility] Comment on above: Performed By: #### L 100.0100, L500.2500, L501.4020 #### [facility] [address] [place], [address] Absolute lymphocyte countOrd ered By: Hardik Wiley on 03-14-2023 Lymphocytes Auto (Unsp spec) [#/Vol] 1.88 10*3/uL 0.83-4.51 [facility] Automated lymphocyte count a s percentage of total leukocytesOrdered By: Hardik Wiley on 03-14-2023 Lymphocytes/100 WBC Auto (Unsp spec) 27.0 % 19-41 [facility] Basophil percentageOrdered B y: Hardik Wiley on 03-14-2023 Basophils/100 WBC (Bld) 0.6 % 0-1 [facility] Chloride [Moles/Vol] 108 mmol/L 98-107 [facility] Eosinophils/100 WBC (Bld) 3.2 % 0-5 [facility] Glucose [Mass/Vol] 140 mg/dL 74-106 [facility] Comment on above: Fasting Glucose resu lt greater than or equal to 126 mg/dL suggests DIABETES MELLITUS per A.D.A. criteria. Hemoglobin (Bld) [Mass/Vol] 15.9 g/dL 12.0-15.0 [facility] Monocytes/100 WBC (Bld) 7.9 % 0-10 [facility] Neutrophils (Bld) [#/Vol] 4.2 10*3/uL 2.0-7.7 [facility] Neutrophils/100 WBC (Bld) 60.7 % 47-70 [facility] Potassium [Moles/Vol] 4.1 mmol/L 3.5-5.1 [facility] Sodium [Moles/Vol] 138 mmol/L 136-145 [facility] WBC (Bld) [#/Vol] 7.0 10*3/uL 4.4-11.0 [facility] Determination of erythrocyte mean corpuscular volume (MCV)Ordered By: Hardik Wiley on 03-14-2023 MCV (RBC) [Entitic vol] 87.5 fL 81-99 [facility] Erythrocyte distribution wid th ratioOrdered By: Hardik Wiley on 03-14-2023 Erythrocyte distribution width (RBC) [Ratio] 12.1 % 11.6-14.6 [facility] Erythrocyte distribution wid th standard deviationOrdered By: Hardik Wiley on 03-14-2023 Erythrocyte distribution width (RBC) [Entitic vol] 38.6 fL 35.1-43.9 [facility] Hematocrit Auto (Bld) [Volum e fraction]Ordered By: Hardik Wiley on 03-14-2023 Hematocrit (Bld) [Volume fraction] 46.8 % 37-47 [facility] Immature granulocytes/100 WB C Auto (Bld)Ordered By: Hardik Wiley on 03-14-2023 Immature granulocytes/100 WBC (Bld) 0.600 % 0.0-0.9 [facility] Comment on above: IG% - Immature Granu locytes (promyelocytes, myelocytes and metamyelocytes) > 1% indicates that a LEFT SHIFT is Present. Laboratory - Chemistry and C hemistry - challengeOrdered By: Hardik Wiley on 03-14-2023 CO2 [Moles/Vol] 26.0 mmol/L 21.0-32.0 [facility] Urea nitrogen/Creatinine [Mass ratio] 15.2 mg/mg 10-20 [facility] Laboratory - Hematology and Cell countsOrdered By: Hardik Wiley on 03-14-2023 MCH (RBC) [Entitic mass] 29.7 pg 27.0-32.0 [facility] MCHC (RBC) [Mass/Vol] 34.0 g/dL 32-36 [facility] Nucleated RBC/100 WBC (Bld) [Ratio] 0 % 0-5 [facility] Platelets (Bld) [#/Vol] 323 10*3/uL 150-450 [facility] No Panel InformationOrdered By: Hardik Wiley on 03-14-2023 Estimated GFR (MDRD) Amer 120 mL/min >60 [facility] Comment on above: GFR Calc Estimated GFR (MDRD) Non-Af Amer 99 mL/min >60 [facility] Comment on above: Non- GFR Calc Platelet mean volume Shankar-Ec ker (Bld) [Entitic vol]Ordered By: Hardik Wiley on 03-14-2023 Platelet mean volume (Bld) [Entitic vol] 10.3 fL 6.2-12.0 [facility] RBC Auto (Bld) [#/Vol]Ordere d By: Hardik Wiley on 03-14-2023 RBC (Bld) [#/Vol] 5.35 10*6/uL 4.2-5.4 [facility] Serum or plasma calcium phillip urement (mass/volume)Ordered By: Hardik Wiley on 03-14-2023 Calcium [Mass/Vol] 9.7 mg/dL 8.5-10.1 [facility] Serum or plasma creatinine m easurement (mass/volume)Ordered By: Hardik Wiley on 03-14-2023 Creatinine [Mass/Vol] 0.66 mg/dL 0.55-1.02 [facility] Comment on above: The validity of the calculated GFR & GFRAA in patients over 70 years has not been determined. Clinical correlation is essential. Serum or plasma urea nitroge n measurement (mass/volume)Ordered By: Hardik Wiley on 03-14-2023 Urea nitrogen [Mass/Vol] 10 mg/dL 7-18 [facility] Thin prep Papanicolaou smear with manual screeningOrdered By: Hardik Wiley on 03-14-2023 Thin prep Papanicolaou smear with manual screening 4 5-15 [facility] ALLIED HEALTHon 02-01-2023 ALLIED HEALTH HNO ID: [id number] Author: Alva Hernadez TECHNOLOGIST Service: ? Author Type: Technologist Type: Allied Health Filed: 02/01/2023 11:38 AM Note Text: Radiology Service Progress Note PATIENT NAME: Bee Espinoza DATE OF SERVICE: February 01, 2023 TIME: [...] IV DATA: Not applicable SIGNED BY: Alva Hernadez, TECHNOLOGIST February 01, 2023 11:38 AM Normal [facility] ED NOTEon 02-01-2023 ED NOTE HNO ID: [id number] Author: Shahida Louise, ANJALI Service: Nursing Author Type: Registered Nurse Type: ED Notes Filed: 02/01/2023 12:26 PM Note Text: Pt verbalizes understanding of discharge instructions. Pt able to ambulate out of ED. [facility] ED NOTE HNO ID: [id number] Author: Shahida Louise, RN Service: Nursing Author Type: Registered Nurse Type: ED Notes Filed: 02/01/2023 10:09 AM Note Text: Pt reports she has had L knee pain for a couple weeks and has gotten worse for the last two days with some swelling. [facility] ED PROV NOTEon 02-01-2023 ED PROV NOTE HNO ID: [id number] Author: Nahum Zhao MD Service: Emergency Medicine Author Type: Physician Type: ED Provider Notes Filed: 02/01/2023 12:18 PM Note Text: ED Provider Note Patient Name: Bee Espinoza : 1970 SERVICE DATE: 02/01/23 History Patient presents with: Knee Pain Bee Espinoza is a 52 year old female with [...] worse again. 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 Exam conducted with a bed laborer present. Constitutional: Appearance: Normal appearance. She is [...] MDM narra (more content not included)... [facility] US DVT LOWER LTon 02-01-2023 US DVT [...] imaged segments of the left lower extremity. [employer]: [facility] Transcribe Date/Time: Feb 01 2023 11:53A Dictated by : LUCRETIA BETH MD This examination was interpreted and the report reviewed and electronically signed by: LUCRETIA BETH MD on Feb 01 2023 12:00PM EST [id number] [facility] XR KNEE 2V AP/LAT LTon 02-01 XR [...] or dislocation. Possible small suprapatellar joint effusion. [employer]: [facility] Transcribe Date/Time: Feb 01 2023 11:22A Dictated by : LUCRETIA BETH MD This examination was interpreted and the report reviewed and electronically signed by: LUCRETIA BETH MD on Feb 01 2023 11:23AM EST [id number] [facility] Basophil percentageOrdered B y: Dr. De Anda on 03-09-2022 WBC (Bld) [#/Vol] 10.2 10*3/uL 4.4-11.0 [facility] Blood erythrocytes count (nu mber/volume)Ordered By: Dr. De Anda on 03-09-2022 RBC (Bld) [#/Vol] 4.38 10*6/uL 4.2-5.4 [facility] Blood hemoglobin measurement (mass/volume)Ordered By: Dr. De Anda on 03-09-2022 Hemoglobin (Bld) [Mass/Vol] 9.8 g/dL 12.0-15.0 [facility] Blood manual differential co mment interpretation (narrative result)Ordered By: Dr. De Anda on 03-09-2022 Manual differential comment Jordan (Bld) [Interp] SCANNED [facility] Comment on above: 2+ MICROCYTES, RARE HYPOCHROMASIA Blood platelet mean volumeOr dered By: Dr. De Anda on 03-09-2022 Platelet mean volume (Bld) [Entitic vol] 10.0 fL 6.2-12.0 [facility] Determination of erythrocyte mean corpuscular volume (MCV)Ordered By: Dr. De Anda on 03-09-2022 MCV (RBC) [Entitic vol] 75.8 fL 81-99 [facility] Hematocrit Auto (Bld) [Volum e fraction]Ordered By: Dr. De Anda on 03-09-2022 Hematocrit (Bld) [Volume fraction] 33.2 % 37-47 [facility] Laboratory - Hematology and Cell countsOrdered By: Dr. De Anda on 03-09-2022 Erythrocyte distribution width (RBC) [Entitic vol] 58.5 fL 35.1-43.9 [facility] Erythrocyte distribution width (RBC) [Ratio] 21.5 % 11.6-14.6 [facility] MCH (RBC) [Entitic mass] 22.4 pg 27.0-32.0 [facility] MCHC Auto (RBC) [Mass/Vol]Or dered By: Dr. De Anda on 03-09-2022 MCHC (RBC) [Mass/Vol] 29.5 g/dL 32-36 [facility] Platelets bldOrdered By: Dr. De Anda on 03-09-2022 Platelets (Bld) [#/Vol] 422 10*3/uL 150-450 [facility] Laboratory - Chemistry and C hemistry - challengeOrdered By: Dr. De Anda on 03-08-2022 HCG ( test) Ql (U) Negative [facility] Comment on above: Very dilute urine sp ecimens, as indicated by a low specificgravity, may not contain termite control service representative levels of hCG. If is still suspected, a first morning urinespecimen should be collected 48 hours later and tested. Laboratory - Chemistry and C hemistry - challengeOrdered By: Dr. De Anda on 03-03-2022 Magnesium [Mass/Vol] 2.0 mg/dL 1.6-2.6 [facility] Absolute lymphocyte countOrd ered By: ED PROVIDER on 02-24-2022 Lymphocytes Auto (Unsp spec) [#/Vol] 1.31 10*3/uL 0.83-4.51 [facility] Basophil percentageOrdered B y: ED PROVIDER on 02-24-2022 Basophils/100 WBC (Bld) 0.7 % 0-1 [facility] Chloride [Moles/Vol] 111 mmol/L 98-107 [facility] Eosinophils/100 WBC (Bld) 4.1 % 0-5 [facility] Glucose [Mass/Vol] 116 mg/dL 74-106 [facility] Comment on above: Fasting Glucose resu lt from 100 to 125 mg/dL suggests IMPAIRED HOMEOSTASIS per A.D.A. criteria. Neutrophils (Bld) [#/Vol] 5.1 10*3/uL 2.0-7.7 [facility] Neutrophils/100 WBC (Bld) 69.9 % 47-70 [facility] Potassium [Moles/Vol] 4.0 mmol/L 3.5-5.1 [facility] Sodium [Moles/Vol] 140 mmol/L 136-145 [facility] WBC (Bld) [#/Vol] 7.3 10*3/uL 4.4-11.0 [facility] Blood erythrocytes count (nu mber/volume)Ordered By: ED PROVIDER on 02-24-2022 RBC (Bld) [#/Vol] 4.99 10*6/uL 4.2-5.4 [facility] Blood hemoglobin measurement (mass/volume)Ordered By: ED PROVIDER on 02-24-2022 Hemoglobin (Bld) [Mass/Vol] 10.9 g/dL 12.0-15.0 [facility] Blood lymphocytes/100 leukoc ytesOrdered By: ED PROVIDER on 02-24-2022 Lymphocytes/100 WBC (Bld) 18.0 % 19-41 [facility] Blood manual differential co mment interpretation (narrative result)Ordered By: ED PROVIDER on 02-24-2022 Manual differential comment Jordan (Bld) [Interp] SCANNED [facility] Blood monocytes/100 leukocyt esOrdered By: ED PROVIDER on 02-24-2022 Monocytes/100 WBC (Bld) 6.9 % 0-10 [facility] Blood platelet mean volumeOr dered By: ED PROVIDER on 02-24-2022 Platelet mean volume (Bld) [Entitic vol] 9.7 fL 6.2-12.0 [facility] Determination of erythrocyte mean corpuscular volume (MCV)Ordered By: ED PROVIDER on 02-24-2022 MCV (RBC) [Entitic vol] 76.8 fL 81-99 [facility] Hematocrit Auto (Bld) [Volum e fraction]Ordered By: ED PROVIDER on 02-24-2022 Hematocrit (Bld) [Volume fraction] 38.3 % 37-47 [facility] Hypochromatic red blood cell detectionOrdered By: ED PROVIDER on 02-24-2022 Hypochromia Ql (Bld) 1+ [facility] Laboratory - Chemistry and C hemistry - challengeOrdered By: ED PROVIDER on 02-24-2022 CO2 [Moles/Vol] 23.0 mmol/L 21.0-32.0 [facility] Urea nitrogen/Creatinine [Mass ratio] 11.5 mg/mg 10-20 [facility] Laboratory - Hematology and Cell countsOrdered By: ED PROVIDER on 02-24-2022 Anisocytosis Ql (Bld) 2+ [facility] Erythrocyte distribution width (RBC) [Entitic vol] 63.1 fL 35.1-43.9 [facility] Erythrocyte distribution width (RBC) [Ratio] 23.1 % 11.6-14.6 [facility] Immature granulocytes/100 WBC (Bld) 0.400 % 0.0-0.9 [facility] Comment on above: IG% - Immature Granu locytes (promyelocytes, myelocytes and metamyelocytes) > 1% indicates that a LEFT SHIFT is Present. MCH (RBC) [Entitic mass] 21.8 pg 27.0-32.0 [facility] Nucleated RBC/100 WBC (Bld) [Ratio] 0 % 0-5 [facility] MCHC Auto (RBC) [Mass/Vol]Or dered By: ED PROVIDER on 02-24-2022 MCHC (RBC) [Mass/Vol] 28.5 g/dL 32-36 [facility] No Panel InformationOrdered By: ED PROVIDER on 02-24-2022 Estimated Creatinine Clearance Calc 98.54 ml/min [facility] Estimated GFR (MDRD) Amer 113 mL/min >60 [facility] Comment on above: GFR Calc Estimated GFR (MDRD) Non-Af Amer 94 mL/min >60 [facility] Comment on above: Non- GFR Calc Platelets bldOrdered By: ED PROVIDER on 02-24-2022 Platelets (Bld) [#/Vol] 386 10*3/uL 150-450 [facility] Serum or plasma calcium phillip urement (mass/volume)Ordered By: ED PROVIDER on 02-24-2022 Calcium [Mass/Vol] 8.9 mg/dL 8.5-10.1 [facility] Serum or plasma creatinine m easurement (mass/volume)Ordered By: ED PROVIDER on 02-24-2022 Creatinine [Mass/Vol] 0.69 mg/dL 0.55-1.02 [facility] Comment on above: The validity of the calculated GFR & GFRAA in patients over 70 years has not been determined. Clinical correlation is essential. Serum or plasma urea nitroge n measurement (mass/volume)Ordered By: ED PROVIDER on 02-24-2022 Urea nitrogen [Mass/Vol] 8 mg/dL 7-18 [facility] Thin prep Papanicolaou smear with manual screeningOrdered By: ED PROVIDER on 02-24-2022 Thin prep Papanicolaou smear with manual screening 6 5-15 [facility] Laboratory - Chemistry and C hemistry - challengeOrdered By: Dr. De Anda on 01-26-2022 Cobalamin (Vitamin B12) [Mass/Vol] 466 pg/mL 211-911 [facility] No Panel InformationOrdered By: Dr. De Anda on 01-26-2022 Total Iron Binding Capacity 511 ug/dL 250-450 [facility] Serum or plasma ferritin john surement (mass/volume)Ordered By: Dr. De Anda on 01-26-2022 Ferritin [Mass/Vol] 4 ng/mL 8-252 [facility] Basophil percentageOrdered B y: Dr. Hansen on 01-24-2022 Chloride [Moles/Vol] 109 mmol/L 98-107 [facility] Glucose [Mass/Vol] 211 mg/dL 74-106 [facility] Comment on above: Glucose result great er than or equal to 200 mg/dLsuggests DIABETES MELLITUS per A.D.A. criteria. Potassium [Moles/Vol] 3.8 mmol/L 3.5-5.1 [facility] Sodium [Moles/Vol] 137 mmol/L 136-145 [facility] Basophil percentageOrdered B y: Dr. De Anda on 01-24-2022 WBC (Bld) [#/Vol] 6.4 10*3/uL 4.4-11.0 [facility] Blood erythrocytes count (nu mber/volume)Ordered By: Dr. De Anda on 01-24-2022 RBC (Bld) [#/Vol] 2.99 10*6/uL 4.2-5.4 [facility] Blood hemoglobin measurement (mass/volume)Ordered By: Dr. De Anda on 01-24-2022 Hemoglobin (Bld) [Mass/Vol] 6.8 g/dL 12.0-15.0 [facility] Blood platelet mean volumeOr dered By: Dr. De Anda on 01-24-2022 Platelet mean volume (Bld) [Entitic vol] 9.5 fL 6.2-12.0 [facility] Determination of erythrocyte mean corpuscular volume (MCV)Ordered By: Dr. De Anda on 01-24-2022 MCV (RBC) [Entitic vol] 77.9 fL 81-99 [facility] Hematocrit Auto (Bld) [Volum e fraction]Ordered By: Dr. De Anda on 01-24-2022 Hematocrit (Bld) [Volume fraction] 23.3 % 37-47 [facility] INR in Blood by Coagulation assayOrdered By: Dr. Hansen on 01-24-2022 INR Coag (Bld) [Relative time] 1.0 {INR} [facility] Laboratory - Chemistry and C hemistry - challengeOrdered By: Dr. Hansen on 01-24-2022 CO2 [Moles/Vol] 27.0 mmol/L 21.0-32.0 [facility] Magnesium [Mass/Vol] 2.3 mg/dL 1.6-2.6 [facility] Urea nitrogen/Creatinine [Mass ratio] 15.8 mg/mg 10-20 [facility] Laboratory - CoagulationOrde red By: Dr. Hansen on 01-24-2022 aPTT Coag (Bld) [Time] 26.0 s 24.1-36.2 [facility] PT Coag (PPP) [Time] 13.2 s 11.7-14.9 [facility] Laboratory - Hematology and Cell countsOrdered By: Dr. De Anda on 01-24-2022 Erythrocyte distribution width (RBC) [Entitic vol] 54.4 fL 35.1-43.9 [facility] Erythrocyte distribution width (RBC) [Ratio] 19.1 % 11.6-14.6 [facility] MCH (RBC) [Entitic mass] 22.7 pg 27.0-32.0 [facility] MCHC Auto (RBC) [Mass/Vol]Or dered By: Dr. De Anda on 01-24-2022 MCHC (RBC) [Mass/Vol] 29.2 g/dL 32-36 [facility] No Panel InformationOrdered By: Dr. Hansen on 01-24-2022 Estimated GFR (MDRD) Amer 102 mL/min >60 [facility] Comment on above: GFR Calc Estimated GFR (MDRD) Non-Af Amer 84 mL/min >60 [facility] Comment on above: Non- GFR Calc Platelets bldOrdered By: Dr. De Anda on 01-24-2022 Platelets (Bld) [#/Vol] 291 10*3/uL 150-450 [facility] Serum or plasma calcium phillip urement (mass/volume)Ordered By: Dr. Hansen on 01-24-2022 Calcium [Mass/Vol] 8.4 mg/dL 8.5-10.1 [facility] Serum or plasma creatinine m easurement (mass/volume)Ordered By: Dr. Hansen on 01-24-2022 Creatinine [Mass/Vol] 0.76 mg/dL 0.55-1.02 [facility] Comment on above: The validity of the calculated GFR & GFRAA in patients over 70 years has not been determined. Clinical correlation is essential. Serum or plasma urea nitroge n measurement (mass/volume)Ordered By: Dr. Hansen on 01-24-2022 Urea nitrogen [Mass/Vol] 12 mg/dL 7-18 [facility] Thin prep Papanicolaou smear with manual screeningOrdered By: Dr. Hansen on 01-24-2022 Thin prep Papanicolaou smear with manual screening 1 5-15 [facility] 36on 01-10-2022 36 Notified. Normal [facility] 36 Name of caller: Robert gil Contact phone number: [phone] Relationship to Patient: [facility] Provider: Dr. Baird Practice: [facility] [...] they can be faxed to her at [phone]. Please advise, thank you. Best time of day caller can be reached: any Patient advised that office/PCP has 24-48 business hours to return their call: No Normal [facility] Absolute lymphocyte countOrd ered By: Yi Huang on 12-28-2021 Lymphocytes Auto (Unsp spec) [#/Vol] 2.04 10*3/uL 0.83-4.51 [facility] Basophil percentageOrdered B y: Yi Huang on 12-28-2021 Basophils/100 WBC (Bld) 0.6 % 0-1 [facility] Eosinophils/100 WBC (Bld) 3.6 % 0-5 [facility] Neutrophils (Bld) [#/Vol] 5.5 10*3/uL 2.0-7.7 [facility] Neutrophils/100 WBC (Bld) 64.6 % 47-70 [facility] WBC (Bld) [#/Vol] 8.6 10*3/uL 4.4-11.0 [facility] Blood erythrocytes count (nu mber/volume)Ordered By: Yi Huang on 12-28-2021 RBC (Bld) [#/Vol] 3.83 10*6/uL 4.2-5.4 [facility] Blood hemoglobin measurement (mass/volume)Ordered By: Yi Huang on 12-28-2021 Hemoglobin (Bld) [Mass/Vol] 11.3 g/dL 12.0-15.0 [facility] Blood lymphocytes/100 leukoc ytesOrdered By: Yi Huang on 12-28-2021 Lymphocytes/100 WBC (Bld) 23.8 % 19-41 [facility] Blood monocytes/100 leukocyt esOrdered By: Yi Huang on 12-28-2021 Monocytes/100 WBC (Bld) 6.8 % 0-10 [facility] Blood platelet mean volumeOr dered By: Yi Huang on 12-28-2021 Platelet mean volume (Bld) [Entitic vol] 10.6 fL 6.2-12.0 [facility] Determination of erythrocyte mean corpuscular volume (MCV)Ordered By: Yi Huang on 12-28-2021 MCV (RBC) [Entitic vol] 89.0 fL 81-99 [facility] Hematocrit Auto (Bld) [Volum e fraction]Ordered By: Yi Huang on 12-28-2021 Hematocrit (Bld) [Volume fraction] 34.1 % 37-47 [facility] Laboratory - Hematology and Cell countsOrdered By: Yi Huang on 12-28-2021 Erythrocyte distribution width (RBC) [Entitic vol] 43.5 fL 35.1-43.9 [facility] Erythrocyte distribution width (RBC) [Ratio] 13.4 % 11.6-14.6 [facility] Immature granulocytes/100 WBC (Bld) 0.600 % 0.0-0.9 [facility] Comment on above: IG% - Immature Granu locytes (promyelocytes, myelocytes and metamyelocytes) > 1% indicates that a LEFT SHIFT is Present. MCH (RBC) [Entitic mass] 29.5 pg 27.0-32.0 [facility] Nucleated RBC/100 WBC (Bld) [Ratio] 0 % 0-5 [facility] MCHC Auto (RBC) [Mass/Vol]Or dered By: Yi Huang on 12-28-2021 MCHC (RBC) [Mass/Vol] 33.1 g/dL 32-36 [facility] Platelets bldOrdered By: Rani Huang on 12-28-2021 Platelets (Bld) [#/Vol] 296 10*3/uL 150-450 [facility] Basophil percentageOrdered B y: Dr. De Anda on 11-26-2021 Testosterone [Mass/Vol] 21 ng/dL 4-50 [facility] Free testosterone percentage Ordered By: Dr. De Anda on 11-26-2021 Testosterone Free/Testosterone.tota l [Mass fraction] 1.45 % 0.50-2.80 [facility] Comment on above: Performed at: [facility] [address] [id number] Director: Familia Morales PhD, Phone: [phone] at: - [facility] [id number] Director: Ajay Kamara MD, Phone: [phone] No Panel InformationOrdered By: Dr. De Anda on 11-26-2021 Follicle Stimulating Hormone 28.0 mIU/mL [facility] Comment on above: NORMAL REFERENCE RAN [facility] FEMALE FOLLICULAR 2.3 - 12.6 mIU/mL MID-CYCLE PEAK 5.2 - 17.5 mIU/mL LUTEAL 1.7 - 12.9 mIU/mL POST-MENOPAUSAL ON MHT 5.9 - 72.8 mIU/mL NOT ON MHT 12.7 - 132.2 mlU/mL MALE 0.7 - 10.8 mIU/mL Luteinizing Hormone 19.5 mIU/mL [facility] Comment on above: NORMAL REFERENCE RAN [facility] FEMALE FOLLICULAR 1.9 - 26.2 mIU/mL MID-CYCLE PEAK 22.8 - 76.1 mIU/mL LUTEAL 0.6 - 16.6 mIU/mL POST-MENOPAUSAL ON MHT 1.1 - 52.4 mIU/mL NOT ON MHT 8.6 - 61.8 mIU/mL MALE 1.2 - 10.6 mIU/mL Serum or plasma estradiol (E 2) measurement (mass/volume)Ordered By: Dr. De Anda on 11-26-2021 E2 [Mass/Vol] 87.6 pg/mL [facility] Comment on above: NORMAL REFERENCE RAN GES FEMALE FOLLICULAR 21.4 - 164.8 pg/mL MID-CYCLE PEAK 49.9 - 367.2 pg/mL LUTEAL 40.2 - 259.0 pg/mL POST-MENOPAUSAL ON MHT <11.0 - 462.1 pg/mL NOT ON MHT <11.0 - 58.3 pg/mL MALE <11.0 - 52.5 pg/mL NOTE:[employer] HAS CONFIRMED THE DRUG FULVETRANT (FASLODEX) MAY CAUSE FALSELY ELEVATED ESTRADIOL RESULTS WHEN USING THIS TEST METHOD. IF PATIENT IS TAKING FULVESTRANT AN ALTERNATIVE METHOD SHOULD BE USED TO DETERMINE ESTRADIOL CONCENTRATION. Serum or plasma testosterone free measurement (mass/volume)Ordered By: Dr. De Anda on 11-26-2021 Testosterone Free [Mass/Vol] 0.30 ng/dL 0.10-0.85 [facility] Absolute lymphocyte counton 07-09-2021 Lymphocytes Auto (Unsp spec) [#/Vol] 2.43 10*3/uL 0.83-4.51 [facility] Work Phone: Basophil percentageon 2021 Basophils/100 WBC (Bld) 0.6 % 0-1 [facility] Work Phone: Bilirubin [Mass/Vol] 0.50 mg/dL 0.20-1.00 [facility] Work Phone: Comment on above: For patients on eltr ombopag therapy, use of Dimension [place] TBIL is not recommended. Chloride [Moles/Vol] 107 mmol/L 98-107 [facility] Work Phone: Cholesterol [Mass/Vol] 234 mg/dL <200 [facility] Work Phone: Comment on above: <200 mg/dL Desirable 200-240 mg/dL Borderline >240 mg/dL High Risk Eosinophils/100 WBC (Bld) 4.3 % 0-5 [facility] Work Phone: Glucose [Mass/Vol] 118 mg/dL 74-106 [facility] Work Phone: Comment on above: Fasting Glucose resu lt from 100 to 125 mg/dL suggests IMPAIRED HOMEOSTASIS per A.D.A. criteria. Neutrophils (Bld) [#/Vol] 5.1 10*3/uL 2.0-7.7 [facility] Work Phone: Neutrophils/100 WBC (Bld) 58.5 % 47-70 [facility] Work Phone: [phone] Potassium [Moles/Vol] 3.7 mmol/L 3.5-5.1 [facility] Work Phone: [phone] Protein [Mass/Vol] 7.0 g/dL 6.4-8.2 [facility] Work Phone: [phone] Sodium [Moles/Vol] 139 mmol/L 136-145 [facility] Work Phone: [phone] Triglyceride [Mass/Vol] 98 mg/dL [facility] Work Phone: [phone] Comment on above: The drugs N-Acetylcy steine and Metamizole may falsely depress this assay.Serum Triglycerides Reference Interval Normal <150 mg/dL Borderline high 150 - 199 mg/dL High 200 - 499 mg/dL Very High > or = 500 mg/dL WBC (Bld) [#/Vol] 8.6 10*3/uL 4.4-11.0 [facility] Work Phone: [phone] Blood erythrocytes count (nu mber/volume)on 07-09-2021 RBC (Bld) [#/Vol] 5.18 10*6/uL 4.2-5.4 [facility] Work Phone: [phone] Blood hemoglobin measurement (mass/volume)on 07-09-2021 Hemoglobin (Bld) [Mass/Vol] 11.7 g/dL 12.0-15.0 [facility] Work Phone: Blood lymphocytes/100 leukoc yteson 07-09-2021 Lymphocytes/100 WBC (Bld) 28.1 % 19-41 [facility] Work Phone: Blood monocytes/100 leukocyt eson 07-09-2021 Monocytes/100 WBC (Bld) 8.3 % 0-10 [facility] Work Phone: [phone] Blood platelet mean volumeon 07-09-2021 Platelet mean volume (Bld) [Entitic vol] 10.3 fL 6.2-12.0 [facility] Work Phone: [phone] Determination of erythrocyte mean corpuscular volume (MCV)on 07-09-2021 MCV (RBC) [Entitic vol] 75.1 fL 81-99 [facility] Work Phone: [phone] Hematocrit Auto (Bld) [Volum e fraction]on 07-09-2021 Hematocrit (Bld) [Volume fraction] 38.9 % 37-47 [facility] Work Phone: Laboratory - Chemistry and C hemistry - challengeon 07-09-2021 ALP [Catalytic activity/Vol] 81 U/L 45-117 [facility] Work Phone: [phone] ALT [Catalytic activity/Vol] 24 U/L 13-56 [facility] Work Phone: [phone] CO2 [Moles/Vol] 25.0 mmol/L 21.0-32.0 [facility] Work Phone: [phone] Globulin (S) [Mass/Vol] 3.6 g/dL 2.2-4.2 [facility] Work Phone: [phone] Urea nitrogen/Creatinine [Mass ratio] 17.1 mg/mg - [facility] Work Phone: [phone] Laboratory - Hematology and Cell countson 07-09-2021 Erythrocyte distribution width (RBC) [Entitic vol] 44.9 fL 35.1-43.9 [facility] Work Phone: [phone] Erythrocyte distribution width (RBC) [Ratio] 16.7 % 11.6-14.6 [facility] Work Phone: [phone] Immature granulocytes/100 WBC (Bld) 0.200 % 0.0-0.9 [facility] Work Phone: Comment on above: IG% - Immature Granu locytes (promyelocytes, myelocytes and metamyelocytes) > 1% indicates that a LEFT SHIFT is Present. MCH (RBC) [Entitic mass] 22.6 pg 27.0-32.0 [facility] Work Phone: [phone] Nucleated RBC/100 WBC (Bld) [Ratio] 0 % 0-5 [facility] Work Phone: [phone] MCHC Auto (RBC) [Mass/Vol]on 07-09-2021 MCHC (RBC) [Mass/Vol] 30.1 g/dL 32-36 [facility] Work Phone: [phone] Panel Informationon 07-09 Estimated Creatinine Clearance Calc 106.24 ml/min [facility] Work Phone: [phone] Estimated GFR (MDRD) Amer 124 mL/min >60 [facility] Work Phone: [phone] Comment on above: GFR Calc Estimated GFR (MDRD) Non-Af Amer 103 mL/min >60 [facility] Work Phone: [phone] Comment on above: Non- GFR Calc Platelets bldon 07-09-2021 Platelets (Bld) [#/Vol] 349 10*3/uL 150-450 [facility] Work Phone: [phone] Serum or plasma albumin phillip urement (mass/volume)on 07-09-2021 Albumin [Mass/Vol] 3.4 g/dL 3.2-5.0 [facility] Work Phone: [phone] Serum or plasma albumin/glob ulin mass ratioon 07-09-2021 Albumin/Globulin [Mass ratio] 0.9 {ratio} 0.9-2.4 [facility] Work Phone: [phone] Serum or plasma calcium phillip urement (mass/volume)on 07-09-2021 Calcium [Mass/Vol] 8.7 mg/dL 8.5-10.1 [facility] Work Phone: [phone] Serum or plasma cholesterol in HDL measurement (mass/volume)on 07-09-2021 Cholesterol in HDL [Mass/Vol] 76 mg/dL [facility] Work Phone: Comment on above: The drugs N-Acetylcy steine and Metamizole may falsely depress this assay. Reference Range HDL <40 mg/dL Low HDL Cholesterol HDL >or= 60 mg/dL High HDL Cholesterol Serum or plasma cholesterol in VLDL measurement (mass/volume)on 07-09-2021 Cholesterol in VLDL [Mass/Vol] 20 mg/dL 5-40 [facility] Work Phone: Serum or plasma creatinine m easurement (mass/volume)on 07-09-2021 Creatinine [Mass/Vol] 0.64 mg/dL 0.55-1.02 [facility] Work Phone: Comment on above: The validity of the calculated GFR & GFRAA in patients over 70 years has not been determined. Clinical correlation is essential. Serum or plasma low density lipoprotein (LDL) cholesterol measurement (mass/volume)on 07-09-2021 Cholesterol in LDL [Mass/Vol] 138 mg/dL 0-130 [facility] Work Phone: Serum or plasma urea nitroge n measurement (mass/volume)on 07-09-2021 Urea nitrogen [Mass/Vol] 11 mg/dL 7-18 [facility] Work Phone: Thin prep Papanicolaou smear with manual screeningon 07-09-2021 Thin prep Papanicolaou smear with manual screening 18 U/L 15-37 [facility] Work Phone: Thin prep Papanicolaou smear with manual screening 7 5-15 [facility] Work Phone: Whole blood hemoglobin A1c/t otal hemoglobin ratio (mass fraction)on 07-09-2021 HbA1c (Bld) [Mass fraction] 5.6 % 3.8-5.6 [facility] Work Phone: Comment on above: Normal < 5.7 % Predi abetic 5.7 - 6.4 % Diabetic >or= 6.5 % Please note range changes. INR in Blood by Coagulation assayon 07-08-2021 INR Coag (Bld) [Relative time] 1.0 {INR} [facility] Work Phone: Iron measurement (mass/mass) on 07-08-2021 Iron (Unsp spec) [Mass/Mass] 36 ug/dL 50-170 [facility] Work Phone: Laboratory - Chemistry and C hemistry - challengeon 07-08-2021 Magnesium [Mass/Vol] 2.0 mg/dL 1.6-2.6 [facility] Work Phone: Laboratory - Coagulationon 0 07-08-2021 PT Coag (PPP) [Time] 12.5 s 11.7-14.9 [facility] Work Phone: No Panel Informationon 07-08 Troponin I High Sensitivity 50 pg/mL 3.0-54.0 [facility] Work Phone: Comment on above: Please Note: New Alivia t Units and Gender Specific Reference Ranges. For more information see Policy Stat Procedure [place] High Sensitivity Troponin (TNIH) and attachments. Thyroid Stimulating Hormone (TSH) 1.71 uIU/mL 0.358-3.74 [facility] Work Phone: Total Iron Binding Capacity 475 ug/dL 250-450 [facility] Work Phone: Serum or plasma ferritin john surement (mass/volume)on 07-08-2021 Ferritin [Mass/Vol] 6 ng/mL 8-252 [facility] Work Phone: Serum or plasma iron saturat ion measurement (mass fraction)on 07-08-2021 Iron saturation [Mass fraction] 7.6 % 15.0-55.0 [facility] Work Phone: Established Visit (Otolaryng ology)on 06-14-2021 Established Visit (Otolaryngology) Provider Impressions Ms. BEE ESPINOZA, is here for postop follow up regarding [...] post op History of Present IllnessMs. BEE ESPINOZA, is a 50 year old female here [...] and in the presence of Dr. Abigail Siddiqui MD. All medical record entries made by the Scribe were at my direction and personally dictated by me, Dr. Abigail Siddiqui. I have reviewed the chart and agree [...] As Needed -for severe pain G89.18 Normal [facility] Patient Profile - Preop v3on 05-28-2021 Patient Profile - Preop v3 Patient Profile - Preop: Initial Info: Patient DemographicsName: BEE ESPINOZA Date: 1970 Address: [address] [place] [address] Primary Phone [phone] How to be Addressedjenniffer Spoken Language PreferredEnglish Source of Informationpatient Stated Reason for Admissionremove submandibular gland Primary Contact Name and Numberdenny [phone] Limitations on Visitors/Phone Callsnone Medications Brought to Hospitalno General Health: Weight in kg96.5 kilogram(s) Weight in xqz066.7 pound(s) Weight Methodactual (measured) Scale Typestanding Height in feet5 feet Height in inches8.98 inch(es) Height in cm175.2 centimeter(s) Height Methodstated BMI (kg/m2)31.438 square meter Patient or Family Member Reaction to Anesthesiano previous reaction Blood Avoidance/Restrictionsnon e Previous Transfusion Reactionno Health Mgmt: Symptoms/Conditions Managed at [facility] Barriers to Managing Healthnone Relationship/Environ: Lives Withspouse Living Arrangementshouse Resource/Environmental Concernsnone Anticipated Transition Todavidson Services Anticipated at Transitionnone Tobacco Use: Tobacco Useno Pre-op Checklist: Arrival [id number] Arrival Time07:11 Procedure Typeremove submandibular gland NPOyes Last Food [id number] 21:00 Last Clear Fluid [id number] 21:00 ID Band On Patientpatient ID (name), [...] Environment, Other, Active Electronic Signatures: Sarai Hyde (RN) (Signed 28-May-2021 07:24) Authored: Initial Info, General Health, Health Mgmt, Relationship/Environ, Tobacco Use, Pre-op Checklist, Additional Information Last Updated: 28-May-2021 07:24 by Sarai Hyde (ANJALI) Normal [facility] Surgical Pathology Depar tmenton 05-28-2021 [facility] Surgical Pathology Department Name BEE ESPINOZA Pathologist: FRANSISCO LABOY MD Date of Procedure: 05/28/2021 Date Received: 05/28/2021 Date Reported 06/04/2021 Submitting Physician: ABIGAIL SIDDIQUI MD Location: [facility] Other External # FINAL DIAGNOSIS RIGHT SUBMANDIBULAR GLAND, RESECTION: --MILD PATCHY CHRONIC SIALADENITIS. kimw The gross and/or microscopic findings were reviewed in conjunction with pathology resident, [facility] Electron[facility] Signed Out By FRANSISCO LABOY MD/LUCIA By the signature on this report, the individual or group listed as making the Final Interpretation/Diagnosis certifies that they have reviewed this case. Clinical History: Physician Contact Number: [phone] Fixative (A): Saline Clinical Diagnosis History Epiglottic lesion Specimens Submitted As: A: RIGHT SUBMANDIBULAR GLAND Gross Description: Received in formalin, labeled with the patient?s name and hospital number and A, is an unoriented lobulated segment of iqbal, soft tissue measuring 4.0 x 3.5 x 1.5 cm. The specimen is inked black.The specimen is serially sectioned to reveal a iqbal, lobulated cut surface Canvas Worker sections are submitted in 4 cassettes. TMD tmd/06/01/2021 [facility] Department of Pathology [address] [place] [address] Normal [facility] Comment on above: Performed By: #### U [facility] #### [facility] Surgical Pathology Department [address] [place] [address] Basic Metabolic Panelon 04-0 Anion gap [Moles/Vol] 8 mmol/L Normal 3-13 [facility] Comment on above: Performed By: #### H EMOG, BMP3 #### [facility] [address] [place] [address] Calcium [Mass/Vol] 9.6 mg/dL Normal 8.4-10.4 [facility] Comment on above: Performed By: #### H EMOG, BMP3 #### [facility] [address] [place] [address] CO2 [Moles/Vol] 26 mmol/L Normal 22-30 [facility] Comment on above: Performed By: #### H EMOG, BMP3 #### [facility] [address] [place] [address] Glucose [Mass/Vol] 168 mg/dL High 70-100 [facility] Comment on above: Performed By: #### H EMOG, BMP3 #### [facility] [address] [place] [address] Urea nitrogen [Mass/Vol] 7 mg/dL Low 9-20 [facility] Comment on above: Performed By: #### H EMOG, BMP3 #### [facility] [address] [place] [address] Creatinine [Mass/Vol] 0.69 mg/dL Normal 0.52-1.25 [facility] Comment on above: Performed By: #### H EMOG, BMP3 #### [facility] [address] [place] [address] eGFR OTHER > 90.0 Normal >60 [facility] Comment on above: Result Comment: KDIG O [...] tubular creatinine secretion. Performed By: #### H MARY GRACE MCNALLY3 #### [facility] [address] [place] [address] GFR/1.73 sq M.predicted among blacks MDRD (S/P/Bld) [Vol rate/Area] mL/min/{1.73_m2} Normal >60 [facility] Comment on above: Performed By: #### H DALI BMP3 #### [facility] [address] [place] [address] Chloride [Moles/Vol] 104 mmol/L Normal 98-107 [facility] Comment on above: Performed By: #### H DALI BMP3 #### [facility] [address] [place] [address] Potassium [Moles/Vol] 4.2 mmol/L Normal 3.5-5.1 [facility] Comment on above: Performed By: #### H DALI BMP3 #### [facility] [address] [place] [address] Sodium [Moles/Vol] 138 mmol/L Normal 135-145 [facility] Comment on above: Performed By: #### H DALI BMP3 #### [facility] [address] [place] [address] Anion gap [Moles/Vol] 8 mmol/L 3 - 13 mmol/L [facility] Calcium [Mass/Vol] 9.6 mg/dL 8.4 - 10. 4 mg/dL [facility] Chloride [Moles/Vol] 104 mmol/L 98 - 10 7 mmol/L [facility] CO2 [Moles/Vol] 26 mmol/L 22 - 30 mmol/L [facility] Creatinine [Mass/Vol] 0.69 mg/dL 0.52 - 1.25 mg/dL [facility] EGFR IF NonAfrican Malagasy >90.0 >60 mL/min [facility] Comment on above: KDIGO guidelines pro vide [...] - 20 mg/dL [facility] Test Performed by [facility], [facility] [address]hi , [address] LAB [facility] CBCon 05-24-2021 Hematocrit (Bld) [...] - 10.7 10*3/uL [facility] Test Performed by [facility], [address] , [place], [place] [id number] [place] [address] LAB [facility] Hem[facility] 05-24-2021 Erythrocyte distribution width (RBC) [Ratio] 17.1 % High 11.5-14.5 [facility] Comment on above: Performed By: #### H DALI BMP3 #### [facility] [address] [place] [address] Hematocrit (Bld) [Volume fraction] 35.9 % Normal 35.0-47.0 [facility] Comment on above: Performed By: #### H DALI BMP3 #### [facility] [address] [place] [address] Hemoglobin (Bld) [Mass/Vol] 11.4 g/dL Low 11.7-16.0 [facility] Comment on above: Performed By: #### H DALI BMP3 #### [facility] [address] [place] [address] MCH (RBC) [Entitic mass] 23.1 pg Low 26.0-34.0 [facility] Comment on above: Performed By: #### H EMOJames BMP3 #### [facility] [address] [place] [address] MCHC 31.8 % Low 32.0-36.0 [facility] Comment on above: Performed By: #### H EMOJames BMP3 #### [facility] [address] [place] [address] MCV (RBC) [Entitic vol] 72.7 fL Low 79.0-98.0 [facility] Comment on above: Performed By: #### H EMOG, BMP3 #### [facility] [address] [place] [address] Platelet mean volume (Bld) [Entitic vol] 7.7 fL Normal 7.4-10.4 [facility] Comment on above: Performed By: #### H EMOG, BMP3 #### [facility] [address] [place] [address] Platelets (Bld) [#/Vol] 354 10*3/uL Normal 140-440 [facility] Comment on above: Performed By: #### H DALI, BMP3 #### [facility] [address] [place] [address] RBC (Bld) [#/Vol] 4.93 10*6/uL Normal 3.80-5.20 [facility] Comment on above: Performed By: #### H DALI, BMP3 #### [facility] [address] [place] [address] WBC (Bld) [#/Vol] 6.9 10*3/uL Normal 3.6-10.7 [facility] Comment on above: Performed By: #### H DALI, BMP3 #### [facility] [address] [place] [address] Established Visit (Otolaryng ology)on 04-19-2021 Established Visit (Otolaryngology) Diagnoses/Problems Sialolithiasis of submandibular gland (527.5) (K11.5) Former smoker (V15.82) (Z87.891) Submandibular gland swelling (782.3) (R60.9) Orders Basic Metabolic Panel; Status:Active - Retrospective Authorization; Requested for:[id number]; Complete Blood Count; Status:Active - Retrospective Authorization; Requested for:[id number]; Submandibular gland swelling (782.3) (R60.9) Sialolithiasis of submandibular gland (527.5) (K11.5) Patient Discussion/Summary Dr. Siddiqui evaluated you today. Your care plan is outlined below: -- Dr. Siddiqui recommends either 1. sialoendoscopy to help get rid of the stones or 2. removal of the submandibular gland -- Use heat and ibuprofen for the next week. General appointment line please call [phone] For general questions or scheduling issues please call [phone] option #2 For medical questions or surgery scheduling please call [phone] Dr. Siddiqui makes every effort to run on time for your appointments. Therefore, if you are more than 30 minutes late for your appointment, unrelated to a scan or another appointment such as chemotherapy or radiation, your appointment will need to be rescheduled to another day. We appreciate your understanding. Provider Impressions Ms. BEE ESPINOZA, is here for follow up regarding her [...] gland stones History of Present IllnessMs. BEE ESPINOZA, is a 50 year old female here [...] and in the presence of Dr. Abigail Siddiqui MD. All medical record entries made by the Lamibe were at my direction and personally dictated by me, Dr. Abigail Siddiqui. I have reviewed the chart and agree [...] and Constitutional (more content not included)... Normal [employer] Tobacco Screening.on 022 Fall risk assessment a) No falls within the last year [facility] Work Phone: Tobacco use status [facility] b) No [facility] Work Phone: BUNon 03-22-2021 Urea nitrogen (BldV) [Mass/Vol] 15 mg/dL 9 - 20 mg/dL [facility] CT Soft Tissue Neck w/ Contr vincent 03-22-2021 CT Soft Tissue Neck w/ Contrast Patient Name: BEE ESPINOZA Computed Tomography ACCESSION EXAM DATE/TIME PROCEDURE ORDERING PROVIDER [id number] 03/22/2021 17:[address] Soft Tissue Neck w/ MD SIDDIQUI NICOLE M Contrast CPT code 94342 [id number] Reason For Exam (CT Soft Tissue [...] Transcribed Date and Time: 03/23/2021 10:36 Normal [facility] Creatinineon 03-22-2021 Creatinine [Mass/Vol] 0.67 mg/dL Normal 0.52-1.25 [facility] Comment on above: Performed By: #### B MANUELITO3, CRTN3 #### [facility] [address] [place] [address] eGFR OTHER > 90.0 Normal >60 [facility] Comment on above: Result Comment: KDIG O [...] tubular creatinine secretion. Performed By: #### B MANUELITO3, CRTN3 #### [facility] [address] [place] [address] GFR/1.73 sq M.predicted among blacks MDRD (S/P/Bld) [Vol rate/Area] mL/min/{1.73_m2} Normal >60 [facility] Comment on above: Performed By: #### B UN3, CRTN3 #### [facility] [address] [place] [address] Creatinine, Serumon 03-22-19 22 Creatinine [Mass/Vol] 0.67 mg/dL 0.52 - 1.25 mg/dL [facility] EGFR IF NonAfrican Malagasy >90.0 >60 mL/min [facility] Comment on above: KDIGO guidelines pro vide [...] MDRD (S/P/Bld) [Vol rate/Area] mL/min/{1.73_m2} >60 mL/min [facility] No Panel Informationon 03-22 Test Performed by [facility], [address] , [address] LAB [facility] Urea Nitrogenon 03-22-2021 Urea nitrogen [Mass/Vol] 15 mg/dL Normal 9-20 [facility] Comment on above: Performed By: #### B UN3, CRTN3 #### [facility] [address] [place] [address] Established Visit (Otolaryng ology)on 03-15-2021 Established Visit [...] submandibular gland (527.5) (K11.5) Patient Discussion/Summary Dr. Siddiqui evaluated you today. Your care plan is outlined below: -- CT neck w/ contrast recommended. This appointment should be scheduled with the halal butcher on your way out today. Please schedule your appointment with Dr. Siddiqui and then proceed with your paperwork to the halal butcher. You can also call [phone] to schedule your test. -- Follow up with Dr. Siddiqui after your scan. This appointment was scheduled at the end of your visit today. If you need to reschedule, please call the office at [phone]. Please keep in mind that last minute cancellations often result in delayed follow-up appointments. General appointment line please call [phone] For general questions or scheduling issues please call [phone] option #2 For medical questions or surgery scheduling please call [phone] Dr. Siddiqui makes every effort to run on time for your appointments. Therefore, if you are more than 30 minutes late for your appointment, unrelated to a scan or another appointment such as chemotherapy or radiation, your appointment will need to be rescheduled to another day. We appreciate your understanding. Provider Impressions Ms. BEE ESPINOZA, is here for follow up of right [...] Chief Complaint follow up History of Present IllnessMsDaphne ESPINOZA, is a 50 year old female here [...] and in the presence of Dr. Abigail Siddiqui MD. All medical record entries made by the Scribe were at my direction and personally dictated by me, Dr. Abigail Siddiqui. I have reviewed the chart and agree [...] no convuls (more content not included)... Normal [employer] Tobacco Screening.on 022 Fall risk assessment a) No falls within the last year [facility] Work Phone: Tobacco use status [facility] b) No [facility] Work Phone: CBC Auto DifferentialOrdered By: Josette Suresh on 10-07-2020 Absolute Baso # 0.1 10*3/uL 0.0 - 0.2 10*3/uL [facility] Work Phone: [phone] Absolute Neut # 6.3 10*3/uL 1.8 - 7.0 10*3/uL [facility] Work Phone: [phone] Basophils/100 WBC (Bld) 1.0 % 0.0 - 2.0 % [facility] Work Phone: [phone] Eosinophils (Bld) [#/Vol] 0.6 10*3/uL High 0.0 - 0.5 10*3/uL [facility] Work Phone: [phone] Eosinophils/100 WBC (Bld) 5.7 % 1.0 - 6.0 % [facility] Work Phone: [phone] Granulocytes/100 WBC (Bld) 63.3 % 40.0 - 80.0 % [facility] Work Phone: [phone] Hematocrit (Bld) [Volume fraction] 38.1 % 35.0 - 47.0 % [facility] Work Phone: [phone] Hemoglobin.gastrointes tinal spec 1 Ql (Stl) 12.6 g/dL 11.7 - 16.0 g/dL [facility] Work Phone: [phone] Interpretation and review of laboratory results Abnormal [employer] Work Phone: [phone] Lymphocytes (Bld) [#/Vol] 2.2 10*3/uL 1.0 - 4.3 10*3/uL [facility] Work Phone: [phone] Lymphocytes/100 WBC (Bld) 21.6 % 20.0 - 40.0 % [facility] Work Phone: [phone] MCH (RBC) [Entitic mass] 25.8 pg Low 26.0 - 34.0 pg [facility] Work Phone: 1 MCHC (RBC) [Mass/Vol] 33.0 % 32.0 - 36.0 % [facility] Work Phone: MCV (RBC) [Entitic vol] 78.2 fL Low 79.0 - 98.0 fL [facility] Work Phone: 1 Monocytes (Bld) [#/Vol] 0.8 10*3/uL 0.0 - 0.8 10*3/uL [facility] Work Phone: 1 Monocytes/100 WBC (Bld) 8.4 % 2.0 - 10.0 % [employer] Work Phone: 1 Platelet distribution width (Bld) [Ratio] 16.4 % High 11.5 - 14.5 % [employer] Work Phone: 1 Platelet mean volume (Bld) [Entitic vol] 7.9 fL 7.4 - 10.4 fL [employer] Work Phone: Platelets (Bld) [#/Vol] 315 10*3/uL 140 - 440 10*3/uL [employer] Work Phone: RBC (Bld) [#/Vol] 4.87 10*6/uL 3.80 - 5.2 0 10*6/uL [employer] Work Phone: WBC (Bld) [#/Vol] 10.0 10*3/uL 3.6 - 10.7 10*3/uL [employer] Work Phone: Test Performed by [facility], [address] [place] [address] [place] [address] [employer] Work Phone: [employer] Work Phone: CR Sternum Minimum 2 Viewson 10-07-2020 CR Sternum Minimum 2 Views Patient Name: BEE ESPINOZA Diagnostic Radiology ACCESSION EXAM DATE/TIME PROCEDURE ORDERING PROVIDER [id number] 10/07/2020 10:51 EDT CR Sternum Minimum 2 CONNIE SURESH HOLLY S Views CPT code 95099 Reason For Exam (CR Sternum Minimum 2 [...] Transcribed Date and Time: 10/08/2020 8:25 Normal [facility] Comp Metabolic Panelon 10-07 Calcium [Mass/Vol] 9.6 mg/dL Normal 8.4-10.4 [facility] Comment on above: Performed By: #### H EMDF, CMP3, LIPD2 #### [facility] [address] [place] [address] ALP [Catalytic activity/Vol] 79 U/L Normal 38-126 [facility] Comment on above: Performed By: #### H EMDF, CMP3, LIPD2 #### [facility] [address] [place] [address] ALT [Catalytic activity/Vol] 19 U/L Normal 0-34 [facility] Comment on above: Result Comment: The ALT test is performed by an updated assay method. Please note that the reference intervals have been changed and are now sex specific. Performed By: #### H EMDF, CMP3, LIPD2 #### [facility] [address] [place] [address] Anion gap [Moles/Vol] 5 mmol/L Normal 3-13 [facility] Comment on above: Performed By: #### H EMDF, CMP3, LIPD2 #### [facility] [address] [place] [address] AST [Catalytic activity/Vol] 33 U/L Normal 15-46 [facility] Comment on above: Performed By: #### H EMDDean, CMP3, LIPD2 #### [facility] [address] [place] [address] Bilirubin [Mass/Vol] 0.3 mg/dL Normal 0.2-1.3 [facility] Comment on above: Performed By: #### H EMDF, CMP3, LIPD2 #### [facility] [address] [place] [address] CO2 [Moles/Vol] 28 mmol/L Normal 22-30 [facility] Comment on above: Performed By: #### H JONES CMP3, LIPD2 #### [facility] [address] [place] [address] Creatinine [Mass/Vol] 0.71 mg/dL Normal 0.52-1.25 [facility] Comment on above: Performed By: #### H EMDF CMP3, LIPD2 #### [facility] [address] [place] [address] eGFR OTHER > 90.0 Normal >60 [facility] Comment on above: Result Comment: KDIG O [...] By: #### H EMDF, CMP3, LIPD2 #### [facility] [address] [place] [address] GFR/1.73 sq M.predicted among blacks MDRD (S/P/Bld) [Vol rate/Area] mL/min/{1.73_m2} Normal >60 [facility] Comment on above: Performed By: #### H JONES CMP3, LIPD2 #### [facility] [address] [place] [address] Glucose [Mass/Vol] 109 mg/dL High 70-100 [facility] Comment on above: Performed By: #### H JONES CMP3, LIPD2 #### [facility] [address] [place] [address] Protein [Mass/Vol] 6.9 g/dL Normal 6.3-8.2 [facility] Comment on above: Performed By: #### H JONES CMP3, LIPD2 #### [facility] [address] [place] [address] Urea nitrogen [Mass/Vol] 12 mg/dL Normal 7-20 [facility] Comment on above: Performed By: #### H JONES CMP3, LIPD2 #### [facility] [address] [place] [address] Potassium [Moles/Vol] 5.0 mmol/L Normal 3.5-5.1 [facility] Comment on above: Performed By: #### H JONES CMP3, LIPD2 #### [facility] [address] [place] [address] Albumin [Mass/Vol] 4.1 g/dL Normal 3.5-5.0 [facility] Comment on above: Performed By: #### H EMDDean, CMP3, LIPD2 #### [facility] [address] [place] [address] Chloride [Moles/Vol] 105 mmol/L Normal 98-107 [facility] Comment on above: Performed By: #### H EMDDean, CMP3, LIPD2 #### [facility] [address] [place] [address] Sodium [Moles/Vol] 138 mmol/L Normal 135-145 [facility] Comment on above: Performed By: #### H EMDDena, CMP3, LIPD2 #### [facility] [address] [place] [address] Comprehensive Metabolic Pane lOrdered By: Josette Suresh on 10-07-2020 Albumin [Mass/Vol] 4.1 g/dL 3.5 - 5.0 g/dL [employer] Work Phone: [phone] ALP (Bld) [Catalytic activity/Vol] 79 U/L 38 - 126 U/L [facility] Work Phone: [phone] ALT [Catalytic activity/Vol] 19 U/L 0 - 34 U/L [facility] Work Phone: [phone] Comment on above: The ALT test is perf ormed by an updated assay method. Please note that the reference intervals have been changed and are now sex specific. Anion gap [Moles/Vol] 5 mmol/L 3 - 13 mmol/L [facility] Work Phone: [phone] AST [Catalytic activity/Vol] 33 U/L 15 - 46 U/L [facility] Work Phone: [phone] Bilirubin [Mass/Vol] 0.3 mg/dL 0.2 - 1 .3 mg/dL [facility] Work Phone: [phone] Calcium [Mass/Vol] 9.6 mg/dL 8.4 - 10. 4 mg/dL [facility] Work Phone: [phone] Chloride [Moles/Vol] 105 mmol/L 98 - 10 7 mmol/L [facility] Work Phone: [phone] CO2 [Moles/Vol] 28 mmol/L 22 - 30 mmol/L [facility] Work Phone: [phone] Creatinine [Mass/Vol] 0.71 mg/dL 0.52 - 1.25 mg/dL [employer] Work Phone: [phone] EGFR IF NonAfrican Malagasy >90.0 >60 mL/min [facility] Work Phone: [phone] Comment on above: KDIGO guidelines pro vide [...] fraction] 6.9 g/dL 6.3 - 8.2 g/dL [facility] Work Phone: GFR/1.73 sq M.predicted among blacks MDRD (S/P/Bld) [Vol rate/Area] mL/min/{1.73_m2} >60 mL/min [facility] Work Phone: Glucose [Mass/Vol] 109 mg/dL High 70 - 100 mg/dL [facility] Work Phone: Potassium [Moles/Vol] 5.0 mmol/L 3.5 - 5.1 mmol/L [facility] Work Phone: Sodium [Moles/Vol] 138 mmol/L 135 - 145 mmol/L [facility] Work Phone: Urea nitrogen (BldV) [Mass/Vol] 12 mg/dL 7 - 20 mg/dL [facility] Work Phone: Hemogram w/ [employer]od[employer] 10-07 Abs Baso Cnt 0.1 10*3/uL Normal 0.0-0.2 [facility] Comment on above: Performed By: #### H EMDF, CMP3, LIPD2 #### [facility] [address] [place] [address] Abs Neutrophile Cnt 6.3 10*3/uL Normal 1.8-7.0 [facility] Comment on above: Performed By: #### H EMDF, CMP3, LIPD2 #### [facility] [address] [place] [address] Basophils/100 WBC (Bld) 1.0 % Normal 0.0-2.0 [facility] Comment on above: Performed By: #### H EMDF, CMP3, LIPD2 #### [facility] [address] [place] [address] Eosinophils (Bld) [#/Vol] 0.6 10*3/uL High 0.0-0.5 [facility] Comment on above: Performed By: #### H EMDF, CMP3, LIPD2 #### [facility] [address] [place] [address] Eosinophils/100 WBC (Bld) 5.7 % Normal 1.0-6.0 [facility] Comment on above: Performed By: #### H EMDF, CMP3, LIPD2 #### [facility] [address] [place] [address] Erythrocyte distribution width (RBC) [Ratio] 16.4 % High 11.5-14.5 [facility] Comment on above: Performed By: #### H EMDF, CMP3, LIPD2 #### [facility] [address] [place] [address] Granulocytes/100 WBC (Bld) 63.3 % Normal 40.0-80.0 [facility] Comment on above: Performed By: #### H EMDF, CMP3, LIPD2 #### [facility] [address] [place] [address] Hematocrit (Bld) [Volume fraction] 38.1 % Normal 35.0-47.0 [facility] Comment on above: Performed By: #### H EMDF, CMP3, LIPD2 #### [facility] [address] [place] [address] Hemoglobin (Bld) [Mass/Vol] 12.6 g/dL Normal 11.7-16.0 [facility] Comment on above: Performed By: #### H EMDF, CMP3, LIPD2 #### [facility] [address] [place] [address] Lymphocytes (Bld) [#/Vol] 2.2 10*3/uL Normal 1.0-4.3 [facility] Comment on above: Performed By: #### H EMDF, CMP3, LIPD2 #### [facility] [address] [place] [address] Lymphocytes/100 WBC (Bld) 21.6 % Normal 20.0-40.0 [facility] Comment on above: Performed By: #### H EMDF, CMP3, LIPD2 #### [facility] [address] [place] [address] MCH (RBC) [Entitic mass] 25.8 pg Low 26.0-34.0 [facility] Comment on above: Performed By: #### H EMDF, CMP3, LIPD2 #### [facility] [address] [place] [address] MCHC 33.0 % Normal 32.0-36.0 [facility] Comment on above: Performed By: #### H EMDF, CMP3, LIPD2 #### [facility] [address] [place] [address] MCV (RBC) [Entitic vol] 78.2 fL Low 79.0-98.0 [facility] Comment on above: Performed By: #### H EMDF, CMP3, LIPD2 #### [facility] [address] [place] [address] Monocytes (Bld) [#/Vol] 0.8 10*3/uL Normal 0.0-0.8 [facility] Comment on above: Performed By: #### H EMDF, CMP3, LIPD2 #### [facility] [address] [place] [address] Monocytes/100 WBC (Bld) 8.4 % Normal 2.0-10.0 [facility] Comment on above: Performed By: #### H EMDF, CMP3, LIPD2 #### [facility] [address] [place] [address] Platelet mean volume (Bld) [Entitic vol] 7.9 fL Normal 7.4-10.4 [facility] Comment on above: Performed By: #### H EMDF, CMP3, LIPD2 #### [facility] [address] [place] [address] Platelets (Bld) [#/Vol] 315 10*3/uL Normal 140-440 [facility] Comment on above: Performed By: #### H EMDF, CMP3, LIPD2 #### [facility] [address] [place] [address] RBC (Bld) [#/Vol] 4.87 10*6/uL Normal 3.80-5.20 [facility] Comment on above: Performed By: #### H EMDF, CMP3, LIPD2 #### [facility] [address] [place] [address] WBC (Bld) [#/Vol] 10.0 10*3/uL Normal 3.6-10.7 [facility] Comment on above: Performed By: #### H EMDF, CMP3, LIPD2 #### [facility] [address] [place] [address] Lipid Panelon 10-07-2020 Chol/HDL 4 Normal [facility] Comment on above: Result Comment: Ref Range: < 3 Low Risk for CHD 3-6 Mod Risk for CHD > 6 High Risk for CHD Performed By: #### H EMDF, CMP3, LIPD2 #### [facility] [address] [place] [address] Cholesterol in HDL [Mass/Vol] 60 mg/dL Normal 40-60 [facility] Comment on above: Performed By: #### H EMDF, CMP3, LIPD2 #### [facility] [address] [place] [address] Low Density Lipoprotein 108 mg/dL Abnormal <100 [facility] Comment on above: Performed By: #### H EMDF, CMP3, LIPD2 #### [facility] [address] [place] [address] Triglyceride [Mass/Vol] 283 mg/dL Abnormal <150 [facility] Comment on above: Performed By: #### H EMDF, CMP3, LIPD2 #### [facility] [address] [place] [address] Cholesterol [Mass/Vol] 225 mg/dL Abnormal < 200 [facility] Comment on above: Performed By: #### H EMDF, CMP3, LIPD2 #### [facility] [address] [place] [address] Lipid PanelOrdered By: Josette Suresh on 10-07-2020 Cholesterol [Mass/Vol] 225 mg/dL Abnormal <200 [employer] Work Phone: Cholesterol in HDL [Mass/Vol] 60 mg/dL 40 - 60 mg/dL [employer] Work Phone: Cholesterol in LDL [Mass/Vol] 108 mg/dL Abnormal <100 [facility] Work Phone: Cholesterol.total/Chol esterol in HDL [Mass ratio] 4 {ratio} [facility] Work Phone: Comment on above: Ref Range: < 3 Low Risk for CHD 3-6 Mod Risk for CHD > 6 High Risk for CHD Triglyceride [Mass/Vol] 283 mg/dL Abnormal <150 [employer] Work Phone: No Panel InformationOrdered By: Josette Suresh on 10-07-2020 Interpretation and review of laboratory results Abnormal [facility] Work Phone: Test Performed by [facility] [employer], [address] [place], [place] [address] [employer] Work Phone: [employer] Work Phone: MG Breast Tomosynthesis Scr Blon 10-01-2020 MG Breast Tomosynthesis Scr Bl Patient Name: BEE ESPINOZA Mammography ACCESSION EXAM DATE/TIME PROCEDURE ORDERING PROVIDER [id number] 10/01/2020 16:02 EDT MG Breast Tomosynthesis CONNIE SURESH HOLLY S BI Scr CPT code 15339 03009 Reason For Exam (MG Breast Tomosynthesis BI [...] 14, 2015, bilateral screening mammogram performed at [facility]. January 07, 2014, bilateral screening mammogram performed at [facility]. TISSUE DENSITY: BIRADS C - The breast [...] images: BB's = Nipples; skin lesions Open nulato = Palpable Line = Scar Mammography Report [...] am Signed by: DO MARSHALL RACHEL Normal [facility] APTTon 11-20-2018 aPTT Coag (Nicolas) [Time] 25.3 s 20 - 30.5 s M [facility], [place] Comment on above: NOTE: The therapeuti c time for Heparin anticoagulation, based on Xa activity inhibition, is an APTT of 46-80 seconds. Basic Metabolic Panelon 10-0 Anion gap [Moles/Vol] 12 mmol/L [facility] [place] [place] Calcium [Mass/Vol] 9.6 mg/dL 8.4 - 10. 4 mg/dL [place], [place] Chloride [Moles/Vol] 104 mmol/L 98 - 10 7 mmol/L [place] CO2 [Moles/Vol] 25 mmol/L 22 - 30 mmol/L [place] Creatinine [Mass/Vol] 0.7 mg/dL 0.52 - 1.25 mg/dL [place], [place] EGFR IF NonAfrican Malagasy >60.0 >60 mL/min [place], [place] Comment on above: Source- MDRD equatio n with creatinine calibration to IDMS(NKDEP) eGFR not recommended for drug dose adjustment GFR/1.73 sq M predicted among blacks MDRD (S/P/Bld) [Vol rate/Area] mL/min/{1.73_m2} >60 mL/min [place] Glucose [Mass/Vol] 108 mg/dL High 70 - 100 mg/dL [place] Interpretation and review of laboratory results Abnormal [place] Potassium [Moles/Vol] 4.9 mmol/L 3.5 - 5.1 mmol/L [place] Sodium [Moles/Vol] 140 mmol/L 135 - 145 mmol/L [place] Urea nitrogen [Mass/Vol] 12 mg/dL 7 - 20 mg/dL [place] Test Performed by [facility] , [address] CBCon 11-20-2018 Erythrocyte distribution width (RBC) [Ratio] 17.2 % High 11.5 - 14.5 % [place] Hematocrit (Bld) [Volume fraction] 32.4 % Low 35 - 47 % [place] Hemoglobin (Bld) [Mass/Vol] 10.3 g/dL Low 11.7 - 16 g/dL [place] Interpretation and review of laboratory results Abnormal [place] MCH (RBC) [Entitic mass] 21.8 pg Low 26 - 34 pg [place] MCHC (RBC) [Mass/Vol] 31.9 % Low 32 - 36 % [place] MCV (RBC) [Entitic vol] 68.3 fL Low 79 - 98 fL [place] Platelet mean volume (Bld) [Entitic vol] 8.0 fL 7.4 - 10.4 fL [place] Platelets (Bld) [#/Vol] 378 10*3/uL 140 - 440 10*3/uL [place] RBC (Bld) [#/Vol] 4.74 10*6/uL 3.8 - 5.2 10*6/uL [place] WBC (Bld) [#/Vol] 9.9 10*3/uL 3.6 - 10.7 10*3/uL [place] Test Performed by [facility], [address] , [address] Otheron 11-20-2018 Test Performed by [facility], [address] , [address] [employer] 11-20-2018 INR Coag (PPP) [Relative time] 0.9 {INR} [place], [place] Comment on above: Recommended Anticoag ulant [...] [Time] 10 s 9 - 12 s [place], [place] Comment on above: . Vital Signs Date Time Vital Sign Value Performing Clinician Erin luther 10-18-2024 15:00-0400 Body height 176.53 cm Sobeida CHEN Work Phone: [facility] 10-18-2024 15:00-0400 Body mass index (BMI) [Ratio] 33.9 kg/m2 Sobeida CHEN Work Phone: [facility] 10-18-2024 15:00-0400 Body weight 105.68 kg Sobeidaeyad ValdezRivero THREAD TOOL GRINDER SET UP OPERATOR-C Work Phone: [facility] 10-18-2024 15:00-0400 Diastolic blood pressure 85 mm[Hg] Sobeida Rivero THREAD TOOL GRINDER SET UP OPERATOR-C Work Phone: [facility] 10-18-2024 15:00-0400 Heart rate 71 /min Sobeida Rivero THREAD TOOL GRINDER SET UP OPERATOR-C Work Phone: [facility] 10-18-2024 15:00-0400 Respiratory rate 18 /min Sobeida Rivero THREAD TOOL GRINDER SET UP OPERATOR-C Work Phone: [facility] 10-18-2024 15:00-0400 SaO2% (BldA) [Mass fraction] 95 % Sobeida Rivero THREAD TOOL GRINDER SET UP OPERATOR-C Work Phone: [facility] 10-18-2024 15:00-0400 Systolic blood pressure 146 mm[Hg] Sobeida Rivero THREAD TOOL GRINDER SET UP OPERATOR-C Work Phone: [facility] 11-05-2022 13:52-0400 Diastolic blood pressure 91 mm[Hg] [facility] 11-05-2022 13:52-0400 Heart rate 77 /min [facility] 11-05-2022 13:52-0400 Respiratory rate 18 /min [facility] 11-05-2022 13:52-0400 SaO2% (BldA) [Mass fraction] 95 % [facility] 11-05-2022 13:52-0400 Systolic blood pressure 147 mm[Hg] [facility] 11-05-2022 12:03-0400 Body height 175.26 cm [facility] 11-05-2022 12:03-0400 Body mass index (BMI) [Ratio] 34.4 kg/m2 [facility] 11-05-2022 12:03-0400 Body temperature 97.4 [degF] [facility] 11-05-2022 12:03-0400 Body weight 105.77 kg [facility] 09-09-2022 18:29-0400 Body mass index (BMI) [Ratio] 34.2 kg/m2 [facility] 09-09-2022 18:29-0400 Body temperature 97.9 [degF] [facility] 09-09-2022 18:29-0400 Body weight 105.23 kg [facility] 09-09-2022 18:29-0400 Diastolic blood pressure 70 mm[Hg] [facility] 09-09-2022 18:29-0400 Heart rate 82 /min [facility] 09-09-2022 18:29-0400 Respiratory rate 18 /min [facility] 09-09-2022 18:29-0400 SaO2% (BldA) [Mass fraction] 97 % [facility] 09-09-2022 18:29-0400 Systolic blood pressure 140 mm[Hg] [facility] 08-01-2022 17:31-0400 Body mass index (BMI) [Ratio] 34.1 kg/m2 [facility] 08-01-2022 17:31-0400 Body temperature 97.9 [degF] [facility] 08-01-2022 17:31-0400 Body weight 104.77 kg [facility] 08-01-2022 17:31-0400 Diastolic blood pressure 80 mm[Hg] [facility] 08-01-2022 17:31-0400 Heart rate 92 /min [facility] 08-01-2022 17:31-0400 Respiratory rate 18 /min [facility] 08-01-2022 17:31-0400 SaO2% (BldA) [Mass fraction] 95 % [facility] 08-01-2022 17:31-0400 Systolic blood pressure 142 mm[Hg] [facility] 03-09-2022 14:16-0500 Body temperature 98.4 [degF] Dr. Gerald Baird Work Phone: [facility] 03-09-2022 14:16-0500 Diastolic blood pressure 74 mm[Hg] Dr. Gerald Baird Work Phone: [facility] 03-09-2022 14:16-0500 Heart rate 60 /min Dr. Gerald Baird Work Phone: [facility] 03-09-2022 14:16-0500 Respiratory rate 18 /min Dr. Gerald Baird Work Phone: [facility] 03-09-2022 14:16-0500 SaO2% (BldA) [Mass fraction] 100 % Dr. Gerald Baird Work Phone: [facility] 03-09-2022 14:16-0500 Systolic blood pressure 129 mm[Hg] Dr. Gerald Baird Work Phone: [facility] 03-08-2022 11:30-0500 Inhaled oxygen flow rate 4 L/min Dr. Gerald Baird Work Phone: [facility] 03-08-2022 06:15-0500 Body height 175.[address] Gerald Baird Work Phone: [facility] 03-08-2022 06:15-0500 Body mass index (BMI) [Ratio] 32.8 kg/m2 Dr. Gerald Baird Work Phone: [facility] 03-08-2022 06:15-0500 Body weight [address] Gerald Baird Work Phone: [facility] 02-24-2022 10:51-0500 Diastolic blood pressure 57 mm[Hg] Dr. Gerald Baird Work Phone: [facility] 02-24-2022 10:51-0500 Heart rate 84 /min Dr. Gerald Baird Work Phone: [facility] 02-24-2022 10:51-0500 Respiratory rate 16 /min Dr. Gerald Baird Work Phone: [facility] 02-24-2022 10:51-0500 SaO2% (BldA) [Mass fraction] 99 % Dr. Gerald Baird Work Phone: [facility] 02-24-2022 10:51-0500 Systolic blood pressure 129 mm[Hg] Dr. Gerald Baird Work Phone: [facility] 02-24-2022 08:47-0500 Body temperature 97.2 [degF] Dr. Gerald Baird Work Phone: [facility] 02-24-2022 08:01-0500 Body height 175.[address] Gerald Baird Work Phone: [facility] Work Phone: 02-24-2022 08:01-0500 Body mass index (BMI) [Ratio] 31.8 kg/m2 Dr. Gerald Baird Work Phone: [facility] 02-24-2022 08:01-0500 Body weight 97.[address] Gerald Baird Work Phone: [facility] 02-17-2022 15:03-0500 Body temperature 98.3 [degF] Dr. Gerald Baird Work Phone: [facility] 02-17-2022 15:03-0500 Diastolic blood pressure 61 mm[Hg] Dr. Gerald Baird Work Phone: [facility] 02-17-2022 15:03-0500 Heart rate 67 /min Dr. Gerald Baird Work Phone: [facility] 02-17-2022 15:03-0500 Respiratory rate 14 /min Dr. Gerald Baird Work Phone: [facility] 02-17-2022 15:03-0500 SaO2% (BldA) [Mass fraction] 96 % Dr. Gerald Baird Work Phone: [facility] 02-17-2022 15:03-0500 Systolic blood pressure 133 mm[Hg] Dr. Gerald Baird Work Phone: [facility] 02-17-2022 13:21-0500 Body height 175.[address] Gerald Baird Work Phone: [facility] Work Phone: 02-17-2022 13:21-0500 Body mass index (BMI) [Ratio] 31.8 kg/m2 Dr. Gerald Baird Work Phone: [facility] 02-17-2022 13:21-0500 Body weight 97.[address] Gerald Baird Work Phone: [facility] 02-10-2022 15:16-0500 Body temperature 98 [degF] Dr. Gerald Baird Work Phone: [facility] 02-10-2022 15:16-0500 Diastolic blood pressure 65 mm[Hg] Dr. Gerald Baird Work Phone: [facility] 02-10-2022 15:16-0500 Heart rate 68 /min Dr. Gerald Baird Work Phone: [facility] 02-10-2022 15:16-0500 Respiratory rate 16 /min Dr. Gerald Baird Work Phone: [facility] 02-10-2022 15:16-0500 SaO2% (BldA) [Mass fraction] 96 % Dr. Gerald Baird Work Phone: [facility] 02-10-2022 15:16-0500 Systolic blood pressure 119 mm[Hg] Dr. Gerald Baird Work Phone: [facility] 02-10-2022 13:35-0500 Body height 175.[address] Gerald Baird Work Phone: [facility] Work Phone: 02-10-2022 13:35-0500 Body mass index (BMI) [Ratio] 32.8 kg/m2 Dr. Gerald Baird Work Phone: [facility] 02-10-2022 13:35-0500 Body weight 100.[address] Gerald Baird Work Phone: [facility] 02-03-2022 12:53-0500 Body temperature 97.5 [degF] Dr. Gerald Baird Work Phone: [facility] 02-03-2022 12:53-0500 Diastolic blood pressure 49 mm[Hg] Dr. Gerald Baird Work Phone: [facility] 02-03-2022 12:53-0500 Heart rate 91 /min Dr. Gerald Baird Work Phone: [facility] 02-03-2022 12:53-0500 Respiratory rate 16 /min Dr. Gerald Baird Work Phone: [facility] 02-03-2022 12:53-0500 Systolic blood pressure 146 mm[Hg] Dr. Gerald Baird Work Phone: [facility] 02-03-2022 10:09-0500 Body mass index (BMI) [Ratio] 32.3 kg/m2 Dr. Gerald Baird Work Phone: [facility] 02-03-2022 10:09-0500 Body weight 99.[address] Gerald Baird Work Phone: [facility] 02-03-2022 10:09-0500 SaO2% (BldA) [Mass fraction] 100 % Dr. Gerald Baird Work Phone: [facility] 01-11-2022 15:43-0500 Body mass index (BMI) [Ratio] 35.3 kg/m2 Dr. Gerald Baird Work Phone: [facility] 01-11-2022 15:43-0500 Body weight 105.[address] Gerald Baird Work Phone: [facility] 01-11-2022 15:43-0500 Diastolic blood pressure 84 mm[Hg] Dr. Gerald Baird Work Phone: [facility] 01-11-2022 15:43-0500 Systolic blood pressure 139 mm[Hg] Dr. Gerald Baird Work Phone: [facility] 11-15-2021 13:52-0400 Body height 172.[address] Gerald Baird Work Phone: [facility] Work Phone: 11-15-2021 13:52-0400 Body mass index (BMI) [Ratio] 34.2 kg/m2 Dr. Gerald Baird Work Phone: [facility] 11-15-2021 13:52-0400 Body weight 102.[address] Gerald Baird Work Phone: [facility] 11-15-2021 13:52-0400 Diastolic blood pressure 83 mm[Hg] Dr. Gerald Baird Work Phone: [facility] 11-15-2021 13:52-0400 Systolic blood pressure 154 mm[Hg] Dr. Gerald Baird Work Phone: [facility] 11-09-2021 18:27-0400 Body mass index (BMI) [Ratio] 33.3 kg/m2 Dr. Gerald Baird Work Phone: [facility] 11-09-2021 18:27-0400 Body temperature 97.9 [degF] Dr. Gerald Baird Work Phone: [facility] 11-09-2021 18:27-0400 Body weight 99.[address] Gerald Baird Work Phone: [facility] 11-09-2021 18:27-0400 Diastolic blood pressure 90 mm[Hg] Dr. Gerald Baird Work Phone: [facility] 11-09-2021 18:27-0400 Heart rate 89 /min Dr. Gerald Baird Work Phone: [facility] 11-09-2021 18:27-0400 Respiratory rate 18 /min Dr. Gerald Baird Work Phone: [facility] 11-09-2021 18:27-0400 SaO2% (BldA) [Mass fraction] 96 % Dr. Gerald Baird Work Phone: [facility] 11-09-2021 18:27-0400 Systolic blood pressure 169 mm[Hg] Dr. Gerald Baird Work Phone: [facility] 09-29-2021 08:38-0400 Body mass index (BMI) [Ratio] 32.3 kg/m2 Dr. Gerald Baird Work Phone: [facility] Work Phone: 09-29-2021 08:38-0400 Body weight 96.[address] Gerald Baird Work Phone: [facility] Work Phone: 09-29-2021 08:38-0400 Diastolic blood pressure 99 mm[Hg] Dr. Gerald Baird Work Phone: [facility] Work Phone: 09-29-2021 08:38-0400 Heart rate 66 /min Dr. Gerald Baird Work Phone: [facility] Work Phone: 09-29-2021 08:38-0400 Respiratory rate 16 /min Dr. Gerald Baird Work Phone: [facility] Work Phone: 09-29-2021 08:38-0400 SaO2% (BldA) [Mass fraction] 94 % Dr. Gerald Baird Work Phone: [facility] Work Phone: 09-29-2021 08:38-0400 Systolic blood pressure 161 mm[Hg] Dr. Gerald Baird Work Phone: [facility] Work Phone: 07-09-2021 09:47-0400 Body temperature 98.1 [degF] [facility] Work Phone: 07-09-2021 09:47-0400 Diastolic blood pressure 86 mm[Hg] [facility] Work Phone: 07-09-2021 09:47-0400 Heart rate 59 /min [facility] Work Phone: 07-09-2021 09:47-0400 Respiratory rate 16 /min [facility] Work Phone: 07-09-2021 09:47-0400 SaO2% (BldA) [Mass fraction] 98 % [facility] Work Phone: 07-09-2021 09:47-0400 Systolic blood pressure 148 mm[Hg] [facility] Work Phone: 07-09-2021 06:00-0400 Body weight 95.1 kg [facility] Work Phone: 07-08-2021 19:22-0400 Body height 175.26 cm [facility] Work Phone: 07-08-2021 19:22-0400 Body mass index (BMI) [Ratio] 31 kg/m2 [facility] Work Phone: 06-14-2021 15:20-0400 Body mass index (BMI) [Ratio] 32.17 kg/m2 Gerald Delacruz [employer] Work Phone: [employer] [employer] Work Phone: 06-14-2021 15:20-0400 Body surface area Derived from formula 2.17 m2 Gerald Delacruz Brie Work Phone: [employer] [place] Work Phone: 06-14-2021 15:20-0400 Body temperature 98.1 [degF] Gerald Delacruz Brie Work Phone: [employer] [place] Work Phone: 06-14-2021 15:20-0400 Body weight 100.25 kg Gerald Baird Work Phone: [facility] [place] Work Phone: 04-19-2021 13:32-0500 Body height 176.53 cm Gerald Baird Work Phone: [facility] [place] Work Phone: 04-19-2021 13:32-0500 Body mass index (BMI) [Ratio] 32.68 kg/m2 Gerald Delacruz Brie Work Phone: [facility] [place] Work Phone: 04-19-2021 13:32-0500 Body surface area Derived from formula 2.18 m2 Gerald Delacruz Brie Work Phone: [facility] [place] Work Phone: 04-19-2021 13:32-0500 Body weight 101.83 kg Gerald Baird Work Phone: [facility] [place] Work Phone: 03-15-2021 15:32-0500 Body height 176.53 cm Gerald Baird Work Phone: [facility] [place] Work Phone: 03-15-2021 15:32-0500 Body mass index (BMI) [Ratio] 31.9 kg/m2 Gerald Baird Work Phone: [facility] [place] Work Phone: 03-15-2021 15:32-0500 Body surface area Derived from formula 2.16 m2 Gerald L Brie Work Phone: [facility] [place] Work Phone: 03-15-2021 15:32-0500 Body weight 99.4 kg Gerald Riosmer Work Phone: [facility] [place] Work Phone: 01-14-2019 16:16-0500 BMI (Body Mass Index) 30.61 kg/m2 Abigail Siddiqui [facility] [place] Work Phone: 01-14-2019 16:16-0500 Body weight 95.39 kg Abigailsuly Siddiqui [facility] [place] Work Phone: 01-14-2019 16:16-0500 BP Diastolic 103 mm[Hg] Abigail Siddiqui [facility] [place] Work Phone: 01-14-2019 16:16-0500 BP Systolic 165 mm[Hg] Abigail Siddiqui [facility] [place] Work Phone: 01-14-2019 16:16-0500 BSA (Body Surface Area) 2.12 m2 Abigail Siddiqui [facility] [place] Work Phone: 01-14-2019 16:16-0500 Height 176.53 cm Abigail Siddiqui [facility] [place] Work Phone: 01-14-2019 16:16-0500 Pulse (Heart Rate) 74 /min Abigail Siddiqui [facility] [place] Work Phone: 01-14-2019 16:16-0500 Respiratory Rate 18 /min Abigail Siddiqui [facility] [place] Work Phone: Encounters Encounter Date Encounter Type Care Provider Facility Start: 10-18-2024 End: 10-18-[address] Jonny Hendricks MD [email or web address] Work Phone: Start: 10-18-2024 End: 10-18-2024 ambulatory Sobeida Rivero THREAD TOOL GRINDER SET UP OPERATOR-C Work Phone: [email or web address] Start: 04-01-2024 Encounter for gynecological examination (general) (routine) without abnormal findings Bee Ball [facility] Start: 04-01-2024 End: 04-01-2024 ambulatory Bee Ball Facility:[facility] Start: 02-27-2024 End: 02-27-2024 ambulatory Nahum Tamai Henrry THREAD TOOL GRINDER SET UP OPERATOR Facility:[facility] Start: 01-25-2024 ambulatory Sobeida Rivero THREAD TOOL GRINDER SET UP OPERATOR Faci lity:[facility] Start: 01-24-2024 ambulatory Tete Montoya Facility:[facility] Start: 01-24-2024 End: 01-29-2024 Evaluation and management of inpatient Tete Montoya Facility:[facility] Start: 01-09-2024 Encounter for other preprocedural examination Hardik Wiley [facility] Start: 12-19-2023 End: 12-19-2023 ambulatory Hardik Wiley Facility:[facility] Start: 11-06-2023 End: 11-06-2023 ambulatory Sobeida Rivero THREAD TOOL GRINDER SET UP OPERATOR Facility:[facility] Start: 03-14-2023 End: 03-14-2023 Non-patient / Non-visit THREAD TOOL GRINDER SET UP OPERATOR-C Sobeida Rivero THREAD TOOL GRINDER SET UP OPERATOR Work Phone: [facility] Work Phone: Start: 03-14-2023 End: 03-14-2023 ambulatory THREAD TOOL GRINDER SET UP OPERATOR-C Sobeida Rivero THREAD TOOL GRINDER SET UP OPERATOR Work Phone: [facility] Work Phone: Start: 03-14-2023 End: 03-14-2023 Patient encounter procedure THREAD TOOL GRINDER SET UP OPERATOR-Julio Cesar Rivero THREAD TOOL GRINDER SET UP OPERATOR Work Phone: [facility]-Pulmonary Services/Neurology Work Phone: Start: 02-01-2023 End: 02-01-2023 Emergency department patient visit SOBEIDA RIVERO Facility:[facility] Start: 11-05-2022 End: 11-05-2022 Emergency department patient visit [facility]-Emergency Department Work Phone: Start: 03-09-2022 Non-patient / Non-visit Dr. Chacon Work Phone: [facility] Start: 03-08-2022 End: 03-09-2022 Evaluation and management of inpatient Dr. Gerald Baird Work Phone: [facility]-Medical Surgical 3 Start: 03-08-2022 End: 03-09-[address] Gerald Baird Work Phone: [facility] Work Phone: Start: 03-08-2022 Non-patient / Non-visit Dr. Chacon Work Phone: [facility] Start: 02-24-2022 End: 02-24-2022 Emergency department patient visit Dr. Gerald Baird Work Phone: [facility]-Emergency Department Start: 02-17-2022 End: 02-17-[address] Gerald Baird Work Phone: [facility] Work Phone: Start: 02-17-2022 End: 02-17-[address] Gerald Baird Work Phone: [facility]-Medical Out Start: 02-10-2022 End: 02-10-[address] eGrald Baird Work Phone: [facility] Work Phone: Start: 02-10-2022 End: 02-10-[address] [facility] Start: 02-03-2022 End: 02-03-[address] Gerald Baird Work Phone: [facility] Work Phone: Start: 02-03-2022 End: 02-03-[address] [facility] Start: 01-26-2022 End: 01-26-[address] Gerald Baird Work Phone: [facility]-Laboratory, OP Pavilion Start: 01-19-2022 End: 01-19-[address] Gerald Baird Work Phone: [facility] Work Phone: Start: 01-19-2022 End: 01-19-[address] Gerald Baird Work Phone: [facility]-Pre-Admission Testing Start: 01-11-2022 Non-patient / Non-visit Dr. Chacon Work Phone: [facility] Start: 01-11-2022 End: 01-11-[address] Gerald Baird Work Phone: [facility] Start: 12-28-2021 End: 12-28-[address] Gerald Baird Work Phone: [facility] Work Phone: Start: 12-28-2021 End: 12-28-[address] Gerald Baird Work Phone: [facility]-Laboratory, OP Pavilion Start: 12-01-2021 End: 12-01-[address] Gerald Baird Work Phone: [facility]-Outpatient Pavilion Ultrasound Start: 11-26-2021 End: 11-26-[address] Gerald Baird Work Phone: [facility] Work Phone: Start: 11-26-2021 End: 11-26-[address] Gerald Baird Work Phone: [facility]-Outpatient Breast Imaging Start: 11-15-2021 End: 11-15-[address] Gerald Baird Work Phone: [facility] Start: 09-29-2021 End: 09-29-[address] Gerald Baird Work Phone: [facility] Start: 09-24-2021 Non-patient / Non-visit Dr. Chacon Work Phone: [facility] Start: 07-08-2021 End: 07-09-2021 Evaluation and management of inpatient [facility] Care Unit Start: 06-14-2021 Postop follow up vis it related to original px Gerald Baird Work Phone: TL-Utqodzfmnwbzvj-Uwpi n Work Phone: Start: 06-04-2021 Chart Update Gerald Kuhn er Work Phone: ZM-Iswlshbyyhskcf-Ylub n [address] Work Phone: Start: 05-24-2021 End: 05-24-2021 Subsequent hospital visit by physician Abigail Siddiqui Work Phone: [facility] Start: 04-19-2021 Office outpatient vi sit 25 minutes Gerald Baird Work Phone: XP-Cbzfzlxjrqtkex-Yvfe n Work Phone: Start: 03-22-2021 End: 03-22-2021 Subsequent hospital visit by physician Abigail [facility]iddiqui [facility] Comment on above: Arrived Start: 03-18-2021 AUDIT Gerald Kuhn er Work Phone: NX-Dgcpocpyfaberr-Gxzk n [address] Work Phone: Start: 03-15-2021 Office outpatient vi sit 15 minutes Gerald Baird Work Phone: FI-Axqfzqnzzioetl-Jacy n Work Phone: Start: 10-07-2020 End: 10-07-2020 Subsequent hospital visit by physician Josette Suresh 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 - [employer] Work Phone: [facility] [facility] Comment on above: Mass of sternum; Class 1 obesity due to excess calories without serious comorbidity with body mass index (BMI) of 31.0 to 31.9 in adult; Allergic rhinitis, unspecified seasonality, unspecified trigger; Screening for deficiency anemia; Essential hypertension; Screening for diabetes mellitus; Screening for lipoid disorders Start: 10-01-2020 End: 10-01-2020 Subsequent hospital visit by physician Josette Suresh 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 - STRESS 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 Work Phone: [facility] Comment on above: Arrived Start: 01-14-2019 Patient encounter procedure Abigail Siddiqui MPST-Nbrnihabrqyxle-Orxo n Work Phone: Start: 11-20-2018 End: 11-20-2018 Subsequent hospital visit by physician Abigail Siddiqui Work Phone: [facility] Start: 11-12-2018 Patient encounter procedure Abigail Siddiqui LL-Qbzgrpbnpbahwe-Erot n Work Phone: Start: 07-02-2018 Patient encounter procedure Abigail Siddiqui AZ-Vhodbqlejjqfwa-Jsrg n Work Phone: Start: 04-16-2018 Patient encounter procedure Abigail Siddiqui ZL-Uevillxbhwwxhf-Rhjj n Work Phone: Start: 03-20-2018 Patient encounter procedure Abigail Siddiqui UJ-Oalsqzxwrdsdam-Ltyn n Work Phone: Start: 03-09-2018 Patient encounter procedure Abigail Siddiqui MPEV-Kgpalsfclfeybo-Jear n Work Phone: Patient encounter status Gerald Baird Work Phone: XK-Hlhlrugcefkbek-Ieyh n Work Phone: Procedures Date Procedure Procedure Detail Performing Clinician Start: 01-03-2024 History of operative procedure on knee History of right knee surgery Sobeida CHEN Work Phone: Start: 04-04-2023 History of operative procedure on knee History of left knee surgery Sobeida Valdezson THREAD TOOL GRINDER SET UP OPERATOR-C Work Phone: Start: 03-08-2022 Abdominal hysterecto my with conservation of ovaries Dr. Gerald Baird Work Phone: Start: 02-24-2022 Plain chest X-ray Dr. Amrik Baird Work Phone: Start: 12-01-[address] Gerald Baird Work Phone: Start: 11-26-[address] Amrik Baird Work Phone: Start: 11-26-[address] 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 Gerald Baird Work Phone: History of History o f prior surgery Abigail Siddiqui History of mastectomy History of breast lump removal History of prior surgery Skyler silverserafin Baird Work Phone: Comment on above: toe; Operation on breast Aibgail Moran lachelle Comment on above: benign lumps removed both breasts; Plan of Treatment Date Care Activity Detail Author Start: 10-07-2025 Lipid panel Lipid screen [facility] Start: 09-21-2025 Screening for malign ant neoplasm of cervix [facility] Start: 10-18-2024 Screening mammography SCRN JOSE ALBERTO M (CAD)W/ADAMA BILAT [facility] Start: 09-22-2023 Screening for malign ant neoplasm of cervix Pap smear [facility] Start: 02-07-2023 Cervical cancer screen Cervical canc er screen [place] Start: 10-01-2022 Screening for malign ant neoplasm of breast Breast cancer screen [facility] Start: 04-14-2022 COVID-19 Vaccine (1) COVID-19 Vaccin e (1) [facility] Comment on above: Postponed from 05/11 (Patient Refused) Start: 03-09-2022 Patient discharge [facility] Start: 03-09-2022 Introduction of urin kevon catheter [facility] Start: 03-08-2022 Following clinical pathway protocol [facility] Start: 03-08-2022 Ambulation therapy management [facility] Start: 03-08-2022 Continuous pulse oximetry [facility] Start: 03-08-2022 Elevation of head of bed [facility] Start: 03-08-2022 Incentive spirometry [facility] Start: 03-08-2022 Measuring intake and output [facility] Start: 03-08-2022 Notification of physician [facility] Start: 03-08-2022 Oxygen therapy [facility] Start: 03-08-2022 Patient education [facility] Start: 03-08-2022 Procedures relating to eating and drinking [facility] Start: 03-08-2022 Taking patient vital signs [facility] Start: 03-08-2022 End: 03-08-2022 [facility] Start: 03-08-2022 Introduction of urin kevon catheter [facility] Start: 03-08-2022 Admission procedure [facility] Start: 02-20-2022 DTaP/Tdap/Td vaccine (2 - Td or Tdap) DTaP/Tdap/Td vaccine (2 - Td or Tdap) [facility] Start: 02-20-2022 DTaP/Tdap/Td vaccine (2 - Td) DTaP/Tdap/Td vaccine (2 - Td) [place], [place] Start: 02-17-2022 Iv infusion therapy prophylaxis/dx ea hour THER/PROPH/DIAG IV INF [facility] Start: 02-17-2022 Iv infusion therapy/prophylaxis /dx 1st to 1 hr THER/PROPH/DIAG IV INF [facility] Start: 02-10-2022 Iv infusion therapy prophylaxis/dx ea hour THER/PROPH/DIAG IV INF [facility] Work Phone: Start: 02-10-2022 Iv infusion therapy/prophylaxis /dx 1st to 1 hr THER/PROPH/DIAG IV INF [facility] Work Phone: Start: 02-03-2022 Iv infusion therapy prophylaxis/dx ea hour THER/PROPH/DIAG IV INF [facility] Work Phone: Start: 02-03-2022 Iv infusion therapy/prophylaxis /dx 1st to 1 hr THER/PROPH/DIAG IV INF [facility] Work Phone: Start: 11-26-2021 Testosterone [facility] Work Phone: Start: 10-15-2021 End: 10-15-2021 Patient encounter procedure 10/15/2021 Office Visit Family Medicine Josette Suresh, 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 - STRESS ANALYST [address] [place] [address] [facility] Start: 09-17-2021 Depression Screen Depression Screen [facility] Start: 09-17-2021 Hepatitis C screening Hepatitis C sc reen [facility] Comment on above: Postponed from 05/11 [...] (Patient Refused) Start: 06-14-2021 POV, Provider: Abigail Siddiqui, Status: Pen, Time: 3:45 PM POV, Provider: Abigail Siddiqui, Status: Pen, Time: 3:45 PM QK-Slufbaueerolcd-Wh thony Work Phone: Start: 04-19-2021 FUV, Provider: Abigail Siddiqui, Status: Pen, Time: 1:45 PM FUV, Provider: Abigail Siddiqui, Status: Pen, Time: 1:45 PM KT-Goemkcidqrbmkz-Tf min [address] Work Phone: Start: 03-24-2021 End: 03-24-2021 Patient encounter procedure [facility] Start: 12-02-2020 Lipid panel Lipid screen [facility] Work Phone: Start: 12-02-2020 Lipid screen Lipid screen [place], [place] Start: 10-21-2020 Influenza vaccination Flu vaccine (# 1) [facility] Start: 04-05-2020 Breast cancer screen Breast cancer s creen [place], [place] Start: 04-05-2020 Screening for malign ant neoplasm of breast Breast cancer screen [facility] Work Phone: Start: 09-18-2019 Shingles Vaccine (1 of 2) Aguilar gles Vaccine (1 of 2) [place] Comment on above: Postponed from 05/11 (Patient Refused) Start: 02-07-2019 HIV screen HIV screen [place], [place] Comment on above: Postponed from 05/11 (Patient Refused) Start: 02-07-2019 Influenza vaccination Flu vaccine (# 1) [place], [place] Comment on above: Postponed from 10/21 (Patient Refused) Start: 2018 Colon cancer screen colonoscopy [facility] Start: 2013 Screening for malign ant neoplasm of colon [facility] Start: 2008 [facility] Start: 05-12-2003 Diabetes screen Diabetes screen [facility] Start: 1980 COVID-19 Vaccine (1) COVID-19 Vaccin e (1) [facility] Work Phone: Start: 1973 COVID-19 Vaccine (1) COVID-19 Vaccin e (1) [facility] CBC W Auto Different ial panel - Blood [facility] Comprehensive metabo lic 2000 panel - Serum or Plasma [facility] End: 03-22-2021 CT SOFT TISSUE NECK W CONTRAST [facility] Work Phone: Comment on above: Once for 1 Occurrenc es starting 03/22/2021 until 03/22/2021 Evaluation of diagno stic study results [facility] Magnesium measurement [facility] Patient Education [facility] Work Phone: Patient referral [facility] Work Phone: End: 10-01-2020 Screening digital breast tomosynthesis bi Jose Alberto Adama Digital Screen Bilateral Imaging Routine Once for 1 Occurrences starting 10/01/2020 until 10/01/2020 [facility] Work Phone: Comment on above: Once for 1 Occurrenc es starting 10/01/2020 until 10/01/2020 Screening digital br east tomosynthesis bi Jose Alberto Adama Digital Screen Bilateral Imaging Routine 10/01/2020 3:45 PM EDT [facility] Work Phone: Testosterone Free [Mass/volume] in Serum or Plasma [facility] Work Phone: Testosterone measurement [facility] Work Phone: Thyroid stimulating hormone measurement [facility] Thyroxine measurement [facility] Urine test [facility] Work Phone: Urine test [facility] End: 10-07-2020 XR STERNUM (MIN 2 VIEWS) XR STERNUM (MIN 2 VIEWS) Imaging Routine Mass of sternum 1 Occurrences starting 10/07/2020 until 10/07/2020 [facility] Work Phone: Comment on above: 1 Occurrences starti ng 10/07/2020 until 10/07/2020 XR STERNUM (MIN 2 VIEWS) XR STER NUM (MIN 2 VIEWS) Imaging Routine Mass of sternum 10/07/2020 10:51 AM EDT [employer] Work Phone: Immunizations Immunization Date Immunization Notes Care Provider Azra seals 02-21-2012 tetanus toxoid, redu marsha diphtheria toxoid, and acellular pertussis vaccine, adsorbed [place], [place] Payers Date Payer Category Payer Self-pay [id number] 2022 Unknown [id number] 2021 Unknown [id number] 2020 Unknown [id number] .[id number] 2018 Unknown BCBS BCBS - [place] P PO xxxxxxxxxxxx 2018-Present [address] [place] [address] xxxxxxxxxxxx [id number] Private Health Insurance [id number] Unknown Unknown [id number] [id number] .462 Unknown [id number] .[id number] .462 Unknown [id number] 2.16840.1.655073.3.579.2 .462 Unknown [id number] 2.16.840.1.734729.3.579.2 .462 Unknown [id number] 2.16.840.1.323667.3.579.2 .462 Unknown [id number] 2.16.840.1.178647.3.579.2 .462 Unknown [id number] 2.16.840.1.542293.3.579.2 .462 Unknown [id number] 2.16.840.1.259357.3.579.2 .462 Unknown [id number] 2.16.840.1.678789.3.579.2 .462 Unknown [id number] 2.16.840.1.739506.3.579.2 .462 Unknown [id number] 2.16.840.1.181832.3.579.2 .462 Unknown [id number] 2.16.840.1.379041.3.579.2 .462 Unknown [id number] 2.16.840.1.879195.3.579.2 .462 Unknown [id number] 2.16.840.1.500174.3.579.2 .462 Social History Date Type Detail Facility Start: 09-17-2018 End: 04-01-2024 Tobacco smoking status [facility] Former smoker [place], [place] Start: 02-21-1988 End: 02-20-2010 History of tobacco use Cigarette Smoker [place], [place] Start: 09-17-2018 Alcohol intake No [place], [place] Start: 1970 Sex Assigned At Not on file [place], [place] Start: 02-21-1988 End: 02-20-2010 History of tobacco use Current smoker [employer] Work Phone: Start: 04-24-2017 End: 09-21-2020 Cigarettes smoked current (pack per day) - Reported [employer] Work Phone: Start: 04-24-2017 End: 09-21-2020 Tobacco use and exposure Never used [employer] Phone: Start: 09-21-2020 End: 04-14-2021 Alcohol intake Current non-drinker of alcohol (finding) [facility] Work Phone: Start: 09-17-2020 History SDOH Alcohol Frequency 2 [facility] Work Phone: Start: 09-17-2020 History SDOH Alcohol Std Drinks 1 [employer] Work Phone: Start: 09-17-2020 History SDOH Physica l Activity DPW 0 [facility] Work Phone: Start: 09-17-2020 History SDOH Financial 4 [facility] Work Phone: Exposure to SARS-CoV -2 (event) Not sure [facility] Start: 07-08-2021 End: 11-05-2022 Tobacco smoking status NHIS Unknown if ever smoked [facility] Start: 1970 Sex Assigned At Female W [facility] NEGATED: Highlighted row - - LS-Jwzxbqtnclrbqu-Ft thony Work Phone: NEGATED: Highlighted row [facility] Goals Date Patient Goal Desired Activity /State [...] more Functional Status Date Assessment Result Facility 03-09-2022 Functional status Ambulates;Leo r;Bedre st;Bathroom Privilege [facility] Work Phone: 07-09-2021 Functional status Ambulates [facility] Work Phone: NEGATED: Highlighted row Functional performance Functional status health issues are not documented Disease FW-Jbwfqmovpnxhvy-Az thony Work Phone: Mental Status Date Assessment Result Facility 03-09-2022 Cognitive function Level Of Cons ciousness Awake;Alert;Appropriate [facility] Work Phone: 03-09-2022 Cognitive function Voice/Name [facility] Work Phone: 02-24-2022 Cognitive function Level Of Cons ciousness Awake;Alert;Appropriate ;Follows Commands [facility] Work Phone: 02-17-2022 Cognitive function Voice/Name [facility] Work Phone: 02-10-2022 Cognitive function Voice/Name [facility] Work Phone: 02-03-2022 Cognitive function Level Of Cons ciousness Awake;Alert [facility] Work Phone: 07-09-2021 Cognitive function Voice/Name [facility] Work Phone: NEGATED: Highlighted row Cognitive function [Interpretation] Cognitive status health issues are not documented Disease CN-Xbuttcyghgwuqy-N janelle Work Phone: Clinical Notes 01-08-2021 to 01-29-2024 Note Date & Type Note Facility 01-29-2024 Note [facility] Medical Records Department [address] [place] [address] Discharge Summary 01/29/24 1346 MR#: [id number] Acct: [id number] Name: BEE ESPINOZA Rep #: [id number] : 1970 53 From: Velia Maradiaga DO PCP: APRIL Owens Status:ADM IN Location: [place] [address] Providers Date of Admission: 01/24/24 Date of Discharge: 01/29/24 Primary Care Physician: APRIL Owens Reason For Visit: HYPOXIA, AFIB WITH RVR Diagnosis Discharge Diagnosis (1) Atrial fibrillation with RVR: Status: Acute Code(s): I48.91 - Unspecified atrial fibrillation (2) Pneumonia: Status: Acute Code(s): J18.9 - Pneumonia, unspecified organism Medications at Discharge Home Medications amlodipine 10 mg tablet 10 mg PO DAILY #90 tabs 11/06/23 hydroxyzine HCl 10 mg tablet 10 mg PO TID-QID PRN anxiety #45 tabs 11/22/23 aspirin 81 mg tablet,delayed release 81 mg PO BID 01/24/24 apixaban 5 mg tablet (Eliquis) 5 mg PO BID #60 tabs 01/29/24 levofloxacin 750 mg tablet 750 mg PO DAILY #2 tabs 01/29/24 metoprolol tartrate 100 mg tablet 100 mg PO BID #60 tabs 01/29/24 Hospital Course Operations None Procedures 2-D Echocardiogram, EKG and - (CTA chest) Summary of Care Provided Minutes Spent on Discharge: 40 Hospital Course: Ms Espinoza is a 53-year-old female who presented to the emergency department [facility] on 01/24/2024 due to shortness of breath. She had a remote history of A-fib in 2021 and had been on metoprolol since that point in time. She is not on anticoagulation at baseline. Upon arrival to the emergency department she was found to have a heart rate of 182 and was given IV fluids and eventually converted to sinus rhythm however reverted back to A-fib/flutter in the emergency department prior to admission. She had recent surgery so a CTA of the chest was performed and noted pneumonia but no pulmonary embolus.. Vital signs on presentation showed temperature of 99.2, blood pressure 91/58 and pulse ox was 95% on room air but did drop to 91% on room air. Patient did eventually require some oxygen during her hospital course as her sats dropped below 88 on room air. On presentation she did endorse a cough and increased fatigue and shortness of breath with chills prior to presentation. Patient indicated on presentation that she has been coughing so hard she vomited. She was admitted to telemetry and placed on a Cardizem drip and a heparin drip initially for her atrial fibrillation and antibiotics with azithromycin and Zosyn. Echocardiogram was ordered and demonstrated an EF of 65% with no evidence of diastolic dysfunction or valvular abnormalities. She again reverted back into normal sinus rhythm and was transition from Cardizem to Lopressor 100 mg p.o. twice daily. She was also transition from heparin to Eliquis in preparation for discharge. With regards to her pneumonia she had 5 days of antibiotics at the time of discharge so we will complete her course with Levaquin 5 750 mg p.o. twice daily for the next 2 days. Clinically she is doing much better. I have advised that she follow-up with outpatient cardiology given that this is recurrent atrial fibrillation however both episodes have been provoked with the first being status post hysterectomy and the second being status post pneumonia. She may benefit from an event monitor versus loop recorder to assess her need for ongoing anticoagulation. We did schedule appointment for her to follow-up with cardiology in early February. She is to follow-up with orthopedic surgery as previously directed and her primary care physician within the next 2 weeks. Prescriptions for the Lopressor, Eliquis, and Levaquin were sent to her local pharmacy. Patient is to maintain weightbearing status with nonweightbearing on right lower extremity until cleared by orthopedic surgery otherwise. Patient was discharged home in stable condition on 01/29/2024. Discharge diagnoses: Paroxysmal atrial fibs with RVR Community-acquired pneumonia Hypoxia-resolved Acute viral gastroenteritis-resolved Recent orthopedic surgery right knee Hypertension Obesity Anxiety Physical Exam Const alert, oriented x3, no apparent distress, no limitations and well nourished; Negative for average body habitus Constitutional Narrative: Middle-aged, white female, sitting up in bed watching television, appears comfortable, nontoxic, on room air General Appearance: cooperative, comfortable, well kempt and well developed Orientation / Consciousness: awake, oriented to person, oriented to place and oriented to time Exam Limitations: no limitations Nutritional Appearance: obese HEENT normocephalic, head/scalp atraumatic, hearing grossly normal bilaterally and moist oral mucous membranes HEENT Narrative: Mallampati 2-3, no thrush Eyes PERRL and conjunctivae normal (more content not included)... [facility] 03-09-2022 Progress note Note Date/Time March 09, 2022 8:04am [facility] Medical Records Department [address] [place] [address] Progress Note - OBGYN 03/09/22 0801 MR#: [id number] Acct: [id number] Name: BEE ESPINOZA Rep #:[id number] : 1970 51 From: Bee Ball DO PCP: APRIL Owens Status:ADM [facility]ETH Location: [place]3 PP831-5 Subjective Subjective Patient is laying in bed comfortably without complaints. She states that she slept on an off during the night. No vaginal bleeding present. She wonders aboutstaying a few hours extra due to some dizziness when she stands. Still has scopolamine patch on. Recommend removing this. Objective Data Objective Data Vital Signs: Vital Signs Temp Pulse Resp BP Pulse Ox O2 Del Method O2 Flow Rate 98.4 F 78 18 135/79 H 97 Room Air 4 03/09/22 04:30 03/09/22 04:30 03/09/22 04:30 03/09/22 04:30 03/09/22 04:30 03/09/22 04:30 03/08/22 11:30 Oxygen Flow Rate (L/min) 4 Oxygen Delivery Method Room Air Weight: 222 lb 10.67 oz Body Mass Index (BMI) 32.8 Intake & Output: Intake and Output for Last 24 Hours 03/07/22 03/08/22 03/09/22 23:59 23:59 23:59 Intake Total 3214 / 3214 1500 / 1500 Balance 3214 / 3214 1500 / 1500 Lab / Micro Data Result Diagrams: 03/09/22 04:38 Labs: Laboratory Results - last 24 hr 03/09/22 04:38: WBC 10.2, RBC 4.38, Hgb 9.8 L, Hct 33.2 L, MCV 75.8 L, MCH 22.4 L, MCHC 29.5 L, RDW Std Deviation 58.5 H, RDW Coeff of Sandra 21.5 H, Plt Count 422, MPV 10.0, Differential Comment SCANNED ROS Constitutional Constitutional: Reports systems reviewed and no addt'l complaints, except as documented Cardiovascular Cardiovascular: Denies chest pain, dizziness, dyspnea or irregular heart rhythm Respiratory/Chest Respiratory/Chest: Denies cough, pain on inspiration or shortness of breath at rest Gastrointestinal Gastrointestinal: Denies abdominal pain, nausea or vomiting Genitourinary Genitourinary: Denies burning urination Musculoskeletal Musculoskeletal: Denies muscle cramps, muscle spasms or muscle weakness Neurologic Neurologic: Denies confusion, dizziness, headache(s) or lack of coordination Psychiatric Psychiatric: Denies anxiety, behavioral changes or depression Physical Exam HEENT normocephalic Resp normal respiratory effort and normal air movement GI soft to palpation, non-tender and non-distended Rectal Exam: other Other Details: Incision is clean, dry, and intact no CVA tenderness Extremity normal to inspection General Extremity: edema bilateral (trace ) Assessment & Plan (1) Status post hysterectomy: (2) Heavy menses: QUALIFIERS: Menorrhagia type: with irregular cycle Qualified Code(s): N92.1 - Excessive and frequent menstruation with irregular cycle (3) Fibroid uterus: (4) Atrial fibrillation with RVR: (5) Essential hypertension: COMMENT: CONTROLLED WITH MED (6) Anemia: PLAN: Plan patient is s/p robotic hysterectomy LSO for severe anemia and menorrhagia - POD1 1. routine ERAS protocol postop care- increase ambulation, encourage oral intakeand oral control of pain. scds for dvt prophylaxis, patient stable for discharge to home later today if no longer dizzy. 03/09/22 0804 <Electronically signed by Bee Ball DO> Cosigner Signature (if applicable): CC: ~ Signed [facility] Work Phone: 1(826) 571-426601-17-[address] De Anda [facility] March 08, 2022 9:27am Note Date/Time March 08, 2022 9 :25am [facility] Medical Records Department [address] [place] [address] Instructions for Home/Discharge Instructions 03/08/22 0925 MR#: [id number] Acct: [id number] Name: BEE ESPINOZA Rep #:[id number] : 1970 51 From: Bee Ball DO PCP: Sobeida Rivero NP-C [place] Instructions Diet Discharge Diet: No restrictions Activity May resume sexual activity in: 6 weeks Weight Bearing Status: Full weight bearing Dressing / Incision Call your doctor if your incision/area has: Continuous Slow Oozing, Sudden Increased Bleeding, Increased Pain/ Swelling, Increased Redness and Foul Smelling Discharge Call your doctor if you observe: Fever of 101 or Higher, Using more than 1 pad per hour, Shortness of breath, Chest pain and Uncontrolled pain Suture Line Care: Avoid Pulling/Pushing and Avoid Pinching/Bending Remove Dressing in: 1 week (if present) Cleanse incision/area with: Soap & Water and Keep Dressing Clean & Dry Follow Up Care Please Follow Up With: Bee Ball DO When: Call to make an appointment with your doctor for a postop visit in 2 and 6weeks Test Results: Test results from this visit will be discussed in further detail at your follow- up appointment, if applicable. Discharge Plan Admission Primary Reason for Your Visit: robotic hysterectomy Attending Provider: Bee Ball Primary Care Provider: Sobeida Rivero NP Discharge Orders/Prescriptions Prescriptions: New oxycodone-acetaminophen [Percocet] 5-325 mg tablet 1 tab PO Q4H PRN (Reason: pain) 7 Days Qty: 30 0RF Rx Instructions: 1-2 tabs q 4 hrs as needed for pain naproxen 500 mg tablet 500 mg PO BID PRN (Reason: pain) 10 Days Qty: 40 0RF Continued metoprolol succinate 100 mg tablet extended release 24 hr 100 mg PO QHS Label Comments: take 1 tablet by mouth once daily Rx Instructions: Hold for heart less than 60 or systolic blood pressure less than 100 mmHg. amlodipine 10 mg tablet 10 mg PO DAILY Qty: 90 3RF Discontinued medroxyprogesterone [Provera] 10 mg tablet 10 mg PO BID Referrals / Follow Up: Sobeida Rivero NP THREAD TOOL GRINDER SET UP OPERATOR-C [Primary Care Provider] - Disposition Disposition (needs filled in before D/C Order can be placed): Home, Self Care 03/08/22926<Electronically signed by Bee Ball DO>Bee Ball DO CC: THREAD TOOL GRINDER SET UP OPERATOR-C Sobeida Rivero ~ Signed [facility] Work Phone: 1(625) 201-887901-17-2023 History and physical note Author Dr. De Anda [facility] March 08, 2022 7:29am Note Date/Time March 08, 2022 7 :26am [facility] Medical Records Department [address] [place] [id number] History & Physical Exam 03/08/22725 MR#: [id number] Acct: [id number] Name: BEE ESPINOZA Rep #:[id number] : 1970 51 From: Bee Ball DO PCP: APRIL Owens [place]: [place] [address] History and Physical Date of Admission: 03/08/22 Intake Vital Signs ?? 11/15/2212:52? 01/11/2215:28? 01/11/2215:43 Height? 5 ft 8 in? 5 ft 8 in? 5 ft 8 in Weight:? 232 lb 4 oz BMI? 35.3 BP? 139/84 H Intake Visit Reasons:?robotic hyst Software Validation Technician Required: No Is patient in pain?: No Allergies codeine Adverse Reaction (Verified 01/11/22 15:43)Other Medications metoprolol succinate 100 mg tablet,extended release 24 hr 100 mg PO QHS 09/29/21 [History Confirmed 11/15/21] B-complex with vitamin C 1 tab PO DAILY 11/15/21 [History Confirmed 11/15/21] cholecalciferol (vitamin D3) 50 mcg (2,000 unit) capsule 50 mcg PO DAILY 11/15/21 [History Confirmed 11/15/21] ferrous sulfate 325 mg (65 mg iron) tablet 325 mg PO DAILY 11/15/21 [History Confirmed 11/15/21] amlodipine 10 mg tablet 10 mg PO DAILY #90 tabs 12/20/21 [Rx] medroxyprogesterone 10 mg tablet (Provera) 10 mg PO DAILY #30 tabs 12/30/21 [Rx] naproxen 500 mg tablet 500 mg PO BID PRN pain #30 tabs 01/11/22 [Rx Confirmed 01/11/22] oxycodone-acetaminophen 5 mg-325 mg tablet (Percocet) 1 tab PO Q4H PRN pain 7 days #30 tabs 01/11/22 [Rx Confirmed 01/11/22] Post menopausal: No Patient : No : [facility]? Abnormal Pap smear of cervix Atrial fibrillation with RVR (07/08/21) Essential hypertension Fibroid Hyperlipidemia Microcytic anemia Surgical History? History of breast lump removal History of submandibular gland removal Status post colposcopy Family History? Mother?? ,? from complications from mitral valve disease Mitral valve disorderBrother HypertensionSister Atrial fibrillation HypertensionFather ?? No problems noted. Social History? Smoking Status:? Former smoker how long ago did patient quit smoking:? 2010 alcohol intake:? current alcohol intake frequency: holidays/special occasions only substance use type:? does not use caffeine:? No what type of physical activity do you participate in:? walking frequency:? 5-6 times per week seatbelt use:? always do you feel safe at home:? Yes additional social history:? [facility] robotic hy Details: BEE ESPINOZA is a 51 year old who presents for pre-op Total robotic hysterectomy due to a history of heavy menses (none sine her heart incident in June). She recently took a steroid dose pack and the bleeding came back but only spotting. She states that prior to COVID she was diagnosed with a fibroid uterusthat was 7 cm and 5 cm in size, at [facility]. She was given treatment options but nothing was carried through when the pandemic hit. She is now ready to discuss hysterectomy due to ongoing problems with the fibroids that are causing pressure and bladder retention. Current ultrasound shows: FINDINGS: The uterus is anteverted and is in a midline position.? The uterus measures 12.6 x 10.5 x 5.0 cm.? Normal uterine cervix.? The endometrium measures 17 mm in thickness, and is hyperechoic.? Small cystic areas within the endometrial canal..? There is no demonstrated endometrial mass.? There is a 7.2 x 7.7 x 5.9 cm posterior uterine fibroid.? Or less distinct fibroid measuring 4.9 x 3.7 x 3.6 cm.? This abuts the endometrial canal.? I.U.D. - The patient does not have an I.U.D. The right ovary is visualized.? The right ovary measures 3.7 x 2.6 x 1.6 cm.? There is a 1.6 x 2.0 x 1.4 cm dominant follicle.? There is no visualized right adnexal mass or complex lesion. There is normal arterial and normal venous vascularity. The left ovary is visualized.? The left ovary measures 4.7 x 2.7 x 1.8 cm. There are multiple follicles of the left ovary without a dominant cyst. There is no visualized left adnexal mass or complex lesion.? There is normal arterial and normal venous vascularity. There is no fluid in the cul-de-sac. The pre void volume of the bladder was 95 ml. The bladder appears grossly normal. Polycystic ovary disease:? No. US/Transvaginal Non- IMPRESSION: 1.? Fibroid uterus with small fibroid appears adjacent to the endometrial canal. 2.? Prominent endometrium was normal internal cystic changes. 3.? Dominant follicle versus cyst in the right ovary.? The left ovary is unremarkable. ? History ? 3? Elective abortions? Hx Para? 1? Spontaneous abortions? 2 Hx # Term Pregnancies? Ectopic pregnancies? Hx # Pregnancies? Multiple births? # of living children? Past Pregnancies Del. Date? Name? GA/Weeks? Outcome Route? Bth Weight? Infant Gen? Labor Lgth? Anesthesia? Del Locatn? Provider FOB Unknown? Child adopted? ROS Const ROS Unobtainable: All systems reviewed & are unremarkable except as noted in H Resp Resp: Reports system reviewed and no additional complaints, except as documented; Denies cough GI GI: Reports as per HPI Psych Psych: Reports system reviewed and no additional complaints, except as documented Exam Const General: cooperative, healthy appearing, comfortable and no acute distress Resp Effort & Inspection: normal respiratory effort Skin General: no rashes or lesions noted Psych Appearance: grossly normal Speech and Movement: speech and movement normal Coding Level of Care Code Off vis,est,level 4 Diagnoses Fibroid uterus? D25.9 Essential hypertension? I10 Heavy menses? N92.1 ? ? ? Menorrhagia type: with irregular cycle Assessment and Plan Assessment and Plan (1) Fibroid uterus: ?Status:?Acute ?Plan: After discussing the patient's diagnosis and treatment plan options, patient wishes to proceed with surgical management.? I have discussed with the patient the risks, benefits, and alternatives of the procedure which include but are notlimited to risks of anesthesia, bleeding, infection, possible damage to bowel, bladder, or surrounding vasculature which could lead to additional surgery to evaluate any complications.? Patient agrees to procedure and wishes to proceed.?ACOG/uptodate references given for additional information regarding procedure.? plan is to proceed with a Total robotic hysterectomy, bilateral salpingectomy (declines oophorectomy), resection of fibroids and cystoscopy. (2) Essential hypertension: ?Status:?Chronic ?Plan: pt to take beta brian am of surgery. (3) Heavy menses: ?Status:?Acute ?Qualifiers: ?Menorrhagia type:?with irregular cycle? Qualified Code(s):?N92.1 - Excessive and frequent menstruation with irregular cycle ? ? ? Medications: New oxycodone-acetaminophen 5-325 mg (Percocet)? 1 TAB? PO Q4H 7 days PRN 30 tabs 0RF pain? D25.9 - Leiomyoma of uterus, unspecified ? naproxen? 500 mg? PO BID PRN 30 tabs 0RF pain? ? ? 01/11/22 1715 <Electronically signed by Bee Ball DO> UPDATE- I have seen the patient and performed any clinically relevant updates to the history and physical exam. Bee Ball DO 03/08/22 1663 <Electronically signed by Bee Ball DO> Cosigner Signature (if applicable): CC: APRIL Rivero; Dr. Bee Ball DO~ Signed [facility] Work Phone: 1([phone]) 604-991601-17-2023 Procedure [facility] 07-08-2021 Evaluation note* Diagnosis Onset Date Resolution Status Atrial fibrillation with RVR July 08, 2021 acute Heavy menses acute Essential hypertension chron ic Acute maxillary sinusitis ac [place] Bilateral otitis media acute Atrial fibrillation with RVR July 08, 2021 acute Female climacteric state acu te Heavy menses acute Fibroid chronic [facility] Work Phone: [phone]) 343-295605-19-2022 Evaluation note* Diagnosis Onset Date Resolution Status Acute maxillary sinusitis ac [place] Bilateral otitis media acute Atrial fibrillation with RVR July 08, 2021 acute Female climacteric state acu te Heavy menses acute Fibroid chronic Fibroid uterus acute Heavy menses acute Essential hypertension chron ic [facility] Work Phone: [phone] 500-991505-19-2022 Evaluation note* Diagnosis Onset Date Resolution Status Acute maxillary sinusitis ac [place] Bilateral otitis media acute Atrial fibrillation with RVR July 08, 2021 acute Female climacteric state acu te Heavy menses acute Fibroid chronic Fibroid uterus acute Heavy menses acute Essential hypertension chron ic Anemia acute Atrial fibrillation with RVR July 08, 2021 acute Female climacteric state acu te Fibroid uterus acute Heavy menses acute Status post hysterectomy acu te Essential hypertension chron ic [facility] Work Phone: [phone]) 670-850204-08-2022 History of Present illness Narrative* Ms. BEE ESPINOZA, is a 50 year old female here [...] weight loss. No fevers/chills. No night sweats. * SH: * Tob: Former smoker. * ETOH: 2-3 glasses of wine/week * Here alone * By signing my name below, I, Britany Nelson, attest that this documentation has been prepared under the direction and in the presence of Dr. Abigail Siddiqui MD. * All medical record entries made by the Lamibdanilo were at my direction and personally dictated by me, Dr. Abigail Siddiqui. I have reviewed the chart and agree that the record accurately reflects my personal performance of the history, physical exam, discussion and plan. [facility] Work Phone: 1([phone]) 313-279104-08-2022 NotePROCEDURE DETAILS Preoperative Diagnosis: Submandibular sialoadenitis, right Postoperative Diagnosis: Submandibular sialoadenitis, right Surgeon: Abigail Siddiqui MD Resident/Fellow/Other Graphic Design Manager: MD Katie Procedure: 1. Right submandibular gland [...] precautions were utilized throughout the procedure. Dr. Siddiqui was present and participated in all critical portions of the above procedure. Attestation: Note Completion: I am a:Resident/Fellow Attending AttestationI was present for mcgowan portions of the procedure and the procedure lasted longer than 5 minutes. Electronic Signatures: Abigail Siddiqui) (Signed 01-Jun-2021 23:28) Authored: Post-Operative Note, Chart Review, Note Completion Co-Signer: Post-Operative Note, Chart Review, Note Completion Herve Wilson (Resident)) (Signed 28-May-2021 10:33) Authored: Post-Operative Note, Chart Review, Note Completion Last Updated: 01-Jun-2021 23:28 by Abigail Siddiqui)[facility]04-08-2022 NoteHistory of Present Illness: /Lactating: Are You no Are You Currently Breastfeedingno History Present Illness: Reason for surgery: right submandibular gland HPI: HPI: No significant changes to the medical history since last clinic visit with Dr. Siddiqui PMH: reviewed in chart Fam Hx: Reviewed [...] the note. I personally evaluated the patient [id number] Electronic Signatures: Abigail Siddiqui) (Signed 31-May-2021 12:18) Authored: Note Completion Co-Signer: History of Present Illness, Allergies, Home Medication Review, Impression/Procedure, ERAS, Physical Exam, Consent, Note Completion Herve Wilson (Resident)) (Signed 28-May-2021 07:56) Authored: History of Present Illness, Allergies, Home Medication Review, Impression/Procedure, ERAS, Physical Exam, Consent, Note Completion Last Updated: 31-May-2021 12:18 by Abigail Siddiqui)[facility]01-22-2022 History of Present illness Narrative* Ms. BEE ESPINOZA, is a 50 year old female here for a follow up regarding her floor of mouth swe lling. Last seen 03/13. Patient had a CT [...] a few months ago improved after abx. * SH: * Tob: Former smoker. * ETOH: 2-3 glasses of wine/week * Here alone * By signing my name below, SharmilaMervat Scribe, attest that this documentation has been prepared under the direction and in the presence of Dr. Abigail Siddiqui MD. * All medical record entries made by the Scribe were at my direction and personally dictated by me, Dr. Abigail Siddiqui. I have reviewed the chart and agree that the record accurately reflects my personal performance of the history, physical exam, discussion and plan. [facility] Work Phone: [phone] 362-664911-19-2021 History of Present illness Narrative* Ms. BEE ESPINOZA, is a 50 year old female here for a follow up regarding her floor of mouth swelling. Last seen 01/08. Patient reports her tongue is numb. feels No dysphagia or otalgia. Tolerating a soft but advancing to regular diet. Denies weight loss. No fevers/chills. No night sweats. * SH: * Tob: 3-4 cigs/day * ETOH: 2-3 glasses of wine/week * Here alone * By signing my name below, Sharmila Britany Nelson, attest that this documentation has been prepared under the direction and in the presence of Dr. Abigail Siddiqui MD. * All medical record entries made by the Scribe were at my direction and personally dictated by me, Dr. Abigail Siddiqui. I have reviewed the chart and agree that the record accurately reflects my personal performance of the history, physical exam, discussion and plan. [facility] Work Phone: [phone] 129-732911-19-2021 History of Present illness Narrative* Ms. BEE ESPINOZA, is a 50 year old female here for a follow up regarding her floor of mouth swelling. Last seen 01/08. She had excision of right FOM sublingual tissue 2019 (06/08 & 12/08). She has not been [...] weight loss. No fevers/chills. No night sweats. 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 * SH: * Tob: 3-4 cigs/day * ETOH: 2-3 glasses of wine/week * Here alone * By signing my name below, I, Mervat Lopez, Scribe, attest that this documentation has been prepared under the direction and in the presence of Dr. Abigail Siddiqui MD. * All medical record entries made by the Scribe were at my direction and personally dictated by me, Dr. Abigail Siddiqui. I have reviewed the chart and agree that the record accurately reflects my personal performance of the history, physical exam, discussion and plan. [facility] [address] Work Phone: Evaluation note* Diagnosis Mass of sternum Disorder of bone [...] documented in this encounter [facility] Work Phone: Evaluation note* Diagnosis Onset Date Resolution Status Atrial fibrillation with RVR acute Microcytic anemia acute Hypertension chronic [facility] Work Phone: Evaluation note* Diagnosis Onset Date Resolution Status Bilateral otitis media acute Essential hypertension chron ic Acute maxillary sinusitis ac [place] Cough acute [facility] Work Phone: Evaluation noteNo assessment information available [facility] Work Phone: Evaluation note* Diagnosis Onset Date Resolution Status Admit Date Fatigue acute October 18, 025 2:22pm Essential hypertension chronic Au 2024 2:22pm Hyperlipidemia chronic September 2:22pm Paroxysmal atrial fibrillation chron ic October 18, 2024 2:22pm [facility] Work Phone: Hospital Discharge instructions Additional Instructions Hemoglobin 10.9 today. 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 Expl anation Advance Directives and Living Will Power of Manager Category Documents on File Type Date Recorded Patient Canvas Worker Expl anation ACP-Advance Directive ACP-Power of Manager Category Advance Directive Response Recorded Date/ Time Living Will No July 08, 2021 6 :45pm Power of Manager Category No July 08, 2021 6:45pm Advance Directive Response Recorded Date/ Time Living Will No July 08, 2021 5 :45pm Power of Manager Category No July 08, 2021 5:45pm Advance Directive Response Recorded Date/ Time Living Will No January 19 022 10:35am Power of Manager Category No January 19, 2022 10:35am Advance Directive Response Recorded Date/ Time Living Will No February 24 8:45am Power of Manager Category No February 24 8:45am Advance Directive Response Recorded Date/ Time Living Will No March 08 12:44pm Power of Manager Category No March 08, 2022 12:44pm Advance Directive Response Recorded Date/ Time Living Will No November 05, 2022 12:13pm Power of Manager Category No October 12:13pm Advance Directive Response Recorded Date/ Time Living Will No November 05, 2022 11:13am Power of Manager Category No October 11:13am Family History No Family History Records Found [...] pertinent family history: Mother, Father(V49.89, Z78.9) Status:Active Relationship Condition Age at Onset Recorded Date/T aaron mother Hypertension Unknown Mitral valve disease Unknown brother Hypertension Unknown sister Atrial fibrillation Unknown Relationship Condition Age at Onset Recorded Date/T aaron mother Mitral valve disease Unknown brother Hypertension Unknown sister Atrial fibrillation Unknown Hypertension Unknown Chief Complaint follow upsubmandibular gland stonespost op Summary Purpose Chief Complaint and Reason for Visit Chief Complaint PAF WITH RVR Reason for Visit Atrial fibrillation with RVR Microcytic anemia Hypertension Chief Complaint Amb Documentation AFIB W/ RVR Sore throat sinus & ears New pt, heavy painful periods SCREENING Reason for Visit Atrial fibrillation with RVR Heavy menses Essential hypertension Acute maxillary sinusitis Bilateral otitis media Atrial fibrillation with RVR Female climacteric state Heavy menses Fibroid Chief Complaint Amb Documentation AFIB W/ RVR Sore throat sinus & ears New pt, heavy painful periods SCREENING LT BREAST ABN MAMM Reason for Visit Atrial fibrillation with RVR Heavy menses Essential hypertension Acute maxillary sinusitis Bilateral otitis media Atrial fibrillation with RVR Female climacteric state Heavy menses Fibroid Chief Complaint Sore throat sinus & ears New pt, heavy painful periods SCREENING LT BREAST ABN MAMM robotic hyst lap robotic hyster, bilateral salping lap robotic hyster, bilateral salping VENOFER 300MG VENOFER 300MG Reason for Visit Acute maxillary sinu sitis Bilateral otitis media Atrial fibrillation with RVR Female climacteric state Heavy menses Fibroid Fibroid uterus Heavy menses Essential hypertension Chief Complaint Sore throat sinus & ears New pt, heavy painful periods SCREENING LT BREAST ABN MAMM robotic hyst lap robotic hyster, bilateral salping lap robotic hyster, bilateral salping VENOFER 300MG VENOFER 300MG VENOFER 300MG Reason for Visit Acute maxillary sinu sitis Bilateral otitis media Atrial fibrillation with RVR Female climacteric state Heavy menses Fibroid Fibroid uterus Heavy menses Essential hypertension Chief Complaint Sore throat sinus & ears New pt, heavy painful periods SCREENING LT BREAST ABN MAMM robotic hyst lap robotic hyster, bilateral salping lap robotic hyster, bilateral salping VENOFER 300MG VENOFER 300MG VENOFER 300MG ABN LABS Reason for Visit Acute maxillary sinu sitis Bilateral otitis media Atrial fibrillation with RVR Female climacteric state Heavy menses Fibroid Fibroid uterus Heavy menses Essential hypertension Chief Complaint Sore throat sinus & ears New pt, heavy painful periods SCREENING LT BREAST ABN MAMM robotic hyst lap robotic hyster, bilateral salping lap robotic hyster, bilateral salping VENOFER 300MG VENOFER 300MG VENOFER 300MG ABN LABS ERAS, LAP ROBOTIC HYSTER, VALERIE SALPING ERAS, LAP ROBOTIC HYSTER, VALERIE SALPING ERAS, LAP ROBOTIC HYSTER, VALERIE SALPING Reason for Visit Acute maxillary sinu sitis Bilateral otitis media Atrial fibrillation with RVR Female climacteric state Heavy menses Fibroid Fibroid uterus Heavy menses Essential hypertension Anemia Atrial fibrillation with RVR Female climacteric state Fibroid uterus Heavy menses Status post hysterectomy Essential hypertension Chief Complaint medication refills Sinus infection LOWER EXT Reason for Visit Bilateral otitis med ia Essential hypertension Acute maxillary sinusitis Cough Chief Complaint PRE OP PRE OP Chief Complaint Admit Date SCREENING October 18, 2024 1: 53pm 6 M FU October 18, 2024 2: 22pm Reason for Visit Admit Date Fatigue October 18, 2024 2: 22pm Essential hypertension October 18, 2024 2:22pm Hyperlipidemia October 18, 2024 2: 22pm Paroxysmal atrial fibrillation October 182024 2:22pm Additional Source Comments Care Teams (unrecognized sec tion and content) Team Status: Active Member Role Status Dates Sobeida Rivero THREAD TOOL GRINDER SET UP OPERATOR, THREAD TOOL GRINDER SET UP OPERATOR-C Primary Care Provider Active Team Status: Active Member Role Status Dates Sobeida Rivero NP, THREAD TOOL GRINDER SET UP OPERATOR-C Primary Care Provider Active Dr. Jonny Hendricks MD Attending Provider Active Dr. Hardik Wiley DO Referring Provider Active Team Status: Inactive Member Role Status Dates Sobeida Rivero NP, THREAD TOOL GRINDER SET UP OPERATOR-C Primary Care Provider Active Dr. Hardik Wiley DO Attending Provider, Referrin g Provider Active [employer] Supervisor Relationship Specialty Start Date End Date Gerald Baird MD [address], [place] [address] PCP - General Family Medicine 07/27/17 Team Status: Inactive Member Role Status Dates Dr. Gerald Baird MD Referring Provider Active Dr. Bee Ball DO Attending Provider Activ e Sobeida Rivero THREAD TOOL GRINDER SET UP OPERATOR, THREAD TOOL GRINDER SET UP OPERATOR-C Primary Care Provider Active Team Status: Inactive Member Role Status Dates Sobeida Rivero THREAD TOOL GRINDER SET UP OPERATOR, THREAD TOOL GRINDER SET UP OPERATOR-C Primary Care Provider, Referr ing Provider Active Dr. Bee Ball DO Attending Provider Activ e Team Status: Active Member Role Status Dates Sobeida Rivero THREAD TOOL GRINDER SET UP OPERATOR, THREAD TOOL GRINDER SET UP OPERATOR-C Primary Care Provider Active Dr. Bee Ball DO Attending Provider, Othe r Provider Active Team Status: Active Member Role Status Dates Sobeida Rivero THREAD TOOL GRINDER SET UP OPERATOR, THREAD TOOL GRINDER SET UP OPERATOR-C Primary Care Provider Active Dr. Bee Ball DO Attending Provider, Referring Provider, Other Provider Active Team Status: Active Member Role Status Dates Sobeida Rivero THREAD TOOL GRINDER SET UP OPERATOR, THREAD TOOL GRINDER SET UP OPERATOR-C Primary Care Provider Active Dr. Bee Ball DO Admit Prov ider, Attending Provider, Referring Provider, Other Provider Active Team Status: Inactive Member Role Status Dates Sobeida Rivero THREAD TOOL GRINDER SET UP OPERATOR, THREAD TOOL GRINDER SET UP OPERATOR-C Primary Care Pr ovider, Attending Provider, Referring Provider Active Team Status: Inactive Member Role Status Dates Sobeida Rivero THREAD TOOL GRINDER SET UP OPERATOR, THREAD TOOL GRINDER SET UP OPERATOR-C Primary Care Provider Active Dr. Bee Ball DO Attending Provider, Refe rring Provider Active Team Status: Inactive Member Role Status Dates Sobeida Rivero THREAD TOOL GRINDER SET UP OPERATOR, THREAD TOOL GRINDER SET UP OPERATOR-C Primary Care Provider Active Dr. Bee Ball DO Attending Provider Activ e Team Status: Inactive Member Role Status Dates Sobeida Rivero THREAD TOOL GRINDER SET UP OPERATOR, THREAD TOOL GRINDER SET UP OPERATOR-C Primary Care Provider Active Yi Huang CNM Attending Provider, Referring Pr ovider Active Dr. Bee Ball DO Other Provider Active Team Status: Inactive Member Role Status Dates Sobeida iRvero THREAD TOOL GRINDER SET UP OPERATOR, THREAD TOOL GRINDER SET UP OPERATOR-C Primary Care Provider Active Dr. Estuardo Camp DO Attending Provider, Emergency Provide r Active Team Status: Inactive Member Role Status Dates Sobeida Rivero THREAD TOOL GRINDER SET UP OPERATOR, THREAD TOOL GRINDER SET UP OPERATOR-C Primary Care Provider Active Dr. Bee Ball DO Admit Prov ider, Attending Provider, Referring Provider Active Team Status: Inactive Member Role Status Dates Sobeida Rivero THREAD TOOL GRINDER SET UP OPERATOR, THREAD TOOL GRINDER SET UP OPERATOR-C Primary Care Provider Active Dr. Jesus Hair DO Emergency Provider Active Team Status: Active Member Role/Relationship Status Dates Sobeida Rivero THREAD TOOL GRINDER SET UP OPERATOR, THREAD TOOL GRINDER SET UP OPERATOR-C Primary Care Provider Active Team Status: Active Member Role/Relationship Status Dates Sobeida Rivero THREAD TOOL GRINDER SET UP OPERATOR, THREAD TOOL GRINDER SET UP OPERATOR-C Primary Care Provider Active Start: October 18, 2024 Dr. Bee Ball DO Attending Provider Activ e Start: October 18, 2024 Dr. Bee Ball DO Referring Provider Activ e Start: October 18, 2024 Team Status: Inactive Member Role/Relationship Status Dates Sobeida Rivero THREAD TOOL GRINDER SET UP OPERATOR, THREAD TOOL GRINDER SET UP OPERATOR-C Primary Care Provider Active Start: October 18, 2024 End: October 18, 2024 Sobeida Rivero THREAD TOOL GRINDER SET UP OPERATOR, THREAD TOOL GRINDER SET UP OPERATOR-C Referring Provider Active Start: October 18, 2024 End: October 18, 2024 Dr. Jonny Hendricks MD Attending Provider Active Start: October 18, 2024 End: October 18, 2024 INFORMATION SOURCE (unrecogn ized section and content) DATE CREATED AUTHOR 06/04/2021 [facility] DATE CREATED AUTHOR AUTHOR'S ORGANIZ ATION 06/16/2021 [facility] DATE CREATED AUTHOR AUTHOR'S ORGANIZ ATION 06/16/2021 [employer] DATE CREATED AUTHOR AUTHOR'S ORGANIZ ATION 01/10/2022 [facility] DATE CREATED AUTHOR AUTHOR'S ORGANIZ ATION 02/03/2023 [facility] DATE CREATED AUTHOR AUTHOR'S ORGANIZ ATION 10/20/2024 [facility] Goals (unrecognized section and content) Goals may be documented in a n alternate sectionGoals may be documented in an alternate sectionGoals may be documented in an alternate sectionGoals may be documented in an alternate sectionGoals may be documented in an alternate sectionGoals may be documented in an alternate sectionGoals may be documented in an alternate sectionGoals may be documented in an alternate sectionGoals may be documented in an alternate sectionGoals may be documented in an alternate sectionGoals may be documented in an alternate section FOR RECORDS PERTAINING TO PATIENTS WHO ARE [...] BE BASED ON THE PRIMARY CLINICAL RECORDS. [facility]. provides no warranty or guarantee of the accuracy or completeness of information in this document.
[2024-10-21 10:33] LABS: Hematocrit 43.0 % (37-47); Hemoglobin 15.0 g/dL (12.0-15.0); Immature Granulocytes Count 0.030 X10^3/uL (0.0-0.0); Mean Corp Hgb Conc 34.9 g/dL (32-36); Mean Corpuscular Volume 84.6 fL (81-99); Mean Platelet Vol. 10.0 fl (6.2-12.0); NRBC Flagged by Analyzer 0 % (0-5); Platelet Count 331 K/mm3 (150-450); RBC Distribution Width CV 11.9 % (11.6-14.6); RBC Distribution Width SD 36.5 fl (35.1-43.9); Red Blood Count 5.08 M/mm3 (4.2-5.4); White Blood Count 7.2 K/mm3 (4.4-11.0)
[2024-10-21 12:44] LABS: AST(SGOT) 24 U/L (<=31); Alanine Aminotransfer ALT/SGPT 28 U/L (<=34); Albumin, Serum 4.4 g/dL (3.5-5.0); Alkaline Phosphatase 94 U/L (35-104); Anion Gap 13 (5-15); BUN 11 mg/dL (4-19); BUN/Creat Ratio 14.1 RATIO (10-20); Calcium,Total 9.8 mg/dL (7.6-11.0); Carbon Dioxide 24.4 mmol/L (21.0-32.0); Chloride 102 mmol/L (98-108); Globulin 2.9 g/dL (2.2-4.2); Glucose 111 mg/dL (70-99); Magnesium 2.0 mg/dL (1.5-2.2); Potassium 4.4 mmol/L (3.3-5.1); T4 Total, Thyroxin 6.0 ug/dL (4.8-13.9)
== END | disposition home or self-care (01) ==
LOC: LAB 10:22
PROVIDERS: PCP Nurse Practitioner; Visit Provider Internal Medicine Cardiovascular Disease
DX: I10 Essential (primary) hypertension (principal); I48.0 Paroxysmal atrial fibrillation; E78.5 Hyperlipidemia, unspecified; R53.83 Other fatigue
CPT/HCPCS: 36415; 80053; 83735; 84436; 84443; 85025

== ENCOUNTER → 2025-01-20 | Outpatient (CLI) | payer OTHER, SELFPAY ==
[2025-01-20 12:23] LABS: Cholesterol 225 mg/dL (<=200); Low Density Lipoprotein Calc. 136 mg/dL; Triglycerides 131 mg/dL; Very Low Density Lipoprotein 26 mg/dL (5-40); cholesterol:hdl ratio screen 3.40
== END | disposition home or self-care (01) ==
LOC: LAB 10:49
PROVIDERS: PCP Nurse Practitioner; Referring Provider Student in an Organized Health Care Education/Training Program; Visit Provider Student in an Organized Health Care Education/Training Program
DX: E78.00 Pure hypercholesterolemia, unspecified (principal)
CPT/HCPCS: 36415; 80061